=== PATIENT | male | born 1955 | race American Indian/Alaskan Native ===

== ENCOUNTER 2017-08-11 11:59 | Inpatient (IN) | payer MEDICAID ==
--- NOTE | 2017-08-11 13:41 | Emergency Department Report ---
ED General Adult HPI - General Chief complaint: Pain General Stated complaint: MISSED DIALYSIS TREATMENT Time Seen by Provider: 08/11/17 13:22 Source: patient, EMS Mode of arrival: Stretcher Limitations: No Limitations - History of Present Illness Initial comments: 61-year-old male history of diabetes and hypertension has been on hemodialysis for 8 years moved to [place] month ago seen Dr. Syed for kidney disease in the hospital here his last dialysis was a week ago he says the transport forgot to picked him up on his 2 days this week he is here for evaluation of not feeling well after he missed dialysis twice this week, no cp, no other complaints. Did have a recent knee procedure on the left distally the foot has chronic neuropathy with foot drop but is normal in appearance of ischemia or compartment syndrome or appreciated -: Gradual Radiation: non-radiation Consistency: intermittent Improves with: none Worsens with: none Associated Symptoms: denies other symptoms, malaise, shortness of breath. denies: confusion, chest pain, cough, diaphoresis, fever/chills, headaches, loss of appetite, rash, seizure, syncope, weakness - Related Data Home Medications Medication Instructions Recorded Confirmed Last Taken Calcium Acetate [Phoslo] 1,334 mg PO TID 08/02/17 08/02/17 Unknown Clopidogrel [Plavix] 75 mg PO DAILY 08/02/17 08/02/17 Unknown Pregabalin [Lyrica] 50 mg PO DAILY 08/02/17 08/02/17 Unknown Sertraline [Zoloft] 100 mg PO QDAY 08/02/17 08/02/17 Unknown Vitamin D2 50,000 units PO 1XW 08/02/17 08/02/17 Unknown Zolpidem [Ambien] 10 mg PO QHS 08/02/17 08/02/17 2 Days Ago ~07/31/17 oxyCODONE /ACETAMINOPHEN [Percocet 1 tab PO Q4-6H PRN 08/02/17 08/02/17 Unknown 5/325 mg] Previous Rx's Medication Instructions Recorded Last Taken Type amLODIPine [Norvasc] 10 mg PO QDAY #30 tablet 08/06/17 Unknown Rx Allergies Allergy/AdvReac Type Severity Reaction Status Date / Time contrast dye AdvReac Severe Rash Uncoded 08/01/17 20:48 ED Review of Systems ROS: Stated complaint: MISSED DIALYSIS TREATMENT Other details as noted in HPI Comment: All other systems reviewed and negative Constitutional: denies: diaphoresis, fever, malaise ENT: denies: dental pain, hearing loss, epistaxis Respiratory: shortness of breath. denies: cough, SOB with exertion, SOB at rest , stridor, wheezing Cardiovascular: denies: chest pain, palpitations, dyspnea on exertion, orthopnea , edema, syncope, paroxysmal nocturnal dyspnea Gastrointestinal: denies: abdominal pain, vomiting, diarrhea, constipation, hematemesis, melena, hematochezia Musculoskeletal: denies: back pain, joint swelling, arthralgia, myalgia Neurological: weakness. denies: headache, confusion, abnormal gait, vertigo Psychiatric: anxiety. denies: auditory hallucinations, visual hallucinations, homicidal thoughts ED Past Medical Hx - Past Medical History Hx Hypertension: Yes Hx Diabetes: Yes Hx Renal Disease: Yes Hx Arthritis: Yes Additional medical history: HEP B, RECTAL TEAR, NEUROPATHY, RBKA, LT TIBIA FX, ESRD - Surgical History Additional Surgical History: right BKA - Social History Smoking Status: Never Smoker Substance Use Type: None - Medications Home Medications: Home Medications Medication Instructions Recorded Confirmed Last Taken Type Calcium Acetate [Phoslo] 1,334 mg PO TID 08/02/17 08/02/17 Unknown History Clopidogrel [Plavix] 75 mg PO DAILY 08/02/17 08/02/17 Unknown History Pregabalin [Lyrica] 50 mg PO DAILY 08/02/17 08/02/17 Unknown History Sertraline [Zoloft] 100 mg PO QDAY 08/02/17 08/02/17 Unknown History Vitamin D2 50,000 units PO 1XW 08/02/17 08/02/17 Unknown History Zolpidem [Ambien] 10 mg PO QHS 08/02/17 08/02/17 2 Days Ago History ~07/31/17 oxyCODONE /ACETAMINOPHEN [Percocet 1 tab PO Q4-6H PRN 08/02/17 08/02/17 Unknown History 5/325 mg] amLODIPine [Norvasc] 10 mg PO QDAY #30 tablet 08/06/17 Unknown Rx ED Physical Exam - General Limitations: No Limitations General appearance: alert, anxious - Head Head exam: Present: atraumatic, normocephalic - Eye Eye exam: Present: PERRL, EOMI - ENT ENT exam: Present: normal exam, normal orophraynx - Neck Neck exam: Present: normal inspection. Absent: tenderness, meningismus - Respiratory Respiratory exam: Present: respiratory distress, rhonchi. Absent: stridor, accessory muscle use - Cardiovascular Cardiovascular Exam: Present: regular rate, normal rhythm - GI/Abdominal GI/Abdominal exam: Present: soft. Absent: tenderness, guarding, rebound, rigid , mass, pulsatile mass - Extremities Exam Extremities exam: Present: pedal edema, other (BKA on the right left knee immobilizer on the left side or recent traumatic injury to the knee compartments are soft chronic peripheral neuropathy with foot drop). Absent: calf tenderness - Back Exam Back exam: Present: normal inspection. Absent: CVA tenderness (L), muscle spasm , paraspinal tenderness, vertebral tenderness - Neurological Exam Neurological exam: Present: alert, oriented X3, CN II-XII intact. Absent: motor sensory deficit - Psychiatric Psychiatric exam: Present: anxious - Skin Skin exam: Present: normal color. Absent: cyanosis, diaphoretic, erythema, urticaria, vesicles, petechiae ED Course Vital Signs 08/11/17 12:06 Temperature 98.5 F Pulse Rate 75 Respiratory 16 Rate Blood Pressure 129/83 O2 Sat by Pulse 96 Oximetry ED Medical Decision Making - Lab Data Result diagrams: 08/11/17 14:25 08/11/17 14:25 - EKG Data -: EKG Interpreted by Me - EKG Data 08/11/17 15:08 Junctional rhythm rate F F 08/11/17 15:09 ischemic change. peaked T waves - Radiology Data Radiology results: report reviewed - Medical Decision Making Dr. Syed was notified and he will order dialysis orders case was discussed Dr. Shell hospitalist service for admit end-stage renal disease who has missed dialysis all week he does K of 8.3 EKG does have a junctional rhythm he was given calcium bicarbonate insulin and glucose and albuterol and will need emergent dialysis discussed Dr. Syed will write dialysis orders patient for admit pressure was stable Critical care attestation.: If time is entered above; I have spent that time in minutes in the direct care of this critically ill patient, excluding procedure time. ED Disposition Clinical Impression: ESRD on hemodialysis, Hyperkalemia, Dyspnea Disposition: OP ADMIT IP TO THIS HOSP Is pt being admited?: Yes Condition: Stable Referrals: PRIMARY CARE, [Primary Care Provider] - 3-5 Days Time of Disposition: 15:12
--- NOTE | 2017-08-11 14:25 | XRay Report ---
FINAL REPORT EXAM: XR CHEST 1V AP HISTORY: esrd TECHNIQUE: Frontal chest x-ray. PRIORS: Chest x-ray August 01, 2017. FINDINGS: [id number] cardiomegaly is stable. Aortic calcifications. Prominent central pulmonary markings. No pneumothorax. No left effusion. Ill-defined opacity in the lateral left midlung. Ill-defined opacity in the right lower lobe may represent small to moderate right pleural effusion with adjacent area of focal subsegmental atelectasis or infiltrate. There are no suspicious osseous lesions. IMPRESSION: Stable cardiomegaly. Pulmonary vascular congestion with mild pulmonary edema. Findings could be related to renal disease or heart failure. Please correlate clinically. Focal infiltrate or subsegmental atelectasis in the lateral left midlung. Not evident on prior. Small to moderate right pleural effusion with adjacent focal area of subsegmental atelectasis or infiltrate. Similar to prior.
[2017-08-11 14:44] LABS: Basophils # (Auto) 0.1 K/mm3 (0.0-0.1); Basophils % (Auto) 1.4 % (0.0-1.8); Eosinophils # (Auto) 0.2 K/mm3 (0.0-0.4); Eosinophils % (Auto) 3.3 % (0.0-4.3); Hematocrit 31.3 % (35.5-45.6); Hemoglobin 9.7 gm/dl (11.8-15.2); Lymphocytes # (Auto) 0.8 K/mm3 (1.2-5.4); Lymphocytes % (Auto) 11.6 % (13.4-35.0); Mean Corpuscular HGB Conc 31 % (32-34); Mean Corpuscular Hemoglobin 30 pg (28-32); Mean Corpuscular Volume 97 fl (84-94); Monocytes # (Auto) 0.4 K/mm3 (0.0-0.8); Monocytes % (Auto) 5.9 % (0.0-7.3); Platelet Count 159 K/mm3 (140-440); Red Blood Count 3.23 M/mm3 (3.65-5.03)
[2017-08-11] MEDS ORDERED: MORPHINE IV ONE (14:51)
[2017-08-11] MEDS ORDERED: ZOFRAN IV ONE (14:51)
[2017-08-11 14:58] LABS: Albumin 3.1 g/dL (3.9-5); Calcium 8.2 mg/dL (8.4-10.2)
[2017-08-11] MEDS ORDERED: D50W (25GM) Vial IV ONE (15:02)
[2017-08-11] MEDS ORDERED: CALCIUM GLUCONATE 1,000 MG in NACL 0.9% 100 ML IV ONE (15:02)
[2017-08-11] MEDS ORDERED: PROVENTIL IH ONE ×2 (15:03→15:13)
[2017-08-11] MEDS ORDERED: HumuLIN R IV ONE (15:03)
[2017-08-11] MEDS ORDERED: PROVENTIL IH PRN (15:09)
[2017-08-11] MEDS ORDERED: ZOFRAN IV PRN (15:09)
[2017-08-11] MEDS ORDERED: TYLENOL PO PRN (15:09)
[2017-08-11] MEDS ORDERED: SODIUM CHLORIDE FLUSH SYRINGE 10 ML IV PRN (15:09)
[2017-08-11] MEDS ORDERED: PERCOCET 5/325 PO PRN (15:11)
[2017-08-11] MEDS ORDERED: D50W (25GM) Syringe IV ONE (15:12)
[2017-08-11] MEDS ORDERED: HumuLIN R ONE (15:14)
--- NOTE | 2017-08-11 15:14 | History and Physical Report ---
History of Present Illness Chief complaint: I feel sick History of present illness: 61 YO Male with HTN, DM, OA, HBV, ESRD on HD(T,R,Sa ) presents to ED for evaluation. Pt states that he has experienced shortness of breath, weakness over the past week, with worsening symptoms over the past 2 days. Pt states that he was last dialyzed on Sunday, and has missed 2 dialysis sessions. Pt seen and evaluated in ED and found to have fluid overload. Pt denies fever, chills, CP, Palpitations, NVD, Syncope, Trauma, BRBPR, Unintentional weight loss , night sweats. Nephrology consulted in ED. Pt admitted to medical floor. Past History Past Medical History: arthritis, diabetes, ESRD, hepatitis, hypertension Past Surgical History: Other (Right BKA) Social history: single. denies: smoking, alcohol abuse, prescription drug abuse Family history: diabetes, hypertension Medications and Allergies Allergies Allergy/AdvReac Type Severity Reaction Status Date / Time contrast dye AdvReac Severe Rash Uncoded 08/01/17 20:48 Home Medications Medication Instructions Recorded Confirmed Last Taken Type Calcium Acetate [Phoslo] 1,334 mg PO TID 08/02/17 08/02/17 Unknown History Clopidogrel [Plavix] 75 mg PO DAILY 08/02/17 08/02/17 Unknown History Pregabalin [Lyrica] 50 mg PO DAILY 08/02/17 08/02/17 Unknown History Sertraline [Zoloft] 100 mg PO QDAY 08/02/17 08/02/17 Unknown History Vitamin D2 50,000 units PO 1XW 08/02/17 08/02/17 Unknown History Zolpidem [Ambien] 10 mg PO QHS 08/02/17 08/02/17 2 Days Ago History ~07/31/17 oxyCODONE /ACETAMINOPHEN [Percocet 1 tab PO Q4-6H PRN 08/02/17 08/02/17 Unknown History 5/325 mg] amLODIPine [Norvasc] 10 mg PO QDAY #30 tablet 08/06/17 Unknown Rx Active Meds: Active Medications Acetaminophen (Tylenol) 650 mg PO Q4H PRN PRN Reason: Pain MILD(1-3)/Fever >100.5/MAE Albuterol (Proventil) 2.5 mg IH Q4HRT PRN PRN Reason: Shortness Of Breath Amlodipine Besylate (Norvasc) 10 mg PO QDAY REPLACED BY [facility] Calcium Acetate (Phoslo) 1,334 mg PO TID REPLACED BY [facility] Clopidogrel Bisulfate (Plavix) 75 mg PO DAILY REPLACED BY [facility] Miscellaneous Medication (Pregabalin [Lyrica]) 50 mg PO DAILY REPLACED BY [facility] Miscellaneous Medication (Vitamin D2) 50,000 units PO 1XW REPLACED BY [facility] Ondansetron HCl (Zofran) 4 mg IV Q8H PRN PRN Reason: Nausea And Vomiting Oxycodone/Acetaminophen (Percocet 5/325) 1 tab PO Q4-6H PRN PRN Reason: Pain Sertraline HCl (Zoloft) 100 mg PO QDAY REPLACED BY [facility] Sodium Chloride (Sodium Chloride Flush Syringe 10 Ml) 10 ml IV BID REPLACED BY [facility] Sodium Chloride (Sodium Chloride Flush Syringe 10 Ml) 10 ml IV PRN PRN PRN Reason: LINE FLUSH Zolpidem Tartrate (Ambien) 10 mg PO QHS REPLACED BY [facility] Review of Systems Constitutional: weakness, no weight loss, no weight gain, no fever, no chills Ears, nose, mouth and throat: no ear pain, no ear discharge, no tinnitis, no decreased hearing, no nose pain, no nasal congestion, no nasal discharge Cardiovascular: shortness of breath, no chest pain, no orthopnea, no palpitations, no rapid/irregular heart beat, no edema Respiratory: shortness of breath, no cough, no cough with sputum, no excessive sputum Gastrointestinal: no abdominal pain, no nausea, no vomiting, no diarrhea, no constipation, no change in bowel habits Rectal: no pain, no incontinence, no bleeding Musculoskeletal: no neck stiffness, no neck pain, no shooting arm pain, no arm numbness/tingling, no low back pain, no shooting leg pain Integumentary: no rash, no pruritis, no redness, no sores, no wounds, no jaundice, no boils Neurological: no transient paralysis, no paralysis, no parathesias, no numbness , no tingling, no seizures, no syncope, no tremors Psychiatric: no anxiety, no memory loss, no change in sleep habits, no sleep disturbances, no insomnia, no hypersomnia, no change in appetite, no change in libido Endocrine: no cold intolerance, no heat intolerance, no polyphagia, no excessive thirst, no polydipsia, no polyuria Hematologic/Lymphatic: no easy bruising, no easy bleeding, no lymphadenopathy, no lymphedema Allergic/Immunologic: no urticaria, no allergic rhinitis, no wheezing, no persistent infections, no anaphylaxis Exam - Constitutional Vitals: Temp Pulse Resp BP Pulse Ox 98.5 F 75 16 129/83 96 08/11/17 12:06 08/11/17 12:06 08/11/17 12:06 08/11/17 12:06 08/11/17 12:06 General appearance: Present: mild distress - EENT Eyes: Present: PERRL ENT: hearing intact, clear oral mucosa - Neck Neck: Present: supple, normal ROM - Respiratory Respiratory effort: normal Respiratory: bilateral: diminished, rhonchi - Cardiovascular Heart Sounds: Present: S1 & S2. Absent: rub, click - Extremities Extremities: pulses symmetrical, No edema Extremity abnormal: edema Peripheral Pulses: within normal limits - Abdominal General gastrointestinal: Present: soft, non-tender, non-distended, normal bowel sounds Male genitourinary: Present: normal - Integumentary Integumentary: Present: clear, warm, dry - Musculoskeletal Musculoskeletal: gait normal, strength equal bilaterally - Psychiatric Psychiatric: appropriate mood/affect, intact judgment & insight - Neurologic Neurologic: CNII-XII intact, moves all extremities Results - Labs CBC & Chem 7: 08/11/17 14:25 08/11/17 14:25 Labs: Abnormal lab results 08/11/17 08/11/17 Range/Units 14:25 14:25 RBC 3.23 L (3.65-5.03) M/mm3 Hgb 9.7 L (11.8-15.2) gm/dl Hct 31.3 L (35.5-45.6) % MCV 97 H (84-94) fl MCHC 31 L (32-34) % RDW 17.0 H (13.2-15.2) % Lymph % (Auto) 11.6 L (13.4-35.0) % Lymph # 0.8 L (1.2-5.4) K/mm3 Seg Neutrophils % 77.8 H (40.0-70.0) % Potassium 8.3 H* (3.6-5.0) mmol/L BUN 65 H (9-20) mg/dL Creatinine 7.6 H (0.8-1.5) mg/dL Calcium 8.2 L (8.4-10.2) mg/dL AST 41 H (5-40) units/L Alkaline Phosphatase 184 H (35-129) units/L Albumin 3.1 L (3.9-5) g/dL Assessment and Plan - Patient Problems (1) ESRD on hemodialysis Current Visit: Yes Status: Acute Plan to address problem: Nephrology consulted in ED, dialysis as per renal team, strict I/O, monitor uop q shift, monitor fluid balance. (2) HTN (hypertension) Current Visit: Yes Status: Acute Qualifiers: Hypertension type: essential hypertension Qualified Code(s): I10 - Essential (primary) hypertension Plan to address problem: monitor bp q shift, resume prehospital antihypertensive therapy, dialysis (3) Hepatitis B Current Visit: Yes Status: Acute Qualifiers: Viral hepatitis chronicity: chronic Plan to address problem: Outpatient GI f/u (4) Fluid overload Current Visit: Yes Status: Acute Qualifiers: Hypervolemia type: other Qualified Code(s): E87.79 - Other fluid overload Plan to address problem: Strict I/O, monitor uop q shift, supportive care, dialysis as per renal team. (5) Noncompliance Current Visit: Yes Status: Acute Plan to address problem: Patient counseled regarding dialysis noncompliance, (6) Diabetes Current Visit: No Status: Acute Plan to address problem: consistent carbohydrate diet, insulin, accu check (7) Hyperkalemia Current Visit: Yes Status: Acute Plan to address problem: Calcium Acetate, bicarbonate, urgent dialysis, (8) DVT prophylaxis Current Visit: Yes Status: Acute Plan to address problem: SCD to BLE while in bed
[2017-08-11] MEDS ORDERED: VITAMIN D2 50000 UNIT PO SCH (15:15)
[2017-08-11] MEDS ORDERED: MORPHINE ONE (15:17)
[2017-08-11] MEDS ORDERED: ZOFRAN ONE (15:18)
[2017-08-11] MEDS ORDERED: SODIUM BICARBONATE IV ONE ×6 (15:18→16:00)
[2017-08-11] MEDS ORDERED: NACL 0.9% 100 ML IV PRN (16:10)
--- NOTE | 2017-08-11 16:10 | Event Note ---
Case was discussed with emergency room physician at length, patient has been seen in the past with our group, chart was reviewed labs are reviewed old records were also reviewed Patient has not been dialyzed properly and hence we will place dialysis orders
--- NOTE | 2017-08-11 16:15 | Consultation ---
History of Present Illness - History of Present Illness assessment and plan End-stage renal disease: Noncompliant patient Hyperkalemia: Medically treated need start dialysis Hypertension volume: To monitor and follow Stat dialysis needed today Past History Past Medical History: arthritis, diabetes, ESRD, hepatitis, hypertension Past Surgical History: Other (Right BKA) Social history: single. denies: smoking, alcohol abuse, prescription drug abuse Family history: diabetes, hypertension Medications and Allergies Allergies Allergy/AdvReac Type Severity Reaction Status Date / Time contrast dye AdvReac Severe Rash Uncoded 08/01/17 20:48 Home Medications Medication Instructions Recorded Confirmed Last Taken Type Calcium Acetate [Phoslo] 1,334 mg PO TID 08/02/17 08/02/17 Unknown History Clopidogrel [Plavix] 75 mg PO DAILY 08/02/17 08/02/17 Unknown History Pregabalin [Lyrica] 50 mg PO DAILY 08/02/17 08/02/17 Unknown History Sertraline [Zoloft] 100 mg PO QDAY 08/02/17 08/02/17 Unknown History Vitamin D2 50,000 units PO 1XW 08/02/17 08/02/17 Unknown History Zolpidem [Ambien] 10 mg PO QHS 08/02/17 08/02/17 2 Days Ago History ~07/31/17 oxyCODONE /ACETAMINOPHEN [Percocet 1 tab PO Q4-6H PRN 08/02/17 08/02/17 Unknown History 5/325 mg] amLODIPine [Norvasc] 10 mg PO QDAY #30 tablet 08/06/17 Unknown Rx Active Meds: Active Medications Acetaminophen (Tylenol) 650 mg PO Q4H PRN PRN Reason: Pain MILD(1-3)/Fever >100.5/MAE Albuterol (Proventil) 2.5 mg IH Q4HRT PRN PRN Reason: Shortness Of Breath Amlodipine Besylate (Norvasc) 10 mg PO QDAY [facility] Calcium Acetate (Phoslo) 1,334 mg PO TID [facility] Clopidogrel Bisulfate (Plavix) 75 mg PO DAILY [facility] Ergocalciferol (Vitamin D2) 50,000 unit PO QWEEK [facility] Sodium Chloride (Nacl 0.9%) 100 mls @ 999 mls/hr IV ANMOL PRN PRN Reason: Hypotension Ondansetron HCl (Zofran) 4 mg IV Q8H PRN PRN Reason: Nausea And Vomiting Oxycodone/Acetaminophen (Percocet 5/325) 1 tab PO Q4H PRN PRN Reason: Pain Pregabalin (Lyrica) 50 mg PO DAILY [facility] Sertraline HCl (Zoloft) 100 mg PO QDAY [facility] Sodium Chloride (Sodium Chloride Flush Syringe 10 Ml) 10 ml IV BID [facility] Sodium Chloride (Sodium Chloride Flush Syringe 10 Ml) 10 ml IV PRN PRN PRN Reason: LINE FLUSH Zolpidem Tartrate (Ambien) 10 mg PO QHS [facility] Exam - Vital Signs Vital signs: Vital Signs Temp Pulse Resp BP Pulse Ox 98.5 F 75 16 129/83 96 08/11/17 12:06 08/11/17 12:06 08/11/17 12:06 08/11/17 12:06 08/11/17 12:06 Results - Lab Results 08/11/17 14:25 08/11/17 14:25 Most recent lab results Calcium 8.2 mg/dL (8.4-10.2) L 08/11/17 14:25
[2017-08-12] MEDS: PHOSLO PO SCH ×4 (00:21→21:19)
[2017-08-12] MEDS: AMBIEN PO SCH ×2 (00:21→21:19)
[2017-08-12] MEDS: MORPHINE IV PRN ×5 (00:43→22:39)
[2017-08-12] MEDS: SODIUM CHLORIDE FLUSH SYRINGE 10 ML IV SCH ×3 (00:44→22:40)
[2017-08-12] MEDS ORDERED: NON-FORMULARY (Pregabalin [Lyrica] 50 MG) PO SCH (10:00)
[2017-08-12] MEDS: NORVASC PO SCH (11:27)
[2017-08-12] MEDS: LYRICA PO SCH (11:27)
[2017-08-12] MEDS: ZOLOFT PO SCH (11:28)
[2017-08-12] MEDS: PLAVIX PO SCH (11:28)
[2017-08-12] MEDS: COREG PO SCH ×2 (11:28→21:19)
[2017-08-12 12:33] LABS: Calcium 8.8 mg/dL (8.4-10.2)
--- NOTE | 2017-08-12 13:27 | Consultation ---
History of Present Illness - History of Present Illness Thank you for the consultation patient was evaluated today, around 9:45 in the morning Source of information; patient himself as well as old charts were also reviewed History of presenting illness; patient is a 62-year-old -[place] male who has been admitted here, after missing 2 dialysis treatment. Patient's last dialysis treatment was on Sunday and after that he rated on his right but was not able to go to dialysis unit. He also had fact called his dialysis facility on Sunday, but was unable to arrange for transportation, patient came to the ER with elevated potassium significantly elevated BUN/creatinine, is currently being followed by Dr. Noguera at [facility]. Ever since missing a dialysis patient has not been feeling well. Patient has been admitted here in the past as well Past medical history significant for: End-stage renal disease Anemia and end-stage renal disease Secondary hyperparathyroidism Depression Neuropathy Chronic pain Diabetes mellitus type 2 Osteoarthritis Hepatitis B Current allergies: Contrast Home medication present medication: Reviewed Social history denies any history of alcohol drug tobacco abuse Family history: Noncontributory for infertility disorder positive for diabetes and hypertension Review of system: Patient not feeling well and in fact was having some nausea after he started noticing his treatment some leg cramps All other review of systems negative Labs and x-rays: Were reviewed from the current chart Physical examination General: No acute distress HEENT: Oral mucosa moist no pharyngeal erythema no pallor or icterus no uremic order Neck: Supple no evidence of any thyromegaly trachea midline no JVD Chest: Clear to auscultation no crackles are also wheezes anteriorly Heart: Regular rate and rhythm S1-S2 heard no S3-S4 Abdomen: Soft nontender no renal bruit no CVA tenderness no suprapubic fullness no organomegaly Extremity: Minimal edema dry skin no peripheral cyanosis pulses palpable Neurological: Alert awake follows command grossly nonfocal examination Back: Nontender thoracolumbar spine Musculoskeletal: No joint effusion noted Skin: No petechial rash/noted Assessment and plan end-stage renal disease: Patient missed dialysis treatment advised him not to do so in future and in fact if his missing dialysis treatment he should come to the ER for dialysis and inform his ad terminal makeup operator is very poorly compliant and is not involved in his care Severe hyperkalemia and this could have been life-threatening and he could have potentially from this I made him aware about the degree of severity of hyperkalemia educated him about that at length, patient may require another dialysis treatment tomorrow if his potassium is elevated Patient will need a follow-up basic metabolic profile along with a CBC today If his labs are stable and is feeling well he can be considered for discharge to follow up with his dialysis clinic I have also educated him that if in future if he has such a situation he should immediately call his ad terminal makeup operator other than waiting and possibly could get more sick and from missing treatment having severe electrolyte or modalities Nature and severity of renal-related issues were discussed with patient, all questions were answered and simple Tamazight we'll follow-up on the labs, I have educated him to the best of my knowledge and believe I also advised him to make an appointment with his treating ad terminal makeup operator upon discharge His overall prognosis is going to be very poor to guarded with missing dialysis treatment in terms of mortality and morbidity as well as risk of hospitalization and sudden We'll continue to follow and make recommendations from renal standpoint. If you have any questions please feel free to contact me at [phone] Thank you for the consultation. Past History Past Medical History: arthritis, diabetes, ESRD, hepatitis, hypertension Past Surgical History: Other (Right BKA) Social history: single. denies: smoking, alcohol abuse, prescription drug abuse Family history: diabetes, hypertension Medications and Allergies Allergies Allergy/AdvReac Type Severity Reaction Status Date / Time contrast dye AdvReac Severe Rash Uncoded 08/01/17 20:48 Home Medications Medication Instructions Recorded Confirmed Last Taken Type Calcium Acetate [Phoslo] 1,334 mg PO TID 08/02/17 08/02/17 Unknown History Clopidogrel [Plavix] 75 mg PO DAILY 08/02/17 08/02/17 Unknown History Pregabalin [Lyrica] 50 mg PO DAILY 08/02/17 08/02/17 Unknown History Sertraline [Zoloft] 100 mg PO QDAY 08/02/17 08/02/17 Unknown History Vitamin D2 50,000 units PO 1XW 08/02/17 08/02/17 Unknown History Zolpidem [Ambien] 10 mg PO QHS 08/02/17 08/02/17 2 Days Ago History ~07/31/17 oxyCODONE /ACETAMINOPHEN [Percocet 1 tab PO Q4-6H PRN 08/02/17 08/02/17 Unknown History 5/325 mg] amLODIPine [Norvasc] 10 mg PO QDAY #30 tablet 08/06/17 Unknown Rx Active Meds: Active Medications Acetaminophen (Tylenol) 650 mg PO Q4H PRN PRN Reason: Pain MILD(1-3)/Fever >100.5/MAE Albuterol (Proventil) 2.5 mg IH Q4HRT PRN PRN Reason: Shortness Of Breath Amlodipine Besylate (Norvasc) 10 mg PO QDAY [facility] Last Admin: 08/12/17 11:27 Dose: 10 mg Calcium Acetate (Phoslo) 1,334 mg PO TID [facility] Last Admin: 08/12/17 09:03 Dose: 1,334 mg Carvedilol (Coreg) 6.25 mg PO BID [facility] Last Admin: 08/12/17 11:28 Dose: 6.25 mg Clopidogrel Bisulfate (Plavix) 75 mg PO DAILY [facility] Last Admin: 08/12/17 11:28 Dose: 75 mg Ergocalciferol (Vitamin D2) 50,000 unit PO QWEEK [facility] Sodium Chloride (Nacl 0.9%) 100 mls @ 999 mls/hr IV ANMOL PRN PRN Reason: Hypotension Morphine Sulfate (Morphine) 2 mg IV Q4H PRN PRN Reason: Pain, Moderate (4-6) Last Admin: 08/12/17 11:38 Dose: 2 mg Ondansetron HCl (Zofran) 4 mg IV Q8H PRN PRN Reason: Nausea And Vomiting Oxycodone/Acetaminophen (Percocet 5/325) 1 tab PO Q4H PRN PRN Reason: Pain Pregabalin (Lyrica) 50 mg PO DAILY [facility] Last Admin: 08/12/17 11:27 Dose: 50 mg Sertraline HCl (Zoloft) 100 mg PO QDAY [facility] Last Admin: 08/12/17 11:28 Dose: 100 mg Sodium Chloride (Sodium Chloride Flush Syringe 10 Ml) 10 ml IV BID [facility] Last Admin: 08/12/17 11:28 Dose: 10 ml Sodium Chloride (Sodium Chloride Flush Syringe 10 Ml) 10 ml IV PRN PRN PRN Reason: LINE FLUSH Zolpidem Tartrate (Ambien) 10 mg PO QHS [facility] Last Admin: 08/12/17 00:21 Dose: 10 mg Exam - Vital Signs Vital signs: Vital Signs Temp Pulse Resp BP Pulse Ox 98.5 F 75 16 129/83 96 08/11/17 12:06 08/11/17 12:06 08/11/17 12:06 08/11/17 12:06 08/11/17 12:06 Results - Lab Results 08/11/17 14:25 08/12/17 09:22 Most recent lab results Calcium 8.8 mg/dL (8.4-10.2) 08/12/17 09:22 Phosphorus 4.10 mg/dL (2.5-4.5) 08/12/17 09:22
[2017-08-12] MEDS ORDERED: KIONEX PO ONE ×2 (14:00→17:00)
--- NOTE | 2017-08-12 14:26 | Progress Note ---
Assessment and Plan Assessment and plan: 61 year old male with past medical history significant for ESRD on hemodialysis , hypertension presented to the emergency department after he missed 2 sessions of dialysis because of transportation issue. Patient was hyperkalemic at presentation and it was 8.3, was decreased to his hyperkalemia cocktail dialysis was done. Potassium currently is 5.6. Nephrology is following. Blood pressure medications restarted. Patient is stable now. Patient noncompliant with treatment and counselled. Disposition - Possible discharge tomorrow. History Interval history: Patient was seen and evaluated this morning, patient didn't have any complaints. Hospitalist Physical - Physical exam Narrative exam: Not in cardiopulmonary distress. The patient appeared well nourished and normally developed. Vital signs as documented. Head exam is unremarkable. No scleral icterus . Neck is without jugular venous distension, thyromegaly, or carotid bruits. Lungs are clear to auscultation. Cardiac exam reveals regular rate and Rhythm. First and second heart sounds normal. No murmurs, rubs or gallops. Abdominal exam reveals normal bowel sounds, no masses, no organomegaly and no aortic enlargement. Extremities are nonedematous and both femoral and pedal pulses are normal. PROFESSOR OF MUSIC: Alert and oriented 3. No focal weakness. - Constitutional Vitals: Temp Pulse Resp BP Pulse Ox 97.9 F 98 H 22 164/94 98 08/12/17 11:13 08/12/17 11:28 08/12/17 11:13 08/12/17 11:28 08/12/17 13:05 General appearance: Present: mild distress Results - Labs CBC & Chem 7: 08/11/17 14:25 08/12/17 09:22 Labs: Laboratory Last Values WBC 6.6 K/mm3 (4.5-11.0) 08/11/17 14:25 RBC 3.23 M/mm3 (3.65-5.03) L 08/11/17 14:25 Hgb 9.7 gm/dl (11.8-15.2) L 08/11/17 14:25 Hct 31.3 % (35.5-45.6) L 08/11/17 14:25 MCV 97 fl (84-94) H 08/11/17 14:25 MCH 30 pg (28-32) 08/11/17 14:25 MCHC 31 % (32-34) L 08/11/17 14:25 RDW 17.0 % (13.2-15.2) H 08/11/17 14:25 Plt Count 159 K/mm3 (140-440) 08/11/17 14:25 Lymph % (Auto) 11.6 % (13.4-35.0) L 08/11/17 14:25 [place] % (Auto) 5.9 % (0.0-7.3) 08/11/17 14:25 Eos % (Auto) 3.3 % (0.0-4.3) 08/11/17 14:25 Baso % (Auto) 1.4 % (0.0-1.8) 08/11/17 14:25 Lymph # 0.8 K/mm3 (1.2-5.4) L 08/11/17 14:25 [place] # 0.4 K/mm3 (0.0-0.8) 08/11/17 14:25 Eos # 0.2 K/mm3 (0.0-0.4) 08/11/17 14:25 Baso # 0.1 K/mm3 (0.0-0.1) 08/11/17 14:25 Seg Neutrophils % 77.8 % (40.0-70.0) H 08/11/17 14:25 Seg Neutrophils # 5.1 K/mm3 (1.8-7.7) 08/11/17 14:25 Sodium 139 mmol/L (137-145) 08/12/17 09:22 Potassium 5.6 mmol/L (3.6-5.0) H D 08/12/17 09:22 Chloride 100.0 mmol/L (98-107) 08/12/17 09:22 Carbon Dioxide 28 mmol/L (22-30) 08/12/17 09:22 Anion Gap 17 mmol/L 08/12/17 09:22 BUN 33 mg/dL (9-20) H 08/12/17 09:22 Creatinine 4.8 mg/dL (0.8-1.5) H 08/12/17 09:22 Estimated GFR 15 ml/min 08/12/17 09:22 BUN/Creatinine Ratio 7 % 08/12/17 09:22 Glucose 96 mg/dL (75-100) 08/12/17 09:22 Calcium 8.8 mg/dL (8.4-10.2) 08/12/17 09:22 Phosphorus 4.10 mg/dL (2.5-4.5) 08/12/17 09:22 Total Bilirubin 0.50 mg/dL (0.1-1.2) 08/11/17 14:25 AST 41 units/L (5-40) H 08/11/17 14:25 ALT 26 units/L (7-56) 08/11/17 14:25 Alkaline Phosphatase 184 units/L (35-129) H 08/11/17 14:25 Total Protein 7.4 g/dL (6.3-8.2) 08/11/17 14:25 Albumin 3.1 g/dL (3.9-5) L 08/11/17 14:25 Albumin/Globulin Ratio 0.7 % 08/11/17 14:25
[2017-08-13] MEDS: MORPHINE IV PRN ×5 (05:16→22:53)
[2017-08-13 06:44] LABS: Basophils # (Auto) 0.1 K/mm3 (0.0-0.1); Basophils % (Auto) 1.1 % (0.0-1.8); Eosinophils # (Auto) 0.2 K/mm3 (0.0-0.4); Eosinophils % (Auto) 4.3 % (0.0-4.3); Hemoglobin 9.5 gm/dl (11.8-15.2); Lymphocytes # (Auto) 0.7 K/mm3 (1.2-5.4); Lymphocytes % (Auto) 12.6 % (13.4-35.0); Mean Corpuscular HGB Conc 33 % (32-34); Mean Corpuscular Hemoglobin 31 pg (28-32); Mean Corpuscular Volume 94 fl (84-94); Monocytes # (Auto) 0.4 K/mm3 (0.0-0.8); Monocytes % (Auto) 6.8 % (0.0-7.3); Platelet Count 135 K/mm3 (140-440); Red Blood Count 3.09 M/mm3 (3.65-5.03); Red Cell Distribution Width 17.6 % (13.2-15.2)
[2017-08-13 06:45] LABS: Calcium 8.5 mg/dL (8.4-10.2)
[2017-08-13] MEDS: PHOSLO PO SCH ×3 (09:14→18:28)
[2017-08-13] MEDS: PLAVIX PO SCH (09:14)
[2017-08-13] MEDS: COREG PO SCH ×2 (09:14→22:21)
[2017-08-13] MEDS: NORVASC PO SCH (09:14)
[2017-08-13] MEDS: ZOLOFT PO SCH (09:15)
[2017-08-13] MEDS ORDERED: MORPHINE ONE ×3 (09:49→17:53)
[2017-08-13] MEDS ORDERED: KIONEX PO ONE (10:00)
--- NOTE | 2017-08-13 11:01 | Progress Note ---
Assessment and Plan Impression: * ESRD * Hyperkalemia * HTN * Anemia in esrd * Noncompliance Plan: * HD q MWF * daily lytes * strict i/os * uf as tolerated with hd * renal diet * stress compliance with medical therapy * ok to dc after hd today Subjective Date of service: 08/13/17 Principal diagnosis: esrd Interval history: resting in bed today Objective - Exam Narrative Exam: General appearance: Present: no acute distress, well-nourished - EENT Eyes: Present: PERRL ENT: hearing intact, clear oral mucosa - Neck Neck: Present: supple, normal ROM - Respiratory Respiratory effort: normal Respiratory: bilateral: CTA - Cardiovascular Heart rate: 80 Rhythm: regular Heart Sounds: Present: S1 & S2. Absent: rub, click - Extremities Extremities: pulses symmetrical, No edema Peripheral Pulses: within normal limits - Abdominal General gastrointestinal: Present: soft, non-tender, non-distended, normal bowel sounds Female genitourinary: Present: normal - Rectal Rectal Exam: deferred - Integumentary Integumentary: Present: clear, warm, dry - Musculoskeletal Musculoskeletal: strength equal bilaterally, generalized weakness - Psychiatric Psychiatric: appropriate mood/affect, intact judgment & insight - Vital Signs Vital signs: Vital Signs - 12hr 08/13/17 08/13/17 08/13/17 00:33 05:08 08:12 Temperature 97.9 F 98.2 F 97.8 F Pulse Rate 71 98 H 72 Respiratory 20 20 20 Rate Blood Pressure 143/74 157/88 145/68 O2 Sat by Pulse 91 93 93 Oximetry 08/13/17 09:14 Temperature Pulse Rate 83 Respiratory Rate Blood Pressure 150/75 O2 Sat by Pulse Oximetry - Lab 08/13/17 05:40 08/13/17 05:40 Most recent lab results Calcium 8.5 mg/dL (8.4-10.2) 08/13/17 05:40 Phosphorus 4.10 mg/dL (2.5-4.5) 08/12/17 09:22
--- NOTE | 2017-08-13 14:01 | Discharge Summary ---
Providers - Providers Date of Admission: 08/11/17 18:12 Attending physician: ZULMA REY MD 08/11/17 13:54 Consult to Physician [CONS] Stat Comment: DR SERRANO AWARE [id number] Consulting Provider: GUALBERTO SERRANO Physician Instructions: Reason For Exam: esrd Primary care physician: BUTTON SEWER HAND Hospitalization Reason for admission: Missed dialysis, Htperkalemia Condition: Stable Disposition: DC-01 TO HOME OR SELFCARE Time spent for discharge: 31 minutes - Discharge Diagnoses (1) Ascites Status: Acute (2) ESRD on hemodialysis Status: Acute (3) Fluid overload Status: Acute Qualifiers: Hypervolemia type: other Qualified Code(s): E87.79 - Other fluid overload (4) HTN (hypertension) Status: Acute Qualifiers: Hypertension type: essential hypertension Qualified Code(s): I10 - Essential (primary) hypertension (5) Hepatitis B Status: Acute Qualifiers: Viral hepatitis chronicity: chronic (6) Hyperkalemia Status: Acute Core Measure Documentation - Palliative Care Palliative Care/ Comfort Measures: Not Applicable - Core Measures Any of the following diagnoses?: none Exam - Physical Exam Narrative exam: Not in cardiopulmonary distress. The patient appeared well nourished and normally developed. Vital signs as documented. Head exam is unremarkable. No scleral icterus . Neck is without jugular venous distension, thyromegaly, or carotid bruits. Lungs are clear to auscultation. Cardiac exam reveals regular rate and Rhythm. First and second heart sounds normal. No murmurs, rubs or gallops. Abdominal exam reveals normal bowel sounds, no masses, no organomegaly and no aortic enlargement. Extremities are nonedematous and both femoral and pedal pulses are normal. SCIENCE INTERPRETER: Alert and oriented 3. No focal weakness. - Constitutional Vitals: Temp Pulse Resp BP Pulse Ox 97.8 F 79 18 120/64 93 08/13/17 13:23 08/13/17 13:30 08/13/17 13:23 08/13/17 13:30 08/13/17 08:12 Plan Activity: no restrictions Weight Bearing Status: Full Weight Bearing Diet: low salt, renal Additional Instructions: Follow up at [facility] in 1-2 weeks Follow up with: PRIMARY CAREMD [Primary Care Provider] - 3-5 Days
[2017-08-13] MEDS: LYRICA PO SCH (14:09)
[2017-08-13 20:19] VITALS: BP 156/82
[2017-08-13] MEDS: AMBIEN PO SCH (22:22)
[2017-08-15] MEDS ORDERED: VITAMIN D2 PO SCH (10:00)
== END 2017-08-13 23:55 | disposition home or self-care (01) | DRG 640 ==
LOC: ED 11:59 → 3A 18:12
PROVIDERS: ADMIT Internal Medicine; ATTEND Internal Medicine
PROC: 5A1D70Z Performance of Urinary Filtration, Intermittent, Less than 6 Hours Per Day (ICD-10-PCS; principal; 2017-08-11)
PROC: 5A1D70Z Performance of Urinary Filtration, Intermittent, Less than 6 Hours Per Day (ICD-10-PCS; 2017-08-13)
DX: E87.5 Hyperkalemia (principal); N18.6 End stage renal disease; E87.70 Fluid overload, unspecified; E11.22 Type 2 diabetes mellitus with diabetic chronic kidney disease; Z91.15 Patient's noncompliance with renal dialysis; D63.1 Anemia in chronic kidney disease; Z91.041 Radiographic dye allergy status; I12.0 Hypertensive chronic kidney disease with stage 5 chronic kidney disease or end stage renal disease; Z99.2 Dependence on renal dialysis; E11.40 Type 2 diabetes mellitus with diabetic neuropathy, unspecified; Z89.511 Acquired absence of right leg below knee; Z83.3 Family history of diabetes mellitus; Z82.49 Family history of ischemic heart disease and other diseases of the circulatory system; N25.81 Secondary hyperparathyroidism of renal origin; F32.9 Major depressive disorder, single episode, unspecified; R18.8 Other ascites; B19.10 Unspecified viral hepatitis B without hepatic coma
CPT/HCPCS: 36415; 71045; 80048; 80053; 82962; 84100; 85025; 93005; 93010; J0610; J1815; J2270; J2405

== ENCOUNTER 2017-08-22 16:13 | Inpatient (IN) | payer MEDICAID ==
[2017-08-22] MEDS ORDERED: PERCOCET 5/325 PO ONE (16:53)
--- NOTE | 2017-08-22 16:53 | Emergency Department Report ---
HPI - General Chief Complaint: Dyspnea/Respdistress Time Seen by Provider: 08/22/17 16:40 - HPI HPI: 61-year-old [place] male presents to the emergency department by EMS with report of some shortness of breath, fluid retention in the legs and abdomen and some pain in the hands and left knee. The patient has missed his last 3 dialysis sessions because of transportation issues. He normally is Sunday/ /Sunday and last had dialysis done last Sunday, 8 days ago. He has a dialysis fistula to the left upper extremity. The patient is also dealing with left knee and leg pain after he broke his tibia a few weeks ago. He has a right below-knee amputation secondary to some vascular issues. He also has a history of arthritis, diabetes, hypertension and hepatitis B. No recent travel or sick contacts at home. He denies any fever, chest pain, nausea, vomiting or diaphoresis. He is unsure the name of his quitline counselor but says he goes to a [facility] in [facility]. ED Past Medical Hx - Past Medical History Previous Medical History?: Yes Hx Hypertension: Yes Hx Diabetes: Yes Hx Renal Disease: Yes Hx Arthritis: Yes Additional medical history: HEP B, RECTAL TEAR, NEUROPATHY, RBKA, LT TIBIA FX, ESRD - Surgical History Past Surgical History?: Yes Additional Surgical History: right BKA - Social History Smoking Status: Never Smoker Substance Use Type: None - Medications Home Medications: Home Medications Medication Instructions Recorded Confirmed Last Taken Type Calcium Acetate [Phoslo] 1,334 mg PO TID 08/02/17 08/02/17 Unknown History Clopidogrel [Plavix] 75 mg PO DAILY 08/02/17 08/02/17 Unknown History Pregabalin [Lyrica] 50 mg PO DAILY 08/02/17 08/02/17 Unknown History Sertraline [Zoloft] 100 mg PO QDAY 08/02/17 08/02/17 Unknown History Vitamin D2 50,000 units PO 1XW 08/02/17 08/02/17 Unknown History Zolpidem [Ambien] 10 mg PO QHS 08/02/17 08/02/17 2 Days Ago History ~07/31/17 oxyCODONE /ACETAMINOPHEN [Percocet 1 tab PO Q4-6H PRN 08/02/17 08/02/17 Unknown History 5/325 mg] amLODIPine [Norvasc] 10 mg PO QDAY #30 tablet 08/06/17 Unknown Rx ED Review of Systems ROS: Stated complaint: JEISON Other details as noted in HPI Comment: All other systems reviewed and negative Constitutional: denies: chills, fever Eyes: denies: eye pain, eye discharge, vision change ENT: denies: ear pain, throat pain Respiratory: shortness of breath. denies: cough Cardiovascular: edema. denies: chest pain, palpitations Gastrointestinal: denies: abdominal pain, nausea, diarrhea Musculoskeletal: arthralgia. denies: back pain Skin: denies: rash, lesions Neurological: denies: headache, weakness, paresthesias Physical Exam - Physical Exam Vital Signs: Vital Signs 08/22/17 16:33 Temperature 97.6 F Pulse Rate 74 Respiratory 22 Rate Blood Pressure 164/77 O2 Sat by Pulse 95 Oximetry Physical Exam: GENERAL: The patient is well-developed well-nourished. HENT: Normocephalic. Atraumatic. Patient has moist mucous membranes. EYES: Extraocular motions are intact. Pupils equal reactive to light bilaterally. NECK: Supple. Trachea is midline. CHEST/LUNGS: Clear to auscultation. There is no respiratory distress noted. HEART/CARDIOVASCULAR: Regular. There is no tachycardia. There is no murmur. ABDOMEN: Abdomen is soft, nontender. Patient has normal bowel sounds. Positive fluid wave. There is some mild to moderate abdominal distention most likely secondary to ascites. SKIN: There is some mild left lower extremity edema seen. Skin is warm and dry. NEURO: The patient is awake, alert, and oriented. The patient is cooperative. The patient has no focal neurologic deficits. The patient has normal speech. MUSCULOSKELETAL: There is some tenderness palpation to the left proximal lower leg/tibia with patient has a known fracture. There is no evidence of acute injury. There is a patent left upper extremity dialysis fistula. ED Course Vital Signs 08/22/17 16:33 Temperature 97.6 F Pulse Rate 74 Respiratory 22 Rate Blood Pressure 164/77 O2 Sat by Pulse 95 Oximetry - Consultations Consultation #1: I spoke with the quitline counselor, Dr. Syed, who will see the patient has a consult and I believe may arrange for the patient to get dialysis this evening. 08/22/17 18:41 ED Medical Decision Making - Lab Data Result diagrams: 08/22/17 16:49 08/22/17 16:49 - Radiology Data Radiology results: image reviewed interpreted by me: Chest x-ray shows some cardiomegaly and some pulmonary vascular congestion. There is some right-sided basilar pleural effusion. - Medical Decision Making Patient has missed the last 3 dialysis sessions. He does appear to have some volume overload but does not appear in any respiratory distress. However he has a potassium of 7.4. He was given the hyperkalemia cocktail. Nephrology was contacted and will see the patient for possible dialysis this evening. Patient was accepted for admission by the hospitalist Dr. Shell. - Differential Diagnosis hyperkalemia, CHF, pneumonia Critical Care Time: No Critical care attestation.: If time is entered above; I have spent that time in minutes in the direct care of this critically ill patient, excluding procedure time. ED Disposition Clinical Impression: End-stage renal disease needing dialysis, Hyperkalemia, Pleural effusion, right Hypervolemia Qualifiers: Hypervolemia type: other Qualified Code(s): E87.79 - Other fluid overload HTN (hypertension) Qualifiers: Hypertension type: essential hypertension Qualified Code(s): I10 - Essential ( primary) hypertension Disposition: OP ADMIT IP TO THIS HOSP Is pt being admited?: Yes Condition: Fair Instructions: Hypertension (ED) Time of Disposition: 20:01
[2017-08-22 17:16] LABS: Basophils # (Auto) 0.1 K/mm3 (0.0-0.1); Basophils % (Auto) 1.1 % (0.0-1.8); Eosinophils # (Auto) 0.1 K/mm3 (0.0-0.4); Eosinophils % (Auto) 2.1 % (0.0-4.3); Lymphocytes # (Auto) 0.8 K/mm3 (1.2-5.4); Lymphocytes % (Auto) 11.1 % (13.4-35.0); Mean Corpuscular HGB Conc 31 % (32-34); Mean Corpuscular Hemoglobin 30 pg (28-32); Mean Corpuscular Volume 96 fl (84-94); Monocytes # (Auto) 0.4 K/mm3 (0.0-0.8); Red Blood Count 3.32 M/mm3 (3.65-5.03); Red Cell Distribution Width 18.9 % (13.2-15.2)
[2017-08-22 17:33] LABS: Alanine Aminotransferase 28 units/L (7-56); Albumin 2.9 g/dL (3.9-5); BUN/Creatinine Ratio 10; Blood Urea Nitrogen 74 mg/dL (9-20); Calcium 7.8 mg/dL (8.4-10.2); Hemolysis Index 7
[2017-08-22] MEDS ORDERED: CALCIUM CHLORIDE 1,000 MG in NACL 0.9% 100 ML IV ONE (17:42)
[2017-08-22] MEDS ORDERED: PROVENTIL IH ONE (17:44)
[2017-08-22] MEDS ORDERED: KIONEX PO ONE (17:45)
[2017-08-22] MEDS ORDERED: HumuLIN R IV ONE (17:45)
[2017-08-22] MEDS ORDERED: D50W (25GM) Syringe IV ONE (17:45)
[2017-08-22 17:51] LABS: Platelet Count 111 K/mm3 (140-440)
--- NOTE | 2017-08-22 18:47 | History and Physical Report ---
History of Present Illness Chief complaint: its hard to breathe History of present illness: 61 YO Male with HTN, DM, OA, HBV, ESRD on HD(T,R,Sa ) presents to ED for evaluation. Pt states that he has experienced shortness of breath, weakness over the past week, with worsening symptoms over the past 3 days. Pt states that he has missed 3 dialysis sessions due to lack of transportation. Pt seen and evaluated in ED and found to have fluid overload secondary to ESRD and missed dialysis, as well as Acute respiratory failure. Pt denies fever, chills, CP, Palpitations, NVD, Syncope, Trauma, BRBPR, Unintentional weight loss, night sweats. Nephrology consulted in ED. Pt admitted to medical floor pending dialysis. Past History Past Medical History: arthritis, diabetes, ESRD, hypertension Past Surgical History: Other (Right BKA) Social history: single. denies: smoking, alcohol abuse, prescription drug abuse Family history: diabetes, hypertension Medications and Allergies Allergies Allergy/AdvReac Type Severity Reaction Status Date / Time contrast dye AdvReac Severe Rash Uncoded 08/01/17 20:48 Home Medications Medication Instructions Recorded Confirmed Last Taken Type Calcium Acetate [Phoslo] 1,334 mg PO TID 08/02/17 08/22/17 Unknown History Clopidogrel [Plavix] 75 mg PO DAILY 08/02/17 08/22/17 Unknown History Pregabalin [Lyrica] 50 mg PO DAILY 08/02/17 08/22/17 Unknown History Sertraline [Zoloft] 100 mg PO DAILY 08/02/17 08/22/17 Unknown History Vitamin D2 50,000 units PO 1XW 08/02/17 08/22/17 Unknown History Zolpidem [Ambien] 10 mg PO QHS 08/02/17 08/22/17 2 Days Ago History ~07/31/17 oxyCODONE /ACETAMINOPHEN [Percocet 1 tab PO Q4-6H PRN 08/02/17 08/22/17 Unknown History 5/325 mg] amLODIPine [Norvasc] 10 mg PO QDAY #30 tablet 08/06/17 08/22/17 Unknown Rx Ascorbic Acid [Vitamin C] 500 mg PO DAILY 08/22/17 08/22/17 Unknown History Levothyroxine [Synthroid] 50 mcg PO DAILY 08/22/17 08/22/17 Unknown History Loperamide [Imodium] 2 mg PO PRN 08/22/17 08/22/17 Unknown History Multivit-Min/Iron Fum/Folic AC 1 each PO DAILY 08/22/17 08/22/17 Unknown History [Lpphy-Gtokedg-Juxvlmat Tablet] Pantoprazole [Protonix] 40 mg PO DAILY 08/22/17 08/22/17 Unknown History hydrALAZINE [Apresoline] 25 mg PO DAILY 08/22/17 08/22/17 Unknown History Review of Systems Constitutional: weight gain, no weight loss, no fever, no chills Ears, nose, mouth and throat: no ear pain, no ear discharge, no tinnitis, no nose pain, no nasal congestion, no nasal discharge Cardiovascular: shortness of breath, no chest pain, no palpitations, no syncope Respiratory: no cough, no cough with sputum, no excessive sputum, no hemoptysis Gastrointestinal: no abdominal pain, no nausea, no vomiting Genitourinary Male: no hematuria, no flank pain, no discharge, no urinary frequency, no urinary hesitancy Rectal: no pain, no incontinence, no bleeding Musculoskeletal: no neck stiffness, no neck pain, no shooting arm pain, no arm numbness/tingling, no low back pain, no shooting leg pain Integumentary: no rash, no pruritis, no redness, no sores, no wounds, no jaundice Neurological: no transient paralysis, no paralysis, no weakness, no parathesias , no numbness, no tingling, no seizures Psychiatric: no anxiety, no memory loss, no change in sleep habits, no sleep disturbances, no insomnia, no hypersomnia Endocrine: no cold intolerance, no heat intolerance, no polyphagia, no excessive thirst, no polydipsia, no polyuria, no nocturia Hematologic/Lymphatic: no easy bruising, no easy bleeding, no lymphadenopathy, no lymphedema Allergic/Immunologic: no urticaria, no allergic rhinitis, no wheezing, no persistent infections, no anaphylaxis, no angioedema Exam - Constitutional Vitals: Temp Pulse Resp BP Pulse Ox 97.6 F 74 22 164/86 95 08/22/17 16:33 08/22/17 16:33 08/22/17 16:33 08/22/17 18:31 08/22/17 18:31 General appearance: Present: mild distress - EENT Eyes: Present: PERRL ENT: hearing intact, clear oral mucosa - Neck Neck: Present: supple, normal ROM - Respiratory Respiratory effort: labored Respiratory: bilateral: diminished - Cardiovascular Heart Sounds: Present: S1 & S2. Absent: rub, click - Extremities Extremities: pulses symmetrical, No edema Extremity abnormal: edema Peripheral Pulses: within normal limits - Abdominal General gastrointestinal: Present: soft, non-tender, non-distended, normal bowel sounds Male genitourinary: Present: normal - Integumentary Integumentary: Present: clear, warm, dry - Musculoskeletal Musculoskeletal: gait normal, strength equal bilaterally - Psychiatric Psychiatric: appropriate mood/affect, intact judgment & insight - Neurologic Neurologic: CNII-XII intact, moves all extremities Results - Labs CBC & Chem 7: 08/22/17 16:49 08/23/17 01:16 Labs: Abnormal lab results 08/22/17 08/22/17 Range/Units 16:49 16:49 RBC 3.32 L (3.65-5.03) M/mm3 Hgb 10.0 L (11.8-15.2) gm/dl Hct 32.0 L (35.5-45.6) % MCV 96 H (84-94) fl MCHC 31 L (32-34) % RDW 18.9 H (13.2-15.2) % Plt Count 111 L (140-440) K/mm3 Lymph % (Auto) 11.1 L (13.4-35.0) % Lymph # 0.8 L (1.2-5.4) K/mm3 Seg Neutrophils % 79.7 H (40.0-70.0) % Potassium 7.4 H* (3.6-5.0) mmol/L BUN 74 H (9-20) mg/dL Creatinine 7.6 H (0.8-1.5) mg/dL Calcium 7.8 L (8.4-10.2) mg/dL Alkaline Phosphatase 191 H (35-129) units/L NT-Pro-B Natriuret Pep > 89827 H (0-900) pg/mL Albumin 2.9 L (3.9-5) g/dL Assessment and Plan - Patient Problems (1) Acute respiratory failure Current Visit: Yes Status: Acute Qualifiers: Respiratory failure complication: hypoxia Qualified Code(s): J96.01 - Acute respiratory failure with hypoxia Plan to address problem: Supplemental oxygen, nebulizer therapy, NIPPV as clinically indicated, urgent dialysis, Chest x ray (2) End-stage renal disease needing dialysis Current Visit: Yes Status: Acute Plan to address problem: Nephrology consulted in ED, strict I/O, diuresis, (3) Fluid overload Current Visit: Yes Status: Acute Qualifiers: Hypervolemia type: other Qualified Code(s): E87.79 - Other fluid overload Plan to address problem: strict I/o, diuresis, urgent dialysis (4) HTN (hypertension) Current Visit: Yes Status: Acute Qualifiers: Hypertension type: essential hypertension Qualified Code(s): I10 - Essential (primary) hypertension Plan to address problem: Monitor bp q shift, resume prehospital antihypertensive therapy (5) DVT prophylaxis Current Visit: No Status: Acute Plan to address problem: SCD to ble while in bed
[2017-08-22] MEDS ORDERED: SODIUM CHLORIDE FLUSH SYRINGE 10 ML IV PRN (18:48)
[2017-08-22] MEDS ORDERED: ZOFRAN IV PRN (18:48)
[2017-08-22] MEDS ORDERED: TYLENOL PO PRN (18:48)
[2017-08-22] MEDS ORDERED: PROVENTIL IH PRN (18:48)
[2017-08-22] MEDS ORDERED: PERCOCET 5/325 PO PRN ×3 (18:49→19:00)
[2017-08-22] MEDS ORDERED: NACL 0.9% 100 ML IV PRN (18:53)
--- NOTE | 2017-08-22 18:53 | Event Note ---
d/w CHARMAINE pettit chart reviewed stat HD ordered , d/w jone to inform HD nurse rani
[2017-08-22] MEDS ORDERED: VITAMIN D2 50000 UNIT PO SCH (19:00)
[2017-08-22] MEDS ORDERED: VITAMIN D2 PO SCH (19:06)
[2017-08-22] MEDS ORDERED: MORPHINE IV ONE (19:16)
[2017-08-22] MEDS ORDERED: PHOSLO PO SCH (20:00)
[2017-08-22] MEDS ORDERED: AMBIEN ONE (22:15)
[2017-08-22] MEDS: AMBIEN PO SCH (22:20)
[2017-08-22] MEDS: SODIUM CHLORIDE FLUSH SYRINGE 10 ML IV SCH (23:33)
[2017-08-23] MEDS: AMBIEN PO SCH ×2 (00:18→23:04)
[2017-08-23 01:43] LABS: Calcium 8.3 mg/dL (8.4-10.2)
[2017-08-23] MEDS ORDERED: KIONEX PO ONE (03:00)
[2017-08-23] MEDS ORDERED: APRESOLINE IV PRN (07:54)
[2017-08-23] MEDS: SODIUM CHLORIDE FLUSH SYRINGE 10 ML IV SCH ×2 (09:40→23:46)
[2017-08-23] MEDS ORDERED: NACL 0.9% 100 ML IV PRN (09:45)
--- NOTE | 2017-08-23 09:49 | Consultation ---
History of Present Illness - Reason for Consult Consult date: 08/23/17 - History of Present Illness pt was seen and examined. Consult dictated Past History Past Medical History: arthritis, diabetes, ESRD, hypertension Past Surgical History: Other (Right BKA) Social history: single. denies: smoking, alcohol abuse, prescription drug abuse Family history: diabetes, hypertension Medications and Allergies Allergies Allergy/AdvReac Type Severity Reaction Status Date / Time contrast dye AdvReac Severe Rash Uncoded 08/01/17 20:48 Home Medications Medication Instructions Recorded Confirmed Last Taken Type Calcium Acetate [Phoslo] 1,334 mg PO TID 08/02/17 08/22/17 Unknown History Clopidogrel [Plavix] 75 mg PO DAILY 08/02/17 08/22/17 Unknown History Pregabalin [Lyrica] 50 mg PO DAILY 08/02/17 08/22/17 Unknown History Sertraline [Zoloft] 100 mg PO DAILY 08/02/17 08/22/17 Unknown History Vitamin D2 50,000 units PO 1XW 08/02/17 08/22/17 Unknown History Zolpidem [Ambien] 10 mg PO QHS 08/02/17 08/22/17 2 Days Ago History ~07/31/17 oxyCODONE /ACETAMINOPHEN [Percocet 1 tab PO Q4-6H PRN 08/02/17 08/22/17 Unknown History 5/325 mg] amLODIPine [Norvasc] 10 mg PO QDAY #30 tablet 08/06/17 08/22/17 Unknown Rx Ascorbic Acid [Vitamin C] 500 mg PO DAILY 08/22/17 08/22/17 Unknown History Levothyroxine [Synthroid] 50 mcg PO DAILY 08/22/17 08/22/17 Unknown History Loperamide [Imodium] 2 mg PO PRN 08/22/17 08/22/17 Unknown History Multivit-Min/Iron Fum/Folic AC 1 each PO DAILY 08/22/17 08/22/17 Unknown History [Jndbj-Rrskjer-Ohrmbagq Tablet] Pantoprazole [Protonix] 40 mg PO DAILY 08/22/17 08/22/17 Unknown History hydrALAZINE [Apresoline] 25 mg PO DAILY 08/22/17 08/22/17 Unknown History Active Meds: Active Medications Acetaminophen (Tylenol) 650 mg PO Q4H PRN PRN Reason: Pain MILD(1-3)/Fever >100.5/MAE Albuterol (Proventil) 2.5 mg IH Q4HRT PRN PRN Reason: Shortness Of Breath Amlodipine Besylate (Norvasc) 10 mg PO QDAY [facility] Calcium Acetate (Phoslo) 1,334 mg PO TID [facility] Last Admin: 08/22/17 22:20 Dose: 1,334 mg Clopidogrel Bisulfate (Plavix) 75 mg PO DAILY [facility] Ergocalciferol (Vitamin D2) 50,000 unit PO We [facility] Last Admin: 08/22/17 21:19 Dose: 50,000 unit Hydralazine HCl (Apresoline) 10 mg IV Q4HR PRN PRN Reason: Hypertension Sodium Chloride (Nacl 0.9%) 100 mls @ 999 mls/hr IV ANMOL PRN PRN Reason: Hypotension Sodium Chloride (Nacl 0.9%) 100 mls @ 999 mls/hr IV ANMOL PRN PRN Reason: Hypotension Ondansetron HCl (Zofran) 4 mg IV Q8H PRN PRN Reason: Nausea And Vomiting Oxycodone/Acetaminophen (Percocet 5/325) 1 tab PO Q4H PRN PRN Reason: Pain, Moderate (4-6) Oxycodone/Acetaminophen (Percocet 5/325) 1 tab PO Q6H PRN PRN Reason: Pain, Moderate (4-6) Pregabalin (Lyrica) 50 mg PO QDAY [facility] Sertraline HCl (Zoloft) 100 mg PO QDAY [facility] Sodium Chloride (Sodium Chloride Flush Syringe 10 Ml) 10 ml IV BID [facility] Last Admin: 08/22/17 23:33 Dose: 10 ml Sodium Chloride (Sodium Chloride Flush Syringe 10 Ml) 10 ml IV PRN PRN PRN Reason: LINE FLUSH Zolpidem Tartrate (Ambien) 10 mg PO QHS [facility] Last Admin: 08/23/17 00:18 Dose: 10 mg Exam - Constitutional Vitals: Temp Pulse Resp BP Pulse Ox 98.0 F 80 18 185/89 97 08/22/17 23:00 08/23/17 06:31 08/23/17 06:31 08/23/17 06:31 08/23/17 06:31 Results - Labs CBC & Chem 7: 08/22/17 16:49 08/23/17 01:16 Labs: Abnormal lab results 08/22/17 08/22/17 08/22/17 Range/Units 16:49 16:49 23:53 RBC 3.32 L (3.65-5.03) M/mm3 Hgb 10.0 L (11.8-15.2) gm/dl Hct 32.0 L (35.5-45.6) % MCV 96 H (84-94) fl MCHC 31 L (32-34) % RDW 18.9 H (13.2-15.2) % Plt Count 111 L (140-440) K/mm3 Lymph % (Auto) 11.1 L (13.4-35.0) % Lymph # 0.8 L (1.2-5.4) K/mm3 Seg Neutrophils % 79.7 H (40.0-70.0) % Potassium 7.4 H* (3.6-5.0) mmol/L BUN 74 H (9-20) mg/dL Creatinine 7.6 H (0.8-1.5) mg/dL POC Glucose 48 L (70-105) Calcium 7.8 L (8.4-10.2) mg/dL Alkaline Phosphatase 191 H (35-129) units/L NT-Pro-B Natriuret Pep > 99589 H (0-900) pg/mL Albumin 2.9 L (3.9-5) g/dL 08/23/17 08/23/17 Range/Units 00:15 01:16 RBC (3.65-5.03) M/mm3 Hgb (11.8-15.2) gm/dl Hct (35.5-45.6) % MCV (84-94) fl MCHC (32-34) % RDW (13.2-15.2) % Plt Count (140-440) K/mm3 Lymph % (Auto) (13.4-35.0) % Lymph # (1.2-5.4) K/mm3 Seg Neutrophils % (40.0-70.0) % Potassium 5.8 H D (3.6-5.0) mmol/L BUN 50 H (9-20) mg/dL Creatinine 5.8 H (0.8-1.5) mg/dL POC Glucose 57 L (70-105) Calcium 8.3 L (8.4-10.2) mg/dL Alkaline Phosphatase (35-129) units/L NT-Pro-B Natriuret Pep (0-900) pg/mL Albumin (3.9-5) g/dL
[2017-08-23] MEDS ORDERED: NON-FORMULARY (Pregabalin [Lyrica] 50 MG) PO SCH (10:00)
[2017-08-23] MEDS ORDERED: PERCOCET 5/325 PO PRN (11:43)
--- NOTE | 2017-08-23 15:16 | Progress Note ---
Assessment and Plan / Acute respiratory failure Due to volume overload from ESRD Supplemental oxygen, nebulizer therapy, NIPPV as clinically indicated, urgent dialysis, Chest x ray / End-stage renal disease needing dialysis Nephrology consulted in ED, strict I/O, diuresis, / Fluid overload strict I/o, diuresis, urgent dialysis /HTN (hypertension) Monitor bp q shift, resume prehospital antihypertensive therapy / DVT prophylaxis SCD to ble while in bed Physical exam: General appearance: Present: mild distress - EENT Eyes: Present: PERRL ENT: hearing intact, clear oral mucosa - Neck Neck: Present: supple, normal ROM - Respiratory Respiratory effort: not labored Respiratory: bilateral: diminished - Cardiovascular Heart Sounds: Present: S1 & S2. Absent: rub, click - Extremities Extremities: pulses symmetrical, No edema Extremity abnormal: edema Peripheral Pulses: within normal limits - Abdominal General gastrointestinal: Present: soft, non-tender, non-distended, normal bowel sounds Male genitourinary: Present: normal - Integumentary Integumentary: Present: clear, warm, dry - Musculoskeletal Musculoskeletal: right BKA, left leg with cast - Psychiatric Psychiatric: appropriate mood/affect, intact judgment & insight - Neurologic Neurologic: CNII-XII intact, moves all extremities Subjective Date of service: 08/23/17 Interval history: Pt seen and examined getting Hd at bedside States could not get HD outpt due to transportation issue Objective - Constitutional Vitals: Vital Signs - 12hr 08/23/17 08/23/17 08/23/17 04:15 04:31 05:00 Temperature Pulse Rate 82 83 81 Respiratory Rate Blood Pressure 182/84 180/89 178/90 O2 Sat by Pulse 97 97 97 Oximetry 08/23/17 08/23/17 08/23/17 05:45 06:00 06:15 Temperature Pulse Rate 83 80 79 Respiratory 27 H Rate Blood Pressure 182/94 183/91 183/91 O2 Sat by Pulse 96 99 99 Oximetry 08/23/17 08/23/17 08/23/17 06:31 06:40 06:51 Temperature Pulse Rate 80 79 79 Respiratory 18 34 H 33 H Rate Blood Pressure 185/89 185/93 185/93 O2 Sat by Pulse 97 97 98 Oximetry 08/23/17 08/23/17 08/23/17 07:00 07:11 07:20 Temperature Pulse Rate 79 79 80 Respiratory 33 H 27 H 26 H Rate Blood Pressure 183/86 185/89 179/85 O2 Sat by Pulse 98 100 99 Oximetry 08/23/17 08/23/17 08/23/17 07:31 07:40 07:51 Temperature Pulse Rate 80 80 81 Respiratory 35 H 10 L 13 Rate Blood Pressure 179/85 181/92 181/92 O2 Sat by Pulse 98 100 97 Oximetry 08/23/17 08/23/17 08/23/17 10:35 11:15 11:30 Temperature 97.8 F Pulse Rate 79 77 80 Respiratory 16 Rate Blood Pressure 163/94 197/95 O2 Sat by Pulse 100 Oximetry 08/23/17 08/23/17 08/23/17 11:45 12:00 12:15 Temperature Pulse Rate 80 80 116 H Respiratory Rate Blood Pressure 185/95 197/95 179/112 O2 Sat by Pulse Oximetry 08/23/17 08/23/17 08/23/17 12:30 12:45 13:00 Temperature Pulse Rate 115 H 116 H 100 H Respiratory Rate Blood Pressure 191/104 179/100 187/107 O2 Sat by Pulse Oximetry 08/23/17 08/23/17 08/23/17 13:15 13:30 13:45 Temperature Pulse Rate 101 H 87 100 H Respiratory Rate Blood Pressure 191/104 189/97 192/105 O2 Sat by Pulse Oximetry 08/23/17 08/23/17 08/23/17 14:00 14:15 14:30 Temperature Pulse Rate 98 H 88 100 H Respiratory Rate Blood Pressure 187/98 176/100 196/104 O2 Sat by Pulse Oximetry - Labs CBC & Chem 7: 08/24/17 06:32 08/24/17 06:32 Labs: Abnormal lab results 08/22/17 08/22/17 08/22/17 Range/Units 16:49 16:49 23:53 RBC 3.32 L (3.65-5.03) M/mm3 Hgb 10.0 L (11.8-15.2) gm/dl Hct 32.0 L (35.5-45.6) % MCV 96 H (84-94) fl MCHC 31 L (32-34) % RDW 18.9 H (13.2-15.2) % Plt Count 111 L (140-440) K/mm3 Lymph % (Auto) 11.1 L (13.4-35.0) % Lymph # 0.8 L (1.2-5.4) K/mm3 Seg Neutrophils % 79.7 H (40.0-70.0) % Potassium 7.4 H* (3.6-5.0) mmol/L BUN 74 H (9-20) mg/dL Creatinine 7.6 H (0.8-1.5) mg/dL POC Glucose 48 L (70-105) Calcium 7.8 L (8.4-10.2) mg/dL Alkaline Phosphatase 191 H (35-129) units/L NT-Pro-B Natriuret Pep > 63301 H (0-900) pg/mL Albumin 2.9 L (3.9-5) g/dL 08/23/17 08/23/17 Range/Units 00:15 01:16 RBC (3.65-5.03) M/mm3 Hgb (11.8-15.2) gm/dl Hct (35.5-45.6) % MCV (84-94) fl MCHC (32-34) % RDW (13.2-15.2) % Plt Count (140-440) K/mm3 Lymph % (Auto) (13.4-35.0) % Lymph # (1.2-5.4) K/mm3 Seg Neutrophils % (40.0-70.0) % Potassium 5.8 H D (3.6-5.0) mmol/L BUN 50 H (9-20) mg/dL Creatinine 5.8 H (0.8-1.5) mg/dL POC Glucose 57 L (70-105) Calcium 8.3 L (8.4-10.2) mg/dL Alkaline Phosphatase (35-129) units/L NT-Pro-B Natriuret Pep (0-900) pg/mL Albumin (3.9-5) g/dL
[2017-08-23] MEDS: ZOLOFT PO SCH (15:38)
[2017-08-23] MEDS: PLAVIX PO SCH (15:38)
[2017-08-23] MEDS: NORVASC PO SCH (15:39)
[2017-08-23] MEDS: PHOSLO PO SCH ×2 (15:40→17:26)
[2017-08-23] MEDS ORDERED: NACL 0.9 (PRIMING MACHINE ONLY DIALYSIS) MC ONE (16:03)
[2017-08-23] MEDS: LYRICA PO SCH (17:26)
[2017-08-23] MEDS: MORPHINE IV PRN (23:05)
[2017-08-24] MEDS ORDERED: LOPRESSOR PO ONE (00:24)
--- NOTE | 2017-08-24 02:06 | Consultation ---
RENAL CONSULTATION REASON FOR CONSULTATION: Renal failure and hyperkalemia. HISTORY OF PRESENT ILLNESS: This 61-year-old male with a history of type 2 diabetes, hypertension, peripheral vascular disease was brought to the Emergency Room after missing 3 dialysis sessions due to transportation issues. The patient was reported to be fluid overload and hyperkalemic with a potassium level of 7.4. BNP of greater than 70,000. Urgent dialysis was ordered. The patient underwent hemodialysis following admission. Repeat potassium today again shows 5.8. Hemodialysis was ordered again for today. PAST MEDICAL HISTORY: Diabetes, hypertension, end-stage renal disease, hepatitis B, peripheral vascular disease, status post right below knee amputation. PERSONAL HISTORY: Denies smoking, alcohol, or drug abuse. FAMILY HISTORY: No family history of kidney failure. ALLERGIES: CONTRAST DYE. CURRENT MEDICATIONS: Amlodipine 10 mg once a day, PhosLo 2 with each meal, Plavix 75 mg a day, ergocalciferol 50,000 units once a week, Lyrica 50 mg once a day, sertraline 100 mg once a day, Ambien 10 mg at bedtime p.r.n. REVIEW OF SYSTEMS: The patient complains of headache, complains of having loose bowel movements since taking the Kayexalate. Denies fever or chills. Complains of sore on his left heel. Denies fever or chills. Denies difficulty swallowing. Denies dysuria or hematuria. Other review of systems reviewed and negative. Denies chest pain or shortness of breath at present time. Other review of systems reviewed and negative. PHYSICAL EXAMINATION: GENERAL: Chronically ill-looking male. VITAL SIGNS: Blood pressure 189/98, pulse 78, afebrile. HEENT: Head normocephalic. Conjunctivae pale. Lips noncyanotic. NECK: No JVD, no thyroid enlargement. LUNGS: Diminished breath sounds in bases. HEART: S1, S2 regular. A 2/6 systolic murmur along the left sternal border. ABDOMEN: Soft, bowel sounds present, nontender. No masses palpable. EXTREMITIES: Dressing over the left lower extremity. The patient has a right below knee amputation. Left upper arm AV access has bruit and thrill. LABORATORY DATA: On admission, sodium 138, potassium 7.4, chloride 98, CO2 24, BUN 74, creatinine 7.6, calcium 7.8, albumin 2.9. WBC 7.0, hemoglobin 10.0, hematocrit 32.0, platelets 111. ASSESSMENT AND PLAN: 1. Hyperkalemia. 2. Fluid overload. 3. End stage renal disease. 4. Hypertension. 5. Peripheral vascular disease. 6. Left foot infection with a heel ulcer. 7. Anemia on chronic kidney disease. 8. Type 2 diabetes. Hemodialysis as scheduled. The patient has been missing dialysis treatments due to transportation issues, checked with the case planner regarding the transportation arrangements. Counseling done on the patient's nonadherence to missing hemodialysis treatments. JOB# [id number] JESUS/TAMY
[2017-08-24] MEDS: MORPHINE IV PRN ×5 (03:15→22:26)
[2017-08-24 07:25] LABS: Hematocrit 28.4 % (35.5-45.6); Hemoglobin 9.1 gm/dl (11.8-15.2); Mean Corpuscular HGB Conc 32 % (32-34); Mean Corpuscular Hemoglobin 30 pg (28-32); Mean Corpuscular Volume 95 fl (84-94); Platelet Count 110 K/mm3 (140-440); Red Blood Count 3.01 M/mm3 (3.65-5.03); Red Cell Distribution Width 18.8 % (13.2-15.2)
[2017-08-24 07:36] LABS: Calcium 8.4 mg/dL (8.4-10.2)
[2017-08-24] MEDS: PHOSLO PO SCH ×3 (08:49→17:42)
--- NOTE | 2017-08-24 10:34 | Progress Note ---
Subjective Interval history: Patient was seen today for follow-up, on many renal related issues having issues with transportation Patient currently denies having any symptoms of chest pain pressure shortness of breath Better aware about renal related issues Interdisciplinary notes were reviewed Vitals labs intake and output medications were reviewed from today Allergies: Reviewed Social history: Reviewed Family history: Reviewed Physical examination HEENT: Oral mucosa moist no pharyngeal erythema Neck: Supple no JVD Chest: Clear to auscultation no crackles rales or wheezes Heart: Regular rate and rhythm S1-S2 heard no S3-S4 Abdomen: Soft nontender no renal bruit no CVA tenderness no suprapubic fullness Extremity:12 plus edema dry skin no peripheral cyanosis pulses palpable Neurological: Alert awake Musculoskeletal: No joint effusion noted Assessment and plan End-stage renal disease:: Patient will need to dialyze in the morning currently he is on Sunday schedule unable to dialyze tomorrow at the facility Having issues with transportation: Discussed with nurse to look into transportation issues patient has been primarily missing dialysis because of that Volume overload still continues to have approximately 1-2+ edema will ultrafiltrate with hemodialysis Anemia and end-stage renal disease: To monitor and follow Secondary hyperparathyroidism check phosphorus and PTH level periodically Hyperkalemia: Life-threatening currently improved better will hemodialyze him tomorrow morning Labs were discussed with patient explained and simple [place] does have good understanding off renal related issues, Will continue to follow and make recommendation from renal standpoint Objective - Vital Signs Vital signs: Vital Signs - 12hr 08/24/17 08/24/17 08/24/17 00:11 00:33 00:37 Temperature 97.7 F Pulse Rate 145 H 85 145 H Respiratory 18 12 Rate Blood Pressure 122/79 133/73 O2 Sat by Pulse 97 98 Oximetry 08/24/17 08/24/17 04:09 09:15 Temperature 98.1 F 97.7 F Pulse Rate 75 81 Respiratory 12 20 Rate Blood Pressure 126/60 151/75 O2 Sat by Pulse 92 99 Oximetry - Lab 08/24/17 06:32 08/24/17 06:32 Most recent lab results Calcium 8.4 mg/dL (8.4-10.2) 08/24/17 06:32
[2017-08-24] MEDS: PLAVIX PO SCH (12:00)
[2017-08-24] MEDS: LYRICA PO SCH (12:00)
[2017-08-24] MEDS: ZOLOFT PO SCH (12:00)
[2017-08-24] MEDS: NORVASC PO SCH (12:01)
[2017-08-24] MEDS: SODIUM CHLORIDE FLUSH SYRINGE 10 ML IV SCH ×2 (12:01→22:30)
--- NOTE | 2017-08-24 18:39 | Progress Note ---
Assessment and Plan / Acute respiratory failure Due to volume overload from ESRD Supplemental oxygen, nebulizer therapy, NIPPV as clinically indicated, s/p urgent dialysis / End-stage renal disease needing dialysis Nephrology consulted in ED, strict I/O, / Fluid overload strict I/o, improved with urgent dialysis /hyperkalemia, resolved with HD /HTN (hypertension) Monitor bp q shift, resumed prehospital antihypertensive therapy /Recent h/o left knee trauma and s/p right bka - supportive care, wheelchair bound / DVT prophylaxis SCD to ble while in bed Disposition: tomorrow after HD Physical exam: General appearance: Present: mild distress - EENT Eyes: Present: PERRL ENT: hearing intact, clear oral mucosa - Neck Neck: Present: supple, normal ROM - Respiratory Respiratory effort: not labored Respiratory: bilateral: diminished - Cardiovascular Heart Sounds: Present: S1 & S2. Absent: rub, click - Extremities Extremities: pulses symmetrical, No edema Extremity abnormal: edema Peripheral Pulses: within normal limits - Abdominal General gastrointestinal: Present: soft, non-tender, non-distended, normal bowel sounds Male genitourinary: Present: normal - Integumentary Integumentary: Present: clear, warm, dry - Musculoskeletal Musculoskeletal: right BKA, left leg with cast - Psychiatric Psychiatric: appropriate mood/affect, intact judgment & insight - Neurologic Neurologic: CNII-XII intact, moves all extremities Subjective Date of service: 08/24/17 Interval history: Pt seen and examined no acute issue States could not get HD outpt due to transportation issue Objective - Constitutional Vitals: Vital Signs - 12hr 08/24/17 08/24/17 08/24/17 09:15 11:46 17:13 Temperature 97.7 F 97.4 F L 97.8 F Pulse Rate 81 75 76 Respiratory 20 20 18 Rate Blood Pressure 151/75 161/86 139/72 O2 Sat by Pulse 99 100 92 Oximetry - Labs CBC & Chem 7: 08/24/17 06:32 08/24/17 06:32 Labs: Abnormal lab results 08/24/17 08/24/17 Range/Units 06:32 06:32 RBC 3.01 L (3.65-5.03) M/mm3 Hgb 9.1 L (11.8-15.2) gm/dl Hct 28.4 L (35.5-45.6) % MCV 95 H (84-94) fl RDW 18.8 H (13.2-15.2) % Plt Count 110 L (140-440) K/mm3 BUN 32 H (9-20) mg/dL Creatinine 4.7 H (0.8-1.5) mg/dL
[2017-08-24] MEDS: AMBIEN PO SCH (22:29)
[2017-08-25] MEDS: MORPHINE IV PRN ×3 (03:35→15:26)
[2017-08-25] MEDS ORDERED: NACL 0.9% 100 ML IV PRN (06:15)
--- NOTE | 2017-08-25 07:25 | Progress Note ---
Subjective Interval history: Patient was seen today for follow-up, on many renal related issues Patient is due for dialysis today Interdisciplinary notes were reviewed Vitals labs intake and output medications were reviewed from today Allergies: Reviewed Social history: Reviewed Family history: Reviewed Physical examination HEENT: Oral mucosa moist no pharyngeal erythema Neck: Supple no JVD Chest: Clear to auscultation no crackles rales or wheezes Heart: Regular rate and rhythm S1-S2 heard no S3-S4 Abdomen: Soft nontender no renal bruit no CVA tenderness no suprapubic fullness Extremity:12 plus edema dry skin no peripheral cyanosis pulses palpable Neurological: Alert awake Musculoskeletal: No joint effusion noted Assessment and plan End-stage renal disease:: Will keep him on hemodialysis Sunday, hemodialysis has been ordered for today Ultrafiltration as tolerated today during dialysis Transportation needs to be arranged, director social corporate planner to follow If dialysis is uneventful patient is stable for discharge to follow-up with the dialysis clinic as long as transportation issue has been resolved Compliance: Patient educated to limit fluid intake to 32 ounces per day and follow dialysis diet Will continue to follow and make recommendation from renal standpoint Objective - Vital Signs Vital signs: Vital Signs - 12hr 08/24/17 08/24/17 08/25/17 20:43 23:36 03:37 Temperature 98.5 F 98.3 F Pulse Rate 76 101 H Respiratory 12 12 Rate Blood Pressure 143/76 165/91 O2 Sat by Pulse 100 100 99 Oximetry 08/25/17 07:04 Temperature 97.5 F L Pulse Rate 80 Respiratory 20 Rate Blood Pressure 161/85 O2 Sat by Pulse 96 Oximetry - Lab 08/24/17 06:32 08/24/17 06:32 Most recent lab results Calcium 8.4 mg/dL (8.4-10.2) 08/24/17 06:32
[2017-08-25] MEDS: PHOSLO PO SCH ×3 (08:00→12:00)
[2017-08-25] MEDS: PLAVIX PO SCH (09:37)
[2017-08-25] MEDS: ZOLOFT PO SCH (09:38)
[2017-08-25] MEDS: LYRICA PO SCH (09:38)
[2017-08-25] MEDS: SODIUM CHLORIDE FLUSH SYRINGE 10 ML IV SCH (09:39)
--- NOTE | 2017-08-25 14:29 | Discharge Summary ---
Providers - Providers Date of Admission: 08/22/17 18:48 Date of discharge: 08/25/17 Attending physician: ANIYAH INIGUEZ 08/22/17 18:40 Consult to Physician [CONS] Routine Comment: DR SERRANO NOTIFIED 1830 Consulting Provider: GUALBERTO SERRANO Physician Instructions: Reason For Exam: dialysis, hyperkalemia 08/24/17 08:35 Consult to Wound/ET Nurse [CONS] Routine Reason For Exam: wound eval Primary care physician: EMAIL OPERATIONS MANAGER Hospitalization Condition: Fair Disposition: DC-01 TO HOME OR SELFCARE Time spent for discharge: 32 min Core Measure Documentation - Palliative Care Palliative Care/ Comfort Measures: Not Applicable - Core Measures Any of the following diagnoses?: none Exam - Constitutional Vitals: Temp Pulse Resp BP Pulse Ox 98.3 F 82 20 145/80 100 08/25/17 12:24 08/25/17 13:45 08/25/17 12:24 08/25/17 13:45 08/25/17 10:00 General appearance: Present: no acute distress, well-nourished - EENT Eyes: Present: PERRL, EOM intact - Neck Neck: Present: supple, normal ROM - Respiratory Respiratory effort: normal Respiratory: bilateral: diminished, negative: rales, rhonchi, wheezing - Cardiovascular Rhythm: regular Heart Sounds: Present: S1 & S2 - Extremities Extremities: no ischemia, No edema, abnormal (right BKA) - Abdominal General gastrointestinal: Present: soft, non-tender - Integumentary Integumentary: Present: clear, warm - Musculoskeletal Musculoskeletal: strength equal bilaterally - Psychiatric Psychiatric: appropriate mood/affect, cooperative - Neurologic Neurologic: CNII-XII intact, moves all extremities Plan Activity: advance as tolerated, fall precautions Diet: renal, other (cardiac) Additional Instructions: f/u Renal/HD per schedule [TTS]. Advised compliance with medications, diet and hemodialysis Follow up with: HENRY MITTAL MD [Primary Care Provider] - 3-5 Days GUALBERTO SERRANO MD [Staff Physician] - 7 Days
[2017-08-25] MEDS: NORVASC PO SCH (15:27)
[2017-08-25 16:21] VITALS: BP 158/79
[2017-08-25] MEDS ORDERED: NACL 0.9 (PRIMING MACHINE ONLY DIALYSIS) MC ONE (17:32)
--- NOTE | 2017-08-27 14:13 | XRay Report ---
FINAL REPORT EXAM: XR CHEST 1V AP HISTORY: SOB TECHNIQUE: Chest single AP PRIORS: Comparison is August 11, 2017 FINDINGS: Again identified is right pleural effusion with focal atelectasis and/or infiltrate in the right lower lobe which appears unchanged from prior study. There is some patchy mild opacity in the left midlung also unchanged. Cardiac and mediastinal contours do not appear changed cardiac silhouette is partially obscured. Pulmonary vasculature is within normal limits IMPRESSION: Right pleural effusion with adjacent atelectasis/infiltrate unchanged Mild atelectasis or infiltrate in the left midlung
== END 2017-08-25 17:15 | disposition home or self-care (01) | DRG 189 ==
LOC: ED 16:13 → 3A 18:48
PROVIDERS: ADMIT Internal Medicine; ATTEND Internal Medicine
PROC: 5A1D70Z Performance of Urinary Filtration, Intermittent, Less than 6 Hours Per Day (ICD-10-PCS; principal; 2017-08-22)
PROC: 5A1D70Z Performance of Urinary Filtration, Intermittent, Less than 6 Hours Per Day (ICD-10-PCS; 2017-08-23)
PROC: 5A1D70Z Performance of Urinary Filtration, Intermittent, Less than 6 Hours Per Day (ICD-10-PCS; 2017-08-25)
DX: J96.01 Acute respiratory failure with hypoxia (principal); N18.6 End stage renal disease; E87.79 Other fluid overload; M19.90 Unspecified osteoarthritis, unspecified site; E11.22 Type 2 diabetes mellitus with diabetic chronic kidney disease; I12.0 Hypertensive chronic kidney disease with stage 5 chronic kidney disease or end stage renal disease; B19.10 Unspecified viral hepatitis B without hepatic coma; E87.5 Hyperkalemia; J90 Pleural effusion, not elsewhere classified; E87.70 Fluid overload, unspecified; E11.51 Type 2 diabetes mellitus with diabetic peripheral angiopathy without gangrene; D63.1 Anemia in chronic kidney disease; E11.621 Type 2 diabetes mellitus with foot ulcer; L97.429 Non-pressure chronic ulcer of left heel and midfoot with unspecified severity; N25.81 Secondary hyperparathyroidism of renal origin; Z82.49 Family history of ischemic heart disease and other diseases of the circulatory system; Z89.511 Acquired absence of right leg below knee; Z79.899 Other long term (current) drug therapy; Z83.3 Family history of diabetes mellitus; Z91.041 Radiographic dye allergy status
CPT/HCPCS: 36415; 71045; 80048; 80053; 82962; 83880; 85025; 85027; 93005; 93010; 94760; 96365; 96375; J0360; J1815; J2270; J7030

== ENCOUNTER 2017-08-29 09:13 | Outpatient (CLI) | payer MEDICAID ==
[2017-08-29] MEDS ORDERED: XYLOCAINE TOPICAL 4% TP ONE ×2 (09:37→10:02)
== END 2017-08-29 09:14 | disposition home or self-care (01) ==
LOC: WOUND 09:13
PROVIDERS: ATTEND Surgery
DX: E11.621 Type 2 diabetes mellitus with foot ulcer (principal); L97.422 Non-pressure chronic ulcer of left heel and midfoot with fat layer exposed; L89.621 Pressure ulcer of left heel, stage 1; M19.90 Unspecified osteoarthritis, unspecified site; E11.22 Type 2 diabetes mellitus with diabetic chronic kidney disease; I12.0 Hypertensive chronic kidney disease with stage 5 chronic kidney disease or end stage renal disease; N18.6 End stage renal disease; B19.10 Unspecified viral hepatitis B without hepatic coma; I10 Essential (primary) hypertension; Z89.511 Acquired absence of right leg below knee; Z87.891 Personal history of nicotine dependence
CPT/HCPCS: 11042; G0463

== ENCOUNTER 2017-09-05 10:11 | Outpatient (CLI) | payer MEDICAID ==
[2017-09-05] MEDS ORDERED: XYLOCAINE TOPICAL 2% 5ML ONE (10:53)
[2017-09-05] MEDS ORDERED: XYLOCAINE TOPICAL 2% 5ML TP ONE (11:01)
== END 2017-09-05 10:12 | disposition home or self-care (01) ==
LOC: WOUND 10:11
PROVIDERS: ATTEND Surgery
DX: E11.621 Type 2 diabetes mellitus with foot ulcer (principal); L97.422 Non-pressure chronic ulcer of left heel and midfoot with fat layer exposed; L89.621 Pressure ulcer of left heel, stage 1; E11.22 Type 2 diabetes mellitus with diabetic chronic kidney disease; I12.0 Hypertensive chronic kidney disease with stage 5 chronic kidney disease or end stage renal disease; N18.6 End stage renal disease; M19.90 Unspecified osteoarthritis, unspecified site; B19.10 Unspecified viral hepatitis B without hepatic coma; Z89.511 Acquired absence of right leg below knee; Z87.891 Personal history of nicotine dependence

== ENCOUNTER 2017-09-07 09:34 | Outpatient (CLI) | payer MEDICAID ==
--- NOTE | 2017-09-11 12:32 | Vascular Lab Report ---
LOWER EXTREMITY ARTERIAL DUPLEX: REASON FOR EXAM: Left heel ulcer. COMMENTS ON THE RIGHT: Patient has a right below knee amputation. The data was obtained. COMMENTS ON THE LEFT: Biphasic waveforms are seen proximally. Biphasic waveforms are seen distally. Evidence of tibial or occlusive disease is identified. Scattered plaque is seen throughout. Findings are consistent with mildly abnormal perfusion. Findings are not completely consistent with the ability to heal distal wounds. IMPRESSION: RIGHT: Not examined. LEFT:Tibial artery occlusive disease. Consider further evaluation.
== END 2017-09-07 09:35 | disposition home or self-care (01) ==
LOC: VAS 09:34
PROVIDERS: ATTEND Surgery
DX: I12.0 Hypertensive chronic kidney disease with stage 5 chronic kidney disease or end stage renal disease (principal); E11.22 Type 2 diabetes mellitus with diabetic chronic kidney disease; N18.6 End stage renal disease; L97.422 Non-pressure chronic ulcer of left heel and midfoot with fat layer exposed; E07.9 Disorder of thyroid, unspecified; I77.89 Other specified disorders of arteries and arterioles; Z89.511 Acquired absence of right leg below knee
CPT/HCPCS: 36415; 83036

== ENCOUNTER 2017-10-24 10:06 | Outpatient (CLI) | payer MEDICAID ==
[2017-10-24] MEDS ORDERED: AD OINTMENT TP ONE (10:22)
[2017-10-25] MEDS ORDERED: AD OINTMENT TP SCH (10:00)
== END 2017-10-24 10:07 | disposition home or self-care (01) ==
LOC: WOUND 10:06
PROVIDERS: ATTEND Surgery
DX: E11.621 Type 2 diabetes mellitus with foot ulcer (principal); L97.422 Non-pressure chronic ulcer of left heel and midfoot with fat layer exposed; E11.22 Type 2 diabetes mellitus with diabetic chronic kidney disease; I12.0 Hypertensive chronic kidney disease with stage 5 chronic kidney disease or end stage renal disease; N18.6 End stage renal disease; M19.90 Unspecified osteoarthritis, unspecified site; B19.10 Unspecified viral hepatitis B without hepatic coma; Z89.511 Acquired absence of right leg below knee; Z87.891 Personal history of nicotine dependence
CPT/HCPCS: 99214; A6250; G0463

== ENCOUNTER 2018-06-12 19:30 | Inpatient (IN) | payer MEDICAID ==
[2018-06-12 20:10] LABS: Basophils # (Auto) 0.1 K/mm3 (0.0-0.1); Basophils % (Auto) 1.2 % (0.0-1.8); Eosinophils # (Auto) 0.3 K/mm3 (0.0-0.4); Eosinophils % (Auto) 5.3 % (0.0-4.3); Hematocrit 38.6 % (35.5-45.6); Hemoglobin 12.5 gm/dl (11.8-15.2); Lymphocytes # (Auto) 0.6 K/mm3 (1.2-5.4); Mean Corpuscular HGB Conc 33 % (32-34); Mean Corpuscular Volume 103 fl (84-94); Monocytes # (Auto) 0.4 K/mm3 (0.0-0.8); Monocytes % (Auto) 6.9 % (0.0-7.3); Red Blood Count 3.74 M/mm3 (3.65-5.03); Red Cell Distribution Width 19.4 % (13.2-15.2)
[2018-06-12 20:13] LABS: Platelet Count 79 K/mm3 (140-440)
[2018-06-12 20:32] LABS: Albumin 3.9 g/dL (3.9-5); Calcium 7.8 mg/dL (8.4-10.2)
--- NOTE | 2018-06-12 20:40 | Emergency Department Report ---
HPI - General Chief Complaint: Recheck/Abnormal Lab/Rx Time Seen by Provider: 06/12/18 20:16 - HPI HPI: Room 25 The patient is a 62-year-old male presented with a chief complaint of hyperkalemia. The patient states he received a telephone call from his hearing aid assistant told him to come to the emergency department because blood drawn yesterday revealed he had a potassium of 7.4. The patient states his blood was drawn yesterday prior to receiving hemodialysis. The patient states he was on hemodialysis for approximate 45 minutes to an hour short of than he normally is secondary to transportation issues. Patient states she feels fatigued but otherwise feels alright. Location: [See above] Duration: [See above] Quality: [See above] Severity: [See above] Modifying factors: [see above] Context: [see above] Mode of transportation: [not driving] ED Past Medical Hx - Past Medical History Hx Hypertension: Yes Hx Diabetes: Yes Hx Renal Disease: Yes Hx Arthritis: Yes Additional medical history: HEP B, RECTAL TEAR, NEUROPATHY, RBKA, LT TIBIA FX, ESRD - Surgical History Additional Surgical History: right BKA - Family History Family history: no significant - Social History Smoking Status: Never Smoker Substance Use Type: None (denies illicit drug use) - Medications Home Medications: Home Medications Medication Instructions Recorded Confirmed Last Taken Type Calcium Acetate [Phoslo] 1,334 mg PO TID 08/02/17 08/22/17 Unknown History Clopidogrel [Plavix] 75 mg PO DAILY 08/02/17 08/22/17 Unknown History Pregabalin [Lyrica] 50 mg PO DAILY 08/02/17 08/22/17 Unknown History Sertraline [Zoloft] 100 mg PO DAILY 08/02/17 08/22/17 Unknown History Vitamin D2 50,000 units PO 1XW 08/02/17 08/22/17 Unknown History Zolpidem [Ambien] 10 mg PO QHS 08/02/17 08/22/17 2 Days Ago History ~07/31/17 amLODIPine [Norvasc] 10 mg PO QDAY #30 tablet 08/06/17 08/22/17 Unknown Rx Ascorbic Acid [Vitamin C] 500 mg PO DAILY 08/22/17 08/22/17 Unknown History Levothyroxine [Synthroid] 50 mcg PO DAILY 08/22/17 08/22/17 Unknown History Loperamide [Imodium] 2 mg PO PRN 08/22/17 08/22/17 Unknown History Multivit-Min/Iron Fum/Folic AC 1 each PO DAILY 08/22/17 08/22/17 Unknown History [Qjpxa-Pxmsprf-Rogsrhqn Tablet] Pantoprazole [Protonix TAB] 40 mg PO DAILY 08/22/17 08/22/17 Unknown History hydrALAZINE [Apresoline TAB] 25 mg PO DAILY 08/22/17 08/22/17 Unknown History ED Review of Systems ROS: Stated complaint: WEAKNESS/CHEST PAIN Other details as noted in HPI Constitutional: malaise Eyes: denies: eye pain ENT: denies: throat pain Respiratory: no symptoms reported Cardiovascular: denies: chest pain Endocrine: no symptoms reported Gastrointestinal: denies: abdominal pain Genitourinary: denies: testicular pain Musculoskeletal: denies: back pain Neurological: denies: headache Physical Exam - Physical Exam Vital Signs: Vital Signs 06/12/18 20:11 Temperature 97.7 F Pulse Rate 73 Respiratory 18 Rate Blood Pressure 156/74 [Right] O2 Sat by Pulse 97 Oximetry Physical Exam: GENERAL: The patient is well-developed well-nourished male lying on stretcher not appear to be in acute distress. [] HEENT: Normocephalic. Atraumatic. Extraocular motions are intact. Patient has moist mucous membranes. NECK: Supple. Trachea midline CHEST/LUNGS: Clear to auscultation. There is no respiratory distress noted. HEART/CARDIOVASCULAR: Regular. There is no tachycardia. There is no gallop rub or murmur. ABDOMEN: Abdomen is soft, nontender. Patient has normal bowel sounds. There is no abdominal distention. SKIN: There is no rash. There is no edema. There is no diaphoresis. NEURO: The patient is awake, alert, and oriented. The patient is cooperative. The patient has normal speech MUSCULOSKELETAL: There is no evidence of acute injury. ED Course Vital Signs 06/12/18 20:11 Temperature 97.7 F Pulse Rate 73 Respiratory 18 Rate Blood Pressure 156/74 [Right] O2 Sat by Pulse 97 Oximetry - Consultations Consultation #1: 06/12/18 20:55 Nephrology paged 06/12/18 21:[address] Baugh- recommends Kayexalate 45 g. Will Arrange for hemodialysis in the morning ED Medical Decision Making - Lab Data Result diagrams: 06/12/18 19:56 06/12/18 19:56 Laboratory Tests 06/12/18 03 19:56 19:56 WBC 6.0 RBC 3.74 Hgb 12.5 Hct 38.6 MCV 103 H MCH 34 H MCHC 33 RDW 19.4 H Plt Count 79 L Lymph % (Auto) 10.0 L [place] % (Auto) 6.9 Eos % (Auto) 5.3 H Baso % (Auto) 1.2 Lymph # 0.6 L [place] # 0.4 Eos # 0.3 Baso # 0.1 Seg Neutrophils % 76.6 H Seg Neutrophils # 4.6 Sodium 142 Potassium 6.5 H* Chloride 100.7 Carbon Dioxide 24 Anion Gap 24 BUN 78 H Creatinine 9.6 H Estimated GFR 7 BUN/Creatinine Ratio 8 Glucose 178 H Calcium 7.8 L Total Bilirubin 0.50 AST 21 ALT 21 Alkaline Phosphatase 163 H Total Protein 8.3 H Albumin 3.9 Albumin/Globulin Ratio 0.9 - EKG Data -: EKG Interpreted by Me EKG shows normal: sinus rhythm Rate: normal - EKG Data When compared to previous EKG there are: previous EKG unavailable Interpretation: other (no ischemic changes seen) - Differential Diagnosis hyperkalemia Critical care attestation.: If time is entered above; I have spent that time in minutes in the direct care of this critically ill patient, excluding procedure time. ED Disposition Clinical Impression: End-stage renal disease needing dialysis, Hyperkalemia Disposition: OP ADMIT IP TO THIS HOSP Is pt being admited?: Yes Does the pt Need Aspirin: No Condition: Fair Referrals: PRIMARY CARE, [Primary Care Provider] - 3-5 Days Time of Disposition: 21:23 (hospitalist paged (Dr. Astrid Sloan))
[2018-06-12] MEDS ORDERED: D50W (25GM) Syringe IV ONE (20:49)
[2018-06-12] MEDS ORDERED: HumuLIN R IV ONE (20:49)
[2018-06-12] MEDS ORDERED: CALCIUM GLUCONATE 1,000 MG in NACL 0.9% 100 ML IV ONE (20:49)
[2018-06-12] MEDS ORDERED: PROVENTIL IH ONE (20:53)
[2018-06-12] MEDS ORDERED: KIONEX PO ONE (21:02)
[2018-06-12] MEDS ORDERED: TYLENOL PO PRN ×2 (21:39→21:44)
[2018-06-12] MEDS ORDERED: SODIUM CHLORIDE FLUSH SYRINGE 10 ML IV PRN ×2 (21:39→21:44)
[2018-06-12] MEDS ORDERED: ZOFRAN IV PRN ×2 (21:39→21:44)
--- NOTE | 2018-06-12 21:55 | History and Physical Report ---
<HOSSEIN MARINA - Last Filed: 06/13/18 01:26> History of Present Illness Date of examination: 06/12/18 Date of admission: 06/12/2018 Chief complaint: Hyperkalemia History of present illness: Pt is a 62 year old male with PMHx ESRD on HD, HEP B, DM type II, peripheral neuropathy, right leg BKA who presents to the ER today stating that his neprology asked him to come to the ER because of potassium level is elevated at 7.4. Patient states that he went to dialysis yesterday he only had 1 hour of treatment because he was late to get to the Center. Patient reports some fatigue but denies any SOB, denies chest pain, denies cough, denies lower extremity swelling, denied any acute illness. Patient presents with no acute distress, a repeat laboratory values and the ER showed K level to be 6.5, EKG showed no acute changes, he was admitted, for possible HD treatment today. Past History Past Medical History: diabetes, ESRD, hypertension, hyperlipidemia Past Surgical History: Other (BKA) Social history: other (Lives with robles) Family history: no significant family history Medications and Allergies Allergies Allergy/AdvReac Type Severity Reaction Status Date / Time contrast dye AdvReac Severe Rash Uncoded 06/12/18 19:48 Home Medications Medication Instructions Recorded Confirmed Last Taken Type Zolpidem [Ambien] 10 mg PO QHS 08/02/17 08/22/17 2 Days Ago History ~07/31/17 Loperamide [Imodium] 2 mg PO PRN 08/22/17 08/22/17 Unknown History Ascorbic Acid [Vitamin C] 500 mg PO DAILY #30 tablet 06/14/18 Unknown Rx Calcium Acetate [Phoslo] 1,334 mg PO TID #90 capsule 06/14/18 Unknown Rx Clopidogrel [Plavix] 75 mg PO DAILY #30 tablet 06/14/18 Unknown Rx Levothyroxine [Synthroid] 50 mcg PO DAILY #30 tablet 06/14/18 Unknown Rx Multivit-Min/Iron Fum/Folic AC 1 each PO DAILY #30 tablet 06/14/18 Unknown Rx [Qjyqs-Fmstqar-Zwulnexq Tablet] Pantoprazole [Protonix TAB] 40 mg PO DAILY #30 tablet 06/14/18 Unknown Rx Pregabalin [Lyrica] 50 mg PO DAILY #30 capsule 06/14/18 Unknown Rx Sertraline [Zoloft] 100 mg PO DAILY #30 tablet 06/14/18 Unknown Rx Vitamin D2 50,000 units PO 1XW #4 06/14/18 Unknown Rx amLODIPine [Norvasc] 10 mg PO QDAY #30 tablet 06/14/18 Unknown Rx hydrALAZINE [Apresoline TAB] 25 mg PO TID #90 tablet 06/14/18 Unknown Rx Active Meds: Active Medications Acetaminophen (Tylenol) 650 mg PO Q4H PRN PRN Reason: Pain MILD(1-3)/Fever >100.5/MAE Acetaminophen (Tylenol) 650 mg PO Q4H PRN PRN Reason: Pain MILD(1-3)/Fever >100.5/MAE Heparin Sodium (Porcine) (Heparin) 5,000 unit SUB-Q Q12HR SILVER Ondansetron HCl (Zofran) 4 mg IV Q8H PRN PRN Reason: Nausea And Vomiting Ondansetron HCl (Zofran) 4 mg IV Q8H PRN PRN Reason: Nausea And Vomiting Sodium Chloride (Sodium Chloride Flush Syringe 10 Ml) 10 ml IV BID SILVER Sodium Chloride (Sodium Chloride Flush Syringe 10 Ml) 10 ml IV PRN PRN PRN Reason: LINE FLUSH Sodium Chloride (Sodium Chloride Flush Syringe 10 Ml) 10 ml IV PRN PRN PRN Reason: LINE FLUSH Review of Systems Constitutional: fatigue Exam - Constitutional Vitals: Temp Pulse Resp BP Pulse Ox 97.7 F 76 15 156/74 97 06/12/18 20:11 06/12/18 21:04 06/12/18 21:04 06/12/18 20:11 06/12/18 20:11 General appearance: Present: no acute distress - EENT Eyes: Present: PERRL ENT: hearing intact - Neck Neck: Present: supple - Respiratory Respiratory effort: normal Respiratory: bilateral: CTA - Cardiovascular Rhythm: regular - Extremities Extremity abnormal: other (RT BKA) Peripheral Pulses: within normal limits - Abdominal Male genitourinary: Present: deferred - Rectal Rectal Exam: deferred - Integumentary Integumentary: Present: warm - Musculoskeletal Musculoskeletal: strength equal bilaterally - Psychiatric Psychiatric: appropriate mood/affect - Neurologic Neurologic: moves all extremities Results - Labs CBC & Chem 7: 06/12/18 19:56 06/12/18 19:56 Labs: Laboratory Last Values WBC 6.0 K/mm3 (4.5-11.0) 06/12/18 19:56 RBC 3.74 M/mm3 (3.65-5.03) 06/12/18 19:56 Hgb 12.5 gm/dl (11.8-15.2) 06/12/18 19:56 Hct 38.6 % (35.5-45.6) 06/12/18 19:56 MCV 103 fl (84-94) H 06/12/18 19:56 MCH 34 pg (28-32) H 06/12/18 19:56 MCHC 33 % (32-34) 06/12/18 19:56 RDW 19.4 % (13.2-15.2) H 06/12/18 19:56 Plt Count 79 K/mm3 (140-440) L 06/12/18 19:56 Lymph % (Auto) 10.0 % (13.4-35.0) L 06/12/18 19:56 [place] % (Auto) 6.9 % (0.0-7.3) 06/12/18 19:56 Eos % (Auto) 5.3 % (0.0-4.3) H 06/12/18 19:56 Baso % (Auto) 1.2 % (0.0-1.8) 06/12/18 19:56 Lymph # 0.6 K/mm3 (1.2-5.4) L 06/12/18 19:56 [place] # 0.4 K/mm3 (0.0-0.8) 06/12/18 19:56 Eos # 0.3 K/mm3 (0.0-0.4) 06/12/18 19:56 Baso # 0.1 K/mm3 (0.0-0.1) 06/12/18 19:56 Seg Neutrophils % 76.6 % (40.0-70.0) H 06/12/18 19:56 Seg Neutrophils # 4.6 K/mm3 (1.8-7.7) 06/12/18 19:56 Sodium 142 mmol/L (137-145) 06/12/18 19:56 Potassium 6.5 mmol/L (3.6-5.0) H* 06/12/18 19:56 Chloride 100.7 mmol/L (98-107) 06/12/18 19:56 Carbon Dioxide 24 mmol/L (22-30) 06/12/18 19:56 Anion Gap 24 mmol/L 06/12/18 19:56 BUN 78 mg/dL (9-20) H 06/12/18 19:56 Creatinine 9.6 mg/dL (0.8-1.5) H 06/12/18 19:56 Estimated GFR 7 ml/min 06/12/18 19:56 BUN/Creatinine Ratio 8 % 06/12/18 19:56 Glucose 178 mg/dL (75-100) H 06/12/18 19:56 Calcium 7.8 mg/dL (8.4-10.2) L 06/12/18 19:56 Total Bilirubin 0.50 mg/dL (0.1-1.2) 06/12/18 19:56 AST 21 units/L (5-40) 06/12/18 19:56 ALT 21 units/L (7-56) 06/12/18 19:56 Alkaline Phosphatase 163 units/L (35-129) H 06/12/18 19:56 Total Protein 8.3 g/dL (6.3-8.2) H 06/12/18 19:56 Albumin 3.9 g/dL (3.9-5) 06/12/18 19:56 Albumin/Globulin Ratio 0.9 % 06/12/18 19:56 Assessment and Plan Assessment and plan: 1. Hyperkalemia 2. ESRD on HD 3. DM type II 4. Hypocalcemia 5. Thrombocytopenia 6. Hypertension 7. Right BKA Plan: Patient is admitted for hemodialysis treatment Kayexalate hyperkalemia now Consult nephrology for HD my management Hemodialysis likely in the a.m. Accu-Chek ACHS with insulin sliding scale Resume home meds DVT prophylaxis with heparin Plan of care discussed with patient voiced understanding Patient's condition and plan of care discussed with Dr. Sloan Advance Directives: Yes VTE prophylaxis?: Chemical Plan of care discussed with patient/family: Yes <ZEB SLOAN - Last Filed: 06/15/18 21:32> History of Present Illness Date of admission: 06/12/18 21:45 Medications and Allergies Active Meds: Active Medications Acetaminophen (Tylenol) 650 mg PO Q4H PRN PRN Reason: Pain MILD(1-3)/Fever >100.5/MAE Heparin Sodium (Porcine) (Heparin) 5,000 unit SUB-Q Q12HR [facility] Last Admin: 06/12/18 22:50 Dose: 5,000 unit Documented by: Morphine Sulfate (Morphine) 2 mg IV Q4H PRN PRN Reason: Pain, Moderate (4-6) Last Admin: 06/12/18 23:17 Dose: 2 mg Documented by: Ondansetron HCl (Zofran) 4 mg IV Q8H PRN PRN Reason: Nausea And Vomiting Sodium Chloride (Sodium Chloride Flush Syringe 10 Ml) 10 ml IV BID [facility] Last Admin: 06/12/18 22:00 Dose: 10 ml Documented by: Sodium Chloride (Sodium Chloride Flush Syringe 10 Ml) 10 ml IV PRN PRN PRN Reason: LINE FLUSH Sodium Chloride (Sodium Chloride Flush Syringe 10 Ml) 10 ml IV PRN PRN PRN Reason: LINE FLUSH Exam - Constitutional Vitals: Temp Pulse Resp BP Pulse Ox 97.7 F 85 13 173/70 87 06/12/18 20:11 06/13/18 00:13 06/12/18 23:41 06/12/18 23:41 06/12/18 23:41 Results - Labs CBC & Chem 7: 06/12/18 19:56 06/14/18 07:38 Labs: Laboratory Last Values WBC 6.0 K/mm3 (4.5-11.0) 06/12/18 19:56 RBC 3.74 M/mm3 (3.65-5.03) 06/12/18 19:56 Hgb 12.5 gm/dl (11.8-15.2) 06/12/18 19:56 Hct 38.6 % (35.5-45.6) 06/12/18 19:56 MCV 103 fl (84-94) H 06/12/18 19:56 MCH 34 pg (28-32) H 06/12/18 19:56 MCHC 33 % (32-34) 06/12/18 19:56 RDW 19.4 % (13.2-15.2) H 06/12/18 19:56 Plt Count 79 K/mm3 (140-440) L 06/12/18 19:56 Lymph % (Auto) 10.0 % (13.4-35.0) L 06/12/18 19:56 [place] % (Auto) 6.9 % (0.0-7.3) 06/12/18 19:56 Eos % (Auto) 5.3 % (0.0-4.3) H 06/12/18 19:56 Baso % (Auto) 1.2 % (0.0-1.8) 06/12/18 19:56 Lymph # 0.6 K/mm3 (1.2-5.4) L 06/12/18 19:56 [place] # 0.4 K/mm3 (0.0-0.8) 06/12/18 19:56 Eos # 0.3 K/mm3 (0.0-0.4) 06/12/18 19:56 Baso # 0.1 K/mm3 (0.0-0.1) 06/12/18 19:56 Seg Neutrophils % 76.6 % (40.0-70.0) H 06/12/18 19:56 Seg Neutrophils # 4.6 K/mm3 (1.8-7.7) 06/12/18 19:56 Sodium 142 mmol/L (137-145) 06/12/18 19:56 Potassium 6.5 mmol/L (3.6-5.0) H* 06/12/18 19:56 Chloride 100.7 mmol/L (98-107) 06/12/18 19:56 Carbon Dioxide 24 mmol/L (22-30) 06/12/18 19:56 Anion Gap 24 mmol/L 06/12/18 19:56 BUN 78 mg/dL (9-20) H 06/12/18 19:56 Creatinine 9.6 mg/dL (0.8-1.5) H 06/12/18 19:56 Estimated GFR 7 ml/min 06/12/18 19:56 BUN/Creatinine Ratio 8 % 06/12/18 19:56 Glucose 91 mg/dL (75-100) 06/13/18 01:04 Calcium 7.8 mg/dL (8.4-10.2) L 06/12/18 19:56 Total Bilirubin 0.50 mg/dL (0.1-1.2) 06/12/18 19:56 AST 21 units/L (5-40) 06/12/18 19:56 ALT 21 units/L (7-56) 06/12/18 19:56 Alkaline Phosphatase 163 units/L (35-129) H 06/12/18 19:56 Total Protein 8.3 g/dL (6.3-8.2) H 06/12/18 19:56 Albumin 3.9 g/dL (3.9-5) 06/12/18 19:56 Albumin/Globulin Ratio 0.9 % 06/12/18 19:56 Assessment and Plan Assessment and plan: Patient seen and examined with nurse practitioner. This is 62-year-old man with a history of hypertension, diabetes, end-stage renal disease on dialysis, hepatitis B was sent to the emergency room for abnormal labs, his potassium was 7.4, I'll arrange the emergency room he was noted to be 6.5. He status post hyperkalemia cocktail, hemodialysis in morning, physical exam benign
[2018-06-12] MEDS: SODIUM CHLORIDE FLUSH SYRINGE 10 ML IV SCH (22:00)
[2018-06-12] MEDS ORDERED: HEPARIN ONE (22:47)
[2018-06-12] MEDS: HEPARIN SUB-Q SCH (22:50)
[2018-06-12] MEDS ORDERED: MORPHINE ONE (23:15)
[2018-06-12] MEDS: MORPHINE IV PRN (23:17)
[2018-06-13] MEDS: MORPHINE IV PRN ×4 (04:24→22:49)
[2018-06-13] MEDS ORDERED: NACL 0.9% 100 ML IV PRN (05:50)
[2018-06-13] MEDS ORDERED: VITAMIN D2 50000 UNIT PO SCH (06:45)
[2018-06-13] MEDS ORDERED: IMODIUM PO PRN (07:00)
[2018-06-13] MEDS: PHOSLO PO SCH ×3 (08:49→17:10)
[2018-06-13] MEDS ORDERED: NON-FORMULARY (Multivit-Min/Iron Fum/Folic Ac [Multi-Vitamin-Minerals Tablet] 1 EACH) PO SCH (10:00)
[2018-06-13] MEDS ORDERED: APRESOLINE PO SCH (10:00)
[2018-06-13] MEDS ORDERED: NON-FORMULARY (Pregabalin [Lyrica] 50 MG) PO SCH (10:00)
--- NOTE | 2018-06-13 10:22 | Consultation ---
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 He had an incomplete dialysis session on Sunday because he arrived late in the dialysis center he was called to the hospital due to high potassium levels. He received medical management with insulin dextrose sodium bicarbonate overnight. He denies any orthopnea PND he denies any lower extremity swelling. He reports some episode of diarrhea Past History Past Medical History: diabetes, ESRD, hypertension, hyperlipidemia Past Surgical History: Other (BKA) Social history: other (Lives with fianc) Family history: no significant family history Medications and Allergies Allergies Allergy/AdvReac Type Severity Reaction Status Date / Time contrast dye AdvReac Severe Rash Uncoded 06/12/18 19:48 Home Medications Medication Instructions Recorded Confirmed Last Taken Type Calcium Acetate [Phoslo] 1,334 mg PO TID 08/02/17 08/22/17 Unknown History Clopidogrel [Plavix] 75 mg PO DAILY 08/02/17 08/22/17 Unknown History Pregabalin [Lyrica] 50 mg PO DAILY 08/02/17 08/22/17 Unknown History Sertraline [Zoloft] 100 mg PO DAILY 08/02/17 08/22/17 Unknown History Vitamin D2 50,000 units PO 1XW 08/02/17 08/22/17 Unknown History Zolpidem [Ambien] 10 mg PO QHS 08/02/17 08/22/17 2 Days Ago History ~07/31/17 amLODIPine [Norvasc] 10 mg PO QDAY #30 tablet 08/06/17 08/22/17 Unknown Rx Ascorbic Acid [Vitamin C] 500 mg PO DAILY 08/22/17 08/22/17 Unknown History Levothyroxine [Synthroid] 50 mcg PO DAILY 08/22/17 08/22/17 Unknown History Loperamide [Imodium] 2 mg PO PRN 08/22/17 08/22/17 Unknown History Multivit-Min/Iron Fum/Folic AC 1 each PO DAILY 08/22/17 08/22/17 Unknown History [Lsart-Fjufaat-Ykjqhtab Tablet] Pantoprazole [Protonix TAB] 40 mg PO DAILY 08/22/17 08/22/17 Unknown History hydrALAZINE [Apresoline TAB] 25 mg PO DAILY 08/22/17 08/22/17 Unknown History Active Meds: Active Medications Acetaminophen (Tylenol) 650 mg PO Q4H PRN PRN Reason: Pain MILD(1-3)/Fever >100.5/MAE Amlodipine Besylate (Norvasc) 10 mg PO QDAY [facility] Ascorbic Acid (Vitamin C) 500 mg PO DAILY [facility] Calcium Acetate (Phoslo) 1,334 mg PO TIDWM [facility] Last Admin: 06/13/18 08:49 Dose: 1,334 mg Documented by: Clopidogrel Bisulfate (Plavix) 75 mg PO DAILY [facility] Ergocalciferol (Vitamin D2) 50,000 unit PO We [facility] Heparin Sodium (Porcine) (Heparin) 5,000 unit SUB-Q Q12HR [facility] Last Admin: 06/12/18 22:50 Dose: 5,000 unit Documented by: Hydralazine HCl (Apresoline) 25 mg PO DAILY [facility] Sodium Chloride (Nacl 0.9%) 100 mls @ 999 mls/hr IV ANMOL PRN PRN Reason: Hypotension Levothyroxine Sodium (Synthroid) 50 mcg PO DAILY@0600 [facility] Loperamide HCl (Imodium) 2 mg PO PRN PRN PRN Reason: Diarrhea Morphine Sulfate (Morphine) 2 mg IV Q4H PRN PRN Reason: Pain, Moderate (4-6) Last Admin: 06/13/18 08:45 Dose: 2 mg Documented by: Multivitamins/Minerals (Theragran-M Tab) 1 each PO QDAY [facility] Ondansetron HCl (Zofran) 4 mg IV Q8H PRN PRN Reason: Nausea And Vomiting Pantoprazole Sodium (Protonix) 40 mg PO DAILY [facility] Pregabalin (Lyrica) 50 mg PO DAILY [facility] Sertraline HCl (Zoloft) 100 mg PO DAILY [facility] Sodium Chloride (Sodium Chloride Flush Syringe 10 Ml) 10 ml IV BID [facility] Last Admin: 06/12/18 22:00 Dose: 10 ml Documented by: Sodium Chloride (Sodium Chloride Flush Syringe 10 Ml) 10 ml IV PRN PRN PRN Reason: LINE FLUSH Last Admin: 06/13/18 04:23 Dose: 10 ml Documented by: Zolpidem Tartrate (Ambien) 10 mg PO QHS [facility] Review of Systems Constitutional: no weight loss Ears, nose, mouth and throat: no deferred, no ear pain Cardiovascular: no chest pain, no orthopnea Respiratory: no cough, no hemoptysis Gastrointestinal: diarrhea, no abdominal pain, no nausea, no vomiting Genitourinary Male: no dysuria, no hematuria, no flank pain Musculoskeletal: prior amputations Integumentary: no rash Neurological: loss of vision, hearing difficulties Psychiatric: no anxiety, no memory loss Endocrine: no cold intolerance, no heat intolerance Hematologic/Lymphatic: no easy bruising Allergic/Immunologic: no urticaria Exam - Vital Signs Vital signs: Vital Signs Temp Pulse Resp BP Pulse Ox 97.7 F 73 18 156/74 97 06/12/18 20:11 06/12/18 20:11 06/12/18 20:11 06/12/18 20:11 06/12/18 20:11 - General Appearance General appearance: well-developed, well-nourished EENT: ATNC, mucous membranes moist, other (legally blind) Neck: Present: neck supple, trachea midline Respiratory: Decreased Breath Sounds, Normal Exam Heart: regular, S1S2 Gastrointestinal: Present: normal, normoactive bowel sounds Integumentary: no rash Neurologic: alert and oriented x3, CN 3-12 intact Musculoskeletal: Present: other (right BKA ) Psychiatric: mood/affect appropriate Results - Lab Results 06/12/18 19:56 06/13/18 01:04 Most recent lab results Calcium 7.8 mg/dL (8.4-10.2) L 06/12/18 19:56 - Image Kidney/bladder ultrasound: report reviewed Assessment and Plan - Patient Problems (1) End-stage renal disease needing dialysis Current Visit: Yes Status: Acute Plan to address problem: End-stage renal disease Access: Left arm AV graft We'll initiate dialysis 4 hours 2K/2.5 calcium/35 bicarbonate bath Ultrafiltration 2-3L (2) Hyperkalemia Current Visit: Yes Status: Acute Plan to address problem: Hyperkalemia had incomplete dialysis session few days ago We'll initiate dialysis with 4 hours (3) Diabetes Current Visit: No Status: Acute Qualifiers: Diabetes mellitus type: type 2 Plan to address problem: Diabetes mellitus type 2: With complications of retinopathy and neuropathy and nephropathy Ensure medications Monitor fingersticks (4) HTN (hypertension) Current Visit: No Status: Acute Qualifiers: Hypertension type: essential hypertension Qualified Code(s): I10 - Essential (primary) hypertension Plan to address problem: HTN: uncontrolled optimize volume status with dialysis Ensure home medications
[2018-06-13] MEDS: PROTONIX PO SCH (11:35)
[2018-06-13] MEDS: VITAMIN C PO SCH (11:35)
[2018-06-13] MEDS: SYNTHROID PO SCH (11:35)
[2018-06-13] MEDS: PLAVIX PO SCH (11:35)
[2018-06-13] MEDS: THERAGRAN-M Tab PO SCH (11:36)
[2018-06-13] MEDS: ZOLOFT PO SCH (11:36)
[2018-06-13] MEDS: LYRICA PO SCH (11:36)
[2018-06-13] MEDS: NORVASC PO SCH (11:36)
[2018-06-13] MEDS: SODIUM CHLORIDE FLUSH SYRINGE 10 ML IV SCH ×2 (11:37→22:50)
[2018-06-13] MEDS: HEPARIN SUB-Q SCH ×2 (11:40→22:50)
--- NOTE | 2018-06-13 14:10 | Progress Note ---
Assessment and Plan Assessment and plan: ESRD. Patient has been noncompliant with hemodialysis. Hemodialysis continue per nephrology. Hyperkalemia. Hemodialysis. Follow BMP. Diabetes mellitus type 2. Continue Accu-Cheks and sliding scale. Thrombocytopenia. Follow-up CBC. Hypertension. Continue antihypertensive medications. Right BKA. History Interval history: No new issues overnight Hospitalist Physical - Constitutional Vitals: Temp Pulse Resp BP Pulse Ox 97.5 F L 85 18 194/81 93 06/13/18 08:15 06/13/18 08:15 06/13/18 08:15 06/13/18 08:15 06/13/18 08:15 General appearance: Present: no acute distress - EENT Eyes: Present: PERRL, EOM intact ENT: hearing intact, clear oral mucosa, dentition normal - Neck Neck: Present: supple, normal ROM - Respiratory Respiratory effort: normal Respiratory: bilateral: CTA - Cardiovascular Rhythm: regular Heart Sounds: Present: S1 & S2. Absent: gallop, rub - Extremities Extremities: no ischemia, No edema, Full ROM - Abdominal General gastrointestinal: soft, non-tender, non-distended, normal bowel sounds - Integumentary Integumentary: Present: clear, warm, dry - Neurologic Neurologic: CNII-XII intact, moves all extremities Results - Labs CBC & Chem 7: 06/12/18 19:56 06/13/18 01:04 Labs: Laboratory Last Values WBC 6.0 K/mm3 (4.5-11.0) 06/12/18 19:56 RBC 3.74 M/mm3 (3.65-5.03) 06/12/18 19:56 Hgb 12.5 gm/dl (11.8-15.2) 06/12/18 19:56 Hct 38.6 % (35.5-45.6) 06/12/18 19:56 MCV 103 fl (84-94) H 06/12/18 19:56 MCH 34 pg (28-32) H 06/12/18 19:56 MCHC 33 % (32-34) 06/12/18 19:56 RDW 19.4 % (13.2-15.2) H 06/12/18 19:56 Plt Count 79 K/mm3 (140-440) L 06/12/18 19:56 Lymph % (Auto) 10.0 % (13.4-35.0) L 06/12/18 19:56 [place] % (Auto) 6.9 % (0.0-7.3) 06/12/18 19:56 Eos % (Auto) 5.3 % (0.0-4.3) H 06/12/18 19:56 Baso % (Auto) 1.2 % (0.0-1.8) 06/12/18 19:56 Lymph # 0.6 K/mm3 (1.2-5.4) L 06/12/18 19:56 [place] # 0.4 K/mm3 (0.0-0.8) 06/12/18 19:56 Eos # 0.3 K/mm3 (0.0-0.4) 06/12/18 19:56 Baso # 0.1 K/mm3 (0.0-0.1) 06/12/18 19:56 Seg Neutrophils % 76.6 % (40.0-70.0) H 06/12/18 19:56 Seg Neutrophils # 4.6 K/mm3 (1.8-7.7) 06/12/18 19:56 Sodium 142 mmol/L (137-145) 06/12/18 19:56 Potassium 6.5 mmol/L (3.6-5.0) H* 06/12/18 19:56 Chloride 100.7 mmol/L (98-107) 06/12/18 19:56 Carbon Dioxide 24 mmol/L (22-30) 06/12/18 19:56 Anion Gap 24 mmol/L 06/12/18 19:56 BUN 78 mg/dL (9-20) H 06/12/18 19:56 Creatinine 9.6 mg/dL (0.8-1.5) H 06/12/18 19:56 Estimated GFR 7 ml/min 06/12/18 19:56 BUN/Creatinine Ratio 8 % 06/12/18 19:56 Glucose 91 mg/dL (75-100) 06/13/18 01:04 POC Glucose 66 (70-105) L 06/13/18 00:56 Calcium 7.8 mg/dL (8.4-10.2) L 06/12/18 19:56 Total Bilirubin 0.50 mg/dL (0.1-1.2) 06/12/18 19:56 AST 21 units/L (5-40) 06/12/18 19:56 ALT 21 units/L (7-56) 06/12/18 19:56 Alkaline Phosphatase 163 units/L (35-129) H 06/12/18 19:56 Total Protein 8.3 g/dL (6.3-8.2) H 06/12/18 19:56 Albumin 3.9 g/dL (3.9-5) 06/12/18 19:56 Albumin/Globulin Ratio 0.9 % 06/12/18 19:56 Active Medications - Current Medications Current Medications: Generic Name Dose Route Start Last Admin Trade Name Freq PRN Reason Stop Dose Admin Acetaminophen 650 mg 06/12/18 21:39 Tylenol PO Q4H PRN Pain MILD(1-3)/Fever >100.5/MAE Amlodipine Besylate 10 mg 06/13/18 10:00 06/13/18 11:36 Norvasc PO Not Given QDAY [facility] Ascorbic Acid 500 mg 06/13/18 10:00 06/13/18 11:35 Vitamin C PO 500 mg DAILY [facility] Administration Calcium Acetate 1,334 mg 06/13/18 08:00 06/13/18 13:53 Phoslo PO Not Given TIDWM [facility] Clopidogrel Bisulfate 75 mg 06/13/18 10:00 06/13/18 11:35 Plavix PO 75 mg DAILY [facility] Administration Ergocalciferol 50,000 unit 06/19/18 10:[address] [facility] Heparin Sodium (Porcine) 5,000 unit 06/12/18 22:00 06/13/18 11:40 Heparin SUB-Q Not Given Q12HR [facility] Hydralazine HCl 25 mg 06/13/18 10:00 06/13/18 11:37 Apresoline PO Not Given DAILY [facility] Sodium Chloride 100 mls @ 999 mls/hr 06/13/18 05:50 Nacl 0.9% IV ANMOL PRN Hypotension Levothyroxine Sodium 50 mcg 06/13/18 07:00 06/13/18 11:35 Synthroid PO 50 mcg DAILY@0600 [facility] Administration Loperamide HCl 2 mg 06/13/18 07:00 Imodium PO PRN PRN Diarrhea Morphine Sulfate 2 mg 06/12/18 23:12 06/13/18 08:45 Morphine IV 2 mg Q4H PRN Administration Pain, Moderate (4-6) Multivitamins/Minerals 1 each 06/13/18 10:00 06/13/18 11:36 Theragran-M Tab PO 1 each QDAY [facility] Administration Ondansetron HCl 4 mg 06/12/18 21:39 Zofran IV Q8H PRN Nausea And Vomiting Pantoprazole Sodium 40 mg 06/13/18 10:00 06/13/18 11:35 Protonix PO 40 mg DAILY [facility] Administration Pregabalin 50 mg 06/13/18 10:00 06/13/18 11:36 Lyrica PO 50 mg DAILY [facility] Administration Sertraline HCl 100 mg 06/13/18 10:00 06/13/18 11:36 Zoloft PO 100 mg DAILY [facility] Administration Sodium Chloride 10 ml 06/12/18 22:00 06/13/18 11:37 Sodium Chloride Flush Syringe 10 Ml IV 10 ml BID [facility] Administration Sodium Chloride 10 ml 06/12/18 21:39 06/13/18 04:23 Sodium Chloride Flush Syringe 10 Ml IV 10 ml PRN PRN Administration LINE FLUSH Zolpidem Tartrate 10 mg 06/13/18 22:00 Ambien PO QHS [facility]
[2018-06-13] MEDS: APRESOLINE PO SCH (18:48)
[2018-06-13] MEDS ORDERED: APRESOLINE IV PRN (22:00)
[2018-06-13] MEDS ORDERED: AMBIEN PO SCH (22:00)
[2018-06-14] MEDS: MORPHINE IV PRN ×2 (03:39→09:40)
[2018-06-14] MEDS: SYNTHROID PO SCH (05:40)
[2018-06-14 08:13] LABS: Calcium 7.9 mg/dL (8.4-10.2)
--- NOTE | 2018-06-14 09:26 | Discharge Summary ---
Providers - Providers Date of Admission: 06/12/18 21:45 Date of discharge: 06/14/18 Attending physician: LUIS MIGUEL COOPER 06/12/18 22:44 Consult to Physician [CONS] Urgent Comment: Dr. Clark spoke with Dr. 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 The patient was called to the hospital due to high potassium levels. He received medical management with insulin dextrose sodium bicarbonate after admission. He denieD any orthopnea PND he denies any lower extremity swelling. The patient was seen by nephrology in consultation and underwent hemodialysis. Laboratory stabilized including his potassium and patient was without any respiratory issues/volume overload. Patient is felt to have received maximal hospital benefit and thus will be discharged home. Dedicated discharge time 32 minutes. Disposition: - TO HOME OR SELFCARE Time spent for discharge: 32 - Discharge Diagnoses (1) End-stage renal disease needing dialysis Status: Acute (2) Hyperkalemia Status: Acute (3) Diabetes Status: Acute Qualifiers: Diabetes mellitus type: type 2 (4) Fluid overload Status: Acute Qualifiers: Hypervolemia type: other Qualified Code(s): E87.79 - Other fluid overload (5) HTN (hypertension) Status: Acute Qualifiers: Hypertension type: essential hypertension Qualified Code(s): I10 - Essential (primary) hypertension (6) Hx of right BKA Status: Acute Core Measure Documentation - Palliative Care Palliative Care/ Comfort Measures: Not Applicable - Core Measures Any of the following diagnoses?: none Exam - Constitutional Vitals: Temp Pulse Resp BP Pulse Ox 98.1 F 88 18 170/85 99 06/14/18 00:10 06/14/18 08:15 06/14/18 00:10 06/14/18 08:15 06/14/18 08:15 General appearance: Present: no acute distress, well-nourished - EENT Eyes: Present: PERRL ENT: hearing intact, clear oral mucosa - Neck Neck: Present: supple, normal ROM - Respiratory Respiratory effort: normal Respiratory: bilateral: CTA - Cardiovascular Heart Sounds: Present: S1 & S2. Absent: rub, click - Extremities Extremities: pulses symmetrical, No edema Peripheral Pulses: within normal limits - Abdominal General gastrointestinal: Present: soft, non-tender, non-distended, normal bowel sounds Male genitourinary: Present: normal - Integumentary Integumentary: Present: clear, warm, dry - Musculoskeletal Musculoskeletal: gait normal, strength equal bilaterally - Psychiatric Psychiatric: appropriate mood/affect, intact judgment & insight - Neurologic Neurologic: CNII-XII intact, moves all extremities Plan Activity: no restrictions Weight Bearing Status: Full Weight Bearing Diet: renal Follow up with: PRIMARY CARE, [Primary Care Provider] - 3-5 Days Prescriptions: hydrALAZINE [Apresoline TAB] 25 mg PO TID #90 tablet Pregabalin [Lyrica] 50 mg PO DAILY #30 capsule Multivit-Min/Iron Fum/Folic AC [Femzc-Pndzrko-Umcecvud Tablet] 1 each PO DAILY #30 tablet amLODIPine [Norvasc] 10 mg PO QDAY #30 tablet Calcium Acetate [Phoslo] 1,334 mg PO TID #90 capsule Clopidogrel [Plavix] 75 mg PO DAILY #30 tablet Pantoprazole [Protonix TAB] 40 mg PO DAILY #30 tablet Levothyroxine [Synthroid] 50 mcg PO DAILY #30 tablet Ascorbic Acid [Vitamin C] 500 mg PO DAILY #30 tablet Vitamin D2 50,000 units PO 1XW #4 Sertraline [Zoloft] 100 mg PO DAILY #30 tablet
[2018-06-14] MEDS: PHOSLO PO SCH (09:38)
[2018-06-14] MEDS: LYRICA PO SCH (09:39)
[2018-06-14] MEDS: PLAVIX PO SCH (09:39)
[2018-06-14] MEDS: PROTONIX PO SCH (09:39)
[2018-06-14] MEDS: NORVASC PO SCH (09:39)
[2018-06-14] MEDS: VITAMIN C PO SCH (09:39)
[2018-06-14] MEDS: THERAGRAN-M Tab PO SCH (09:39)
[2018-06-14] MEDS: ZOLOFT PO SCH (09:39)
[2018-06-14] MEDS: APRESOLINE PO SCH (09:40)
[2018-06-14] MEDS: HEPARIN SUB-Q SCH (09:40)
[2018-06-14] MEDS: SODIUM CHLORIDE FLUSH SYRINGE 10 ML IV SCH (09:40)
[2018-06-14 11:14] VITALS: BP 155/76
[2018-06-19] MEDS ORDERED: VITAMIN D2 PO SCH (10:00)
== END 2018-06-14 13:00 | disposition home or self-care (01) | DRG 640 ==
LOC: ED 19:30 → 4A 21:45
PROVIDERS: ADMIT Internal Medicine; ATTEND Hospitalist
PROC: 5A1D70Z Performance of Urinary Filtration, Intermittent, Less than 6 Hours Per Day (ICD-10-PCS; principal; 2018-06-13)
DX: E87.5 Hyperkalemia (principal); N18.6 End stage renal disease; I12.0 Hypertensive chronic kidney disease with stage 5 chronic kidney disease or end stage renal disease; E11.21 Type 2 diabetes mellitus with diabetic nephropathy; E11.22 Type 2 diabetes mellitus with diabetic chronic kidney disease; E11.40 Type 2 diabetes mellitus with diabetic neuropathy, unspecified; H54.8 Legal blindness, as defined in USA; E87.79 Other fluid overload; D69.6 Thrombocytopenia, unspecified; E11.319 Type 2 diabetes mellitus with unspecified diabetic retinopathy without macular edema; B19.10 Unspecified viral hepatitis B without hepatic coma; M19.90 Unspecified osteoarthritis, unspecified site; E83.51 Hypocalcemia; Z89.511 Acquired absence of right leg below knee; Z99.2 Dependence on renal dialysis; Z91.15 Patient's noncompliance with renal dialysis; Z91.041 Radiographic dye allergy status; Z79.899 Other long term (current) drug therapy
CPT/HCPCS: 36415; 80048; 80053; 82947; 82962; 85025; 87116; 93005; 93010; 96365; 96372; 96375; G0378; J0360; J0610; J1644; J1815; J2270

== ENCOUNTER 2018-08-14 10:07 | Inpatient (IN) | payer MEDICAID ==
--- NOTE | 2018-08-14 11:24 | Emergency Department Report ---
ED General Adult HPI - General Chief complaint: Medical Clearance Stated complaint: DIALYSIS Time Seen by Provider: 08/14/18 10:36 Source: patient, EMS Mode of arrival: Stretcher Limitations: No Limitations - History of Present Illness Initial comments: The patient presents to the ED for dialysis. Patient states his last dialysis was 6 days ago. patient denies CP,SOB, or abdominal pain -: Gradual Severity scale (0 -10): 0 Improves with: none Worsens with: none Associated Symptoms: denies other symptoms Treatments Prior to Arrival: none - Related Data Home Medications Medication Instructions Recorded Confirmed Last Taken Zolpidem [Ambien] 10 mg PO QHS 08/02/17 08/22/17 2 Days Ago ~07/31/17 Loperamide [Imodium] 2 mg PO PRN 08/22/17 08/22/17 Unknown Previous Rx's Medication Instructions Recorded Last Taken Type Ascorbic Acid [Vitamin C] 500 mg PO DAILY #30 tablet 06/14/18 Unknown Rx Calcium Acetate [Phoslo] 1,334 mg PO TID #90 capsule 06/14/18 Unknown Rx Clopidogrel [Plavix] 75 mg PO DAILY #30 tablet 06/14/18 Unknown Rx Levothyroxine [Synthroid] 50 mcg PO DAILY #30 tablet 06/14/18 Unknown Rx Multivit-Min/Iron Fum/Folic AC 1 each PO DAILY #30 tablet 06/14/18 Unknown Rx [Etgfg-Znquddp-Lcmwmhey Tablet] Pantoprazole [Protonix TAB] 40 mg PO DAILY #30 tablet 06/14/18 Unknown Rx Pregabalin [Lyrica] 50 mg PO DAILY #30 capsule 06/14/18 Unknown Rx Sertraline [Zoloft] 100 mg PO DAILY #30 tablet 06/14/18 Unknown Rx Vitamin D2 50,000 units PO 1XW #4 06/14/18 Unknown Rx amLODIPine [Norvasc] 10 mg PO QDAY #30 tablet 06/14/18 Unknown Rx hydrALAZINE [Apresoline TAB] 25 mg PO TID #90 tablet 06/14/18 Unknown Rx Allergies Allergy/AdvReac Type Severity Reaction Status Date / Time contrast dye AdvReac Severe Rash Uncoded 06/12/18 19:48 ED Review of Systems ROS: Stated complaint: DIALYSIS Other details as noted in HPI Constitutional: denies: chills, fever Eyes: denies: eye pain, eye discharge, vision change ENT: denies: ear pain, throat pain Respiratory: denies: cough, shortness of breath, wheezing Cardiovascular: denies: chest pain, palpitations Endocrine: no symptoms reported Gastrointestinal: denies: abdominal pain, nausea, diarrhea Genitourinary: denies: urgency, dysuria Musculoskeletal: denies: back pain, joint swelling, arthralgia Skin: denies: rash, lesions Neurological: denies: headache, weakness, paresthesias Psychiatric: denies: anxiety, depression Hematological/Lymphatic: denies: easy bleeding, easy bruising ED Past Medical Hx - Past Medical History Previous Medical History?: Yes Hx Hypertension: Yes Hx Diabetes: Yes Hx Renal Disease: Yes Hx Arthritis: Yes Additional medical history: HEP B, RECTAL TEAR, NEUROPATHY, RBKA, LT TIBIA FX, ESRD - Surgical History Past Surgical History?: Yes Additional Surgical History: right BKA - Social History Smoking Status: Never Smoker Substance Use Type: None - Medications Home Medications: Home Medications Medication Instructions Recorded Confirmed Last Taken Type Zolpidem [Ambien] 10 mg PO QHS 08/02/17 08/22/17 2 Days Ago History ~07/31/17 Loperamide [Imodium] 2 mg PO PRN 08/22/17 08/22/17 Unknown History Ascorbic Acid [Vitamin C] 500 mg PO DAILY #30 tablet 06/14/18 Unknown Rx Calcium Acetate [Phoslo] 1,334 mg PO TID #90 capsule 06/14/18 Unknown Rx Clopidogrel [Plavix] 75 mg PO DAILY #30 tablet 06/14/18 Unknown Rx Levothyroxine [Synthroid] 50 mcg PO DAILY #30 tablet 06/14/18 Unknown Rx Multivit-Min/Iron Fum/Folic AC 1 each PO DAILY #30 tablet 06/14/18 Unknown Rx [Xwxbn-Cvwtpxd-Usjfwqil Tablet] Pantoprazole [Protonix TAB] 40 mg PO DAILY #30 tablet 06/14/18 Unknown Rx Pregabalin [Lyrica] 50 mg PO DAILY #30 capsule 06/14/18 Unknown Rx Sertraline [Zoloft] 100 mg PO DAILY #30 tablet 06/14/18 Unknown Rx Vitamin D2 50,000 units PO 1XW #4 06/14/18 Unknown Rx amLODIPine [Norvasc] 10 mg PO QDAY #30 tablet 06/14/18 Unknown Rx hydrALAZINE [Apresoline TAB] 25 mg PO TID #90 tablet 06/14/18 Unknown Rx ED Physical Exam - General Limitations: No Limitations General appearance: alert, in no apparent distress - Head Head exam: Present: atraumatic, normocephalic - Eye Eye exam: Present: normal appearance, PERRL, EOMI - ENT ENT exam: Present: mucous membranes moist - Neck Neck exam: Present: normal inspection - Respiratory Respiratory exam: Present: normal lung sounds bilaterally. Absent: respiratory distress, wheezes, rales - Cardiovascular Cardiovascular Exam: Present: regular rate, normal rhythm. Absent: systolic murmur, diastolic murmur, rubs, gallop - GI/Abdominal GI/Abdominal exam: Present: soft, normal bowel sounds. Absent: distended, tenderness - Rectal Rectal exam: Present: deferred - Extremities Exam Extremities exam: Present: other (right BKA) - Back Exam Back exam: Present: normal inspection - Neurological Exam Neurological exam: Present: alert, oriented X3, CN II-XII intact. Absent: motor sensory deficit - Psychiatric Psychiatric exam: Present: normal affect, normal mood - Skin Skin exam: Present: warm, dry, intact, normal color. Absent: rash ED Course Vital Signs 08/14/18 08/14/18 08/14/18 10:13 10:15 10:19 Temperature 98.4 F Pulse Rate 70 70 70 Respiratory 10 L 9 L 16 Rate Blood Pressure 119/43 Blood Pressure 119/43 [Right] O2 Sat by Pulse 85 95 Oximetry 08/14/18 08/14/18 08/14/18 10:30 10:45 11:00 Temperature Pulse Rate 66 63 62 Respiratory 7 L 8 L 12 Rate Blood Pressure 115/49 117/46 113/48 Blood Pressure [Right] O2 Sat by Pulse 86 87 98 Oximetry 08/14/18 08/14/18 08/14/18 11:16 11:30 11:45 Temperature Pulse Rate 62 59 L 60 Respiratory 11 L 8 L 8 L Rate Blood Pressure 113/48 120/56 124/57 Blood Pressure [Right] O2 Sat by Pulse 95 96 97 Oximetry 08/14/18 08/14/18 08/14/18 12:00 12:16 12:30 Temperature Pulse Rate 61 66 62 Respiratory 10 L 14 12 Rate Blood Pressure 110/47 99/51 112/50 Blood Pressure [Right] O2 Sat by Pulse 96 94 96 Oximetry ED Medical Decision Making - Lab Data Result diagrams: 08/14/18 11:14 08/14/18 11:14 Lab Results 08/14/18 08/14/18 08/14/18 Range/Units 11:14 11:14 11:14 WBC 5.6 (4.5-11.0) K/mm3 RBC 2.99 L (3.65-5.03) M/mm3 Hgb 10.1 L (11.8-15.2) gm/dl Hct 31.0 L (35.5-45.6) % MCV 104 H (84-94) fl MCH 34 H (28-32) pg MCHC 33 (32-34) % RDW 18.3 H (13.2-15.2) % Plt Count 90 L (140-440) K/mm3 Lymph % (Auto) 15.7 (13.4-35.0) % [place] % (Auto) 9.5 H (0.0-7.3) % Eos % (Auto) 4.6 H (0.0-4.3) % Baso % (Auto) 1.1 (0.0-1.8) % Lymph # 0.9 L (1.2-5.4) K/mm3 [place] # 0.5 (0.0-0.8) K/mm3 Eos # 0.3 (0.0-0.4) K/mm3 Baso # 0.1 (0.0-0.1) K/mm3 Seg Neutrophils % 69.1 (40.0-70.0) % Seg Neutrophils # 3.9 (1.8-7.7) K/mm3 Sodium 141 (137-145) mmol/L Potassium 7.0 H* (3.6-5.0) mmol/L Chloride 100.7 (98-107) mmol/L Carbon Dioxide 18 L (22-30) mmol/L Anion Gap 29 mmol/L BUN 101 H (9-20) mg/dL Creatinine 13.1 H (0.8-1.5) mg/dL Estimated GFR 5 ml/min BUN/Creatinine Ratio 8 % Glucose 79 (75-100) mg/dL Calcium 6.8 L (8.4-10.2) mg/dL Magnesium 2.40 H (1.7-2.3) mg/dL Total Bilirubin 0.40 (0.1-1.2) mg/dL Direct Bilirubin < 0.2 (0-0.2) mg/dL Indirect Bilirubin 0.2 mg/dL AST 15 (5-40) units/L ALT 12 (7-56) units/L Alkaline Phosphatase 119 (35-129) units/L Total Protein 7.4 (6.3-8.2) g/dL Albumin 3.4 L (3.9-5) g/dL Albumin/Globulin Ratio 0.9 % - EKG Data -: EKG Interpreted by Me EKG shows normal: sinus rhythm Rate: normal - Radiology Data Radiology results: report reviewed - Medical Decision Making Patient given IV Insulin,NaHCO3,D50, and oral kayexalate Nephro contacted and pt will receive emergent dialysis Critical Care Time: Yes Critical care time in (mins) excluding proc time.: 35 Critical care attestation.: If time is entered above; I have spent that time in minutes in the direct care of this critically ill patient, excluding procedure time. ED Disposition Clinical Impression: Hyperkalemia, ESRD (end stage renal disease) on dialysis Disposition: OP ADMIT IP TO THIS HOSP Is pt being admited?: Yes Does the pt Need Aspirin: No Condition: Fair Referrals: BRETT HANSEN MD [Primary Care Provider] - 3-5 Days
[2018-08-14 11:40] LABS: Basophils # (Auto) 0.1 K/mm3 (0.0-0.1); Basophils % (Auto) 1.1 % (0.0-1.8); Eosinophils # (Auto) 0.3 K/mm3 (0.0-0.4); Eosinophils % (Auto) 4.6 % (0.0-4.3); Hemoglobin 10.1 gm/dl (11.8-15.2); Lymphocytes # (Auto) 0.9 K/mm3 (1.2-5.4); Lymphocytes % (Auto) 15.7 % (13.4-35.0); Mean Corpuscular HGB Conc 33 % (32-34); Mean Corpuscular Volume 104 fl (84-94); Monocytes # (Auto) 0.5 K/mm3 (0.0-0.8); Monocytes % (Auto) 9.5 % (0.0-7.3); Red Blood Count 2.99 M/mm3 (3.65-5.03); Red Cell Distribution Width 18.3 % (13.2-15.2)
[2018-08-14 11:48] LABS: Platelet Count 90 K/mm3 (140-440)
[2018-08-14 11:52] LABS: Alanine Aminotransferase 12 units/L (7-56); Albumin 3.4 g/dL (3.9-5)
[2018-08-14 12:00] LABS: Bilirubin,Direct < 0.2 mg/dL (0-0.2)
[2018-08-14 12:03] LABS: Calcium 6.8 mg/dL (8.4-10.2)
[2018-08-14] MEDS ORDERED: HumuLIN R IV ONE (12:35)
[2018-08-14] MEDS ORDERED: KIONEX PO ONE (12:35)
[2018-08-14] MEDS ORDERED: D50W (25GM) Syringe IV ONE (12:36)
[2018-08-14] MEDS ORDERED: MORPHINE ONE (13:09)
[2018-08-14] MEDS ORDERED: MORPHINE IV ONE (13:13)
[2018-08-14] MEDS ORDERED: CALCIUM GLUCONATE 1,000 MG in NACL 0.9% 100 ML IV ONE (13:35)
[2018-08-14] MEDS ORDERED: SODIUM BICARBONATE 50 MEQ in NACL 0.9% 1000 ML 1,000 ML IV ONE (13:36)
--- NOTE | 2018-08-14 14:19 | XRay Report ---
PROCEDURE: XR CHEST 1V AP TECHNIQUE: Chest radiograph, AP view. HISTORY: cough COMPARISONS: Chest x-ray August 22, 2017. FINDINGS: Stable cardiomegaly. Aortic calcifications. Blunted right costophrenic angle with ill-defined opacity at the right lung base. No pneumothorax. Mi ld right lateral pleural thickening. Left lung is clear. There are no suspicious osseous lesions. IMPRESSION: * Focal infiltrate or subsegmental atelectasis at the right lung base. Infiltrate suspected. * Small to moderate right pleural effusion which may be partially loculated. * Stable cardiomegaly. This document is electronically signed by Pool Redding MD., Aug 14 2018 02:17:23 PM ET
--- NOTE | 2018-08-14 16:41 | Consultation ---
History of Present Illness - History of Present Illness 62-year-old gentleman with medical history significant for hypertension uncon trolled, diabetes mellitus type 2 with complications, legally blind, end-stage renal disease on hemodialysis presenting with complaints of missed dialysis because last dialysis was last . He reports he has been restricting fluid intake labs in the emergency room significant for elevated potassium 7 he has had some orthopnea PND he received insulin and dextrose, calcium gluconate prior to dialysis Medications and Allergies Allergies Allergy/AdvReac Type Severity Reaction Status Date / Time contrast dye AdvReac Severe Rash Uncoded 06/12/18 19:48 Home Medications Medication Instructions Recorded Confirmed Last Taken Type Zolpidem [Ambien] 10 mg PO QHS 08/02/17 08/22/17 2 Days Ago History ~07/31/17 Loperamide [Imodium] 2 mg PO PRN 08/22/17 08/22/17 Unknown History Ascorbic Acid [Vitamin C] 500 mg PO DAILY #30 tablet 06/14/18 Unknown Rx Calcium Acetate [Phoslo] 1,334 mg PO TID #90 capsule 06/14/18 Unknown Rx Clopidogrel [Plavix] 75 mg PO DAILY #30 tablet 06/14/18 Unknown Rx Levothyroxine [Synthroid] 50 mcg PO DAILY #30 tablet 06/14/18 Unknown Rx Multivit-Min/Iron Fum/Folic AC 1 each PO DAILY #30 tablet 06/14/18 Unknown Rx [Kruue-Xlloyia-Yixwzarq Tablet] Pantoprazole [Protonix TAB] 40 mg PO DAILY #30 tablet 06/14/18 Unknown Rx Pregabalin [Lyrica] 50 mg PO DAILY #30 capsule 06/14/18 Unknown Rx Sertraline [Zoloft] 100 mg PO DAILY #30 tablet 06/14/18 Unknown Rx Vitamin D2 50,000 units PO 1XW #4 06/14/18 Unknown Rx amLODIPine [Norvasc] 10 mg PO QDAY #30 tablet 06/14/18 Unknown Rx hydrALAZINE [Apresoline TAB] 25 mg PO TID #90 tablet 06/14/18 Unknown Rx Review of Systems Constitutional: weight gain, fatigue, no anorexia Ears, nose, mouth and throat: no deferred, no ear pain Cardiovascular: orthopnea, edema, shortness of breath, no chest pain Respiratory: no cough, no cough with sputum Gastrointestinal: no abdominal pain, no nausea, no vomiting Genitourinary Male: no dysuria, no hematuria Musculoskeletal: no neck stiffness, no neck pain Integumentary: no deferred, no rash Neurological: no head injury, no transient paralysis Psychiatric: no anxiety, no memory loss Endocrine: no cold intolerance, no heat intolerance Allergic/Immunologic: no urticaria, no allergic rhinitis Exam - Vital Signs Vital signs: Vital Signs Pulse Resp 70 10 L 08/14/18 10:13 08/14/18 10:13 - General Appearance General appearance: well-developed, well-nourished EENT: ATNC, PERRL, mucous membranes moist Neck: Present: neck supple Respiratory: Clear to Ascultation Heart: regular, S1S2 Gastrointestinal: Present: normal, normoactive bowel sounds Integumentary: no rash Neurologic: no focal deficit, CN 3-12 intact Musculoskeletal: Present: deferred Psychiatric: mood/affect appropriate Results - Lab Results 08/14/18 11:14 08/14/18 11:14 Most recent lab results Calcium 6.8 mg/dL (8.4-10.2) L 08/14/18 11:14 Magnesium 2.40 mg/dL (1.7-2.3) H 08/14/18 11:14 - Image Kidney/bladder ultrasound: other (I reviewed chest x-ray with interstitial edema) Assessment and Plan - Patient Problems (1) ESRD (end stage renal disease) on dialysis Current Visit: Yes Status: Acute Plan to address problem: End-stage renal disease on dialysis Dialysis access left arm AV graft We'll initiate dialysis for hyperkalemia and volume overload (2) Hyperkalemia Current Visit: Yes Status: Acute Plan to address problem: Severe hyperkalemia Reviewed EKG with peaked T waves Received calcium gluconate Insulin and dextrose also initiated urgent hemodialysis (3) Diabetes Current Visit: No Status: Acute Qualifiers: Diabetes mellitus type: type 2 Plan to address problem: Diabetes mellitus type 2 with complications Resume medications Monitor fingersticks (4) Fluid overload Current Visit: No Status: Acute Qualifiers: Hypervolemia type: other Qualified Code(s): E87.79 - Other fluid overload Plan to address problem: Volume overload Chest x-ray with edema We'll initiate dialysis with ultrafiltration (5) HTN (hypertension) Current Visit: No Status: Acute Qualifiers: Hypertension type: essential hypertension Qualified Code(s): I10 - Essential (primary) hypertension Plan to address problem: Hypertension uncontrolled resume oral medications
[2018-08-14] MEDS: MORPHINE IV PRN (20:48)
--- NOTE | 2018-08-14 21:07 | History and Physical Report ---
History of Present Illness Date of examination: 08/14/18 Date of admission: 08/14/18 13:19 History of present illness: The patient presents to the ED for dialysis. Patient states his last dialysis was 6 days ago. patient denies CP,SOB, or abdominal pain -: Gradual Severity scale (0 -10): 0 Improves with: none Worsens with: none Associated Symptoms: denies other symptoms Treatments Prior to Arrival: none - Related Data Home Medications Medication Instructions Recorded Confirmed Last Taken Zolpidem [Ambien] 10 mg PO QHS 08/02/17 08/22/17 2 Days Ago ~07/31/17 Loperamide [Imodium] 2 mg PO PRN 08/22/17 08/22/17 Unknown Previous Rx's Medication Instructions Recorded Last Taken Type Ascorbic Acid [Vitamin C] 500 mg PO DAILY #30 tablet 06/14/18 Unknown Rx Calcium Acetate [Phoslo] 1,334 mg PO TID #90 capsule 06/14/18 Unknown Rx Clopidogrel [Plavix] 75 mg PO DAILY #30 tablet 06/14/18 Unknown Rx Levothyroxine [Synthroid] 50 mcg PO DAILY #30 tablet 06/14/18 Unknown Rx Multivit-Min/Iron Fum/Folic AC 1 each PO DAILY #30 tablet 06/14/18 Unknown Rx [Gjgtf-Fbvhbdw-Abqzezhk Tablet] Pantoprazole [Protonix TAB] 40 mg PO DAILY #30 tablet 06/14/18 Unknown Rx Pregabalin [Lyrica] 50 mg PO DAILY #30 capsule 06/14/18 Unknown Rx Sertraline [Zoloft] 100 mg PO DAILY #30 tablet 06/14/18 Unknown Rx Vitamin D2 50,000 units PO 1XW #4 06/14/18 Unknown Rx amLODIPine [Norvasc] 10 mg PO QDAY #30 tablet 06/14/18 Unknown Rx hydrALAZINE [Apresoline TAB] 25 mg PO TID #90 tablet 06/14/18 Unknown Rx Allergies Allergy/AdvReac Type Severity Reaction Status Date / Time contrast dye AdvReac Severe Rash Uncoded 06/12/18 19:48 ED Review of Systems ROS: Stated complaint: DIALYSIS Other details as noted in HPI Constitutional: denies: chills, fever Eyes: denies: eye pain, eye discharge, vision change ENT: denies: ear pain, throat pain Respiratory: denies: cough, shortness of breath, wheezing Cardiovascular: denies: chest pain, palpitations Endocrine: no symptoms reported Gastrointestinal: denies: abdominal pain, nausea, diarrhea Genitourinary: denies: urgency, dysuria Musculoskeletal: denies: back pain, joint swelling, arthralgia Skin: denies: rash, lesions Neurological: denies: headache, weakness, paresthesias Psychiatric: denies: anxiety, depression Hematological/Lymphatic: denies: easy bleeding, easy bruising ED Past Medical Hx - Past Medical History Previous Medical History?: Yes Hx Hypertension: Yes Hx Diabetes: Yes Hx Renal Disease: Yes Hx Arthritis: Yes Additional medical history: HEP B, RECTAL TEAR, NEUROPATHY, RBKA, LT TIBIA FX, ESRD - Surgical History Past Surgical History?: Yes Additional Surgical History: right BKA - Social History Smoking Status: Never Smoker Substance Use Type: None - Medications Home Medications: Home Medications Medication Instructions Recorded Confirmed Last Taken Type Zolpidem [Ambien] 10 mg PO QHS 08/02/17 08/22/17 2 Days Ago History ~07/31/17 Loperamide [Imodium] 2 mg PO PRN 08/22/17 08/22/17 Unknown History Ascorbic Acid [Vitamin C] 500 mg PO DAILY #30 tablet 06/14/18 Unknown Rx Calcium Acetate [Phoslo] 1,334 mg PO TID #90 capsule 06/14/18 Unknown Rx Clopidogrel [Plavix] 75 mg PO DAILY #30 tablet 06/14/18 Unknown Rx Levothyroxine [Synthroid] 50 mcg PO DAILY #30 tablet 06/14/18 Unknown Rx Multivit-Min/Iron Fum/Folic AC 1 each PO DAILY #30 tablet 06/14/18 Unknown Rx [Couze-Rlhcjlj-Cjaefdvh Tablet] Pantoprazole [Protonix TAB] 40 mg PO DAILY #30 tablet 06/14/18 Unknown Rx Pregabalin [Lyrica] 50 mg PO DAILY #30 capsule 06/14/18 Unknown Rx Sertraline [Zoloft] 100 mg PO DAILY #30 tablet 06/14/18 Unknown Rx Vitamin D2 50,000 units PO 1XW #4 06/14/18 Unknown Rx amLODIPine [Norvasc] 10 mg PO QDAY #30 tablet 06/14/18 Unknown Rx hydrALAZINE [Apresoline TAB] 25 mg PO TID #90 tablet 06/14/18 Unknown Rx Medications and Allergies Allergies Allergy/AdvReac Type Severity Reaction Status Date / Time contrast dye AdvReac Severe Rash Uncoded 06/12/18 19:48 Home Medications Medication Instructions Recorded Confirmed Last Taken Type Zolpidem [Ambien] 10 mg PO QHS 08/02/17 08/22/17 2 Days Ago History ~07/31/17 Loperamide [Imodium] 2 mg PO PRN 08/22/17 08/22/17 Unknown History Ascorbic Acid [Vitamin C] 500 mg PO DAILY #30 tablet 06/14/18 Unknown Rx Calcium Acetate [Phoslo] 1,334 mg PO TID #90 capsule 06/14/18 Unknown Rx Clopidogrel [Plavix] 75 mg PO DAILY #30 tablet 06/14/18 Unknown Rx Levothyroxine [Synthroid] 50 mcg PO DAILY #30 tablet 06/14/18 Unknown Rx Multivit-Min/Iron Fum/Folic AC 1 each PO DAILY #30 tablet 06/14/18 Unknown Rx [Dlwkb-Qinuvhb-Klhjkcuz Tablet] Pantoprazole [Protonix TAB] 40 mg PO DAILY #30 tablet 06/14/18 Unknown Rx Pregabalin [Lyrica] 50 mg PO DAILY #30 capsule 06/14/18 Unknown Rx Sertraline [Zoloft] 100 mg PO DAILY #30 tablet 06/14/18 Unknown Rx Vitamin D2 50,000 units PO 1XW #4 06/14/18 Unknown Rx amLODIPine [Norvasc] 10 mg PO QDAY #30 tablet 06/14/18 Unknown Rx hydrALAZINE [Apresoline TAB] 25 mg PO TID #90 tablet 06/14/18 Unknown Rx Active Meds: Active Medications Morphine Sulfate (Morphine) 2 mg IV Q6H PRN PRN Reason: Pain , Severe (7-10) Last Admin: 08/14/18 20:48 Dose: 2 mg Documented by: Exam - Constitutional Vitals: Temp Pulse Resp BP Pulse Ox 98.4 F 72 10 L 164/66 97 08/14/18 17:35 08/14/18 17:35 08/14/18 17:35 08/14/18 17:35 08/14/18 13:30 Results - Labs CBC & Chem 7: 08/14/18 11:14 08/14/18 11:14 Labs: Laboratory Last Values WBC 5.6 K/mm3 (4.5-11.0) 08/14/18 11:14 RBC 2.99 M/mm3 (3.65-5.03) L 08/14/18 11:14 Hgb 10.1 gm/dl (11.8-15.2) L 08/14/18 11:14 Hct 31.0 % (35.5-45.6) L 08/14/18 11:14 MCV 104 fl (84-94) H 08/14/18 11:14 MCH 34 pg (28-32) H 08/14/18 11:14 MCHC 33 % (32-34) 08/14/18 11:14 RDW 18.3 % (13.2-15.2) H 08/14/18 11:14 Plt Count 90 K/mm3 (140-440) L 08/14/18 11:14 Lymph % (Auto) 15.7 % (13.4-35.0) 08/14/18 11:14 [place] % (Auto) 9.5 % (0.0-7.3) H 08/14/18 11:14 Eos % (Auto) 4.6 % (0.0-4.3) H 08/14/18 11:14 Baso % (Auto) 1.1 % (0.0-1.8) 08/14/18 11:14 Lymph # 0.9 K/mm3 (1.2-5.4) L 08/14/18 11:14 [place] # 0.5 K/mm3 (0.0-0.8) 08/14/18 11:14 Eos # 0.3 K/mm3 (0.0-0.4) 08/14/18 11:14 Baso # 0.1 K/mm3 (0.0-0.1) 08/14/18 11:14 Seg Neutrophils % 69.1 % (40.0-70.0) 08/14/18 11:14 Seg Neutrophils # 3.9 K/mm3 (1.8-7.7) 08/14/18 11:14 Sodium 141 mmol/L (137-145) 08/14/18 11:14 Potassium 7.0 mmol/L (3.6-5.0) H* 08/14/18 11:14 Chloride 100.7 mmol/L (98-107) 08/14/18 11:14 Carbon Dioxide 18 mmol/L (22-30) L 08/14/18 11:14 29 mmol/L 08/14/18 11:14 BUN 101 mg/dL (9-20) H 08/14/18 11:14 13.1 mg/dL (0.8-1.5) H 08/14/18 11:14 Estimated GFR 5 ml/min 08/14/18 11:14 8 % 08/14/18 11:14 Glucose 79 mg/dL (75-100) 08/14/18 11:14 Calcium 6.8 mg/dL (8.4-10.2) L 08/14/18 11:14 Magnesium 2.40 mg/dL (1.7-2.3) H 08/14/18 11:14 0.40 mg/dL (0.1-1.2) 08/14/18 11:14 < 0.2 mg/dL (0-0.2) 08/14/18 11:14 0.2 mg/dL 08/14/18 11:14 AST 15 units/L (5-40) 08/14/18 11:14 ALT 12 units/L (7-56) 08/14/18 11:14 119 units/L (35-129) 08/14/18 11:14 7.4 g/dL (6.3-8.2) 08/14/18 11:14 3.4 g/dL (3.9-5) L 08/14/18 11:14 0.9 % 08/14/18 11:14
[2018-08-14] MEDS ORDERED: LYRICA PO SCH (21:15)
[2018-08-14] MEDS ORDERED: PLAVIX PO SCH (22:00)
[2018-08-14] MEDS ORDERED: IMODIUM PO PRN (22:00)
[2018-08-14] MEDS ORDERED: AMBIEN PO SCH (22:00)
[2018-08-14] MEDS ORDERED: PROTONIX PO SCH (22:00)
[2018-08-14] MEDS ORDERED: NORVASC PO SCH (22:00)
[2018-08-14] MEDS ORDERED: VITAMIN C PO SCH (22:00)
[2018-08-14] MEDS ORDERED: ZOLOFT PO SCH (22:00)
[2018-08-15] MEDS ORDERED: SYNTHROID PO SCH (06:00)
[2018-08-15] MEDS: MORPHINE IV PRN ×2 (06:45→15:19)
--- NOTE | 2018-08-15 07:06 | Event Note ---
Date: 08/14/18 See reports in H/p HYperkalemia ESRD needig Emergent HD HTN uncontrolled PN
--- NOTE | 2018-08-15 07:21 | History and Physical Report ---
CHIEF COMPLAINT: Missed dialysis for 6 days secondary to transportation issues. Also, shortness of breath for a couple of days. HISTORY OF PRESENT ILLNESS: A 62-year-old male with a history of end-stage renal disease, hypothyroidism, peripheral neuropathy and hypertension, comes in for missed dialysis for 2 sessions secondary to transportation issues. His transport did not come to pick him up. The patient is slightly orthopneic and shortness of breath on minimal exertion. Also, the patient worried about his potassium levels, hence came to the Emergency Room for checkup. No abdominal pain. Increasing lethargy. No recent travel. PAST MEDICAL HISTORY: Significant for end-stage renal disease, on hemodialysis. Hypothyroidism, coronary artery disease, gastroesophageal reflux disease, depression, hypertension. CURRENT MEDICATIONS: Plavix 75 mg once a day, amlodipine 10 mg once a day, hydralazine 25 mg 3 times a day, Lyrica 50 mg once a day, Zoloft 100 mg once a day, Synthroid 50 mcg once a day. PAST SURGICAL HISTORY: Has a right BKA. SOCIAL HISTORY: Does not smoke. No recreational drugs. FAMILY HISTORY: Significant for hypertension. REVIEW OF SYSTEMS: Significant for shortness of breath and slight orthopnea present and generalized weakness present. PHYSICAL EXAMINATION: GENERAL: A young elderly male, cooperative during examination. VITAL SIGNS: Blood pressure 159/70, temperature 97.2, pulse 72, respirations 16. HEENT: Unremarkable. Pupils equal and reactive. NECK: Supple, no lymphadenopathy, no thyromegaly. LUNGS: Clear to auscultation and percussion. Good air entry. CARDIOVASCULAR SYSTEM: S1, S2 heard. No gallop, no murmur, no rub. Apical impulse in left fifth intercostal space in midclavicular line. ABDOMEN: Soft and benign. No hepatosplenomegaly. No guarding, no rigidity. Hernial orifices are normal. EXTREMITIES: Good pedal pulses. No pedal edema. CENTRAL NERVOUS SYSTEM: Alert and oriented x 4, nonfocal exam. SKIN: Normal. LABORATORY DATA: Significant for white count of 5600, hemoglobin of 10.1, hematocrit of 31.0, platelet count of 90. BUN and creatinine of 101 and 13.1, potassium is 7.0. Sodium is 141. Bicarbonate is 18. Calcium is 6.8. Magnesium is 2.4. Albumin is 3.4. DIAGNOSTIC DATA: Chest x-ray shows no acute findings. Focal infiltrate, subsegmental atelectasis in the right lung base. A small to moderate right pleural effusion, which may be partially loculated. Stable cardiomegaly. ASSESSMENT AND PLAN: 1. Hyperkalemia. The patient is given Kayexalate and calcium gluconate and bicarbonate in the Emergency Room. The patient is being taken for emergent hemodialysis. Nephrology consult requested. 2. End-stage renal disease, needing hemodialysis. The patient is being taken for emergent hemodialysis. The patient has to resolve his transportation issues. 3. Hypertension. Continue antihypertensives. 4. Insulin-dependent diabetes. Continue insulin. 5. Hypothyroidism. Continue Synthroid. 6. Gastroesophageal reflux disease. Continue Protonix. 7. Peripheral neuropathy. Continue Lyrica. 8. Deep venous thrombosis prophylaxis, heparin 5000 q. 12. JOB# [id number] LINH/TAMY
[2018-08-15] MEDS: APRESOLINE PO SCH ×2 (08:25→15:26)
[2018-08-15] MEDS: PHOSLO PO SCH ×2 (09:26→12:26)
[2018-08-15] MEDS ORDERED: HEPARIN SUB-Q SCH (10:00)
[2018-08-15] MEDS ORDERED: THERAGRAN-M Tab PO SCH (10:00)
[2018-08-15 10:48] LABS: Calcium 6.9 mg/dL (8.4-10.2)
[2018-08-15] MEDS ORDERED: NACL 0.9 (PRIMING MACHINE ONLY DIALYSIS) MC ONE (14:56)
--- NOTE | 2018-08-15 14:57 | Progress Note ---
Hospitalist Physical - Constitutional Vitals: Temp Pulse Resp BP Pulse Ox 98.7 F 66 18 128/80 91 08/15/18 12:40 08/15/18 12:45 08/15/18 12:40 08/15/18 12:45 08/15/18 04:25 Results - Labs CBC & Chem 7: 08/14/18 11:14 08/15/18 09:45 Labs: Laboratory Last Values WBC 5.6 K/mm3 (4.5-11.0) 08/14/18 11:14 RBC 2.99 M/mm3 (3.65-5.03) L 08/14/18 11:14 Hgb 10.1 gm/dl (11.8-15.2) L 08/14/18 11:14 Hct 31.0 % (35.5-45.6) L 08/14/18 11:14 MCV 104 fl (84-94) H 08/14/18 11:14 MCH 34 pg (28-32) H 08/14/18 11:14 MCHC 33 % (32-34) 08/14/18 11:14 RDW 18.3 % (13.2-15.2) H 08/14/18 11:14 Plt Count 90 K/mm3 (140-440) L 08/14/18 11:14 Lymph % (Auto) 15.7 % (13.4-35.0) 08/14/18 11:14 [place] % (Auto) 9.5 % (0.0-7.3) H 08/14/18 11:14 Eos % (Auto) 4.6 % (0.0-4.3) H 08/14/18 11:14 Baso % (Auto) 1.1 % (0.0-1.8) 08/14/18 11:14 Lymph # 0.9 K/mm3 (1.2-5.4) L 08/14/18 11:14 [place] # 0.5 K/mm3 (0.0-0.8) 08/14/18 11:14 Eos # 0.3 K/mm3 (0.0-0.4) 08/14/18 11:14 Baso # 0.1 K/mm3 (0.0-0.1) 08/14/18 11:14 Seg Neutrophils % 69.1 % (40.0-70.0) 08/14/18 11:14 Seg Neutrophils # 3.9 K/mm3 (1.8-7.7) 08/14/18 11:14 Sodium 134 mmol/L (137-145) L 08/15/18 09:45 Potassium 5.6 mmol/L (3.6-5.0) H D 08/15/18 09:45 Chloride 93.7 mmol/L (98-107) L 08/15/18 09:45 Carbon Dioxide 24 mmol/L (22-30) 08/15/18 09:45 22 mmol/L 08/15/18 09:45 BUN 52 mg/dL (9-20) H 08/15/18 09:45 8.3 mg/dL (0.8-1.5) H 08/15/18 09:45 Estimated GFR 8 ml/min 08/15/18 09:45 6 % 08/15/18 09:45 Glucose 66 mg/dL (75-100) L 08/15/18 09:45 POC Glucose 78 (70-105) 08/15/18 11:49 Calcium 6.9 mg/dL (8.4-10.2) L 08/15/18 09:45 Magnesium 2.40 mg/dL (1.7-2.3) H 08/14/18 11:14 0.40 mg/dL (0.1-1.2) 08/14/18 11:14 < 0.2 mg/dL (0-0.2) 08/14/18 11:14 0.2 mg/dL 08/14/18 11:14 AST 15 units/L (5-40) 08/14/18 11:14 ALT 12 units/L (7-56) 08/14/18 11:14 119 units/L (35-129) 08/14/18 11:14 7.4 g/dL (6.3-8.2) 08/14/18 11:14 3.4 g/dL (3.9-5) L 08/14/18 11:14 0.9 % 08/14/18 11:14 Active Medications - Current Medications Current Medications: Generic Name Dose Route Start Last Admin Trade Name Freq PRN Reason Stop Dose Admin Amlodipine Besylate 10 mg 08/14/18 22:00 08/14/18 23:51 Norvasc PO 10 mg QDAY [facility] Administration Ascorbic Acid 500 mg 08/14/18 22:00 Vitamin C PO DAILY [facility] Calcium Acetate 1,334 mg 08/15/18 08:00 Phoslo PO TIDWM [facility] Clopidogrel Bisulfate 75 mg 08/14/18 22:00 Plavix PO DAILY [facility] Heparin Sodium (Porcine) 5,000 unit 08/15/18 10:00 Heparin SUB-Q Q12HR [facility] Hydralazine HCl 25 mg 08/15/18 08:00 Apresoline PO TID [facility] Levothyroxine Sodium 50 mcg 08/15/18 06:00 08/15/18 05:11 Synthroid PO 50 mcg DAILY@0600 [facility] Administration Loperamide HCl 2 mg 08/14/18 22:00 Imodium PO Q3H PRN Diarrhea Morphine Sulfate 2 mg 08/14/18 19:53 08/15/18 06:45 Morphine IV 2 mg Q6H PRN Administration Pain , Severe (7-10) Multivitamins/Minerals 1 each 08/15/18 10:00 Theragran-M Tab PO QDAY [facility] Pantoprazole Sodium 40 mg 08/14/18 22:00 08/14/18 23:51 Protonix PO 40 mg DAILY [facility] Administration Pregabalin 50 mg 08/14/18 21:15 08/14/18 23:51 Lyrica PO 50 mg DAILY [facility] Administration Sertraline HCl 100 mg 08/14/18 22:00 08/14/18 23:50 Zoloft PO 100 mg DAILY [facility] Administration Zolpidem Tartrate 10 mg 08/14/18 22:00 08/14/18 23:51 Ambien PO 10 mg QHS [facility] Administration
[2018-08-15 15:01] LABS: Hepatitis C Virus Antibody Non-Reactive (NonReactive)
--- NOTE | 2018-08-15 15:27 | Discharge Summary ---
Providers - Providers Date of Admission: 08/14/18 13:19 Attending physician: ZULMA REY MD 08/14/18 13:11 Consult to Physician [CONS] Stat Comment: Consulting Provider: CHRIS BOWMAN Physician Instructions: Reason For Exam: esrd with hyperkalemia/ dialysis 08/15/18 04:23 Consult to Wound/ET Nurse [CONS] Urgent Reason For Exam: wound eval [facility] Reason for admission: ESRD on Hd, dialysis non complaint Condition: Stable Hospital course: 62-year-old gentleman with medical history significant for hypertension uncontrolled, diabetes mellitus type 2 with complications, legally blind, end- stage renal disease on hemodialysis presenting with complaints of missed dialysis because he missed his dialysis. Patient is hyperkalemic in the emergency department and treated with hyperkalemia coctail and nephrology was consulted and did dialyis. BP meds were resumed and controlled. Patient was discharged home in a stable conditio. patient was hemodynamically stable at the time of DC. Disposition: DC-01 TO HOME OR SELFCARE Time spent for discharge: 32 minutes - Discharge Diagnoses (1) ESRD (end stage renal disease) on dialysis Status: Acute (2) Hyperkalemia Status: Acute (3) Noncompliance Status: Acute Core Measure Documentation - Palliative Care Palliative Care/ Comfort Measures: Not Applicable - Core Measures Any of the following diagnoses?: none Exam - Physical Exam Narrative exam: legally blind. Not in cardiopulmonary distress. The patient appeared well nourished and normally developed. Vital signs as documented. Head exam is unremarkable. No scleral icterus . Neck is without jugular venous distension, thyromegaly, or carotid bruits. Lungs are clear to auscultation. Cardiac exam reveals regular rate and Rhythm. Abdominal exam reveals normal bowel sounds. Extremities are nonedematous and both femoral and pedal pulses are normal. SHEET FOLDER: Alert and oriented 3. No focal weakness. - Constitutional Vitals: Temp Pulse Resp BP Pulse Ox 98.7 F 66 18 128/80 91 08/15/18 12:40 08/15/18 12:45 08/15/18 12:40 08/15/18 12:45 08/15/18 04:25 Plan Activity: no restrictions Weight Bearing Status: Full Weight Bearing Diet: low salt, diabetic, renal Follow up with: BRETT HANSEN MD [Primary Care Provider] - 3-5 Days
[2018-08-15 15:29] LABS: Hepatitis B Surface Antigen Reactive (Negative)
[2018-08-15] MEDS ORDERED: PERCOCET 5/325 PO PRN (15:30)
--- NOTE | 2018-08-15 17:34 | Progress Note ---
Assessment and Plan - Patient Problems (1) ESRD (end stage renal disease) on dialysis Current Visit: Yes Status: Acute Plan to address problem: End-stage renal disease on dialysis Dialysis access left arm AV graft Received dialysis for hyperkalemia and volume overload Repeat hemodialysis today I attest that I saw the patient on hemodialysis at 2:30 PM (2) Hyperkalemia Current Visit: Yes Status: Acute Plan to address problem: Severe hyperkalemia resolved Reviewed EKG with peaked T waves Received calcium gluconate Insulin and dextrose also initiated urgent hemodialysis (3) Diabetes Current Visit: No Status: Acute Qualifiers: Diabetes mellitus type: type 2 Plan to address problem: Diabetes mellitus type 2 with complications Resume medications Monitor fingersticks (4) Fluid overload Current Visit: No Status: Acute Qualifiers: Hypervolemia type: other Qualified Code(s): E87.79 - Other fluid overload Plan to address problem: Volume overload Chest x-ray with edema Received dialysis with ultrafiltration (5) HTN (hypertension) Current Visit: No Status: Acute Qualifiers: Hypertension type: essential hypertension Qualified Code(s): I10 - Ess ential (primary) hypertension Plan to address problem: Hypertension uncontrolled resume oral medications Subjective Interval history: 62-year-old gentleman with medical history significant for hypertension uncontrolled, diabetes mellitus type 2 with complications, legally blind, end- stage renal disease on hemodialysis presenting with complaints of missed dialysis because last dialysis was last Patient seen repeat hemodialysis today I attest I saw the patient on hemodialysis Denies any chest pain denies any orthopnea PND Objective - Vital Signs Vital signs: Vital Signs - 12hr 08/15/18 08/15/18 12:40 12:45 Temperature 98.7 F Pulse Rate 64 66 Respiratory 18 Rate Blood Pressure 115/64 128/80 - General Appearance General appearance: well-developed, well-nourished EENT: ATNC, PERRL, mucous membranes dry Neck: no JVD Respiratory: Present: Clear to Ascultation Cardiology: regular, S1S2 Gastrointestinal: normal, normoactive bowel sounds Integumentary: no rash Neurologic: no focal deficit, no asterixis, CN 3-12 intact Psychiatric: mood/affect appropriate - Lab 08/14/18 11:14 08/15/18 09:45 Most recent lab results Calcium 6.9 mg/dL (8.4-10.2) L 08/15/18 09:45 Magnesium 2.40 mg/dL (1.7-2.3) H 08/14/18 11:14 Medications & Allergies - Medications Allergies/Adverse Reactions: Allergies contrast dye Adverse Reaction (Severe, Uncoded 06/12/18 19:48) Rash Home Medications: Home Medications Medication Instructions Recorded Confirmed Last Taken Type Zolpidem [Ambien] 10 mg PO QHS 08/02/17 08/22/17 2 Days Ago History ~07/31/17 Loperamide [Imodium] 2 mg PO PRN 08/22/17 08/22/17 Unknown History Ascorbic Acid [Vitamin C] 500 mg PO DAILY #30 tablet 06/14/18 Unknown Rx Calcium Acetate [Phoslo] 1,334 mg PO TID #90 capsule 06/14/18 Unknown Rx Clopidogrel [Plavix] 75 mg PO DAILY #30 tablet 06/14/18 Unknown Rx Levothyroxine [Synthroid] 50 mcg PO DAILY #30 tablet 06/14/18 Unknown Rx Multivit-Min/Iron Fum/Folic AC 1 each PO DAILY #30 tablet 06/14/18 Unknown Rx [Ybzra-Mjprkjz-Xihjucnq Tablet] Pantoprazole [Protonix TAB] 40 mg PO DAILY #30 tablet 06/14/18 Unknown Rx Pregabalin [Lyrica] 50 mg PO DAILY #30 capsule 06/14/18 Unknown Rx Sertraline [Zoloft] 100 mg PO DAILY #30 tablet 06/14/18 Unknown Rx Vitamin D2 50,000 units PO 1XW #4 06/14/18 Unknown Rx amLODIPine [Norvasc] 10 mg PO QDAY #30 tablet 06/14/18 Unknown Rx hydrALAZINE [Apresoline TAB] 25 mg PO TID #90 tablet 06/14/18 Unknown Rx Active Medications: Generic Name Dose Route Start Last Admin Trade Name Freq PRN Reason Stop Dose Admin Amlodipine Besylate 10 mg 08/14/18 22:00 08/14/18 23:51 Norvasc PO 10 mg QDAY [facility] Administration Ascorbic Acid 500 mg 08/14/18 22:00 Vitamin C PO DAILY [facility] Calcium Acetate 1,334 mg 08/15/18 08:00 08/15/18 12:26 Phoslo PO Not Given TIDWM [facility] Clopidogrel Bisulfate 75 mg 08/14/18 22:00 Plavix PO DAILY [facility] Heparin Sodium (Porcine) 5,000 unit 08/15/18 10:00 08/15/18 10:25 Heparin SUB-Q Not Given Q12HR [facility] Hydralazine HCl 25 mg 08/15/18 08:00 08/15/18 15:26 Apresoline PO Not Given TID [facility] Levothyroxine Sodium 50 mcg 08/15/18 06:00 08/15/18 05:11 Synthroid PO 50 mcg DAILY@0600 [facility] Administration Loperamide HCl 2 mg 08/14/18 22:00 Imodium PO Q3H PRN Diarrhea Morphine Sulfate 2 mg 08/14/18 19:53 08/15/18 15:19 Morphine IV 2 mg Q6H PRN Administration Pain , Severe (7-10) Multivitamins/Minerals 1 each 08/15/18 10:00 Theragran-M Tab PO QDAY [facility] Oxycodone/Acetaminophen 1 tab 08/15/18 15:30 Percocet 5/325 PO Q6H PRN Pain, Moderate (4-6) Pantoprazole Sodium 40 mg 08/14/18 22:00 08/14/18 23:51 Protonix PO 40 mg DAILY [facility] Administration Pregabalin 50 mg 08/14/18 21:15 08/14/18 23:51 Lyrica PO 50 mg DAILY [facility] Administration Sertraline HCl 100 mg 08/14/18 22:00 08/14/18 23:50 Zoloft PO 100 mg DAILY [facility] Administration Zolpidem Tartrate 10 mg 08/14/18 22:00 08/14/18 23:51 Ambien PO 10 mg QHS [facility] Administration
[2018-08-15 20:16] VITALS: BP 142/71
== END 2018-08-15 19:50 | disposition home or self-care (01) | DRG 640 ==
LOC: ED 10:07 → 3A 13:19
PROVIDERS: ADMIT Internal Medicine; ATTEND Internal Medicine
PROC: 5A1D70Z Performance of Urinary Filtration, Intermittent, Less than 6 Hours Per Day (ICD-10-PCS; principal; 2018-08-14)
PROC: 5A1D70Z Performance of Urinary Filtration, Intermittent, Less than 6 Hours Per Day (ICD-10-PCS; 2018-08-15)
DX: E87.5 Hyperkalemia (principal); N18.6 End stage renal disease; I12.0 Hypertensive chronic kidney disease with stage 5 chronic kidney disease or end stage renal disease; E11.22 Type 2 diabetes mellitus with diabetic chronic kidney disease; E03.9 Hypothyroidism, unspecified; E11.42 Type 2 diabetes mellitus with diabetic polyneuropathy; I25.10 Atherosclerotic heart disease of native coronary artery without angina pectoris; K21.9 Gastro-esophageal reflux disease without esophagitis; F32.9 Major depressive disorder, single episode, unspecified; E87.79 Other fluid overload; H54.8 Legal blindness, as defined in USA; Z89.511 Acquired absence of right leg below knee; Z99.2 Dependence on renal dialysis; Z79.899 Other long term (current) drug therapy; Z95.828 Presence of other vascular implants and grafts; Z91.15 Patient's noncompliance with renal dialysis; Z82.49 Family history of ischemic heart disease and other diseases of the circulatory system; Z79.84 Long term (current) use of oral hypoglycemic drugs
CPT/HCPCS: 36415; 71045; 80048; 80074; 80076; 82962; 83735; 84132; 85025; 93005; 93010; 96365; 96375; G0378; J0610; J1815; J2270; J7030

== ENCOUNTER 2018-09-08 10:53 | Emergency (ER) | payer MEDICAID ==
--- NOTE | 2018-09-08 11:30 | Event Note ---
ED Screening Note Date of service: 09/08/18 Time: 11:23 ED Screening Note: 62 y/o male on dialysis comes in per his kidney doctor to have repeat labs as his potassium is elevated. Last labs was done on before dialysis. This initial assessment/diagnostic orders/clinical plan/treatment(s) is/are subject to change based on patients health status, clinical progression and re- assessment by fellow clinical providers in the ED. Further treatment and workup at subsequent clinical providers discretion. Patient/guardian urged not to elope from the ED as their condition may be serious if not clinically assessed and managed. Initial orders include:
--- NOTE | 2018-09-08 12:24 | Emergency Department Report ---
HPI - General Chief Complaint: Recheck/Abnormal Lab/Rx Time Seen by Provider: 09/08/18 12:13 - HPI HPI: Room 3 The patient is a 62-year-old male presenting with a chief complaint of hyperkalemia. The patient states he believes he has blood drawn hemodialysis 2 days ago. The patient states he was on his way to hemodialysis this morning when he received a call from analysis telling him he needs to go to the emergency department to recheck his potassium. The patient was told his potassium was 7.1. Patient denies complaints and states "I'm feeling good." Location: [See above] Duration: [See above] Quality: [See above] Severity: [See above] Modifying factors: [see above] Context: [see above] Mode of transportation: [not driving] ED Past Medical Hx - Past Medical History Hx Hypertension: Yes Hx Diabetes: Yes Hx Renal Disease: Yes Hx Arthritis: Yes Additional medical history: HEP B, RECTAL TEAR, NEUROPATHY, RBKA, LT TIBIA FX, ESRD - Surgical History Additional Surgical History: right BKA - Family History Family history: no significant - Social History Smoking Status: Never Smoker Substance Use Type: Alcohol (occasional) - Medications Home Medications: Home Medications Medication Instructions Recorded Confirmed Last Taken Type Zolpidem [Ambien] 10 mg PO QHS 08/02/17 08/22/17 2 Days Ago History ~07/31/17 Loperamide [Imodium] 2 mg PO PRN 08/22/17 08/22/17 Unknown History Ascorbic Acid [Vitamin C] 500 mg PO DAILY #30 tablet 06/14/18 Unknown Rx Calcium Acetate [Phoslo] 1,334 mg PO TID #90 capsule 06/14/18 Unknown Rx Clopidogrel [Plavix] 75 mg PO DAILY #30 tablet 06/14/18 Unknown Rx Levothyroxine [Synthroid] 50 mcg PO DAILY #30 tablet 06/14/18 Unknown Rx Multivit-Min/Iron Fum/Folic AC 1 each PO DAILY #30 tablet 06/14/18 Unknown Rx [Jotcy-Vrjwyst-Dlnfcdcx Tablet] Pantoprazole [Protonix TAB] 40 mg PO DAILY #30 tablet 06/14/18 Unknown Rx Pregabalin [Lyrica] 50 mg PO DAILY #30 capsule 06/14/18 Unknown Rx Sertraline [Zoloft] 100 mg PO DAILY #30 tablet 06/14/18 Unknown Rx Vitamin D2 50,000 units PO 1XW #4 06/14/18 Unknown Rx amLODIPine [Norvasc] 10 mg PO QDAY #30 tablet 06/14/18 Unknown Rx hydrALAZINE [Apresoline TAB] 25 mg PO TID #90 tablet 06/14/18 Unknown Rx ED Review of Systems ROS: Stated complaint: CHECK BLOOD Other details as noted in HPI Constitutional: no symptoms reported Eyes: denies: eye pain ENT: denies: throat pain Respiratory: no symptoms reported Cardiovascular: denies: chest pain Endocrine: no symptoms reported Gastrointestinal: denies: abdominal pain Genitourinary: denies: dysuria Musculoskeletal: denies: back pain Neurological: denies: headache Physical Exam - Physical Exam Vital Signs: Vital Signs 09/08/18 11:03 Temperature 98 F Pulse Rate 101 H Respiratory 18 Rate Blood Pressure 110/62 O2 Sat by Pulse 96 Oximetry Physical Exam: GENERAL: The patient is well-developed well-nourished male lying on stretcher not appearing to be in acute distress. [] HEENT: Normocephalic. Atraumatic. Extraocular motions are intact. Patient has moist mucous membranes. NECK: Supple. Trachea midline CHEST/LUNGS: Clear to auscultation. There is no respiratory distress noted. HEART/CARDIOVASCULAR: Regular. There is no tachycardia. There is no gallop rub or murmur. ABDOMEN: Abdomen is soft, nontender. Patient has normal bowel sounds. There is no abdominal distention. SKIN: There is no rash. There is no edema. There is no diaphoresis. NEURO: The patient is awake, alert, and oriented. The patient is cooperative. The patient has normal speech MUSCULOSKELETAL: There is no evidence of acute injury. ED Course Vital Signs 09/08/18 11:03 Temperature 98 F Pulse Rate 101 H Respiratory 18 Rate Blood Pressure 110/62 O2 Sat by Pulse 96 Oximetry - Consultations Consultation #1: 09/08/18 13:07 Nephrology paged 09/08/18 13:[address] Baugh- states to give patient a copy of his labs and have him contact the dialysis center tomorrow to obtain dialysis ED Medical Decision Making - Lab Data Result diagrams: 09/08/18 11:55 09/08/18 11:55 Laboratory Tests 09/08/18 09/08/18 11:55 11:55 WBC 4.9 RBC 3.29 L Hgb 11.2 L Hct 34.7 L MCV 106 H MCH 34 H MCHC 32 RDW 18.6 H Plt Count 80 L Lymph % (Auto) 11.8 L Canadian % (Auto) 9.5 H Eos % (Auto) 4.4 H Baso % (Auto) 0.8 Lymph # 0.6 L Canadian # 0.5 Eos # 0.2 Baso # 0.0 Seg Neutrophils % 73.5 H Seg Neutrophils # 3.6 Sodium 138 Potassium 4.7 Chloride 95.4 L Carbon Dioxide 22 Anion Gap 25 BUN 86 H Creatinine 12.2 H Estimated GFR 5 BUN/Creatinine Ratio 7 Glucose 114 H Calcium 7.1 L - Differential Diagnosis hyperkalemia, end-stage renal disease Critical care attestation.: If time is entered above; I have spent that time in minutes in the direct care of this critically ill patient, excluding procedure time. ED Disposition Clinical Impression: ESRD on hemodialysis Disposition: TO HOME OR SELFCARE Is pt being admited?: No Does the pt Need Aspirin: No Condition: Stable Additional Instructions: Contact your dialysis Center in the morning to arrange for hemodialysis. Return to the emergency department immediately should you develop worsening symptoms, fever, inability to tolerate food or liquid or any other concerns. Referrals: MAT FRANKS MD [Primary Care Provider] - 3-5 Days Time of Disposition: 13:19
[2018-09-08 12:28] LABS: Basophils % (Auto) 0.8 % (0.0-1.8); Eosinophils # (Auto) 0.2 K/mm3 (0.0-0.4); Eosinophils % (Auto) 4.4 % (0.0-4.3); Hematocrit 34.7 % (35.5-45.6); Hemoglobin 11.2 gm/dl (11.8-15.2); Lymphocytes # (Auto) 0.6 K/mm3 (1.2-5.4); Lymphocytes % (Auto) 11.8 % (13.4-35.0); Mean Corpuscular HGB Conc 32 % (32-34); Mean Corpuscular Volume 106 fl (84-94); Monocytes # (Auto) 0.5 K/mm3 (0.0-0.8); Monocytes % (Auto) 9.5 % (0.0-7.3); Red Blood Count 3.29 M/mm3 (3.65-5.03); Red Cell Distribution Width 18.6 % (13.2-15.2)
[2018-09-08 12:39] LABS: Platelet Count 80 K/mm3 (140-440)
[2018-09-08 12:41] LABS: Calcium 7.1 mg/dL (8.4-10.2)
[2018-09-08 13:54] VITALS: BP 134/72
== END 2018-09-08 13:53 | disposition home or self-care (01) ==
LOC: ED 10:53
DX: I12.0 Hypertensive chronic kidney disease with stage 5 chronic kidney disease or end stage renal disease (principal); E87.5 Hyperkalemia; N18.6 End stage renal disease; E11.40 Type 2 diabetes mellitus with diabetic neuropathy, unspecified; Z99.2 Dependence on renal dialysis; M19.90 Unspecified osteoarthritis, unspecified site; Z89.511 Acquired absence of right leg below knee; Z98.890 Other specified postprocedural states; Z79.02 Long term (current) use of antithrombotics/antiplatelets
CPT/HCPCS: 36415; 80048; 85025; 93005; 93010; 99283

== ENCOUNTER 2018-10-04 08:23 | Emergency (ER) | payer MEDICAID ==
[2018-10-04 10:40] LABS: Basophils # (Auto) 0.1 K/mm3 (0.0-0.1); Basophils % (Auto) 0.8 % (0.0-1.8); Eosinophils # (Auto) 0.1 K/mm3 (0.0-0.4); Eosinophils % (Auto) 1.9 % (0.0-4.3); Hematocrit 38.8 % (35.5-45.6); Hemoglobin 12.7 gm/dl (11.8-15.2); Lymphocytes # (Auto) 0.6 K/mm3 (1.2-5.4); Lymphocytes % (Auto) 7.9 % (13.4-35.0); Mean Corpuscular HGB Conc 33 % (32-34); Mean Corpuscular Hemoglobin 35 pg (28-32); Mean Corpuscular Volume 107 fl (84-94); Monocytes # (Auto) 0.7 K/mm3 (0.0-0.8); Monocytes % (Auto) 9.6 % (0.0-7.3); Red Blood Count 3.64 M/mm3 (3.65-5.03); Red Cell Distribution Width 17.4 % (13.2-15.2)
[2018-10-04] MEDS ORDERED: ZOFRAN IV ONE (10:49)
[2018-10-04] MEDS ORDERED: DILAUDID IV ONE ×3 (10:49→14:04)
--- NOTE | 2018-10-04 10:52 | Emergency Department Report ---
ED Extremity Problem HPI - General Chief complaint: Extremity Injury, Lower Stated complaint: R LEG PAIN Time Seen by Provider: 10/04/18 10:16 Source: patient, EMS Mode of arrival: Wheelchair Limitations: Physical Limitation - History of Present Illness Initial comments: 63-year-old male with a past medical history of diabetes, arthritis, hypertension, right BKA and chronic pain secondary to neuropathy presents to the hospital complains of worsening right leg pain since yesterday. Patient has chronic spasms and "lightning shooting pain" to his leg secondary to neuropathy. Pain is severe in intensity, constant but fluctuates in intensity. No agg ravating or alleviating factors reported. Since yesterday pain has not been managed with his Lyrica and Percocet 5 mg. Patient has been compliant with his dialysis Sunday, , and Sunday. Reports that spasms got worse after dialysis yesterday. No complaints of fever or focal weakness. PMD: Dr. Olvin Gentile. [employer] Setter: Dr. Syed Severity scale (0 -10): 0 - Related Data Home Medications Medication Instructions Recorded Confirmed Last Taken RX: Zolpidem [Ambien] 10 mg PO QHS 08/02/17 08/22/17 2 Days Ago ~07/31/17 RX: Loperamide [Imodium] 2 mg PO PRN 08/22/17 08/22/17 Unknown Previous Rx's Medication Instructions Recorded Last Taken Type RX: Ascorbic Acid [Vitamin C] 500 mg PO DAILY #30 tablet 06/14/18 Unknown Rx RX: Calcium Acetate [Phoslo] 1,334 mg PO TID #90 capsule 06/14/18 Unknown Rx RX: Clopidogrel [Plavix] 75 mg PO DAILY #30 tablet 06/14/18 Unknown Rx RX: Levothyroxine [Synthroid] 50 mcg PO DAILY #30 tablet 06/14/18 Unknown Rx RX: Multivit-Min/Iron Fum/Folic AC 1 each PO DAILY #30 tablet 06/14/18 Unknown Rx [Xgizy-Dfsomox-Dfmxrdlr Tablet] RX: Pantoprazole [Protonix TAB] 40 mg PO DAILY #30 tablet 06/14/18 Unknown Rx RX: Pregabalin [Lyrica] 50 mg PO DAILY #30 capsule 06/14/18 Unknown Rx RX: Sertraline [Zoloft] 100 mg PO DAILY #30 tablet 06/14/18 Unknown Rx RX: amLODIPine [Norvasc] 10 mg PO QDAY #30 tablet 06/14/18 Unknown Rx RX: hydrALAZINE [Apresoline TAB] 25 mg PO TID #90 tablet 06/14/18 Unknown Rx Vitamin D2 50,000 units PO 1XW #4 06/14/18 Unknown Rx Oxycodone HCl/Acetaminophen 1 each PO Q6HR PRN #14 tablet 10/04/18 Unknown Rx [Percocet 7.5/325 mg] Allergies Allergy/AdvReac Type Severity Reaction Status Date / Time contrast dye AdvReac Severe Rash Uncoded 10/04/18 08:32 ED Review of Systems ROS: Stated complaint: R LEG PAIN Other details as noted in HPI Comment: All other systems reviewed and negative ED Past Medical Hx - Past Medical History Hx Hypertension: Yes Hx Congestive Heart Failure: No Hx Diabetes: Yes Hx Renal Disease: Yes Hx Arthritis: Yes Hx Asthma: No Hx COPD: No Additional medical history: HEP B, RECTAL TEAR, NEUROPATHY, RBKA, LT TIBIA FX, ESRD - Surgical History Additional Surgical History: right BKA - Social History Smoking Status: Never Smoker Substance Use Type: Alcohol (occasional) - Medications Home Medications: Home Medications Medication Instructions Recorded Confirmed Last Taken Type RX: Zolpidem [Ambien] 10 mg PO QHS 08/02/17 08/22/17 2 Days Ago History ~07/31/17 RX: Loperamide [Imodium] 2 mg PO PRN 08/22/17 08/22/17 Unknown History RX: Ascorbic Acid [Vitamin C] 500 mg PO DAILY #30 tablet 06/14/18 Unknown Rx RX: Calcium Acetate [Phoslo] 1,334 mg PO TID #90 capsule 06/14/18 Unknown Rx RX: Clopidogrel [Plavix] 75 mg PO DAILY #30 tablet 06/14/18 Unknown Rx RX: Levothyroxine [Synthroid] 50 mcg PO DAILY #30 tablet 06/14/18 Unknown Rx RX: Multivit-Min/Iron Fum/Folic AC 1 each PO DAILY #30 tablet 06/14/18 Unknown Rx [Mysyb-Torzwdk-Abvmkhps Tablet] RX: Pantoprazole [Protonix TAB] 40 mg PO DAILY #30 tablet 06/14/18 Unknown Rx RX: Pregabalin [Lyrica] 50 mg PO DAILY #30 capsule 06/14/18 Unknown Rx RX: Sertraline [Zoloft] 100 mg PO DAILY #30 tablet 06/14/18 Unknown Rx RX: amLODIPine [Norvasc] 10 mg PO QDAY #30 tablet 06/14/18 Unknown Rx RX: hydrALAZINE [Apresoline TAB] 25 mg PO TID #90 tablet 06/14/18 Unknown Rx Vitamin D2 50,000 units PO 1XW #4 06/14/18 Unknown Rx Oxycodone HCl/Acetaminophen 1 each PO Q6HR PRN #14 tablet 10/04/18 Unknown Rx [Percocet 7.5/325 mg] ED Physical Exam - General Limitations: Physical Limitation - Other Other exam information: General: No limitations, patient is alert in no acute distress Head exam: Atraumatic, normocephalic Eyes exam: Normal appearance ENT: Moist mucous membrane Neck exam: Normal inspection, full range of motion, no meningismus nontender Respiratory exam: Clear to auscultation bilateral, no wheezes, rales, crackles Cardiovascular: Normal rate and rhythm Abdomen: Soft, nondistended, and nontender, with normal bowel sounds, no rebound, or guarding Extremity: Right BKA. No swelling, warmth, erythema, or tenderness on exam. Back: Normal Inspection, full range of motion, no tenderness Neurologic: Alert, oriented x3, cranial nerves intact, no motor or sensory deficit Psychiatric: normal affect, normal mood Skin: Warm, dry, intact ED Course Vital Signs 10/04/18 10/04/18 08:32 10:54 Temperature 98.5 F Pulse Rate 73 78 Respiratory 18 18 Rate Blood Pressure 95/53 135/72 [Right] O2 Sat by Pulse 95 100 Oximetry ED Medical Decision Making - Lab Data Result diagrams: 10/04/18 10:28 10/04/18 10:28 Lab Results 10/04/18 10/04/18 Range/Units 10:28 10:28 WBC 7.7 (4.5-11.0) K/mm3 RBC 3.64 L (3.65-5.03) M/mm3 Hgb 12.7 (11.8-15.2) gm/dl Hct 38.8 (35.5-45.6) % MCV 107 H (84-94) fl MCH 35 H (28-32) pg MCHC 33 (32-34) % RDW 17.4 H (13.2-15.2) % Plt Count 77 L (140-440) K/mm3 Lymph % (Auto) 7.9 L (13.4-35.0) % Bell % (Auto) 9.6 H (0.0-7.3) % Eos % (Auto) 1.9 (0.0-4.3) % Baso % (Auto) 0.8 (0.0-1.8) % Lymph # 0.6 L (1.2-5.4) K/mm3 Bell # 0.7 (0.0-0.8) K/mm3 Eos # 0.1 (0.0-0.4) K/mm3 Baso # 0.1 (0.0-0.1) K/mm3 Seg Neutrophils % 79.8 H (40.0-70.0) % Seg Neutrophils # 6.2 (1.8-7.7) K/mm3 Sodium 141 (137-145) mmol/L Potassium 4.3 (3.6-5.0) mmol/L Chloride 96.8 L (98-107) mmol/L Carbon Dioxide 26 (22-30) mmol/L Anion Gap 23 mmol/L BUN 42 H (9-20) mg/dL Creatinine 7.0 H (0.8-1.5) mg/dL Estimated GFR 10 ml/min BUN/Creatinine Ratio 6 % Glucose 79 (75-100) mg/dL Calcium 8.3 L (8.4-10.2) mg/dL Magnesium 2.20 (1.7-2.3) mg/dL Total Creatine Kinase 193 H (55-170) units/L - Medical Decision Making chronic thombocytopenia noted Pt takes Percocet 5 at home will incr to percet 7.5mg pain improved with diaudid 1 mg x 2 pain is chronic f/u advised - Differential Diagnosis neuropathy, electrolyte abnormalities, chronic pain Critical Care Time: No Critical care attestation.: If time is entered above; I have spent that time in minutes in the direct care of this critically ill patient, excluding procedure time. ED Disposition Clinical Impression: Chronic pain, Neuropathy, Hx of right BKA, ESRD on hemodialysis Disposition: TO HOME OR SELFCARE Is pt being admited?: No Does the pt Need Aspirin: No Condition: Stable Instructions: Chronic Kidney Disease (ED), Peripheral Neuropathy (ED), Chronic Pain (ED) Additional Instructions: Take the medication as prescribed. Follow up with your doctor or the clinic/doctor provided. Return if symptoms worsen as indicated by your discharge instructions Prescriptions: Oxycodone HCl/Acetaminophen [Percocet 7.5/325 mg] 1 each PO Q6HR PRN #14 tablet PRN Reason: Pain Referrals: OLVIN GENTILE MD [Primary Care Provider] - 3-5 Days Time of Disposition: 13:09
[2018-10-04 10:53] LABS: Platelet Count 77 K/mm3 (140-440)
[2018-10-04 11:00] LABS: Calcium 8.3 mg/dL (8.4-10.2)
[2018-10-04 14:13] VITALS: BP 111/56
== END 2018-10-04 14:08 | disposition home or self-care (01) ==
LOC: ED 08:23
DX: G89.29 Other chronic pain (principal); G62.9 Polyneuropathy, unspecified; E11.22 Type 2 diabetes mellitus with diabetic chronic kidney disease; I12.0 Hypertensive chronic kidney disease with stage 5 chronic kidney disease or end stage renal disease; N18.6 End stage renal disease; M19.90 Unspecified osteoarthritis, unspecified site; Z99.2 Dependence on renal dialysis; Z89.511 Acquired absence of right leg below knee; Z86.19 Personal history of other infectious and parasitic diseases; Z98.890 Other specified postprocedural states; Z79.899 Other long term (current) drug therapy; Z91.041 Radiographic dye allergy status
CPT/HCPCS: 36415; 80048; 82550; 83735; 85025; 96374; 96375; 96376; 99284; J1170; J2405

== ENCOUNTER 2018-11-09 03:59 | Inpatient (IN) | payer MEDICAID ==
[2018-11-09] MEDS ORDERED: SUBLIMAZE IV ONE (04:32)
--- NOTE | 2018-11-09 04:34 | Event Note ---
Date: 11/09/18 Medical screening note Primary care Dr.: Dr. Olvin Gentile Nephrology: Dr. Syed 63-year-old gentleman, blind, end-stage renal disease, on dialysis, Sunday, , Sunday, left upper extremity fistula, right lower extremity below- knee amputation, legally blind, presenting with nontraumatic right lower quadrant pain. Patient is tender in the right lower quadrant. Screening laboratory studies ordered, pain medicine ordered, CT scan abdomen and pelvis ordered.
[2018-11-09 05:16] LABS: Hematocrit 35.9 % (35.5-45.6); Hemoglobin 11.5 gm/dl (11.8-15.2); Mean Corpuscular HGB Conc 32 % (32-34); Mean Corpuscular Volume 107 fl (84-94); Red Blood Count 3.36 M/mm3 (3.65-5.03); Red Cell Distribution Width 17.9 % (13.2-15.2)
[2018-11-09 05:17] LABS: Albumin 3.7 g/dL (3.9-5); Calcium 7.8 mg/dL (8.4-10.2)
[2018-11-09 05:30] LABS: Platelet Count 56 K/mm3 (140-440)
[2018-11-09] MEDS ORDERED: D50W (25GM) Syringe IV ONE ×2 (05:30→09:09)
[2018-11-09] MEDS ORDERED: HumuLIN R IV ONE (05:30)
[2018-11-09] MEDS ORDERED: PROVENTIL IH ONE (05:30)
[2018-11-09] MEDS ORDERED: CALCIUM GLUCONATE 1,000 MG in NACL 0.9% 100 ML IV ONE (06:00)
[2018-11-09] MEDS ORDERED: MORPHINE ONE (06:47)
[2018-11-09 06:57] LABS: Basophils % (Manual) 0 % (0.0-1.8); Eosinophils % (Manual) 0 % (0.0-4.3); Total Cells Counted 100
[2018-11-09 06:58] LABS: Anisocytosis Few
--- NOTE | 2018-11-09 06:58 | Emergency Department Report ---
ED Abdominal Pain HPI - General Chief Complaint: Abdominal Pain Stated Complaint: ABD PAIN/DIABETIC COMPLICATIONS Time Seen by Provider: 11/09/18 06:12 Source: patient, EMS Mode of arrival: Stretcher Limitations: Physical Limitation - History of Present Illness Initial Comments: Mr. Luna is a 63 yo male with hx of HTN, DM, blindness, ESRD (T/R/Sa), who presents with severe RLQ pain and diarrhea. Pain began 2 days ago. Sharp, persistent in spite Fentanyl. +nausea. +sweats. Missed dialysis on . Last HD session on Sunday. Junior Mechanical Engineer is Dr. Benitez. Previous hx of paracentesis MD Complaint: abdominal pain -: Gradual, days(s) (2) Location: RLQ Radiation: none Severity: severe Severity scale (0 -10): 10 Quality: sharp Consistency: constant Improves With: nothing Worsens With: other (palpation) Associated Symptoms: nausea, diarrhea - Related Data Home Medications Medication Instructions Recorded Confirmed Last Taken Zolpidem [Ambien] 10 mg PO QHS 08/02/17 08/22/17 2 Days Ago ~07/31/17 Loperamide [Imodium] 2 mg PO PRN 08/22/17 08/22/17 Unknown Previous Rx's Medication Instructions Recorded Last Taken Type Ascorbic Acid [Vitamin C] 500 mg PO DAILY #30 tablet 06/14/18 Unknown Rx Calcium Acetate [Phoslo] 1,334 mg PO TID #90 capsule 06/14/18 Unknown Rx Clopidogrel [Plavix] 75 mg PO DAILY #30 tablet 06/14/18 Unknown Rx Levothyroxine [Synthroid] 50 mcg PO DAILY #30 tablet 06/14/18 Unknown Rx Multivit-Min/Iron Fum/Folic AC 1 each PO DAILY #30 tablet 06/14/18 Unknown Rx [Kldpt-Mkxfann-Xokndhkf Tablet] Pantoprazole [Protonix TAB] 40 mg PO DAILY #30 tablet 06/14/18 Unknown Rx Pregabalin [Lyrica] 50 mg PO DAILY #30 capsule 06/14/18 Unknown Rx Sertraline [Zoloft] 100 mg PO DAILY #30 tablet 06/14/18 Unknown Rx Vitamin D2 50,000 units PO 1XW #4 06/14/18 Unknown Rx amLODIPine [Norvasc] 10 mg PO QDAY #30 tablet 06/14/18 Unknown Rx hydrALAZINE [Apresoline TAB] 25 mg PO TID #90 tablet 06/14/18 Unknown Rx Oxycodone HCl/Acetaminophen 1 each PO Q6HR PRN #14 tablet 10/04/18 Unknown Rx [Percocet 7.5/325 mg] Allergies Allergy/AdvReac Type Severity Reaction Status Date / Time contrast dye AdvReac Severe Rash Uncoded 10/04/18 08:32 ED Review of Systems ROS: Stated complaint: ABD PAIN/DIABETIC COMPLICATIONS Other details as noted in HPI Comment: All other systems reviewed and negative Constitutional: malaise. denies: fever Gastrointestinal: abdominal pain, nausea, diarrhea ED Past Medical Hx - Past Medical History Previous Medical History?: Yes Hx Hypertension: Yes Hx Congestive Heart Failure: No Hx Diabetes: Yes Hx Renal Disease: Yes (Dialysis T (L) arm) Hx Arthritis: Yes Hx Asthma: No Hx COPD: No Additional medical history: HEP B, RECTAL TEAR, NEUROPATHY, RBKA, LT TIBIA FX, ESRD - Surgical History Past Surgical History?: Yes Additional Surgical History: right BKA - Social History Smoking Status: Unknown if ever smoked Substance Use Type: None - Medications Home Medications: Home Medications Medication Instructions Recorded Confirmed Last Taken Type Zolpidem [Ambien] 10 mg PO QHS 08/02/17 08/22/17 2 Days Ago History ~07/31/17 Loperamide [Imodium] 2 mg PO PRN 08/22/17 08/22/17 Unknown History Ascorbic Acid [Vitamin C] 500 mg PO DAILY #30 tablet 06/14/18 Unknown Rx Calcium Acetate [Phoslo] 1,334 mg PO TID #90 capsule 06/14/18 Unknown Rx Clopidogrel [Plavix] 75 mg PO DAILY #30 tablet 06/14/18 Unknown Rx Levothyroxine [Synthroid] 50 mcg PO DAILY #30 tablet 06/14/18 Unknown Rx Multivit-Min/Iron Fum/Folic AC 1 each PO DAILY #30 tablet 06/14/18 Unknown Rx [Ljnvx-Koteklb-Msodgpcx Tablet] Pantoprazole [Protonix TAB] 40 mg PO DAILY #30 tablet 06/14/18 Unknown Rx Pregabalin [Lyrica] 50 mg PO DAILY #30 capsule 06/14/18 Unknown Rx Sertraline [Zoloft] 100 mg PO DAILY #30 tablet 06/14/18 Unknown Rx Vitamin D2 50,000 units PO 1XW #4 06/14/18 Unknown Rx amLODIPine [Norvasc] 10 mg PO QDAY #30 tablet 06/14/18 Unknown Rx hydrALAZINE [Apresoline TAB] 25 mg PO TID #90 tablet 06/14/18 Unknown Rx Oxycodone HCl/Acetaminophen 1 each PO Q6HR PRN #14 tablet 10/04/18 Unknown Rx [Percocet 7.5/325 mg] ED Physical Exam - General Limitations: Physical Limitation General appearance: alert, in no apparent distress - Head Head exam: Present: atraumatic, normocephalic - Eye Eye exam: Absent: scleral icterus - ENT ENT exam: Present: mucous membranes moist - Neck Neck exam: Present: normal inspection, full ROM - Respiratory Respiratory exam: Present: normal lung sounds bilaterally. Absent: respiratory distress, wheezes, rales, rhonchi - Cardiovascular Cardiovascular Exam: Present: regular rate, normal rhythm, normal heart sounds. Absent: rubs, gallop - GI/Abdominal GI/Abdominal exam: Present: soft, tenderness (RLQ tenderness), guarding, normal bowel sounds. Absent: distended, rebound - Extremities Exam Extremities exam: Present: other (r bka) - Neurological Exam Neurological exam: Present: alert, oriented X3 - Psychiatric Psychiatric exam: Present: normal affect, normal mood - Skin Skin exam: Present: warm, dry, intact, normal color. Absent: rash ED Course Vital Signs 11/09/18 11/09/18 11/09/18 04:36 05:00 05:30 Temperature 98 F Pulse Rate 88 87 87 Pulse Rate [ Throughout] Respiratory 15 14 16 Rate Respiratory Rate [ Throughout] Blood Pressure 143/67 143/64 Blood Pressure 143/64 [Left] O2 Sat by Pulse 94 95 97 Oximetry 11/09/18 11/09/18 11/09/18 06:00 06:30 06:38 Temperature Pulse Rate 91 H 92 H Pulse Rate [ 85 Throughout] Respiratory 17 12 Rate Respiratory 18 Rate [ Throughout] Blood Pressure 132/53 132/53 Blood Pressure [Left] O2 Sat by Pulse 96 98 Oximetry ED Medical Decision Making - Lab Data Result diagrams: 11/09/18 04:30 11/09/18 04:30 - Radiology Data Radiology results: report reviewed - Medical Decision Making Mr. Luna has evidence of acute appendicitis with possible rupture vs abscess. General surgeon Dr. Schulz consulted. Zosyn administered in ED. Junior Mechanical Engineer Dr. QUINN A/P: inflammatory process with phlegmon and developing absess Critical Care Time: Yes Critical care time in (mins) excluding proc time.: 40 Critical care attestation.: If time is entered above; I have spent that time in minutes in the direct care of this critically ill patient, excluding procedure time. 40 minutes of critical care time excluding procedures were used in the care of the patient. I have consulted shake cutter, general surgeon and hospitalist. With hyperkalemia, concerned for impending arrhythmia. Concern for sepsis. ED Disposition Clinical Impression: Acute appendicitis, Appendicitis with abscess, End-stage renal disease needing dialysis, Hyperkalemia Disposition: DC-[id number] OP ADMIT IP TO THIS HOSP Is pt being admited?: Yes Does the pt Need Aspirin: No Condition: Stable
[2018-11-09 06:59] LABS: Ovalocytes Rare; Platelet Estimate Consistent w Auto
--- NOTE | 2018-11-09 08:09 | Cat Scan Report ---
CT abdomen pelvis wo con INDICATION / CLINICAL INFORMATION: Right lower quadrant abd pain started 2 days ago. TECHNIQUE: All CT scans at this location are performed using CT dose reduction for ALARA by means of automated e xposure control. COMPARISON: None available. FINDINGS: ABDOMEN: There is a 3.2 cm cystic lesion in the spleen with minimal rim calcification. There are smal l bilateral renal cyst cyst. There are a couple of nonobstructive left renal calculi. The liver, gallbladder, bile ducts pancreas, and adrenal glands are unremarkable. I see no evidence of bowel obstruction or free air. PELVIS: There is an inflammatory process in the right lower quadrant. The inflammation is centered ne ar the base of the cecum in the expected location of the appendix. There is extensive inflammation in the fat and there is a small curvilinear fluid collection anterolaterally. No extraluminal gas is se en. There is diffuse thickening of the wall the urinary bladder, likely related to hypertrophy. There are severe atherosclerotic calcifications involving the abdominal aorta and its branches. No acute osseo us abnormality is seen. IMPRESSION: Nonspecific inflammatory process in the right lower quadrant is likely related to appendi citis. Right-sided colonic diverticulitis or perforated colonic neoplasm could also have this appeara nce but are less likely. There is prominent associated inflammatory change with phlegmon and possible developing abscess present. Signer Name: Domingo Llanos MD Signed: 11/09/2018 8:05 AM Workstation Name: [id number]
[2018-11-09] MEDS ORDERED: ZOSYN/NS 4.5GM/100ML 4.5 GM/100 ML VIAL IV ONE (09:10)
[2018-11-09] MEDS ORDERED: MORPHINE IV ONE ×2 (09:10→22:26)
[2018-11-09] MEDS ORDERED: NACL 0.9% 100 ML IV PRN (09:26)
--- NOTE | 2018-11-09 13:47 | History and Physical Report ---
History of Present Illness Date of examination: 11/09/18 Date of admission: 11/09/18 09:29 Chief complaint: Abdominal pains History of present illness: Patient is a 63 yo man with a history of Blindness, ESRD on HD TTS, left upper extremity fistula, PAD s/p right BKA, hypothyroidism, hypertension, Hepatitis B, peripheral neuropathy, depression and chronic pain syndrom who present to [facility] ED with severe sharp constant nonradiating right lower quadrant abdominal pains x 2 days, without aggravating or relieving factors associated with nonbloody diarrhea and nausea but no vomiting. He denies fevers, chills, chest pains, sob or trauma. The CT abd/pelvis reveals ruptured appendix per General Surgeon. PMH: as hpi,dyslipidemia, left tibial fracture PSH: Right BKA, left AV fistula, liver bx SH: no tobacco dependency, no alcohol or drug abuse FH: hypertension, DM ROS: Constitutional: denies: fever ENT: denies: throat or neck pain Respiratory: denies: cough, shortness of breath Cardiovascular: denies: chest pain Endocrine: denies unexplained weight loss or gain Gastrointestinal: + abdominal pain, +nausea Genitourinary: denies: dysuria Rectal: denies no incontinence, no bleeding, no itching, no discharge Musculoskeletal: denies swelling, myaglia, muscle weakness Skin: denies: rash Neurological: denies: headache Hematological/Lymphatic: denies: easy bleeding or easy bruising Allergic/Immunologic: no urticaria, no allergic rhinitis, no anaphylaxis Psych: denies sadness or hopelessness, SI/HI Medications and Allergies Allergies Allergy/AdvReac Type Severity Reaction Status Date / Time contrast dye AdvReac Severe Rash Uncoded 10/04/18 08:32 Home Medications Medication Instructions Recorded Confirmed Last Taken Type Zolpidem [Ambien] 10 mg PO QHS 08/02/17 11/09/18 2 Days Ago History ~07/31/17 Loperamide [Imodium] 2 mg PO PRN 08/22/17 11/09/18 Unknown History Ascorbic Acid [Vitamin C] 500 mg PO DAILY #30 tablet 06/14/18 11/09/18 Unknown Rx Calcium Acetate [Phoslo] 1,334 mg PO TID #90 capsule 06/14/18 11/09/18 Unknown Rx Clopidogrel [Plavix] 75 mg PO DAILY #30 tablet 06/14/18 11/09/18 Unknown Rx Levothyroxine [Synthroid] 50 mcg PO DAILY #30 tablet 06/14/18 11/09/18 Unknown Rx Multivit-Min/Iron Fum/Folic AC 1 each PO DAILY #30 tablet 06/14/18 11/09/18 Unknown Rx [Mqrjc-Tgrpvae-Vwiuanrs Tablet] Pantoprazole [Protonix TAB] 40 mg PO DAILY #30 tablet 06/14/18 11/09/18 Unknown Rx Pregabalin [Lyrica] 50 mg PO DAILY #30 capsule 06/14/18 11/09/18 Unknown Rx Sertraline [Zoloft] 100 mg PO DAILY #30 tablet 06/14/18 11/09/18 Unknown Rx Vitamin D2 50,000 units PO 1XW #4 06/14/18 11/09/18 Unknown Rx amLODIPine [Norvasc] 10 mg PO QDAY #30 tablet 06/14/18 11/09/18 Unknown Rx hydrALAZINE [Apresoline TAB] 25 mg PO TID #90 tablet 06/14/18 11/09/18 Unknown Rx Oxycodone HCl/Acetaminophen 1 each PO Q6HR PRN #14 tablet 10/04/18 11/09/18 Unkn own Rx [Percocet 7.5/325 mg] Active Meds: Active Medications Sodium Chloride (Nacl 0.9%) 100 mls @ 999 mls/hr IV ANMOL PRN PRN Reason: Hypotension Piperacillin Sod/Tazobactam Sod (Zosyn/Ns 2.25 Gm/50ml) 2.25 gm in 50 mls @ 100 mls/hr IV Q12HR SILVER; Protocol Exam - Physical Exam Narrative exam: Gen: thin frail, chronic disable appearing, NAD, Awake, Alert, Orientated HEENT: NCAT, EOMI, PERRL, OP Clear Neck: supple, no adenopathy, no thyromegaly, no JVD CVS/Heart: RRR, normal S1S2, pulses present bilaterally Chest/Lungs: diminished bs bilaterally, Symmetrical chest expansion, good air e ntry bilaterally GI/Abdomen: soft, right sided tenderness, good bowel sounds, +guarding, rebound /Bladder: no suprapubic tenderness, no CVA or paraspinal tenderness Extermity/Skin: no c/c/e, no new rash MSK: right BKA Neuro: CN 2-12 grossly intact except hearing and vision, no new focal deficits Psych: calm - Constitutional Vitals: Temp Pulse Resp BP Pulse Ox 98.8 F 89 16 101/60 96 11/09/18 11:22 11/09/18 13:30 11/09/18 11:22 11/09/18 13:30 11/09/18 11:22 Results - Labs CBC & Chem 7: 11/09/18 04:30 11/09/18 10:00 Labs: Abnormal lab results 11/09/18 11/09/18 11/09/18 Range/Units 04:30 04:30 04:30 WBC 11.1 H (4.5-11.0) K/mm3 RBC 3.36 L (3.65-5.03) M/mm3 Hgb 11.5 L (11.8-15.2) gm/dl MCV 107 H (84-94) fl MCH 34 H (28-32) pg RDW 17.9 H (13.2-15.2) % Plt Count 56 L (140-440) K/mm3 Seg Neuts % (Manual) 92.0 H (40.0-70.0) % Lymphocytes % (Manual) 7.0 L (13.4-35.0) % Seg Neutrophils # Man 10.2 H (1.8-7.7) K/mm3 Lymphocytes # (Manual) 0.8 L (1.2-5.4) K/mm3 Sodium 136 L (137-145) mmol/L Potassium 7.4 H* (3.6-5.0) mmol/L Chloride 92.4 L (98-107) mmol/L BUN 95 H (9-20) mg/dL Creatinine 11.9 H (0.8-1.5) mg/dL POC Glucose (70-105) Calcium 7.8 L (8.4-10.2) mg/dL Alkaline Phosphatase 134 H (35-129) units/L Total Creatine Kinase 1125 H (55-170) units/L Total Protein 8.7 H (6.3-8.2) g/dL Albumin 3.7 L (3.9-5) g/dL 11/09/18 11/09/18 11/09/18 Range/Units 08:56 10:00 11:58 WBC (4.5-11.0) K/mm3 RBC (3.65-5.03) M/mm3 Hgb (11.8-15.2) gm/dl MCV (84-94) fl MCH (28-32) pg RDW (13.2-15.2) % Plt Count (140-440) K/mm3 Seg Neuts % (Manual) (40.0-70.0) % Lymphocytes % (Manual) (13.4-35.0) % Seg Neutrophils # Man (1.8-7.7) K/mm3 Lymphocytes # (Manual) (1.2-5.4) K/mm3 Sodium (137-145) mmol/L Potassium 6.0 H (3.6-5.0) mmol/L Chloride (98-107) mmol/L BUN (9-20) mg/dL Creatinine (0.8-1.5) mg/dL POC Glucose 65 L 111 H (70-105) Calcium (8.4-10.2) mg/dL Alkaline Phosphatase (35-129) units/L Total Creatine Kinase (55-170) units/L Total Protein (6.3-8.2) g/dL Albumin (3.9-5) g/dL Assessment and Plan Patient is a 63 yo man with a history of Blindness, ESRD on HD TTS, left upper extremity fistula, PAD s/p right BKA, hypothyroidism, hypertension, Hepatitis B, peripheral neuropathy, depression and chronic pain syndrom who present to [facility] ED with severe sharp constant non-radiating right lower quadrant abdominal pains x 2 days, without aggravating or relieving factors associated with nonbloody diarrhea and nausea but no vomiting. He denies fevers, chills, chest pains, sob or trauma. The CT abd/pelvis reveals ruptured appendix per General Surgeon. * CT abd/pelvis without contrast IMPRESSION: Nonspecific inflammatory process in the right lower quadrant is likely related to appendicitis. Right-sided colonic diverticulitis or perforated colonic neoplasm could also have this appearance but are less likely. There is prominent associated inflammatory change with phlegmon and possible developing abscess present. -Addendicitis with rupture and peritonitis: Gen Surgeon consult, input noted, w ill treat with IV ABX, NPO except for meds, no surgery unless patient start to show signs of sepsis. -ESRD: HD TTS, Nephrology following -Severe Hyperkalemia: urgent Hemodialysis, monitor bmp levels closely -Metabolic acidosis: HD and monitor closely -Diarrhea: monitor for c.diffe -Nausea: treat with IV zoFran -Rhabdomyolysis: treat with IVFs, monitor CPK levels closely -Thrombocytopenia, chronically low but not this low: consult Heme/Onc -PAD s/p right BKA: hold Plavix for possible IR drainage -Hx Hypertension: low salt diet, antihypertensives -Hx Congestive Heart Failure, diastolic chronic and stable: continue to monitor, i/o, daily weight -Hx Diabetes Mellitus type 2: ssi, ada diet -Hx Hypothyroidism: treat with levothyroxine -Hx Arthritis: tylenol full code Disposition: continue inpatient care, management of appendicitis with rupture, treat rhabdo CCT 36 minutes
--- NOTE | 2018-11-09 13:54 | Consultation ---
History of Present Illness - Reason for Consult Consult date: 11/09/18 end stage renal disease, hyperkalemia Medications and Allergies Allergies Allergy/AdvReac Type Severity Reaction Status Date / Time contrast dye AdvReac Severe Rash Uncoded 10/04/18 08:32 Home Medications Medication Instructions Recorded Confirmed Last Taken Type Zolpidem [Ambien] 10 mg PO QHS 08/02/17 11/09/18 2 Days Ago History ~07/31/17 Loperamide [Imodium] 2 mg PO PRN 08/22/17 11/09/18 Unknown History Ascorbic Acid [Vitamin C] 500 mg PO DAILY #30 tablet 06/14/18 11/09/18 Unknown Rx Calcium Acetate [Phoslo] 1,334 mg PO TID #90 capsule 06/14/18 11/09/18 Unknown Rx Clopidogrel [Plavix] 75 mg PO DAILY #30 tablet 06/14/18 11/09/18 Unknown Rx Levothyroxine [Synthroid] 50 mcg PO DAILY #30 tablet 06/14/18 11/09/18 Unknown Rx Multivit-Min/Iron Fum/Folic AC 1 each PO DAILY #30 tablet 06/14/18 11/09/18 Unknown Rx [Jdefl-Ssfezyo-Nawisehs Tablet] Pantoprazole [Protonix TAB] 40 mg PO DAILY #30 tablet 06/14/18 11/09/18 Unknown Rx Pregabalin [Lyrica] 50 mg PO DAILY #30 capsule 06/14/18 11/09/18 Unknown Rx Sertraline [Zoloft] 100 mg PO DAILY #30 tablet 06/14/18 11/09/18 Unknown Rx Vitamin D2 50,000 units PO 1XW #4 06/14/18 11/09/18 Unknown Rx amLODIPine [Norvasc] 10 mg PO QDAY #30 tablet 06/14/18 11/09/18 Unknown Rx hydrALAZINE [Apresoline TAB] 25 mg PO TID #90 tablet 06/14/18 11/09/18 Unknown Rx Oxycodone HCl/Acetaminophen 1 each PO Q6HR PRN #14 tablet 10/04/18 11/09/18 Unknown Rx [Percocet 7.5/325 mg] Active Meds: Active Medications Sodium Chloride (Nacl 0.9%) 100 mls @ 999 mls/hr IV ANMOL PRN PRN Reason: Hypotension Piperacillin Sod/Tazobactam Sod (Zosyn/Ns 2.25 Gm/50ml) 2.25 gm in 50 mls @ 100 mls/hr IV Q12HR SILVER; Protocol Exam - Vital Signs Vital signs: Vital Signs Temp Pulse Resp BP Pulse Ox 98 F 88 15 143/64 94 11/09/18 04:36 11/09/18 04:36 11/09/18 04:36 11/09/18 04:36 11/09/18 04:36 Results - Lab Results 11/09/18 04:30 11/09/18 10:00 Most recent lab results Calcium 7.8 mg/dL (8.4-10.2) L 11/09/18 04:30 Magnesium 2.30 mg/dL (1.7-2.3) 11/09/18 04:30
[2018-11-09] MEDS ORDERED: NON-FORMULARY (Oxycodone Hcl/Acetaminophen [Percocet 7.5/325 Mg] 1 EACH) PO PRN (14:01)
[2018-11-09] MEDS ORDERED: TYLENOL PO PRN (14:06)
[2018-11-09] MEDS ORDERED: ZOFRAN IV PRN (14:06)
--- NOTE | 2018-11-09 14:10 | Consultation ---
History of Present Illness Consult date: 11/09/18 Reason for consult: abdominal pain Chief complaint: abdominal pain - History of present illness History of present illness: 63 yo M with hx of ESRD on HD, legally blind, Chet KAY presents to hospital with c/ o sharp RLQ abdominal pain x 2 days which gradually became worse. Nonradiating. Pain medication administered in hospital has helped with the pain. He has never had pain like this before. NO f/c. + n/v but now resolved. Upon presentation to hospital his potassium was 7. Past History Past Medical History: ESRD, PVD Past Surgical History: Other (paracentesis, R BKA, LUE dialysis access) Social history: no significant social history Family history: no significant family history Medications and Allergies Allergies Allergy/AdvReac Type Severity Reaction Status Date / Time contrast dye AdvReac Severe Rash Uncoded 10/04/18 08:32 Home Medications Medication Instructions Recorded Confirmed Last Taken Type Zolpidem [Ambien] 10 mg PO QHS 08/02/17 11/09/18 2 Days Ago History ~07/31/17 Loperamide [Imodium] 2 mg PO PRN 08/22/17 11/09/18 Unknown History Ascorbic Acid [Vitamin C] 500 mg PO DAILY #30 tablet 06/14/18 11/09/18 Unknown Rx Calcium Acetate [Phoslo] 1,334 mg PO TID #90 capsule 06/14/18 11/09/18 Unknown Rx Clopidogrel [Plavix] 75 mg PO DAILY #30 tablet 06/14/18 11/09/18 Unknown Rx Levothyroxine [Synthroid] 50 mcg PO DAILY #30 tablet 06/14/18 11/09/18 Unknown Rx Multivit-Min/Iron Fum/Folic AC 1 each PO DAILY #30 tablet 06/14/18 11/09/18 Unknown Rx [Gkrfg-Wodztth-Qdshsuyv Tablet] Pantoprazole [Protonix TAB] 40 mg PO DAILY #30 tablet 06/14/18 11/09/18 Unknown Rx Pregabalin [Lyrica] 50 mg PO DAILY #30 capsule 06/14/18 11/09/18 Unknown Rx Sertraline [Zoloft] 100 mg PO DAILY #30 tablet 06/14/18 11/09/18 Unknown Rx Vitamin D2 50,000 units PO 1XW #4 06/14/18 11/09/18 Unknown Rx amLODIPine [Norvasc] 10 mg PO QDAY #30 tablet 06/14/18 11/09/18 Unknown Rx hydrALAZINE [Apresoline TAB] 25 mg PO TID #90 tablet 06/14/18 11/09/18 Unknown Rx Oxycodone HCl/Acetaminophen 1 each PO Q6HR PRN #14 tablet 10/04/18 11/09/18 Unknown Rx [Percocet 7.5/325 mg] Active Meds: Active Medications Sodium Chloride (Nacl 0.9%) 100 mls @ 999 mls/hr IV ANMOL PRN PRN Reason: Hypotension Piperacillin Sod/Tazobactam Sod (Zosyn/Ns 2.25 Gm/50ml) 2.25 gm in 50 mls @ 100 mls/hr IV Q12HR SILVER; Protocol Review of Systems ROS unobtainable: due to mental status (limited ROS performed and negative except for that listed in HPI) Exam Vital Signs Temp Pulse Resp BP Pulse Ox 98 F 88 15 143/64 94 11/09/18 04:36 11/09/18 04:36 11/09/18 04:36 11/09/18 04:36 11/09/18 04:36 Narrative exam: Gen: Awake and alert. Falls asleep during interview. Confused at times and needs to be redirected ENT: no scleral icterus or conjunctival pallor Cv; s1, S2+ resp: even and unlabored Abd: soft, ND, + RLQ TTP. +voluntary guarding. No rebound or rigidity. Ext: R BKA. No c/c/e Results - Labs 11/09/18 04:30 11/09/18 10:00 Abnormal lab results 11/09/18 11/09/18 11/09/18 Range/Units 04:30 04:30 04:30 WBC 11.1 H (4.5-11.0) K/mm3 RBC 3.36 L (3.65-5.03) M/mm3 Hgb 11.5 L (11.8-15.2) gm/dl MCV 107 H (84-94) fl MCH 34 H (28-32) pg RDW 17.9 H (13.2-15.2) % Plt Count 56 L (140-440) K/mm3 Seg Neuts % (Manual) 92.0 H (40.0-70.0) % Lymphocytes % (Manual) 7.0 L (13.4-35.0) % Seg Neutrophils # Man 10.2 H (1.8-7.7) K/mm3 Lymphocytes # (Manual) 0.8 L (1.2-5.4) K/mm3 Sodium 136 L (137-145) mmol/L Potassium 7.4 H* (3.6-5.0) mmol/L Chloride 92.4 L (98-107) mmol/L BUN 95 H (9-20) mg/dL Creatinine 11.9 H (0.8-1.5) mg/dL POC Glucose (70-105) Calcium 7.8 L (8.4-10.2) mg/dL Alkaline Phosphatase 134 H (35-129) units/L Total Creatine Kinase 1125 H (55-170) units/L Total Protein 8.7 H (6.3-8.2) g/dL Albumin 3.7 L (3.9-5) g/dL 11/09/18 11/09/18 11/09/18 Range/Units 08:56 10:00 11:58 WBC (4.5-11.0) K/mm3 RBC (3.65-5.03) M/mm3 Hgb (11.8-15.2) gm/dl MCV (84-94) fl MCH (28-32) pg RDW (13.2-15.2) % Plt Count (140-440) K/mm3 Seg Neuts % (Manual) (40.0-70.0) % Lymphocytes % (Manual) (13.4-35.0) % Seg Neutrophils # Man (1.8-7.7) K/mm3 Lymphocytes # (Manual) (1.2-5.4) K/mm3 Sodium (137-145) mmol/L Potassium 6.0 H (3.6-5.0) mmol/L Chloride (98-107) mmol/L BUN (9-20) mg/dL Creatinine (0.8-1.5) mg/dL POC Glucose 65 L 111 H (70-105) Calcium (8.4-10.2) mg/dL Alkaline Phosphatase (35-129) units/L Total Creatine Kinase (55-170) units/L Total Protein (6.3-8.2) g/dL Albumin (3.9-5) g/dL Diabetes panel 11/09/18 11/09/18 Range/Units 04:30 10:00 Sodium 136 L (137-145) mmol/L Potassium 7.4 H* 6.0 H (3.6-5.0) mmol/L Chloride 92.4 L (98-107) mmol/L Carbon Dioxide 22 (22-30) mmol/L BUN 95 H (9-20) mg/dL Creatinine 11.9 H (0.8-1.5) mg/dL Glucose 96 (75-100) mg/dL Calcium 7.8 L (8.4-10.2) mg/dL AST 37 (5-40) units/L ALT 42 (7-56) units/L Alkaline Phosphatase 134 H (35-129) units/L Total Protein 8.7 H (6.3-8.2) g/dL Albumin 3.7 L (3.9-5) g/dL Calcium panel 11/09/18 Range/Units 04:30 Calcium 7.8 L (8.4-10.2) mg/dL Albumin 3.7 L (3.9-5) g/dL Pituitary panel 11/09/18 11/09/18 Range/Units 04:30 10:00 Sodium 136 L (137-145) mmol/L Potassium 7.4 H* 6.0 H (3.6-5.0) mmol/L Chloride 92.4 L (98-107) mmol/L Carbon Dioxide 22 (22-30) mmol/L BUN 95 H (9-20) mg/dL Creatinine 11.9 H (0.8-1.5) mg/dL Glucose 96 (75-100) mg/dL Calcium 7.8 L (8.4-10.2) mg/dL Adrenal panel 11/09/18 11/09/18 Range/Units 04:30 10:00 Sodium 136 L (137-145) mmol/L Potassium 7.4 H* 6.0 H (3.6-5.0) mmol/L Chloride 92.4 L (98-107) mmol/L Carbon Dioxide 22 (22-30) mmol/L BUN 95 H (9-20) mg/dL Creatinine 11.9 H (0.8-1.5) mg/dL Glucose 96 (75-100) mg/dL Calcium 7.8 L (8.4-10.2) mg/dL Total Bilirubin 0.70 (0.1-1.2) mg/dL AST 37 (5-40) units/L ALT 42 (7-56) units/L Alkaline Phosphatase 134 H (35-129) units/L Total Protein 8.7 H (6.3-8.2) g/dL Albumin 3.7 L (3.9-5) g/dL - Imaging CT scan - abdomen: report reviewed, image reviewed CT scan - pelvis: report reviewed, image reviewed Assessment and Plan 63 yo M with 1. acute perforated appendicitis 2. ESRD on HD 3. hyperkalemia Plan: 1. NPO except meds 2. IVF 3. IV abx 4. prn pain and nausea control 5. repeat CT scan A/P with oral contrast on 11/11 to follow up and determine if there is a drainable collection. 6. Patient currently afebrile, hemodynamically stable. Recommend nonsurgical management at this time 7. Hold plavix 8. HD per nephro 9. repeat labs in am I spent 45 minutes discussing the plan with the patient. He does not seem to ful ly understand the plan and needs to be redirected many times. I explained that because he has a perforated appendix, it will be difficult to operate on the area and these situations are treated with antibiotics, pain medication, and drainage if an abscess forms. I also offered him the option of a second opinion. I asked to speak with his who is his primary senior firmware engineer to better explain the plan. I called her two times and both times went to voicemail. Message was left. Dialysis nurse in room for entire discussion. Will try again tomorrow. D/W Dr. Cade.
[2018-11-09] MEDS ORDERED: D50W (25GM) Syringe IV PRN (14:11)
[2018-11-09] MEDS ORDERED: PERCOCET 5/325 PO PRN (14:25)
[2018-11-09] MEDS ORDERED: ROXICODONE PO PRN (14:26)
[2018-11-09] MEDS ORDERED: D5/0.45NS 1,000 ML IV SCH (15:00)
[2018-11-09] MEDS ORDERED: IMODIUM PO SCH (15:00)
[2018-11-09] MEDS ORDERED: NACL 0.9% 1000 ML 1,000 ML IV SCH (15:00)
[2018-11-09] MEDS: HumaLOG SUB-Q SCH ×3 (16:45→23:14)
--- NOTE | 2018-11-09 19:54 | Event Note ---
Date: 11/09/18 Received a message from [employer] to call patient's , Jesenia Luna at [phone]. Called the number back and went to voice mail. Left message and will try to call again tomorrow.
[2018-11-09] MEDS ORDERED: ZOSYN/NS 2.25 GM/50ML 2.25 GM/50 ML BAG IV SCH (22:00)
[2018-11-09] MEDS: PHOSLO PO SCH (22:03)
[2018-11-09] MEDS: APRESOLINE PO SCH (22:14)
[2018-11-09] MEDS: AMBIEN PO SCH (22:38)
[2018-11-10] MEDS: SYNTHROID PO SCH ×2 (05:06→11:04)
[2018-11-10] MEDS: HumaLOG SUB-Q SCH ×3 (05:27→17:40)
[2018-11-10 07:45] LABS: Hematocrit 35.8 % (35.5-45.6); Hemoglobin 11.9 gm/dl (11.8-15.2); Mean Corpuscular HGB Conc 33 % (32-34); Mean Corpuscular Volume 105 fl (84-94); Red Blood Count 3.42 M/mm3 (3.65-5.03); Red Cell Distribution Width 18.1 % (13.2-15.2)
[2018-11-10 07:49] LABS: Platelet Count 64 K/mm3 (140-440)
[2018-11-10 08:10] LABS: Calcium 8.6 mg/dL (8.4-10.2)
[2018-11-10] MEDS ORDERED: NON-FORMULARY (Pregabalin [Lyrica] 50 MG) PO SCH (10:00)
[2018-11-10] MEDS ORDERED: PLAVIX PO SCH (10:00)
[2018-11-10] MEDS ORDERED: NON-FORMULARY (Multivit-Min/Iron Fum/Folic Ac [Multi-Vitamin-Minerals Tablet] 1 EACH) PO SCH (10:00)
--- NOTE | 2018-11-10 10:42 | Progress Note ---
Assessment and Plan 63 yo M with 1. acute perforated appendicitis 2. ESRD on HD 3. hyperkalemia Plan: Pt febrile overnight, likely RLQ phlegmon forming into abscess. Abdominal exam is improved. WBC trended down. 1. NPO except meds 2. gentle IVF 3. IV abx 4. prn pain and nausea control 5. repeat CT scan A/P with oral and IV contrast on 11/11 to follow up and determine if there is a drainable collection. If there is a collection, recommend consult to interventional radiology 6. Hold plavix 7. HD per nephro. Discussed IV contrast for CT with Dr. Benitez and patient may receive it for CT. 8. repeat labs in am Explained plan to patient who seems to have a better understanding today. I called his but number went straight to . Patient states his will be back in hospital later. I left my cell phone number with refinery operator crude unit and in structed patient's RN to call me when his is back. D/W Dr. Cade. Subjective Date of service: 11/10/18 Narrative: Pt seen and examined. States he feels a little better today and pain is less. No n/v. +fever overnight. He feels hungry. Objective Vital Signs - 12hr 11/09/18 11/10/18 11/10/18 23:51 03:39 05:05 Temperature 99.5 F 102.2 F H 100.1 F H Pulse Rate 133 H 134 H Respiratory 18 20 Rate Blood Pressure 105/51 113/60 O2 Sat by Pulse 92 91 Oximetry 11/10/18 07:11 Temperature 97.4 F L Pulse Rate 133 H Respiratory 18 Rate Blood Pressure 97/60 O2 Sat by Pulse 94 Oximetry - General physical appearance Narrative Exam: Gen: AAOx3. NAD CV: s1, S2+ resp: even and unlabored Abd: soft, ND, + RLQ TTP. No r/r/g Ext: no c/c/e. R BKA - Labs 11/10/18 07:20 11/10/18 07:20 Diabetes panel 11/10/18 Range/Units 07:20 Sodium 137 (137-145) mmol/L Potassium 5.6 H (3.6-5.0) mmol/L Chloride 93.6 L (98-107) mmol/L Carbon Dioxide 26 (22-30) mmol/L BUN 36 H (9-20) mg/dL Creatinine 6.8 H (0.8-1.5) mg/dL Glucose 116 H (75-100) mg/dL Calcium 8.6 (8.4-10.2) mg/dL Thyroid panel 11/10/18 Range/Units 07:20 TSH 0.622 (0.270-4.200) mlU/mL Calcium panel 11/10/18 Range/Units 07:20 Calcium 8.6 (8.4-10.2) mg/dL Pituitary panel 11/10/18 11/10/18 Range/Units 07:20 07:20 Sodium 137 (137-145) mmol/L Potassium 5.6 H (3.6-5.0) mmol/L Chloride 93.6 L (98-107) mmol/L Carbon Dioxide 26 (22-30) mmol/L BUN 36 H (9-20) mg/dL Creatinine 6.8 H (0.8-1.5) mg/dL Glucose 116 H (75-100) mg/dL Calcium 8.6 (8.4-10.2) mg/dL TSH 0.622 (0.270-4.200) mlU/mL Adrenal panel 11/10/18 Range/Units 07:20 Sodium 137 (137-145) mmol/L Potassium 5.6 H (3.6-5.0) mmol/L Chloride 93.6 L (98-107) mmol/L Carbon Dioxide 26 (22-30) mmol/L BUN 36 H (9-20) mg/dL Creatinine 6.8 H (0.8-1.5) mg/dL Glucose 116 H (75-100) mg/dL Calcium 8.6 (8.4-10.2) mg/dL
[2018-11-10] MEDS: APRESOLINE PO SCH ×4 (10:49→22:12)
[2018-11-10] MEDS: NORVASC PO SCH (10:50)
[2018-11-10] MEDS: LYRICA PO SCH (11:01)
[2018-11-10] MEDS: PHOSLO PO SCH ×3 (11:01→22:10)
[2018-11-10] MEDS: VITAMIN C PO SCH (11:02)
[2018-11-10] MEDS: ZOLOFT PO SCH (11:02)
[2018-11-10] MEDS: Renal Caps PO SCH (11:04)
[2018-11-10] MEDS: PROTONIX PO SCH (11:04)
--- NOTE | 2018-11-10 13:20 | Progress Note ---
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 UF as tolerated * Resume TTS schedule thereafter * Note hypoglycemia yesterday. Will d/c D5NS 75ml/hour and start D10 40ml/hour to minimize fluid * Abx per primary team * Epogen TIW prn * Dose medications for renal function * Diet per surgery. Renal diet once advanced Subjective Date of service: 11/10/18 Objective - Vital Signs Vital signs: Vital Signs - 12hr 11/10/18 11/10/18 11/10/18 03:39 05:05 07:11 Temperature 102.2 F H 100.1 F H 97.4 F L Pulse Rate 134 H 133 H Respiratory 20 18 Rate Blood Pressure 113/60 97/60 O2 Sat by Pulse 91 94 Oximetry 11/10/18 10:00 Temperature Pulse Rate 123 H Respiratory Rate Blood Pressure O2 Sat by Pulse Oximetry - Lab 11/10/18 07:20 11/10/18 07:20 Most recent lab results Calcium 8.6 mg/dL (8.4-10.2) 11/10/18 07:20 Magnesium 2.30 mg/dL (1.7-2.3) 11/09/18 04:30 Medications & Allergies - Medications Allergies/Adverse Reactions: Allergies contrast dye Adverse Reaction (Severe, Uncoded 10/04/18 08:32) Rash Home Medications: Home Medications Medication Instructions Recorded Confirmed Last Taken Type Zolpidem [Ambien] 10 mg PO QHS 08/02/17 11/09/18 2 Days Ago History ~07/31/17 Loperamide [Imodium] 2 mg PO PRN 08/22/17 11/09/18 Unknown History Ascorbic Acid [Vitamin C] 500 mg PO DAILY #30 tablet 06/14/18 11/09/18 Unknown Rx Calcium Acetate [Phoslo] 1,334 mg PO TID #90 capsule 06/14/18 11/09/18 Unknown Rx Clopidogrel [Plavix] 75 mg PO DAILY #30 tablet 06/14/18 11/09/18 Unknown Rx Levothyroxine [Synthroid] 50 mcg PO DAILY #30 tablet 06/14/18 11/09/18 Unknown Rx Multivit-Min/Iron Fum/Folic AC 1 each PO DAILY #30 tablet 06/14/18 11/09/18 Unknown Rx [Orrdu-Ueauuag-Ghgupnso Tablet] Pantoprazole [Protonix TAB] 40 mg PO DAILY #30 tablet 06/14/18 11/09/18 Unknown Rx Pregabalin [Lyrica] 50 mg PO DAILY #30 capsule 06/14/18 11/09/18 Unknown Rx Sertraline [Zoloft] 100 mg PO DAILY #30 tablet 06/14/18 11/09/18 Unknown Rx Vitamin D2 50,000 units PO 1XW #4 06/14/18 11/09/18 Unknown Rx amLODIPine [Norvasc] 10 mg PO QDAY #30 tablet 06/14/18 11/09/18 Unknown Rx hydrALAZINE [Apresoline TAB] 25 mg PO TID #90 tablet 06/14/18 11/09/18 Unknown Rx Oxycodone HCl/Acetaminophen 1 each PO Q6HR PRN #14 tablet 10/04/18 11/09/18 U nknown Rx [Percocet 7.5/325 mg] Active Medications: Generic Name Dose Route Start Last Admin Trade Name Freq PRN Reason Stop Dose Admin Acetaminophen 650 mg 11/09/18 14:06 11/10/18 03:53 Tylenol PO 650 mg Q6H PRN Administration Non Cardiac Pain or Temp>100.5 Amlodipine Besylate 10 mg 11/10/18 10:00 11/10/18 10:50 Norvasc PO Not Given QDAY SILVER Ascorbic Acid 500 mg 11/10/18 10:00 11/10/18 11:02 Vitamin C PO 500 mg DAILY SILVER Administration Calcium Acetate 1,334 mg 11/09/18 20:00 11/10/18 11:01 Phoslo PO 1,334 mg TID SILVER Administration Dextrose 50 ml 11/09/18 14:11 D50w (25gm) Syringe IV PRN PRN Hypoglycemia Ergocalciferol 50,000 unit 11/11/18 09:00 Vitamin D2 PO Mo SILVER Hydralazine HCl 25 mg 11/09/18 20:00 11/10/18 10:49 Apresoline PO Not Given TID SILVER Sodium Chloride 100 mls @ 999 mls/hr 11/09/18 09:26 Nacl 0.9% IV ANMOL PRN Hypotension Dextrose/Sodium Chloride 1,000 mls @ 75 mls/hr 11/09/18 15:00 11/09/18 22:09 D5/0.45ns IV 75 mls/hr DIRECT SILVER Administration Piperacillin Sod/Tazobactam Sod 2.25 gm in 50 mls @ 100 mls/hr 11/10/18 14:00 Zosyn/Ns 2.25 Gm/50ml IV Q8HR [facility] Protocol Insulin Human Lispro 0 unit 11/09/18 15:00 11/10/18 13:09 Humalog SUB-Q Not Given Q6HR [facility] Protocol Levothyroxine Sodium 50 mcg 11/10/18 06:00 11/10/18 11:04 Synthroid PO 50 mcg QAM SILVER Administration Loperamide HCl 2 mg 11/09/18 15:00 Imodium PO PRN SILVER Morphine Sulfate 2 mg 11/10/18 12:16 Morphine IV Q4H PRN Pain , Severe (7-10) Multivit/Ca Carb/B Cmplx/FA/Prenat 1 cap 11/10/18 10:00 11/10/18 11:04 Renal Caps PO 1 cap QDAY SILVER Administration Ondansetron HCl 4 mg 11/09/18 14:06 Zofran IV Q4H PRN Nausea And Vomiting Oxycodone HCl 2.5 mg 11/09/18 14:26 Roxicodone PO Q6H PRN Pain, Moderate (4-6) Oxycodone/Acetaminophen 1 tab 11/09/18 14:25 11/09/18 16:43 Percocet 5/325 PO 1 tab Q6H PRN Administration Pain, Moderate (4-6) Pantoprazole Sodium 40 mg 11/10/18 10:00 11/10/18 11:04 Protonix PO 40 mg DAILY SILVER Administration Pregabalin 50 mg 11/10/18 10:00 11/10/18 11:01 Lyrica PO 50 mg DAILY SILVER Administration Sertraline HCl 100 mg 11/10/18 10:00 11/10/18 11:02 Zoloft PO 100 mg DAILY SILVER Administration Zolpidem Tartrate 10 mg 11/09/18 22:00 11/09/18 22:38 Ambien PO 10 mg QHS SILVER Administration
[2018-11-10] MEDS ORDERED: BENADRYL IV PRN (14:22)
--- NOTE | 2018-11-10 14:28 | Progress Note ---
Assessment and Plan Assessment and plan: Patient is a 63 yo man with a history of Blindness, ESRD on HD TTS, left upper extremity fistula, PAD s/p right BKA, hypothyroidism, hypertension, Hepatitis B, peripheral neuropathy, depression and chronic pain syndrom who present to [facility] ED with severe sharp constant non-radiating right lower quadrant abdominal pains x 2 days, without aggravating or relieving factors associated with nonbloody diarrhea and nausea but no vomiting. He denies fevers, chills, chest pains, sob or trauma. The CT abd/pelvis reveals ruptured appendix per General Surgeon. * CT abd/pelvis without contrast IMPRESSION: Nonspecific inflammatory process in the right lower quadrant is likely related to appendicitis. Right-sided colonic diverticulitis or perforated colonic neoplasm could also have this appearance but are less likely. There is prominent associated inflammatory change with phlegmon and possible developing abscess present. -Addendicitis with rupture and peritonitis: Gen Surgeon consult, input noted, will treat with IV ABX, pain is better, so diet started per , no surgery unles s patient start to show signs of sepsis. -ESRD: HD TTS, Nephrology following -Severe Hyperkalemia: urgent Hemodialysis, monitor bmp levels closely -Metabolic acidosis: HD and monitor closely -Diarrhea: monitor for c.diffe -Nausea: treat with IV zoFran -Rhabdomyolysis improving: treat with IVFs, monitor CPK levels closely -Thrombocytopenia, chronically low but not this low: consulted Heme/Onc -PAD s/p right BKA: hold Plavix for possible IR drainage -Hx Hypertension: low salt diet, antihypertensives -Hx Congestive Heart Failure, diastolic chronic and stable: continue to monitor, i/o, daily weight -Hx Diabetes Mellitus type 2: ssi, ada diet -Hx Hypothyroidism: treat with levothyroxine -Hx Arthritis: tylenol full code Disposition: continue inpatient care, management of appendicitis with rupture, treat rhabdo febrile overnight but WBC normal now. CT abd/pelvis with contrast ordered. Contrast dye listed as allergies, more history garnered by Mr. Luna regarding the allergy. He has itching especially on his back but no swelling or anaphylaxis reaction. Will pre-mediacated with iv steroids and give iv benadryl prn. CCT 31 minutes History Interval history: Patient was seen and examined. Follow-up on current diagnosis perforated appendix. No overnight events reported to me. Patient denies any chest pain, shortness breath, nausea/vomiting or severe headaches. Imaging, nursing note, chart, labs and old chart reviewed. Discussed with patient and "sister friend Ellie" at bedside (hippa cleared garnered) Hospitalist Physical - Physical exam Narrative exam: Gen: thin frail, chronic disable appearing, NAD, Awake, Alert, Orientated HEENT: NCAT, EOMI, PERRL, OP Clear Neck: supple, no adenopathy, no thyromegaly, no JVD CVS/Heart: RRR, normal S1S2, pulses present bilaterally Chest/Lungs: diminished bs bilaterally, Symmetrical chest expansion, good air entry bilaterally GI/Abdomen: soft, right sided tenderness, good bowel sounds, +guarding, rebound /Bladder: no suprapubic tenderness, no CVA or paraspinal tenderness Extermity/Skin: no c/c/e, no new rash MSK: right BKA Neuro: CN 2-12 grossly intact except hearing and vision, no new focal deficits Psych: calm - Constitutional Vitals: Temp Pulse Resp BP Pulse Ox 97.4 F L 123 H 18 97/60 94 11/10/18 07:11 11/10/18 10:00 11/10/18 07:11 11/10/18 07:11 11/10/18 07:11 Results - Labs CBC & Chem 7: 11/10/18 07:20 11/10/18 07:20 Labs: Laboratory Last Values WBC 9.7 K/mm3 (4.5-11.0) 11/10/18 07:20 RBC 3.42 M/mm3 (3.65-5.03) L 11/10/18 07:20 Hgb 11.9 gm/dl (11.8-15.2) 11/10/18 07:20 Hct 35.8 % (35.5-45.6) 11/10/18 07:20 MCV 105 fl (84-94) H 11/10/18 07:20 MCH 35 pg (28-32) H 11/10/18 07:20 MCHC 33 % (32-34) 11/10/18 07:20 RDW 18.1 % (13.2-15.2) H 11/10/18 07:20 Plt Count 64 K/mm3 (140-440) L 11/10/18 07:20 Add Manual Diff Complete 11/09/18 04:30 Total Counted 100 11/09/18 04:30 Seg Neutrophils % Ticket Manager 11/09/18 04:30 Seg Neuts % (Manual) 92.0 % (40.0-70.0) H 11/09/18 04:30 0 % 11/09/18 04:30 7.0 % (13.4-35.0) L 11/09/18 04:30 Reactive Lymphs % (Man) 0 % 11/09/18 04:30 1.0 % (0.0-7.3) 11/09/18 04:30 0 % (0.0-4.3) 11/09/18 04:30 0 % (0.0-1.8) 11/09/18 04:30 0 % 11/09/18 04:30 0 % 11/09/18 04:30 0 % 11/09/18 04:30 0 % 11/09/18 04:30 Nucleated RBC % Not Reportable 11/09/18 04:30 Seg Neutrophils # Man 10.2 K/mm3 (1.8-7.7) H 11/09/18 04:30 Band Neutrophils # 0.0 K/mm3 11/09/18 04:30 0.8 K/mm3 (1.2-5.4) L 11/09/18 04:30 Abs React Lymphs (Man) 0.0 K/mm3 11/09/18 04:30 0.1 K/mm3 (0.0-0.8) 11/09/18 04:30 0.0 K/mm3 (0.0-0.4) 11/09/18 04:30 0.0 K/mm3 (0.0-0.1) 11/09/18 04:30 0.0 K/mm3 11/09/18 04:30 0.0 K/mm3 11/09/18 04:30 0.0 K/mm3 11/09/18 04:30 Blast Cells # 0.0 K/mm3 11/09/18 04:30 WBC Morphology Not Reportable 11/09/18 04:30 Hypersegmented Neuts Not Reportable 11/09/18 04:30 Hyposegmented Neuts Not Reportable 11/09/18 04:30 Hypogranular Neuts Not Reportable 11/09/18 04:30 Not Reportable 11/09/18 04:30 Not Reportable 11/09/18 04:30 Not Reportable 11/09/18 04:30 Not Reportable 11/09/18 04:30 Not Reportable 11/09/18 04:30 Not Reportable 11/09/18 04:30 Consistent w auto 11/09/18 04:30 Not Reportable 11/09/18 04:30 Plt Clumps, EDTA Not Reportable 11/09/18 04:30 Not Reportable 11/09/18 04:30 Not Reportable 11/09/18 04:30 Not Reportable 11/09/18 04:30 Plt Morphology Comment Not Reportable 11/09/18 04:30 RBC Morphology Not Reportable 11/09/18 04:30 Dimorphic RBCs Not Reportable 11/09/18 04:30 Not Reportable 11/09/18 04:30 Not Reportable 11/09/18 04:30 Not Reportable 11/09/18 04:30 Few 11/09/18 04:30 Not Reportable 11/09/18 04:30 Not Reportable 11/09/18 04:30 Not Reportable 11/09/18 04:30 Not Reportable 11/09/18 04:30 Not Reportable 11/09/18 04:30 Not Reportable 11/09/18 04:30 Not Reportable 11/09/18 04:30 Rare 11/09/18 04:30 Not Reportable 11/09/18 04:30 Not Reportable 11/09/18 04:30 Not Reportable 11/09/18 04:30 Not Reportable 11/09/18 04:30 Not Reportable 11/09/18 04:30 Not Reportable 11/09/18 04:30 Not Reportable 11/09/18 04:30 Acanthocytes (Spur) Not Reportable 11/09/18 04:30 Rouleaux Not Reportable 11/09/18 04:30 Not Reportable 11/09/18 04:30 Not Reportable 11/09/18 04:30 Not Reportable 11/09/18 04:30 Not Reportable 11/09/18 04:30 Hem Pathologist Commnt No 11/09/18 04:30 Sodium 137 mmol/L (137-145) 11/10/18 07:20 Potassium 5.6 mmol/L (3.6-5.0) H 11/10/18 07:20 Chloride 93.6 mmol/L (98-107) L 11/10/18 07:20 Carbon Dioxide 26 mmol/L (22-30) 11/10/18 07:20 23 mmol/L 11/10/18 07:20 BUN 36 mg/dL (9-20) H 11/10/18 07:20 6.8 mg/dL (0.8-1.5) H 11/10/18 07:20 Estimated GFR 10 ml/min 11/10/18 07:20 5 % 11/10/18 07:20 Glucose 116 mg/dL (75-100) H 11/10/18 07:20 POC Glucose 146 (70-105) H 11/10/18 12:45 Calcium 8.6 mg/dL (8.4-10.2) 11/10/18 07:20 Magnesium 2.30 mg/dL (1.7-2.3) 11/09/18 04:30 0.70 mg/dL (0.1-1.2) 11/09/18 04:30 AST 37 units/L (5-40) 11/09/18 04:30 ALT 42 units/L (7-56) 11/09/18 04:30 134 units/L (35-129) H 11/09/18 04:30 668 units/L (55-170) H 11/10/18 07:20 8.7 g/dL (6.3-8.2) H 11/09/18 04:30 3.7 g/dL (3.9-5) L 11/09/18 04:30 0.7 % 11/09/18 04:30 TSH 0.622 mlU/mL (0.270-4.200) 11/10/18 07:20 Active Medications - Current Medications Current Medications: Generic Name Dose Route Start Last Admin Trade Name Freq PRN Reason Stop Dose Admin Acetaminophen 650 mg 11/09/18 14:06 11/10/18 03:53 Tylenol PO 650 mg Q6H PRN Administration Non Cardiac Pain or Temp>100.5 Amlodipine Besylate 10 mg 11/10/18 10:00 11/10/18 10:50 Norvasc PO Not Given QDAY SILVER Ascorbic Acid 500 mg 11/10/18 10:00 11/10/18 11:02 Vitamin C PO 500 mg DAILY SILVER Administration Calcium Acetate 1,334 mg 11/09/18 20:00 11/10/18 11:01 Phoslo PO 1,334 mg TID SILVER Administration Dextrose 50 ml 11/09/18 14:11 D50w (25gm) Syringe IV PRN PRN Hypoglycemia Diphenhydramine HCl 25 mg 11/10/18 14:22 Benadryl IV Q6H PRN Itching Ergocalciferol 50,000 unit 11/11/18 09:00 Vitamin D2 PO Mo SILVER Hydralazine HCl 25 mg 11/09/18 20:00 11/10/18 10:49 Apresoline PO Not Given TID SILVER Sodium Chloride 100 mls @ 999 mls/hr 11/09/18 09:26 Nacl 0.9% IV ANMOL PRN Hypotension Dextrose/Sodium Chloride 1,000 mls @ 75 mls/hr 11/09/18 15:00 11/09/18 22:09 D5/0.45ns IV 75 mls/hr DIRECT SILVER Administration Piperacillin Sod/Tazobactam Sod 2.25 gm in 50 mls @ 100 mls/hr 11/10/18 14:00 Zosyn/Ns 2.25 Gm/50ml IV Q8HR [facility] Protocol Insulin Human Lispro 0 unit 11/09/18 15:00 11/10/18 13:09 Humalog SUB-Q Not Given Q6HR [facility] Protocol Levothyroxine Sodium 50 mcg 11/10/18 06:00 11/10/18 11:04 Synthroid PO 50 mcg QAM SILVER Administration Loperamide HCl 2 mg 11/09/18 15:00 Imodium PO PRN SILVER Methylprednisolone Sodium Succinate 80 mg 11/11/18 07:00 Solu-Medrol IV 11/11/18 07:01 ONCE ONE Morphine Sulfate 2 mg 11/10/18 12:16 Morphine IV Q4H PRN Pain , Severe (7-10) Multivit/Ca Carb/B Cmplx/FA/Prenat 1 cap 11/10/18 10:00 11/10/18 11:04 Renal Caps PO 1 cap QDAY SILVER Administration Ondansetron HCl 4 mg 11/09/18 14:06 Zofran IV Q4H PRN Nausea And Vomiting Oxycodone HCl 2.5 mg 11/09/18 14:26 Roxicodone PO Q6H PRN Pain, Moderate (4-6) Oxycodone/Acetaminophen 1 tab 11/09/18 14:25 11/09/18 16:43 Percocet 5/325 PO 1 tab Q6H PRN Administration Pain, Moderate (4-6) Pantoprazole Sodium 40 mg 11/10/18 10:00 11/10/18 11:04 Protonix PO 40 mg DAILY SILVER Administration Pregabalin 50 mg 11/10/18 10:00 11/10/18 11:01 Lyrica PO 50 mg DAILY SILVER Administration Sertraline HCl 100 mg 11/10/18 10:00 11/10/18 11:02 Zoloft PO 100 mg DAILY SILVER Administration Zolpidem Tartrate 10 mg 11/09/18 22:00 11/09/18 22:38 Ambien PO 10 mg QHS SILVER Administration
[2018-11-10] MEDS ORDERED: NACL 0.9% 100 ML IV PRN ×2 (14:30→14:32)
[2018-11-10] MEDS ORDERED: D10W 1,000 ML IV SCH (15:00)
[2018-11-10] MEDS: ZOSYN/NS 2.25 GM/50ML 2.25 GM/50 ML BAG IV SCH ×2 (15:04→22:08)
[2018-11-10] MEDS: MORPHINE IV PRN (17:07)
--- NOTE | 2018-11-10 17:15 | Event Note ---
Date: 11/10/18 [id number]
[2018-11-10] MEDS: AMBIEN PO SCH (22:10)
[2018-11-11] MEDS: ZOSYN/NS 2.25 GM/50ML 2.25 GM/50 ML BAG IV SCH ×3 (06:01→22:03)
[2018-11-11] MEDS: HumaLOG SUB-Q SCH ×3 (06:05→12:27)
[2018-11-11 06:19] LABS: Hematocrit 35.7 % (35.5-45.6); Hemoglobin 11.8 gm/dl (11.8-15.2); Mean Corpuscular HGB Conc 33 % (32-34); Mean Corpuscular Volume 104 fl (84-94); Platelet Count 65 K/mm3 (140-440); Red Blood Count 3.43 M/mm3 (3.65-5.03); Red Cell Distribution Width 17.8 % (13.2-15.2)
[2018-11-11 07:00] LABS: Calcium 8.6 mg/dL (8.4-10.2)
[2018-11-11] MEDS ORDERED: SOLU-Medrol IV ONE (07:00)
--- NOTE | 2018-11-11 07:47 | Hem/Onc Progress Note ---
Assessment and Plan 1. Thrombocytopenia. The patient's platelets in May was also 79, so he has had low platelets since then. Platelets were normal in 07/2017 at 159. 2. Appendicitis/abscess. 3. End-stage renal disease, on dialysis. 4. Blindness. 5. Hypothyroidism. 6. Hypertension. 7. Hepatitis B. 8. Hyperlipidemia. 9. Elevated CPK. In case of plan for surgery, platelet count more than 70 is adequate. Transfusion support as needed. The patient's bilirubin is not elevated. I will follow the patient during inpatient stay. We will do deficiency investigations. Medications/history of infection/consumption may have a role in the low platelet. 11/11- d/w dr aguirre - radiology and intervention if needed - Patient Problems (1) Thrombocytopenia Current Visit: Yes Status: Acute Subjective Date of service: 11/11/18 Principal diagnosis: low plt Interval history: abdo pain Objective - Exam Narrative Exam: Pain - abdo General appearance milddistress Performance status blind - dependent Eyes - no icterus ENT no thrush LNs cervical not palpable Neck - normal ROM Respiratory Normal Breath sounds - CTA CVS S1 S2 + Extremities normal temperature General GI tenderness + Rectal deferred male - deferred Skin warm Musculoskeletal - rt BKA Neurologically no focal deficit - Constitutional Vitals: Last Vital Signs Temp 99.2 F 11/11/18 03:08 Pulse 131 H 11/11/18 03:08 Resp 20 11/11/18 03:08 BP 108/55 11/11/18 03:08 Pulse Ox 93 11/11/18 03:08 - Labs Lab Results: Laboratory Results - last 24 hr 11/10/18 11/10/18 11/10/18 07:20 07:20 07:20 WBC 9.7 RBC 3.42 L Hgb 11.9 Hct 35.8 MCV 105 H MCH 35 H MCHC 33 RDW 18.1 H Plt Count 64 L Sodium 137 Potassium 5.6 H Chloride 93.6 L Carbon Dioxide 26 Anion Gap 23 BUN 36 H Creatinine 6.8 H Estimated GFR 10 BUN/Creatinine Ratio 5 Glucose 116 H POC Glucose Calcium 8.6 Iron TIBC Total Creatine Kinase 668 H Vitamin B12 Folate TSH 0.622 11/10/18 11/10/18 11/10/18 12:45 17:29 23:17 WBC RBC Hgb Hct MCV MCH MCHC RDW Plt Count Sodium Potassium Chloride Carbon Dioxide Anion Gap BUN Creatinine Estimated GFR BUN/Creatinine Ratio Glucose POC Glucose 146 H 143 H 117 H Calcium Iron TIBC Total Creatine Kinase Vitamin B12 Folate TSH 11/11/18 11/11/18 11/11/18 05:41 05:41 05:41 WBC 11.2 H RBC 3.43 L Hgb 11.8 Hct 35.7 MCV 104 H MCH 34 H MCHC 33 RDW 17.8 H Plt Count 65 L Sodium 141 Potassium 5.1 H Chloride 97.1 L Carbon Dioxide 23 Anion Gap 26 BUN 45 H Creatinine 8.5 H Estimated GFR 8 BUN/Creatinine Ratio 5 Glucose 91 POC Glucose Calcium 8.6 Iron 25 L TIBC 102 L Total Creatine Kinase 546 H Vitamin B12 744.7 Folate TSH 11/11/18 11/11/18 05:41 05:45 WBC RBC Hgb Hct MCV MCH MCHC RDW Plt Count Sodium Potassium Chloride Carbon Dioxide Anion Gap BUN Creatinine Estimated GFR BUN/Creatinine Ratio Glucose POC Glucose 88 Calcium Iron TIBC Total Creatine Kinase Vitamin B12 Folate 11.60 TSH Medications & Allergies - Medications Allergies/Adverse Reactions: Allergies contrast dye Adverse Reaction (Severe, Uncoded 10/04/18 08:32) Rash Home Medications: Home Medications Medication Instructions Recorded Confirmed Last Taken Type Zolpidem [Ambien] 10 mg PO QHS 08/02/17 11/09/18 2 Days Ago History ~07/31/17 Loperamide [Imodium] 2 mg PO PRN 08/22/17 11/09/18 Unknown History Ascorbic Acid [Vitamin C] 500 mg PO DAILY #30 tablet 06/14/18 11/09/18 Unknown Rx Calcium Acetate [Phoslo] 1,334 mg PO TID #90 capsule 06/14/18 11/09/18 Unknown Rx Clopidogrel [Plavix] 75 mg PO DAILY #30 tablet 06/14/18 11/09/18 Unknown Rx Levothyroxine [Synthroid] 50 mcg PO DAILY #30 tablet 06/14/18 11/09/18 Unknown Rx Multivit-Min/Iron Fum/Folic AC 1 each PO DAILY #30 tablet 06/14/18 11/09/18 Unknown Rx [Txkpf-Pvlgexq-Bbvilszx Tablet] Pantoprazole [Protonix TAB] 40 mg PO DAILY #30 tablet 06/14/18 11/09/18 Unknown Rx Pregabalin [Lyrica] 50 mg PO DAILY #30 capsule 06/14/18 11/09/18 Unknown Rx Sertraline [Zoloft] 100 mg PO DAILY #30 tablet 06/14/18 11/09/18 Unknown Rx Vitamin D2 50,000 units PO 1XW #4 06/14/18 11/09/18 Unknown Rx amLODIPine [Norvasc] 10 mg PO QDAY #30 tablet 06/14/18 11/09/18 Unknown Rx hydrALAZINE [Apresoline TAB] 25 mg PO TID #90 tablet 06/14/18 11/09/18 Unknown Rx Oxycodone HCl/Acetaminophen 1 each PO Q6HR PRN #14 tablet 10/04/18 11/09/18 Unknown Rx [Percocet 7.5/325 mg] Active Medications: Generic Name Dose Route Start Last Admin Trade Name Freq PRN Reason Stop Dose Admin Acetaminophen 650 mg 11/09/18 14:06 11/10/18 03:53 Tylenol PO 650 mg Q6H PRN Administration Non Cardiac Pain or Temp>100.5 Amlodipine Besylate 10 mg 11/10/18 10:00 11/10/18 10:50 Norvasc PO Not Given QDAY SILVER Ascorbic Acid 500 mg 11/10/18 10:00 11/10/18 11:02 Vitamin C PO 500 mg DAILY SILVER Administration Calcium Acetate 1,334 mg 11/09/18 20:00 11/10/18 22:10 Phoslo PO 1,334 mg TID SILVER Administration Dextrose 50 ml 11/09/18 14:11 D50w (25gm) Syringe IV PRN PRN Hypoglycemia Diphenhydramine HCl 25 mg 11/10/18 14:22 Benadryl IV Q6H PRN Itching Ergocalciferol 50,000 unit 11/11/18 09:00 Vitamin D2 PO Mo SILVER Hydralazine HCl 25 mg 11/09/18 20:00 11/10/18 22:12 Apresoline PO Not Given TID SILVER Sodium Chloride 100 mls @ 999 mls/hr 11/09/18 09:26 Nacl 0.9% IV ANMOL PRN Hypotension Piperacillin Sod/Tazobactam Sod 2.25 gm in 50 mls @ 100 mls/hr 11/10/18 14:00 11/11/18 06:01 Zosyn/Ns 2.25 Gm/50ml IV 100 mls/hr Q8HR ISL[facility] Administration Protocol Dextrose 1,000 mls @ 40 mls/hr 11/10/18 15:00 D10w IV DIRECT SILVER Sodium Chloride 100 mls @ 999 mls/hr 11/10/18 14:30 Nacl 0.9% IV ANMOL PRN Hypotension Sodium Chloride 100 mls @ 999 mls/hr 11/10/18 14:32 Nacl 0.9% IV ANMOL PRN Hypotension Insulin Human Lispro 0 unit 11/09/18 15:00 11/11/18 06:05 Humalog SUB-Q Not Given Q6HR [facility] Protocol Levothyroxine Sodium 50 mcg 11/10/18 06:00 11/10/18 11:04 Synthroid PO 50 mcg QAM SILVER Administration Loperamide HCl 2 mg 11/09/18 15:00 Imodium PO PRN SILVER Morphine Sulfate 2 mg 11/10/18 12:16 11/10/18 17:07 Morphine IV 2 mg Q4H PRN Administration Pain , Severe (7-10) Multivit/Ca Carb/B Cmplx/FA/Prenat 1 cap 11/10/18 10:00 11/10/18 11:04 Renal Caps PO 1 cap QDAY SILVER Administration Ondansetron HCl 4 mg 11/09/18 14:06 Zofran IV Q4H PRN Nausea And Vomiting Oxycodone HCl 2.5 mg 11/09/18 14:26 Roxicodone PO Q6H PRN Pain, Moderate (4-6) Oxycodone/Acetaminophen 1 tab 11/09/18 14:25 11/09/18 16:43 Percocet 5/325 PO 1 tab Q6H PRN Administration Pain, Moderate (4-6) Pantoprazole Sodium 40 mg 11/10/18 10:00 11/10/18 11:04 Protonix PO 40 mg DAILY SILVER Administration Pregabalin 50 mg 11/10/18 10:00 11/10/18 11:01 Lyrica PO 50 mg DAILY SILVER Administration Sertraline HCl 100 mg 11/10/18 10:00 11/10/18 11:02 Zoloft PO 100 mg DAILY SILVER Administration Zolpidem Tartrate 10 mg 11/09/18 22:00 11/10/18 22:10 Ambien PO 10 mg QHS SILVER Administration
[2018-11-11] MEDS: PHOSLO PO SCH ×3 (08:28→20:25)
[2018-11-11] MEDS: APRESOLINE PO SCH ×3 (08:28→22:04)
--- NOTE | 2018-11-11 08:31 | Consultation ---
REFERRED BY: Dr. Cade. REASON FOR CONSULTATION: Low platelets. HISTORY OF PRESENT ILLNESS: I saw the patient, a 63-year-old male with history of blindness, end-stage renal disease, on dialysis, TTS, left upper extremity fistula, peripheral artery disease, status post BKA, hypothyroidism, hypertension, hepatitis B, neuropathy, depression, came to the hospital because of abdominal pain for 2 days with nausea, diarrhea, but no vomiting, no fever or chills. CT abdomen shows a ruptured appendix. Surgical team has seen the patient. Platelets are low. I have been asked to evaluate the patient. At this time, no headache, no visual disturbances. No ear discharge, no chest pain, no palpitations, legally blind, abdominal pain present. History of nausea, diarrhea present. No seizure, syncope or loss of consciousness. PAST MEDICAL HISTORY: As above. Dyslipidemia, left tibial fracture. PAST SURGICAL HISTORY: Mention of right BKA, left AV fistula, liver biopsy. SOCIAL HISTORY: No history of tobacco or alcohol usage. FAMILY HISTORY: Hypertension. ALLERGIES: CONTRAST DYE. MEDICATIONS: Include amlodipine, calcium, vitamin D, morphine, levothyroxine, Zosyn. PHYSICAL EXAMINATION: VITAL SIGNS: Temperature 99, pulse 137, respirations 20, BP 86/51. Legally blind. HEENT: No pallor. NECK: No neck lymph nodes. HEART: S1, S2. LUNGS: Clear to auscultation. ABDOMEN: Soft. Tenderness present. EXTREMITIES: No calf tenderness. NEUROLOGIC: Alert, awake. LABORATORY DATA: White cell 9, hemoglobin 11, MCV 105, platelets 64. Potassium 5.6, creatinine 6.8, calcium 8.6. CK 668. RADIOLOGY: CT abdomen and pelvis shows a right lower quadrant inflammation related to appendicitis, right-sided colonic diverticulitis, perforated colonic neoplasm, possible abscess. ASSESSMENT: 1. Thrombocytopenia. The patient's platelets in May was also 79, so he has had low platelets since then. Platelets were normal in 07/2017 at 159. 2. Appendicitis/abscess. 3. End-stage renal disease, on dialysis. 4. Blindness. 5. Hypothyroidism. 6. Hypertension. 7. Hepatitis B. 8. Hyperlipidemia. 9. Elevated CPK. In case of plan for surgery, platelet count more than 70 is adequate. Transfusion support as needed. The patient's bilirubin is not elevated. I will follow the patient during inpatient stay. We will do deficiency investigations. Medications/history of infection/consumption may have a role in the low platelet. JOB# [id number] NM/NTS
[2018-11-11] MEDS ORDERED: VITAMIN D2 50000 UNIT PO SCH (09:00)
[2018-11-11] MEDS ORDERED: VITAMIN D2 PO SCH (09:00)
[2018-11-11] MEDS ORDERED: SOLU-Medrol IV NR (10:00)
[2018-11-11] MEDS: Renal Caps PO SCH (10:06)
[2018-11-11] MEDS: ZOLOFT PO SCH (10:06)
[2018-11-11] MEDS: SYNTHROID PO SCH (10:06)
[2018-11-11] MEDS: VITAMIN C PO SCH (10:06)
[2018-11-11] MEDS: PROTONIX PO SCH (10:06)
[2018-11-11] MEDS: LYRICA PO SCH (10:06)
[2018-11-11] MEDS: NORVASC PO SCH (10:06)
--- NOTE | 2018-11-11 11:07 | Progress Note ---
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 UF as tolerated, 2 hour session * Resume TTS schedule thereafter * continue D10 40ml/hour to minimize fluid for hypoglycemia, fluid losses * Abx per primary team * Epogen TIW prn * Dose medications for renal function * Diet per surgery. Renal diet once advanced Subjective Date of service: 11/11/18 Principal diagnosis: diarrhea, appendicitis Interval history: patient notes ongoing abdominal pain, diarrhea this morning. Tolerated last HD well on Sunday. Objective - Vital Signs Vital signs: Vital Signs - 12hr 11/10/18 11/11/18 11/11/18 23:11 03:08 07:36 Temperature 98.5 F 99.2 F 97.5 F L Pulse Rate 105 H 131 H Respiratory 18 20 18 Rate Blood Pressure 108/50 108/55 104/50 O2 Sat by Pulse 90 93 Oximetry 11/11/18 11/11/18 08:28 10:00 Temperature Pulse Rate 131 H 132 H Respiratory Rate Blood Pressure 104/50 O2 Sat by Pulse Oximetry - General Appearance General appearance: well-developed, moderate distress, anxious EENT: ATNC, mucous membranes dry Neck: no JVD Respiratory: Present: Clear to Ascultation Cardiology: regular, normal heart rate, S1S2, no murmurs Gastrointestinal: normoactive bowel sounds, tenderness, guarding Integumentary: no rash Neurologic: no focal deficit Psychiatric: mood/affect appropriate - Lab 11/11/18 05:41 11/11/18 05:41 Most recent lab results Calcium 8.6 mg/dL (8.4-10.2) 11/11/18 05:41 Magnesium 2.30 mg/dL (1.7-2.3) 11/09/18 04:30 Medications & Allergies - Medications Allergies/Adverse Reactions: Allergies contrast dye Adverse Reaction (Severe, Uncoded 10/04/18 08:32) Rash Home Medications: Home Medications Medication Instructions Recorded Confirmed Last Taken Type Zolpidem [Ambien] 10 mg PO QHS 08/02/17 11/09/18 2 Days Ago History ~07/31/17 Loperamide [Imodium] 2 mg PO PRN 08/22/17 11/09/18 Unknown History Ascorbic Acid [Vitamin C] 500 mg PO DAILY #30 tablet 06/14/18 11/09/18 Unknown Rx Calcium Acetate [Phoslo] 1,334 mg PO TID #90 capsule 06/14/18 11/09/18 Unknown Rx Clopidogrel [Plavix] 75 mg PO DAILY #30 tablet 06/14/18 11/09/18 Unknown Rx Levothyroxine [Synthroid] 50 mcg PO DAILY #30 tablet 06/14/18 11/09/18 Unknown Rx Multivit-Min/Iron Fum/Folic AC 1 each PO DAILY #30 tablet 06/14/18 11/09/18 Unknown Rx [Jhanl-Ulcicne-Rwvhdlhs Tablet] Pantoprazole [Protonix TAB] 40 mg PO DAILY #30 tablet 06/14/18 11/09/18 Unknown Rx Pregabalin [Lyrica] 50 mg PO DAILY #30 capsule 06/14/18 11/09/18 Unknown Rx Sertraline [Zoloft] 100 mg PO DAILY #30 tablet 06/14/18 11/09/18 Unknown Rx Vitamin D2 50,000 units PO 1XW #4 06/14/18 11/09/18 Unknown Rx amLODIPine [Norvasc] 10 mg PO QDAY #30 tablet 06/14/18 11/09/18 Unknown Rx hydrALAZINE [Apresoline TAB] 25 mg PO TID #90 tablet 06/14/18 11/09/18 Unknown Rx Oxycodone HCl/Acetaminophen 1 each PO Q6HR PRN #14 tablet 10/04/18 11/09/18 Unknown Rx [Percocet 7.5/325 mg] Active Medications: Generic Name Dose Route Start Last Admin Trade Name Freq PRN Reason Stop Dose Admin Acetaminophen 650 mg 11/09/18 14:06 11/10/18 03:53 Tylenol PO 650 mg Q6H PRN Administration Non Cardiac Pain or Temp>100.5 Amlodipine Besylate 10 mg 11/10/18 10:00 11/11/18 10:06 Norvasc PO Not Given QDAY [facility] Ascorbic Acid 500 mg 11/10/18 10:00 11/11/18 10:06 Vitamin C PO Not Given DAILY [facility] Calcium Acetate 1,334 mg 11/09/18 20:00 11/11/18 08:28 Phoslo PO Not Given TID [facility] Dextrose 50 ml 11/09/18 14:11 D50w (25gm) Syringe IV PRN PRN Hypoglycemia Diphenhydramine HCl 25 mg 11/10/18 14:22 Benadryl IV Q6H PRN Itching Ergocalciferol 50,000 unit 11/11/18 09:00 11/11/18 10:06 Vitamin D2 PO Not Given Mo [facility] Hydralazine HCl 25 mg 11/09/18 20:00 11/11/18 08:28 Apresoline PO Not Given TID [facility] Sodium Chloride 100 mls @ 999 mls/hr 11/09/18 09:26 Nacl 0.9% IV ANMOL PRN Hypotension Piperacillin Sod/Tazobactam Sod 2.25 gm in 50 mls @ 100 mls/hr 11/10/18 14:00 11/11/18 06:01 Zosyn/Ns 2.25 Gm/50ml IV 100 mls/hr Q8HR [facility] Administration Protocol Dextrose 1,000 mls @ 40 mls/hr 11/10/18 15:00 D10w IV DIRECT [facility] Sodium Chloride 100 mls @ 999 mls/hr 11/10/18 14:30 Nacl 0.9% IV ANMOL PRN Hypotension Sodium Chloride 100 mls @ 999 mls/hr 11/10/18 14:32 Nacl 0.9% IV ANMOL PRN Hypotension Insulin Human Lispro 0 unit 11/09/18 15:00 11/11/18 06:05 Humalog SUB-Q Not Given Q6HR [facility] Protocol Levothyroxine Sodium 50 mcg 11/10/18 06:00 11/11/18 10:06 Synthroid PO Not Given QAM [facility] Loperamide HCl 2 mg 11/09/18 15:00 Imodium PO PRN [facility] Morphine Sulfate 2 mg 11/10/18 12:16 11/10/18 17:07 Morphine IV 2 mg Q4H PRN Administration Pain , Severe (7-10) Multivit/Ca Carb/B Cmplx/FA/Prenat 1 cap 11/10/18 10:00 11/11/18 10:06 Renal Caps PO Not Given QDAY [facility] Ondansetron HCl 4 mg 11/09/18 14:06 Zofran IV Q4H PRN Nausea And Vomiting Oxycodone HCl 2.5 mg 11/09/18 14:26 Roxicodone PO Q6H PRN Pain, Moderate (4-6) Oxycodone/Acetaminophen 1 tab 11/09/18 14:25 11/09/18 16:43 Percocet 5/325 PO 1 tab Q6H PRN Administration Pain, Moderate (4-6) Pantoprazole Sodium 40 mg 11/10/18 10:00 11/11/18 10:06 Protonix PO Not Given DAILY [facility] Pregabalin 50 mg 11/10/18 10:00 11/11/18 10:06 Lyrica PO Not Given DAILY [facility] Sertraline HCl 100 mg 11/10/18 10:00 11/11/18 10:06 Zoloft PO Not Given DAILY [facility] Zolpidem Tartrate 10 mg 11/09/18 22:00 11/10/18 22:10 Ambien PO 10 mg QHS [facility] Administration
--- NOTE | 2018-11-11 11:40 | Progress Note ---
Assessment and Plan Assessment and plan: Patient is a 63 yo man with a history of Blindness, ESRD on HD TTS, left upper extremity fistula, PAD s/p right BKA, hypothyroidism, hypertension, Hepatitis B, peripheral neuropathy, depression and chronic pain syndrom who present to [facility] ED with severe sharp constant non-radiating right lower quadrant abdominal pains x 2 days, without aggravating or relieving factors associated with nonbloody diarrhea and nausea but no vomiting. He denies fevers, chills, chest pains, sob or trauma. The CT abd/pelvis reveals ruptured appendix per General Surgeon. * CT abd/pelvis without contrast IMPRESSION: Nonspecific inflammatory process in the right lower quadrant is likely related to appendicitis. Right-sided colonic diverticulitis or perforated colonic neoplasm could also have this appearance but are less likely. There is prominent associated inflammatory change with phlegmon and possible developing abscess present. -Addendicitis with rupture and peritonitis: Gen Surgeon consult, input noted, will treat with IV ABX, pain is better, so diet started per , no surgery unles s patient start to show signs of sepsis. -ESRD: HD TTS, Nephrology following -Severe Hyperkalemia: urgent Hemodialysis, monitor bmp levels closely -Metabolic acidosis: HD and monitor closely -Diarrhea: monitor for c.diffe -Nausea: treat with IV zoFran -Rhabdomyolysis improving: treat with IVFs, monitor CPK levels closely -Thrombocytopenia, chronically low but not this low: consulted Heme/Onc -PAD s/p right BKA: hold Plavix for possible IR drainage -Hx Hypertension: low salt diet, antihypertensives -Hx Congestive Heart Failure, diastolic chronic and stable: continue to monitor, i/o, daily weight -Hx Diabetes Mellitus type 2: ssi, ada diet -Hx Hypothyroidism: treat with levothyroxine -Hx Arthritis: tylenol full code Disposition: continue inpatient care, management of appendicitis with rupture, treat rhabdo, CT abd/pelvis then possible drainage. CT abd/pelvis with contrast ordered. Contrast dye listed as allergies, more history garnered by Laxmi Jeremy regarding the allergy. He has itching especially on his back but no swelling or anaphylaxis reaction. Will pre-mediacated with iv steroids and give iv benadryl prn. History Interval history: Patient was seen and examined. Follow-up on current diagnosis perforated ap pendix. No overnight events reported to me. Patient denies any chest pain, shortness breath, nausea/vomiting or severe headaches. Imaging, nursing note, chart, labs and old chart reviewed. Discussed with patient and at bedside. Hospitalist Physical - Physical exam Narrative exam: Gen: thin frail, chronic disable appearing, NAD, Awake, Alert, Orientated HEENT: NCAT, EOMI, PERRL, OP Clear Neck: supple, no adenopathy, no thyromegaly, no JVD CVS/Heart: RRR, normal S1S2, pulses present bilaterally Chest/Lungs: diminished bs bilaterally, Symmetrical chest expansion, good air entry bilaterally GI/Abdomen: soft, right sided tenderness, good bowel sounds, +guarding, rebound /Bladder: no suprapubic tenderness, no CVA or paraspinal tenderness Extermity/Skin: no c/c/e, no new rash MSK: right BKA Neuro: CN 2-12 grossly intact except hearing and vision, no new focal deficits Psych: calm - Constitutional Vitals: Temp Pulse Resp BP Pulse Ox 97.5 F L 132 H 18 104/50 93 11/11/18 07:36 11/11/18 10:00 11/11/18 07:36 11/11/18 08:28 11/11/18 03:08 Results - Labs CBC & Chem 7: 11/11/18 05:41 11/11/18 05:41 Labs: Laboratory Last Values WBC 11.2 K/mm3 (4.5-11.0) H 11/11/18 05:41 RBC 3.43 M/mm3 (3.65-5.03) L 11/11/18 05:41 Hgb 11.8 gm/dl (11.8-15.2) 11/11/18 05:41 Hct 35.7 % (35.5-45.6) 11/11/18 05:41 MCV 104 fl (84-94) H 11/11/18 05:41 MCH 34 pg (28-32) H 11/11/18 05:41 MCHC 33 % (32-34) 11/11/18 05:41 RDW 17.8 % (13.2-15.2) H 11/11/18 05:41 Plt Count 65 K/mm3 (140-440) L 11/11/18 05:41 Add Manual Diff Complete 11/09/18 04:30 Total Counted 100 11/09/18 04:30 Seg Neutrophils % [employer] 11/09/18 04:30 Seg Neuts % (Manual) 92.0 % (40.0-70.0) H 11/09/18 04:30 0 % 11/09/18 04:30 7.0 % (13.4-35.0) L 11/09/18 04:30 Reactive Lymphs % (Man) 0 % 11/09/18 04:30 1.0 % (0.0-7.3) 11/09/18 04:30 0 % (0.0-4.3) 11/09/18 04:30 0 % (0.0-1.8) 11/09/18 04:30 0 % 11/09/18 04:30 0 % 11/09/18 04:30 0 % 11/09/18 04:30 0 % 11/09/18 04:30 Nucleated RBC % Not Reportable 11/09/18 04:30 Seg Neutrophils # Man 10.2 K/mm3 (1.8-7.7) H 11/09/18 04:30 Band Neutrophils # 0.0 K/mm3 11/09/18 04:30 0.8 K/mm3 (1.2-5.4) L 11/09/18 04:30 Abs React Lymphs (Man) 0.0 K/mm3 11/09/18 04:30 0.1 K/mm3 (0.0-0.8) 11/09/18 04:30 0.0 K/mm3 (0.0-0.4) 11/09/18 04:30 0.0 K/mm3 (0.0-0.1) 11/09/18 04:30 0.0 K/mm3 11/09/18 04:30 0.0 K/mm3 11/09/18 04:30 0.0 K/mm3 11/09/18 04:30 Blast Cells # 0.0 K/mm3 11/09/18 04:30 WBC Morphology Not Reportable 11/09/18 04:30 Hypersegmented Neuts Not Reportable 11/09/18 04:30 Hyposegmented Neuts Not Reportable 11/09/18 04:30 Hypogranular Neuts Not Reportable 11/09/18 04:30 Not Reportable 11/09/18 04:30 Not Reportable 11/09/18 04:30 Not Reportable 11/09/18 04:30 Not Reportable 11/09/18 04:30 Not Reportable 11/09/18 04:30 Not Reportable 11/09/18 04:30 Consistent w auto 11/09/18 04:30 Not Reportable 11/09/18 04:30 Plt Clumps, EDTA Not Reportable 11/09/18 04:30 Not Reportable 11/09/18 04:30 Not Reportable 11/09/18 04:30 Not Reportable 11/09/18 04:30 Plt Morphology Comment Not Reportable 11/09/18 04:30 RBC Morphology Not Reportable 11/09/18 04:30 Dimorphic RBCs Not Reportable 11/09/18 04:30 Not Reportable 11/09/18 04:30 Not Reportable 11/09/18 04:30 Not Reportable 11/09/18 04:30 Few 11/09/18 04:30 Not Reportable 11/09/18 04:30 Not Reportable 11/09/18 04:30 Not Reportable 11/09/18 04:30 Not Reportable 11/09/18 04:30 Not Reportable 11/09/18 04:30 Not Reportable 11/09/18 04:30 Not Reportable 11/09/18 04:30 Rare 11/09/18 04:30 Not Reportable 11/09/18 04:30 Not Reportable 11/09/18 04:30 Not Reportable 11/09/18 04:30 Not Reportable 11/09/18 04:30 Not Reportable 11/09/18 04:30 Not Reportable 11/09/18 04:30 Not Reportable 11/09/18 04:30 Acanthocytes (Spur) Not Reportable 11/09/18 04:30 Rouleaux Not Reportable 11/09/18 04:30 Not Reportable 11/09/18 04:30 Not Reportable 11/09/18 04:30 Not Reportable 11/09/18 04:30 Not Reportable 11/09/18 04:30 Hem Pathologist Commnt No 11/09/18 04:30 Sodium 141 mmol/L (137-145) 11/11/18 05:41 Potassium 5.1 mmol/L (3.6-5.0) H 11/11/18 05:41 Chloride 97.1 mmol/L (98-107) L 11/11/18 05:41 Carbon Dioxide 23 mmol/L (22-30) 11/11/18 05:41 26 mmol/L 11/11/18 05:41 BUN 45 mg/dL (9-20) H 11/11/18 05:41 8.5 mg/dL (0.8-1.5) H 11/11/18 05:41 Estimated GFR 8 ml/min 11/11/18 05:41 5 % 11/11/18 05:41 Glucose 91 mg/dL (75-100) 11/11/18 05:41 POC Glucose 88 (70-105) 11/11/18 05:45 Calcium 8.6 mg/dL (8.4-10.2) 11/11/18 05:41 Magnesium 2.30 mg/dL (1.7-2.3) 11/09/18 04:30 Iron 25 ug/dL (49-181) L 11/11/18 05:41 TIBC 102 mcg/dL (250-450) L 11/11/18 05:41 2010.0 ng/mL (13.0-400.0) H 11/11/18 05:41 0.70 mg/dL (0.1-1.2) 11/09/18 04:30 AST 37 units/L (5-40) 11/09/18 04:30 ALT 42 units/L (7-56) 11/09/18 04:30 134 units/L (35-129) H 11/09/18 04:30 546 units/L (55-170) H 11/11/18 05:41 8.7 g/dL (6.3-8.2) H 11/09/18 04:30 3.7 g/dL (3.9-5) L 11/09/18 04:30 0.7 % 11/09/18 04:30 Vitamin B12 744.7 pg/mL (211-911) 11/11/18 05:41 11.60 ng/mL (7.3-26.0) 11/11/18 05:41 TSH 0.622 mlU/mL (0.270-4.200) 11/10/18 07:20 Active Medications - Current Medications Current Medications: Generic Name Dose Route Start Last Admin Trade Name Freq PRN Reason Stop Dose Admin Acetaminophen 650 mg 11/09/18 14:06 11/10/18 03:53 Tylenol PO 650 mg Q6H PRN Administration Non Cardiac Pain or Temp>100.5 Amlodipine Besylate 10 mg 11/10/18 10:00 11/11/18 10:06 Norvasc PO Not Given QDAY [facility] Ascorbic Acid 500 mg 11/10/18 10:00 11/11/18 10:06 Vitamin C PO Not Given DAILY [facility] Calcium Acetate 1,334 mg 11/09/18 20:00 11/11/18 08:28 Phoslo PO Not Given TID [facility] Dextrose 50 ml 11/09/18 14:11 D50w (25gm) Syringe IV PRN PRN Hypoglycemia Diphenhydramine HCl 25 mg 11/10/18 14:22 Benadryl IV Q6H PRN Itching Ergocalciferol 50,000 unit 11/11/18 09:00 11/11/18 10:06 Vitamin D2 PO Not Given Mo [facility] Hydralazine HCl 25 mg 11/09/18 20:00 11/11/18 08:28 Apresoline PO Not Given TID [facility] Sodium Chloride 100 mls @ 999 mls/hr 11/09/18 09:26 Nacl 0.9% IV ANMOL PRN Hypotension Piperacillin Sod/Tazobactam Sod 2.25 gm in 50 mls @ 100 mls/hr 11/10/18 14:00 11/11/18 06:01 Zosyn/Ns 2.25 Gm/50ml IV 100 mls/hr Q8HR [facility] Administration Protocol Dextrose 1,000 mls @ 40 mls/hr 11/10/18 15:00 D10w IV DIRECT [facility] Sodium Chloride 100 mls @ 999 mls/hr 11/10/18 14:30 Nacl 0.9% IV ANMOL PRN Hypotension Sodium Chloride 100 mls @ 999 mls/hr 11/10/18 14:32 Nacl 0.9% IV ANMOL PRN Hypotension Insulin Human Lispro 0 unit 11/09/18 15:00 11/11/18 06:05 Humalog SUB-Q Not Given Q6HR [facility] Protocol Levothyroxine Sodium 50 mcg 11/10/18 06:00 11/11/18 10:06 Synthroid PO Not Given QAM [facility] Loperamide HCl 2 mg 11/09/18 15:00 Imodium PO PRN [facility] Morphine Sulfate 2 mg 11/10/18 12:16 11/10/18 17:07 Morphine IV 2 mg Q4H PRN Administration Pain , Severe (7-10) Multivit/Ca Carb/B Cmplx/FA/Prenat 1 cap 11/10/18 10:00 11/11/18 10:06 Renal Caps PO Not Given QDAY [facility] Ondansetron HCl 4 mg 11/09/18 14:06 Zofran IV Q4H PRN Nausea And Vomiting Oxycodone HCl 2.5 mg 11/09/18 14:26 Roxicodone PO Q6H PRN Pain, Moderate (4-6) Oxycodone/Acetaminophen 1 tab 11/09/18 14:25 11/09/18 16:43 Percocet 5/325 PO 1 tab Q6H PRN Administration Pain, Moderate (4-6) Pantoprazole Sodium 40 mg 11/10/18 10:00 11/11/18 10:06 Protonix PO Not Given DAILY [facility] Pregabalin 50 mg 11/10/18 10:00 11/11/18 10:06 Lyrica PO Not Given DAILY [facility] Sertraline HCl 100 mg 11/10/18 10:00 11/11/18 10:06 Zoloft PO Not Given DAILY [facility] Zolpidem Tartrate 10 mg 11/09/18 22:00 11/10/18 22:10 Ambien PO 10 mg QHS [facility] Administration
--- NOTE | 2018-11-11 12:18 | Progress Note ---
Assessment and Plan 63 yo M with 1. acute perforated appendicitis 2. ESRD on HD 3. hyperkalemia Ct scan A/P 11/11/18 - abscesses right lower quadrant. Reviewed with Dr. Negron Plan: 1. NPO except meds, may have soft diet following IR procedure 2. gentle IVF 3. IV abx 4. prn pain and nausea control 5. consult to IR for drainage of intraabdominal abscess - d/w Dr. Rubio 6. Hold plavix 7. HD per nephro. 8. repeat labs in am Spoke with patient's Rosalind Luna and explained the plan. All questions answered. Subjective Date of service: 11/11/18 Narrative: Pt seen and examined. No acute complaints. Afebrile. No n/v. Abdominal pain is minimal Objective Vital Signs - 12hr 11/11/18 11/11/18 11/11/18 03:08 07:36 08:28 Temperature 99.2 F 97.5 F L Pulse Rate 131 H 131 H Pulse Rate [ Right Radial] Respiratory 20 18 Rate Blood Pressure 108/55 104/50 104/50 O2 Sat by Pulse 93 Oximetry 11/11/18 10:00 Temperature Pulse Rate 132 H Pulse Rate [ 132 H Right Radial] Respiratory Rate Blood Pressure O2 Sat by Pulse Oximetry - General physical appearance Narrative Exam: Gen: AAOx3. NAD CV: S1, S2+ resp: even and unlabored Abd: soft, ND, mild TTP in RLQ. no r/r/g Ext: no c/c/e - Labs 11/11/18 05:41 11/11/18 05:41 Diabetes panel 11/11/18 Range/Units 05:41 Sodium 141 (137-145) mmol/L Potassium 5.1 H (3.6-5.0) mmol/L Chloride 97.1 L (98-107) mmol/L Carbon Dioxide 23 (22-30) mmol/L BUN 45 H (9-20) mg/dL Creatinine 8.5 H (0.8-1.5) mg/dL Glucose 91 (75-100) mg/dL Calcium 8.6 (8.4-10.2) mg/dL Calcium panel 11/11/18 Range/Units 05:41 Calcium 8.6 (8.4-10.2) mg/dL Pituitary panel 11/11/18 Range/Units 05:41 Sodium 141 (137-145) mmol/L Potassium 5.1 H (3.6-5.0) mmol/L Chloride 97.1 L (98-107) mmol/L Carbon Dioxide 23 (22-30) mmol/L BUN 45 H (9-20) mg/dL Creatinine 8.5 H (0.8-1.5) mg/dL Glucose 91 (75-100) mg/dL Calcium 8.6 (8.4-10.2) mg/dL Adrenal panel 11/11/18 Range/Units 05:41 Sodium 141 (137-145) mmol/L Potassium 5.1 H (3.6-5.0) mmol/L Chloride 97.1 L (98-107) mmol/L Carbon Dioxide 23 (22-30) mmol/L BUN 45 H (9-20) mg/dL Creatinine 8.5 H (0.8-1.5) mg/dL Glucose 91 (75-100) mg/dL Calcium 8.6 (8.4-10.2) mg/dL
[2018-11-11] MEDS: MORPHINE IV PRN ×3 (12:34→22:08)
--- NOTE | 2018-11-11 13:14 | Cat Scan Report ---
CT ABDOMEN AND PELVIS WITH CONTRAST HISTORY: perforated appendicitis, eval for abscess COMPARISON: 11/09/2018 TECHNIQUE: Routine abdominal and pelvic CT exam performed CONTRAST: 100 mL Omnipaque 300. Oral contrast was also given. Formed consent was obtained prior to th e administration of the IV contrast.All CT scans at this location are performed using CT dose reducti on for ALARA by means of automated exposure control. FINDINGS: CT ABDOMEN: Lung Bases: Clear. Liver: No significant abnormality. Biliary: Normal gallbladder and bile ducts. Spleen: Several benign cysts with the largest in the upper medial spleen measuring 2.3 cm. The spleen is upper limits of normal in size. Pancreas: No significant abnormality. Mild pancreatic atrophy. Adrenals: No significant abnormality. Kidneys: Small with numerous small benign cysts. No hydronephrosis. Lymphatics: No lymphadenopathy. Vasculature: No significant abnormality. Bowel/Peritoneum: Inflammatory mass at the base of the cecum and a multiloculated abscess at the base of the cecum measuring 6.0 x 5.9 x 3.9 cm. An appendix is not identified. A more anterior separate a bscess containing a small amount of air measures 6.6 x 2.9 cm. It is contiguous to the peritoneum. Ad ditional more medial interloop abscesses measure 4.9 x 3.4 cm and 5.4 x 2.0 cm. These appear to commu nicate. The small bowel is normal except for mild ileus. No free air. No free fluid. CT PELVIC: : Moderate urinary bladder wall thickening unchanged since the last exam. Normal sigmoid colon and rectum. Osseous Structures: No significant abnormality. Additional Findings: None IMPRESSION: 1. Acute appendicitis with rupture and multiple abscesses of the right lower quadrant as described ab ove. 2. Bladder wall thickening is likely secondary to benign hypertrophy. Signer Name: Olvin Velez MD Signed: 11/11/2018 1:10 PM Workstation Name: [id number]
[2018-11-11] MEDS ORDERED: NACL 0.9% 500 ML 0 ML ONE (14:15)
[2018-11-11] MEDS ORDERED: XYLOCAINE 1%/ EPI 1:100,000 INFILTRATI ONE (14:33)
[2018-11-11] MEDS ORDERED: SUBLIMAZE IV ONE (15:00)
[2018-11-11] MEDS ORDERED: VERSED IV ONE (15:00)
--- NOTE | 2018-11-11 15:57 | Post Operative Note ---
Date of procedure: 11/11/18 Pre-op diagnosis: Multifocal abscess in the abdomen at 3 locations Post-op diagnosis: same Procedure: 1. CT guided 8 Fr drain placement in the right lower quadrant fluid collection in the abdomen - 55 mL purulent material removed 2. CT guided 8 Fr drain placement in the midline fluid collection in the abdomen - 35 mL purulent material removed Anesthesia: local (w/ conscious sedation) Surgeon: LUIS BARRETO Estimated blood loss: minimal Condition: stable Disposition: floor
[2018-11-11] MEDS: AMBIEN PO SCH (22:04)
[2018-11-12] MEDS: HumaLOG SUB-Q SCH ×4 (00:28→18:57)
[2018-11-12] MEDS: MORPHINE IV PRN ×4 (05:41→23:02)
[2018-11-12] MEDS: ZOSYN/NS 2.25 GM/50ML 2.25 GM/50 ML BAG IV SCH ×4 (05:42→22:31)
[2018-11-12 05:46] LABS: Hematocrit 37.1 % (35.5-45.6); Hemoglobin 11.8 gm/dl (11.8-15.2); Mean Corpuscular HGB Conc 32 % (32-34); Mean Corpuscular Volume 106 fl (84-94); Red Blood Count 3.49 M/mm3 (3.65-5.03); Red Cell Distribution Width 18.1 % (13.2-15.2)
[2018-11-12 05:48] LABS: Platelet Count 70 K/mm3 (140-440)
[2018-11-12 06:03] LABS: Calcium 8.8 mg/dL (8.4-10.2)
--- NOTE | 2018-11-12 07:48 | Hem/Onc Progress Note ---
Assessment and Plan 1. Thrombocytopenia. The patient's platelets in May was also 79, so he has had low platelets since then. Platelets were normal in 07/2017 at 159. 2. Appendicitis/abscess. 3. End-stage renal disease, on dialysis. 4. Blindness. 5. Hypothyroidism. 6. Hypertension. 7. Hepatitis B. 8. Hyperlipidemia. 9. Elevated CPK. In case of plan for surgery, platelet count more than 70 is adequate. Transfusion support as needed. The patient's bilirubin is not elevated. I will follow the patient during inpatient stay. We will do deficiency investigations. Medications/history of infection/consumption may have a role in the low platelet. 11/12 - s/p Ir procedure for abdomen - drain - Patient Problems (1) Thrombocytopenia Current Visit: Yes Status: Acute Subjective Date of service: 11/12/18 Principal diagnosis: low plt Interval history: s/p IR procedure - drain Objective - Exam Narrative Exam: Pain - abdo General appearance milddistress Performance status blind - dependent Eyes - no icterus ENT no thrush LNs cervical not palpable Neck - normal ROM Respiratory Normal Breath sounds - CTA CVS S1 S2 + Extremities normal temperature General GI - drain+ Rectal deferred male - deferred Skin warm Musculoskeletal - rt BKA Neurologically no focal deficit - Constitutional Vitals: Last Vital Signs Temp 97.8 F 11/12/18 03:24 Pulse 80 11/12/18 03:24 Resp 18 11/12/18 03:24 BP 141/71 11/12/18 03:24 Pulse Ox 95 11/12/18 03:24 - Labs Lab Results: Laboratory Results - last 24 hr 11/11/18 11/11/18 11/11/18 05:41 12:22 12:26 WBC RBC Hgb Hct MCV MCH MCHC RDW Plt Count Sodium Potassium Chloride Carbon Dioxide Anion Gap BUN Creatinine Estimated GFR BUN/Creatinine Ratio Glucose POC Glucose 207 H 185 H Calcium Ferritin 2010.0 H Total Creatine Kinase 11/11/18 11/12/18 11/12/18 23:33 05:24 05:24 WBC 13.7 H RBC 3.49 L Hgb 11.8 Hct 37.1 MCV 106 H MCH 34 H MCHC 32 RDW 18.1 H Plt Count 70 L Sodium 138 Potassium 6.1 H* Chloride 98.1 Carbon Dioxide 20 L Anion Gap 26 BUN 58 H Creatinine 10.1 H Estimated GFR 6 BUN/Creatinine Ratio 6 Glucose 215 H POC Glucose 344 H Calcium 8.8 Ferritin Total Creatine Kinase 263 H 11/12/18 05:36 WBC RBC Hgb Hct MCV MCH MCHC RDW Plt Count Sodium Potassium Chloride Carbon Dioxide Anion Gap BUN Creatinine Estimated GFR BUN/Creatinine Ratio Glucose POC Glucose 202 H Calcium Ferritin Total Creatine Kinase Medications & Allergies - Medications Allergies/Adverse Reactions: Allergies contrast dye Adverse Reaction (Severe, Uncoded 10/04/18 08:32) Rash Home Medications: Home Medications Medication Instructions Recorded Confirmed Last Taken Type Zolpidem [Ambien] 10 mg PO QHS 08/02/17 11/09/18 2 Days Ago History ~07/31/17 Loperamide [Imodium] 2 mg PO PRN 08/22/17 11/09/18 Unknown History Ascorbic Acid [Vitamin C] 500 mg PO DAILY #30 tablet 06/14/18 11/09/18 Unknown Rx Calcium Acetate [Phoslo] 1,334 mg PO TID #90 capsule 06/14/18 11/09/18 Unknown Rx Clopidogrel [Plavix] 75 mg PO DAILY #30 tablet 06/14/18 11/09/18 Unknown Rx Levothyroxine [Synthroid] 50 mcg PO DAILY #30 tablet 06/14/18 11/09/18 Unknown Rx Multivit-Min/Iron Fum/Folic AC 1 each PO DAILY #30 tablet 06/14/18 11/09/18 Unknown Rx [Vwxoh-Kpifjbd-Tigyjuqj Tablet] Pantoprazole [Protonix TAB] 40 mg PO DAILY #30 tablet 06/14/18 11/09/18 Unknown Rx Pregabalin [Lyrica] 50 mg PO DAILY #30 capsule 06/14/18 11/09/18 Unknown Rx Sertraline [Zoloft] 100 mg PO DAILY #30 tablet 06/14/18 11/09/18 Unknown Rx Vitamin D2 50,000 units PO 1XW #4 06/14/18 11/09/18 Unknown Rx amLODIPine [Norvasc] 10 mg PO QDAY #30 tablet 06/14/18 11/09/18 Unknown Rx hydrALAZINE [Apresoline TAB] 25 mg PO TID #90 tablet 06/14/18 11/09/18 Unknown Rx Oxycodone HCl/Acetaminophen 1 each PO Q6HR PRN #14 tablet 10/04/18 11/09/18 Unknown Rx [Percocet 7.5/325 mg] Active Medications: Generic Name Dose Route Start Last Admin Trade Name Freq PRN Reason Stop Dose Admin Acetaminophen 650 mg 11/09/18 14:06 11/10/18 03:53 Tylenol PO 650 mg Q6H PRN Administration Non Cardiac Pain or Temp>100.5 Amlodipine Besylate 10 mg 11/10/18 10:00 11/11/18 10:06 Norvasc PO Not Given QDAY [facility] Ascorbic Acid 500 mg 11/10/18 10:00 11/11/18 10:06 Vitamin C PO Not Given DAILY [facility] Calcium Acetate 1,334 mg 11/09/18 20:00 11/11/18 20:25 Phoslo PO 1,334 mg TID [facility] Administration Dextrose 50 ml 11/09/18 14:11 D50w (25gm) Syringe IV PRN PRN Hypoglycemia Diphenhydramine HCl 25 mg 11/10/18 14:22 Benadryl IV Q6H PRN Itching Ergocalciferol 50,000 unit 11/11/18 09:00 11/11/18 10:06 Vitamin D2 PO Not Given Mo [facility] Hydralazine HCl 25 mg 11/09/18 20:00 11/11/18 22:04 Apresoline PO 25 mg TID [facility] Administration Piperacillin Sod/Tazobactam Sod 2.25 gm in 50 mls @ 100 mls/hr 11/10/18 14:00 11/12/18 05:42 Zosyn/Ns 2.25 Gm/50ml IV 100 mls/hr Q8HR [facility] Administration Protocol Dextrose 1,000 mls @ 40 mls/hr 11/10/18 15:00 D10w IV DIRECT [facility] Sodium Chloride 100 mls @ 999 mls/hr 11/10/18 14:32 Nacl 0.9% IV ANMOL PRN Hypotension Insulin Human Lispro 0 unit 11/09/18 15:00 11/12/18 05:52 Humalog SUB-Q 2 unit Q6HR [facility] Administration Protocol Levothyroxine Sodium 50 mcg 11/10/18 06:00 11/11/18 10:06 Synthroid PO Not Given QAM [facility] Loperamide HCl 2 mg 11/09/18 15:00 Imodium PO PRN [facility] Morphine Sulfate 2 mg 11/10/18 12:16 11/12/18 05:41 Morphine IV 2 mg Q4H PRN Administration Pain , Severe (7-10) Multivit/Ca Carb/B Cmplx/FA/Prenat 1 cap 11/10/18 10:00 11/11/18 10:06 Renal Caps PO Not Given QDAY [facility] Ondansetron HCl 4 mg 11/09/18 14:06 Zofran IV Q4H PRN Nausea And Vomiting Oxycodone HCl 2.5 mg 11/09/18 14:26 Roxicodone PO Q6H PRN Pain, Moderate (4-6) Oxycodone/Acetaminophen 1 tab 11/09/18 14:25 11/09/18 16:43 Percocet 5/325 PO 1 tab Q6H PRN Administration Pain, Moderate (4-6) Pantoprazole Sodium 40 mg 11/10/18 10:00 11/11/18 10:06 Protonix PO Not Given DAILY [facility] Pregabalin 50 mg 11/10/18 10:00 11/11/18 10:06 Lyrica PO Not Given DAILY [facility] Sertraline HCl 100 mg 11/10/18 10:00 11/11/18 10:06 Zoloft PO Not Given DAILY [facility] Zolpidem Tartrate 10 mg 11/09/18 22:00 11/11/18 22:04 Ambien PO 10 mg QHS [facility] Administration
[2018-11-12] MEDS: APRESOLINE PO SCH ×4 (09:51→22:54)
[2018-11-12] MEDS: LYRICA PO SCH (10:07)
[2018-11-12] MEDS: Renal Caps PO SCH (10:08)
[2018-11-12] MEDS: PROTONIX PO SCH (10:08)
[2018-11-12] MEDS: SYNTHROID PO SCH (10:08)
[2018-11-12] MEDS: NORVASC PO SCH (10:08)
--- NOTE | 2018-11-12 10:14 | Progress Note ---
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 Renal diet once advanced Subjective Date of service: 11/12/18 Principal diagnosis: appendicitis Interval history: no acute concerns this morning. Had IR procedure for drainage of abscess. Doing well this morning, ready for dialysis Objective - Exam Narrative Exam: General appearance: well-developed, not anxious EENT: ATNC, mucous membranes dry Neck: no JVD Respiratory: clear to Auscultation Cardiology: regular, normal heart rate, S1S2, no murmurs Gastrointestinal: normoactive bowel sounds Integumentary: no rash Neurologic: no focal deficit Psychiatric: mood/affect appropriate - Vital Signs Vital signs: Vital Signs - 12hr 11/11/18 11/12/18 11/12/18 23:25 03:24 08:46 Temperature 98.0 F 97.8 F 97.9 F Pulse Rate 114 H 80 89 Respiratory 20 18 18 Rate Blood Pressure 141/79 141/71 125/66 O2 Sat by Pulse 95 95 94 Oximetry 11/12/18 11/12/18 11/12/18 09:32 09:51 10:08 Temperature Pulse Rate 90 75 Respiratory Rate Blood Pressure O2 Sat by Pulse 95 Oximetry - Lab 11/12/18 05:24 11/12/18 05:24 Most recent lab results Calcium 8.8 mg/dL (8.4-10.2) 11/12/18 05:24 Magnesium 2.30 mg/dL (1.7-2.3) 11/09/18 04:30 Medications & Allergies - Medications Allergies/Adverse Reactions: Allergies contrast dye Adverse Reaction (Severe, Uncoded 10/04/18 08:32) Rash Home Medications: Home Medications Medication Instructions Recorded Confirmed Last Taken Type Zolpidem [Ambien] 10 mg PO QHS 08/02/17 11/09/18 2 Days Ago History ~07/31/17 Loperamide [Imodium] 2 mg PO PRN 08/22/17 11/09/18 Unknown History Ascorbic Acid [Vitamin C] 500 mg PO DAILY #30 tablet 06/14/18 11/09/18 Unknown Rx Calcium Acetate [Phoslo] 1,334 mg PO TID #90 capsule 06/14/18 11/09/18 Unknown Rx Clopidogrel [Plavix] 75 mg PO DAILY #30 tablet 06/14/18 11/09/18 Unknown Rx Levothyroxine [Synthroid] 50 mcg PO DAILY #30 tablet 06/14/18 11/09/18 Unknown Rx Multivit-Min/Iron Fum/Folic AC 1 each PO DAILY #30 tablet 06/14/18 11/09/18 Unknown Rx [Pksxs-Irhonwd-Arogvjur Tablet] Pantoprazole [Protonix TAB] 40 mg PO DAILY #30 tablet 06/14/18 11/09/18 Unknown Rx Pregabalin [Lyrica] 50 mg PO DAILY #30 capsule 06/14/18 11/09/18 Unknown Rx Sertraline [Zoloft] 100 mg PO DAILY #30 tablet 06/14/18 11/09/18 Unknown Rx Vitamin D2 50,000 units PO 1XW #4 06/14/18 11/09/18 Unknown Rx amLODIPine [Norvasc] 10 mg PO QDAY #30 tablet 06/14/18 11/09/18 Unknown Rx hydrALAZINE [Apresoline TAB] 25 mg PO TID #90 tablet 06/14/18 11/09/18 Unknown Rx Oxycodone HCl/Acetaminophen 1 each PO Q6HR PRN #14 tablet 10/04/18 11/09/18 Unknown Rx [Percocet 7.5/325 mg] Active Medications: Generic Name Dose Route Start Last Admin Trade Name Freq PRN Reason Stop Dose Admin Acetaminophen 650 mg 11/09/18 14:06 11/10/18 03:53 Tylenol PO 650 mg Q6H PRN Administration Non Cardiac Pain or Temp>100.5 Amlodipine Besylate 10 mg 11/10/18 10:00 11/12/18 10:08 Norvasc PO Not Given QDAY [facility] Ascorbic Acid 500 mg 11/10/18 10:00 11/11/18 10:06 Vitamin C PO Not Given DAILY [facility] Calcium Acetate 1,334 mg 11/09/18 20:00 11/11/18 20:25 Phoslo PO 1,334 mg TID [facility] Administration Dextrose 50 ml 11/09/18 14:11 D50w (25gm) Syringe IV PRN PRN Hypoglycemia Diphenhydramine HCl 25 mg 11/10/18 14:22 Benadryl IV Q6H PRN Itching Ergocalciferol 50,000 unit 11/11/18 09:00 11/11/18 10:06 Vitamin D2 PO Not Given Mo [facility] Hydralazine HCl 25 mg 11/09/18 20:00 11/12/18 09:51 Apresoline PO Not Given TID [facility] Piperacillin Sod/Tazobactam Sod 2.25 gm in 50 mls @ 100 mls/hr 11/10/18 14:00 11/12/18 05:42 Zosyn/Ns 2.25 Gm/50ml IV 100 mls/hr Q8HR [facility] Administration Protocol Dextrose 1,000 mls @ 40 mls/hr 11/10/18 15:00 D10w IV DIRECT [facility] Sodium Chloride 100 mls @ 999 mls/hr 11/10/18 14:32 Nacl 0.9% IV ANMOL PRN Hypotension Insulin Human Lispro 0 unit 11/09/18 15:00 11/12/18 05:52 Humalog SUB-Q 2 unit Q6HR [facility] Administration Protocol Levothyroxine Sodium 50 mcg 11/10/18 06:00 11/12/18 10:08 Synthroid PO 50 mcg QAM [facility] Administration Loperamide HCl 2 mg 11/09/18 15:00 Imodium PO PRN [facility] Morphine Sulfate 2 mg 11/10/18 12:16 11/12/18 05:41 Morphine IV 2 mg Q4H PRN Administration Pain , Severe (7-10) Multivit/Ca Carb/B Cmplx/FA/Prenat 1 cap 11/10/18 10:00 11/12/18 10:08 Renal Caps PO 1 cap QDAY [facility] Administration Ondansetron HCl 4 mg 11/09/18 14:06 Zofran IV Q4H PRN Nausea And Vomiting Oxycodone HCl 2.5 mg 11/09/18 14:26 Roxicodone PO Q6H PRN Pain, Moderate (4-6) Oxycodone/Acetaminophen 1 tab 11/09/18 14:25 08/17/19 16:43 Percocet 5/325 PO 1 tab Q6H PRN Administration Pain, Moderate (4-6) Pantoprazole Sodium 40 mg 11/10/18 10:00 11/12/18 10:08 Protonix PO 40 mg DAILY [facility] Administration Pregabalin 50 mg 11/10/18 10:00 11/12/18 10:07 Lyrica PO 25 mg DAILY [facility] Administration Sertraline HCl 100 mg 11/10/18 10:00 11/11/18 10:06 Zoloft PO Not Given DAILY [facility] Zolpidem Tartrate 10 mg 11/09/18 22:00 11/11/18 22:04 Ambien PO 10 mg QHS [facility] Administration
[2018-11-12] MEDS: VITAMIN C PO SCH (10:15)
[2018-11-12] MEDS: ZOLOFT PO SCH (10:16)
[2018-11-12] MEDS: PHOSLO PO SCH ×3 (10:18→22:17)
--- NOTE | 2018-11-12 11:34 | Progress Note ---
Assessment and Plan 63 yo M with 1. acute perforated appendicitis with abscess s/p IR drain placement x2 (11/11/18) 2. ESRD on HD 3. hyperkalemia Ct scan A/P 11/11/18 - abscesses right lower quadrant. Reviewed with Dr. Negron Plan: 1. Renal diet 2. dc IVF 3. IV abx - upon discharge, may start augmentin x 14 days total of abx 4. prn pain and nausea control 5. IR drain management 6. restart plavix when ok with Dr. Ramirez 7. HD per nephro. 8. repeat labs in am Will likely clear for dc from surgery standpoint in the next 24 hours. D/W Dr. Berry. Thank you, please call with questions. Subjective Date of service: 11/12/18 Narrative: Pt seen and examined. No acute complaints. No n/v. Feels hungry. NO f/c Objective Vital Signs - 12hr 11/12/18 11/12/18 11/12/18 03:24 08:46 09:32 Temperature 97.8 F 97.9 F Pulse Rate 80 89 Respiratory 18 18 Rate Blood Pressure 141/71 125/66 O2 Sat by Pulse 95 94 95 Oximetry 11/12/18 11/12/18 09:51 10:08 Temperature Pulse Rate 90 75 Respiratory Rate Blood Pressure O2 Sat by Pulse Oximetry - General physical appearance Narrative Exam: Gen: AAOx3. NAD CV; s1, S2+ resp; even and unlabored Abd: soft, NT, ND. IR drain x 2 on right. Drain 1 is serous with scant output. Drain 2 purulent. Ext: no c/c/e - Labs 11/12/18 05:24 11/12/18 05:24 Diabetes panel 11/12/18 Range/Units 05:24 Sodium 138 (137-145) mmol/L Potassium 6.1 H* (3.6-5.0) mmol/L Chloride 98.1 (98-107) mmol/L Carbon Dioxide 20 L (22-30) mmol/L BUN 58 H (9-20) mg/dL Creatinine 10.1 H (0.8-1.5) mg/dL Glucose 215 H (75-100) mg/dL Calcium 8.8 (8.4-10.2) mg/dL Calcium panel 11/12/18 Range/Units 05:24 Calcium 8.8 (8.4-10.2) mg/dL Pituitary panel 11/12/18 Range/Units 05:24 Sodium 138 (137-145) mmol/L Potassium 6.1 H* (3.6-5.0) mmol/L Chloride 98.1 (98-107) mmol/L Carbon Dioxide 20 L (22-30) mmol/L BUN 58 H (9-20) mg/dL Creatinine 10.1 H (0.8-1.5) mg/dL Glucose 215 H (75-100) mg/dL Calcium 8.8 (8.4-10.2) mg/dL Adrenal panel 11/12/18 Range/Units 05:24 Sodium 138 (137-145) mmol/L Potassium 6.1 H* (3.6-5.0) mmol/L Chloride 98.1 (98-107) mmol/L Carbon Dioxide 20 L (22-30) mmol/L BUN 58 H (9-20) mg/dL Creatinine 10.1 H (0.8-1.5) mg/dL Glucose 215 H (75-100) mg/dL Calcium 8.8 (8.4-10.2) mg/dL
--- NOTE | 2018-11-12 14:35 | Progress Note ---
Assessment and Plan Assessment and plan: Patient is a 63 yo man with a history of Blindness, ESRD on HD TTS, left upper extremity fistula, PAD s/p right BKA, hypothyroidism, hypertension, Hepatitis B, peripheral neuropathy, depression and chronic pain syndrom who present to [facility] ED with severe sharp constant non-radiating right lower quadrant abdominal pains x 2 days, without aggravating or relieving factors associated with nonbloody diarrhea and nausea but no vomiting. He denies fevers, chills, chest pains, sob or trauma. The CT abd/pelvis reveals ruptured appendix per General Surgeon. * CT abd/pelvis without contrast IMPRESSION: Nonspecific inflammatory process in the right lower quadrant is likely related to appendicitis. Right-sided colonic diverticulitis or perforated colonic neoplasm could also have this appearance but are less likely. There is prominent associated inflammatory change with phlegmon and possible developing abscess present. -Addendicitis with rupture and peritonitis and multiple abscess: Gen Surgeon consult, input noted, will treat with IV ABX, pain is better, so diet started per GS, SIRS without Organ dysfunction NO SEPSIS The shunt underwent drainage by interventional radiology will be followed outpatient by surgery. -ESRD: HD TTS, Nephrology following -Severe Hyperkalemia: urgent Hemodialysis, monitor bmp levels closely -Metabolic acidosis: HD and monitor closely -Diarrhea: monitor for c.diffe -Nausea: treat with IV zoFran -Rhabdomyolysis improving: treat with IVFs, monitor CPK levels closely -Thrombocytopenia, chronically low but not this low: consulted Heme/Onc -PAD s/p right BKA: hold Plavix for possible IR drainage -Hx Hypertension: low salt diet, antihypertensives -Hx Congestive Heart Failure, diastolic chronic and stable: continue to monitor, i/o, daily weight -Hx Diabetes Mellitus type 2: ssi, ada diet -Hx Hypothyroidism: treat with levothyroxine -Hx Arthritis: tylenol full code Disposition: continue inpatient care, management of appendicitis with rupture, treat rhabdo, CT abd/pelvis with contrast ordered. Contrast dye listed as allergies, more history garnered by Luna regarding the allergy. He has itching especially on his back but no swelling or anaphylaxis reaction. was pre-mediacated with iv steroids and give iv benadryl prn. History Interval history: Patient was seen and examined. Follow-up on current diagnosis perforated appendix. No overnight events reported to me. Patient denies any chest pain, shortness breath, nausea/vomiting or severe headaches. Imaging, nursing note, chart, labs and old chart reviewed. Discussed with patient and surgeon. Patient currently undergoing dialysis Hospitalist Physical - Physical exam Narrative exam: Gen: thin frail, chronic disable appearing, NAD, Awake, Alert, Orientated HEENT: NCAT, EOMI, PERRL, OP Clear Neck: supple, no adenopathy, no thyromegaly, no JVD CVS/Heart: RRR, normal S1S2, pulses present bilaterally Chest/Lungs: diminished bs bilaterally, Symmetrical chest expansion, good air entry bilaterally GI/Abdomen: soft, right sided tenderness, good bowel sounds, +guarding, rebound /Bladder: no suprapubic tenderness, no CVA or paraspinal tenderness Extermity/Skin: no c/c/e, no new rash MSK: right BKA Neuro: CN 2-12 grossly intact except hearing and vision, no new focal deficits Psych: calm - Constitutional Vitals: Temp Pulse Resp BP Pulse Ox 98.1 F 85 16 99/52 95 11/12/18 10:15 11/12/18 14:31 11/12/18 10:15 11/12/18 14:31 11/12/18 10:00 Results - Labs CBC & Chem 7: 11/12/18 05:24 11/12/18 05:24 Labs: Laboratory Last Values WBC 13.7 K/mm3 (4.5-11.0) H 11/12/18 05:24 RBC 3.49 M/mm3 (3.65-5.03) L 11/12/18 05:24 Hgb 11.8 gm/dl (11.8-15.2) 11/12/18 05:24 Hct 37.1 % (35.5-45.6) 11/12/18 05:24 MCV 106 fl (84-94) H 11/12/18 05:24 MCH 34 pg (28-32) H 11/12/18 05:24 MCHC 32 % (32-34) 11/12/18 05:24 RDW 18.1 % (13.2-15.2) H 11/12/18 05:24 Plt Count 70 K/mm3 (140-440) L 11/12/18 05:24 Add Manual Diff Complete 11/09/18 04:30 Total Counted 100 11/09/18 04:30 Seg Neutrophils % Soloist Dancer 11/09/18 04:30 Seg Neuts % (Manual) 92.0 % (40.0-70.0) H 11/09/18 04:30 0 % 11/09/18 04:30 7.0 % (13.4-35.0) L 11/09/18 04:30 Reactive Lymphs % (Man) 0 % 11/09/18 04:30 1.0 % (0.0-7.3) 11/09/18 04:30 0 % (0.0-4.3) 11/09/18 04:30 0 % (0.0-1.8) 11/09/18 04:30 0 % 11/09/18 04:30 0 % 11/09/18 04:30 0 % 11/09/18 04:30 0 % 11/09/18 04:30 Nucleated RBC % Not Reportable 11/09/18 04:30 Seg Neutrophils # Man 10.2 K/mm3 (1.8-7.7) H 11/09/18 04:30 Band Neutrophils # 0.0 K/mm3 11/09/18 04:30 0.8 K/mm3 (1.2-5.4) L 11/09/18 04:30 Abs React Lymphs (Man) 0.0 K/mm3 11/09/18 04:30 0.1 K/mm3 (0.0-0.8) 11/09/18 04:30 0.0 K/mm3 (0.0-0.4) 11/09/18 04:30 0.0 K/mm3 (0.0-0.1) 11/09/18 04:30 0.0 K/mm3 11/09/18 04:30 0.0 K/mm3 11/09/18 04:30 0.0 K/mm3 11/09/18 04:30 Blast Cells # 0.0 K/mm3 11/09/18 04:30 WBC Morphology Not Reportable 11/09/18 04:30 Hypersegmented Neuts Not Reportable 11/09/18 04:30 Hyposegmented Neuts Not Reportable 11/09/18 04:30 Hypogranular Neuts Not Reportable 11/09/18 04:30 Not Reportable 11/09/18 04:30 Not Reportable 11/09/18 04:30 Not Reportable 11/09/18 04:30 Not Reportable 11/09/18 04:30 Not Reportable 11/09/18 04:30 Not Reportable 11/09/18 04:30 Consistent w auto 11/09/18 04:30 Not Reportable 11/09/18 04:30 Plt Clumps, EDTA Not Reportable 11/09/18 04:30 Not Reportable 11/09/18 04:30 Not Reportable 11/09/18 04:30 Not Reportable 11/09/18 04:30 Plt Morphology Comment Not Reportable 11/09/18 04:30 RBC Morphology Not Reportable 11/09/18 04:30 Dimorphic RBCs Not Reportable 11/09/18 04:30 Not Reportable 11/09/18 04:30 Not Reportable 11/09/18 04:30 Not Reportable 11/09/18 04:30 Few 11/09/18 04:30 Not Reportable 11/09/18 04:30 Not Reportable 11/09/18 04:30 Not Reportable 11/09/18 04:30 Not Reportable 11/09/18 04:30 Not Reportable 11/09/18 04:30 Not Reportable 11/09/18 04:30 Not Reportable 11/09/18 04:30 Rare 11/09/18 04:30 Not Reportable 11/09/18 04:30 Not Reportable 11/09/18 04:30 Not Reportable 11/09/18 04:30 Not Reportable 11/09/18 04:30 Not Reportable 11/09/18 04:30 Not Reportable 11/09/18 04:30 Not Reportable 11/09/18 04:30 Acanthocytes (Spur) Not Reportable 11/09/18 04:30 Rouleaux Not Reportable 11/09/18 04:30 Not Reportable 11/09/18 04:30 Not Reportable 11/09/18 04:30 Not Reportable 11/09/18 04:30 Not Reportable 11/09/18 04:30 Hem Pathologist Commnt No 11/09/18 04:30 Sodium 138 mmol/L (137-145) 11/12/18 05:24 Potassium 6.1 mmol/L (3.6-5.0) H* 11/12/18 05:24 Chloride 98.1 mmol/L (98-107) 11/12/18 05:24 Carbon Dioxide 20 mmol/L (22-30) L 11/12/18 05:24 26 mmol/L 11/12/18 05:24 BUN 58 mg/dL (9-20) H 11/12/18 05:24 10.1 mg/dL (0.8-1.5) H 11/12/18 05:24 Estimated GFR 6 ml/min 11/12/18 05:24 6 % 11/12/18 05:24 Glucose 215 mg/dL (75-100) H 11/12/18 05:24 POC Glucose 202 (70-105) H 11/12/18 05:36 Calcium 8.8 mg/dL (8.4-10.2) 11/12/18 05:24 Magnesium 2.30 mg/dL (1.7-2.3) 11/09/18 04:30 Iron 25 ug/dL (49-181) L 11/11/18 05:41 TIBC 102 mcg/dL (250-450) L 11/11/18 05:41 2010.0 ng/mL (13.0-400.0) H 11/11/18 05:41 0.70 mg/dL (0.1-1.2) 11/09/18 04:30 AST 37 units/L (5-40) 11/09/18 04:30 ALT 42 units/L (7-56) 11/09/18 04:30 134 units/L (35-129) H 11/09/18 04:30 263 units/L (55-170) H 11/12/18 05:24 8.7 g/dL (6.3-8.2) H 11/09/18 04:30 3.7 g/dL (3.9-5) L 11/09/18 04:30 0.7 % 11/09/18 04:30 Vitamin B12 744.7 pg/mL (211-911) 11/11/18 05:41 11.60 ng/mL (7.3-26.0) 11/11/18 05:41 TSH 0.622 mlU/mL (0.270-4.200) 11/10/18 07:20 Active Medications - Current Medications Current Medications: Generic Name Dose Route Start Last Admin Trade Name Freq PRN Reason Stop Dose Admin Acetaminophen 650 mg 11/09/18 14:06 11/10/18 03:53 Tylenol PO 650 mg Q6H PRN Administration Non Cardiac Pain or Temp>100.5 Amlodipine Besylate 10 mg 11/10/18 10:00 11/12/18 10:08 Norvasc PO Not Given QDAY [facility] Ascorbic Acid 500 mg 11/10/18 10:00 11/12/18 10:15 Vitamin C PO 500 mg DAILY [facility] Administration Calcium Acetate 1,334 mg 11/09/18 20:00 11/12/18 13:53 Phoslo PO Not Given TID [facility] Dextrose 50 ml 11/09/18 14:11 D50w (25gm) Syringe IV PRN PRN Hypoglycemia Diphenhydramine HCl 25 mg 11/10/18 14:22 Benadryl IV Q6H PRN Itching Ergocalciferol 50,000 unit 11/11/18 09:00 11/11/18 10:06 Vitamin D2 PO Not Given Mo [facility] Hydralazine HCl 25 mg 11/09/18 20:00 11/12/18 09:51 Apresoline PO Not Given TID [facility] Piperacillin Sod/Tazobactam Sod 2.25 gm in 50 mls @ 100 mls/hr 11/10/18 14:00 11/12/18 13:53 Zosyn/Ns 2.25 Gm/50ml IV Not Given Q8HR [facility] Protocol Dextrose 1,000 mls @ 40 mls/hr 11/10/18 15:00 D10w IV DIRECT [facility] Sodium Chloride 100 mls @ 999 mls/hr 11/10/18 14:32 Nacl 0.9% IV ANMOL PRN Hypotension Insulin Human Lispro 0 unit 11/09/18 15:00 11/12/18 13:52 Humalog SUB-Q Not Given Q6HR [facility] Protocol Levothyroxine Sodium 50 mcg 11/10/18 06:00 11/12/18 10:08 Synthroid PO 50 mcg QAM SIL[facility] Administration Loperamide HCl 2 mg 11/09/18 15:00 Imodium PO PRN [facility] Morphine Sulfate 2 mg 11/10/18 12:16 11/12/18 05:41 Morphine IV 2 mg Q4H PRN Administration Pain , Severe (7-10) Multivit/Ca Carb/B Cmplx/FA/Prenat 1 cap 11/10/18 10:00 11/12/18 10:08 Renal Caps PO 1 cap QDAY [facility] Administration Ondansetron HCl 4 mg 11/09/18 14:06 Zofran IV Q4H PRN Nausea And Vomiting Oxycodone HCl 2.5 mg 11/09/18 14:26 Roxicodone PO Q6H PRN Pain, Moderate (4-6) Oxycodone/Acetaminophen 1 tab 11/09/18 14:25 11/09/18 16:43 Percocet 5/325 PO 1 tab Q6H PRN Administration Pain, Moderate (4-6) Pantoprazole Sodium 40 mg 11/10/18 10:00 11/12/18 10:08 Protonix PO 40 mg DAILY [facility] Administration Pregabalin 50 mg 11/10/18 10:00 11/12/18 10:07 Lyrica PO 25 mg DAILY [facility] Administration Sertraline HCl 100 mg 11/10/18 10:00 11/12/18 10:16 Zoloft PO Not Given DAILY [facility] Zolpidem Tartrate 10 mg 11/09/18 22:00 11/11/18 22:04 Ambien PO 10 mg QHS [facility] Administration
[2018-11-12] MEDS: AMBIEN PO SCH (22:31)
[2018-11-13] MEDS: HumaLOG SUB-Q SCH ×4 (00:39→19:00)
[2018-11-13] MEDS: MORPHINE IV PRN ×4 (05:54→23:27)
[2018-11-13] MEDS: ZOSYN/NS 2.25 GM/50ML 2.25 GM/50 ML BAG IV SCH (05:56)
--- NOTE | 2018-11-13 08:00 | Hem/Onc Progress Note ---
Assessment and Plan 1. Thrombocytopenia. The patient's platelets in May was also 79, so he has had low platelets since then. Platelets were normal in 07/2017 at 159. 2. Appendicitis/abscess. 3. End-stage renal disease, on dialysis. 4. Blindness. 5. Hypothyroidism. 6. Hypertension. 7. Hepatitis B. 8. Hyperlipidemia. 9. Elevated CPK. In case of plan for surgery, platelet count more than 70 is adequate. Transfusion support as needed. The patient's bilirubin is not elevated. I will follow the patient during inpatient stay. We will do deficiency investigations. Medications/history of infection/consumption may have a role in the low platelet. 11/13 - abdomen - drain - Patient Problems (1) Thrombocytopenia Current Visit: Yes Status: Acute Subjective Date of service: 11/13/18 Principal diagnosis: low plt Interval history: has abdo drain Objective - Exam Narrative Exam: Pain - abdo General appearance milddistress Performance status blind - dependent Eyes - no icterus ENT no thrush LNs cervical not palpable Neck - normal ROM Respiratory Normal Breath sounds - CTA CVS S1 S2 + Extremities normal temperature General GI - drain+ Rectal deferred male - deferred Skin warm Musculoskeletal - rt BKA Neurologically no focal deficit - Constitutional Vitals: Last Vital Signs Temp 97.4 F L 11/13/18 03:28 Pulse 84 11/13/18 03:28 Resp 20 11/13/18 03:28 BP 140/70 11/13/18 03:28 Pulse Ox 96 11/13/18 03:28 - Labs Lab Results: Laboratory Results - last 24 hr 11/12/18 11/12/18 11/13/18 18:09 23:46 05:35 POC Glucose 191 H 120 H Total Creatine Kinase 151 11/13/18 05:41 POC Glucose 128 H Total Creatine Kinase Medications & Allergies - Medications Allergies/Adverse Reactions: Allergies contrast dye Adverse Reaction (Severe, Uncoded 10/04/18 08:32) Rash Home Medications: Home Medications Medication Instructions Recorded Confirmed Last Taken Type Zolpidem [Ambien] 10 mg PO QHS 08/02/17 11/09/18 2 Days Ago History ~07/31/17 Loperamide [Imodium] 2 mg PO PRN 08/22/17 11/09/18 Unknown History Ascorbic Acid [Vitamin C] 500 mg PO DAILY #30 tablet 06/14/18 11/09/18 Unknown Rx Calcium Acetate [Phoslo] 1,334 mg PO TID #90 capsule 06/14/18 11/09/18 Unknown Rx Clopidogrel [Plavix] 75 mg PO DAILY #30 tablet 06/14/18 11/09/18 Unknown Rx Levothyroxine [Synthroid] 50 mcg PO DAILY #30 tablet 06/14/18 11/09/18 Unknown Rx Multivit-Min/Iron Fum/Folic AC 1 each PO DAILY #30 tablet 06/14/18 11/09/18 Unknown Rx [Tiamw-Wosjyqd-Qnxcwkai Tablet] Pantoprazole [Protonix TAB] 40 mg PO DAILY #30 tablet 06/14/18 11/09/18 Unknown Rx Pregabalin [Lyrica] 50 mg PO DAILY #30 capsule 06/14/18 11/09/18 Unknown Rx Sertraline [Zoloft] 100 mg PO DAILY #30 tablet 06/14/18 11/09/18 Unknown Rx Vitamin D2 50,000 units PO 1XW #4 06/14/18 11/09/18 Unknown Rx amLODIPine [Norvasc] 10 mg PO QDAY #30 tablet 06/14/18 11/09/18 Unknown Rx hydrALAZINE [Apresoline TAB] 25 mg PO TID #90 tablet 06/14/18 11/09/18 Unknown Rx Oxycodone HCl/Acetaminophen 1 each PO Q6HR PRN #14 tablet 10/04/18 11/09/18 Unknown Rx [Percocet 7.5/325 mg] Active Medications: Generic Name Dose Route Start Last Admin Trade Name Freq PRN Reason Stop Dose Admin Acetaminophen 650 mg 11/09/18 14:06 11/10/18 03:53 Tylenol PO 650 mg Q6H PRN Administration Non Cardiac Pain or Temp>100.5 Amlodipine Besylate 10 mg 11/10/18 10:00 11/12/18 10:08 Norvasc PO Not Given QDAY SILVER Ascorbic Acid 500 mg 11/10/18 10:00 11/12/18 10:15 Vitamin C PO 500 mg DAILY SILVER Administration Calcium Acetate 1,334 mg 11/09/18 20:00 11/12/18 22:17 Phoslo PO Not Given TID SILVER Dextrose 50 ml 11/09/18 14:11 D50w (25gm) Syringe IV PRN PRN Hypoglycemia Diphenhydramine HCl 25 mg 11/10/18 14:22 Benadryl IV Q6H PRN Itching Ergocalciferol 50,000 unit 11/11/18 09:00 11/11/18 10:06 Vitamin D2 PO Not Given Mo SILVER Hydralazine HCl 25 mg 11/09/18 20:00 11/12/18 22:54 Apresoline PO Not Given TID SILVER Piperacillin Sod/Tazobactam Sod 2.25 gm in 50 mls @ 100 mls/hr 11/10/18 14:00 11/13/18 05:56 Zosyn/Ns 2.25 Gm/50ml IV 100 mls/hr Q8HR [facility] Administration Protocol Dextrose 1,000 mls @ 40 mls/hr 11/10/18 15:00 D10w IV DIRECT [facility] Sodium Chloride 100 mls @ 999 mls/hr 11/10/18 14:32 Nacl 0.9% IV ANMOL PRN Hypotension Insulin Human Lispro 0 unit 11/09/18 15:00 11/13/18 06:00 Humalog SUB-Q Not Given Q6HR [facility] Protocol Levothyroxine Sodium 50 mcg 11/10/18 06:00 11/12/18 10:08 Synthroid PO 50 mcg QAM [facility] Administration Loperamide HCl 2 mg 11/09/18 15:00 Imodium PO PRN SILVER Morphine Sulfate 2 mg 11/10/18 12:16 11/13/18 05:54 Morphine IV 2 mg Q4H PRN Administration Pain , Severe (7-10) Multivit/Ca Carb/B Cmplx/FA/Prenat 1 cap 11/10/18 10:00 11/12/18 10:08 Renal Caps PO 1 cap QDAY [facility] Administration Ondansetron HCl 4 mg 11/09/18 14:06 Zofran IV Q4H PRN Nausea And Vomiting Oxycodone HCl 2.5 mg 11/09/18 14:26 Roxicodone PO Q6H PRN Pain, Moderate (4-6) Oxycodone/Acetaminophen 1 tab 11/09/18 14:25 11/09/18 16:43 Percocet 5/325 PO 1 tab Q6H PRN Administration Pain, Moderate (4-6) Pantoprazole Sodium 40 mg 11/10/18 10:00 11/12/18 10:08 Protonix PO 40 mg DAILY [facility] Administration Pregabalin 50 mg 11/10/18 10:00 11/12/18 10:07 Lyrica PO 25 mg DAILY [facility] Administration Sertraline HCl 100 mg 11/10/18 10:00 11/12/18 10:16 Zoloft PO Not Given DAILY [facility] Zolpidem Tartrate 10 mg 11/09/18 22:00 11/12/18 22:31 Ambien PO 10 mg QHS [facility] Administration
[2018-11-13 08:27] LABS: Calcium 8.4 mg/dL (8.4-10.2)
--- NOTE | 2018-11-13 09:04 | Progress Note ---
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 Renal diet once advanced Please do not hesitate to call me on my cell ([phone]) with questions. Thank you for the consult Subjective Date of service: 11/13/18 Principal diagnosis: appendicitis Interval history: no acute concerns this morning. did have some issues with nursing overnight, but no medical concerns. Had HD yesterday and denies any issues with the treatment, and denies any dyspnea, chest pain, nausea, vomiting this morning Objective - Exam Narrative Exam: General appearance: well-developed, alert and oriented EENT: ATNC, mucous membranes moist Neck: no JVD Respiratory: clear to Auscultation Cardiology: regular, normal heart rate, S1S2, no murmurs Gastrointestinal: normoactive bowel sounds Integumentary: no rash Neurologic: no focal deficit Psychiatric: mood/affect appropriate - Vital Signs Vital signs: Vital Signs - 12hr 11/12/18 11/12/18 11/13/18 23:02 23:37 03:28 Temperature 98.4 F 97.4 F L Pulse Rate 81 84 Respiratory 18 20 20 Rate Blood Pressure 144/67 140/70 O2 Sat by Pulse 100 96 Oximetry - Lab 11/12/18 05:24 11/13/18 07:43 Most recent lab results Calcium 8.4 mg/dL (8.4-10.2) 11/13/18 07:43 Magnesium 2.30 mg/dL (1.7-2.3) 11/09/18 04:30 Medications & Allergies - Medications Allergies/Adverse Reactions: Allergies contrast dye Adverse Reaction (Severe, Uncoded 10/04/18 08:32) Rash Home Medications: Home Medications Medication Instructions Recorded Confirmed Last Taken Type Zolpidem [Ambien] 10 mg PO QHS 08/02/17 11/09/18 2 Days Ago History ~07/31/17 Loperamide [Imodium] 2 mg PO PRN 08/22/17 11/09/18 Unknown History Ascorbic Acid [Vitamin C] 500 mg PO DAILY #30 tablet 06/14/18 11/09/18 Unknown Rx Calcium Acetate [Phoslo] 1,334 mg PO TID #90 capsule 06/14/18 11/09/18 Unknown Rx Clopidogrel [Plavix] 75 mg PO DAILY #30 tablet 06/14/18 11/09/18 Unknown Rx Levothyroxine [Synthroid] 50 mcg PO DAILY #30 tablet 06/14/18 11/09/18 Unknown Rx Multivit-Min/Iron Fum/Folic AC 1 each PO DAILY #30 tablet 06/14/18 11/09/18 Unknown Rx [Aqncf-Wcbspuo-Hvmsupwn Tablet] Pantoprazole [Protonix TAB] 40 mg PO DAILY #30 tablet 06/14/18 11/09/18 Unknown Rx Pregabalin [Lyrica] 50 mg PO DAILY #30 capsule 06/14/18 11/09/18 Unknown Rx Sertraline [Zoloft] 100 mg PO DAILY #30 tablet 06/14/18 11/09/18 Unknown Rx Vitamin D2 50,000 units PO 1XW #4 06/14/18 11/09/18 Unknown Rx amLODIPine [Norvasc] 10 mg PO QDAY #30 tablet 06/14/18 11/09/18 Unknown Rx hydrALAZINE [Apresoline TAB] 25 mg PO TID #90 tablet 06/14/18 11/09/18 Unknown Rx Oxycodone HCl/Acetaminophen 1 each PO Q6HR PRN #14 tablet 10/04/18 11/09/18 Unknown Rx [Percocet 7.5/325 mg] Active Medications: Generic Name Dose Route Start Last Admin Trade Name Freq PRN Reason Stop Dose Admin Acetaminophen 650 mg 11/09/18 14:06 11/10/18 03:53 Tylenol PO 650 mg Q6H PRN Administration Non Cardiac Pain or Temp>100.5 Amlodipine Besylate 10 mg 11/10/18 10:00 11/12/18 10:08 Norvasc PO Not Given QDAY S[facility] Ascorbic Acid 500 mg 11/10/18 10:00 11/12/18 10:15 Vitamin C PO 500 mg DAILY SILVER Administration Calcium Acetate 1,334 mg 11/09/18 20:00 11/12/18 22:17 Phoslo PO Not Given TID SILVER Dextrose 50 ml 11/09/18 14:11 D50w (25gm) Syringe IV PRN PRN Hypoglycemia Diphenhydramine HCl 25 mg 11/10/18 14:22 Benadryl IV Q6H PRN Itching Ergocalciferol 50,000 unit 11/11/18 09:00 11/11/18 10:06 Vitamin D2 PO Not Given Mo SILVER Hydralazine HCl 25 mg 11/09/18 20:00 11/12/18 22:54 Apresoline PO Not Given TID SILVER Piperacillin Sod/Tazobactam Sod 2.25 gm in 50 mls @ 100 mls/hr 11/10/18 14:00 11/13/18 05:56 Zosyn/Ns 2.25 Gm/50ml IV 100 mls/hr Q8HR [facility] Administration Protocol Dextrose 1,000 mls @ 40 mls/hr 11/10/18 15:00 D10w IV DIRECT SILVER Sodium Chloride 100 mls @ 999 mls/hr 11/10/18 14:32 Nacl 0.9% IV ANMOL PRN Hypotension Insulin Human Lispro 0 unit 11/09/18 15:00 11/13/18 06:00 Humalog SUB-Q Not Given Q6HR [facility] Protocol Levothyroxine Sodium 50 mcg 11/10/18 06:00 11/12/18 10:08 Synthroid PO 50 mcg QAM [facility] Administration Loperamide HCl 2 mg 11/09/18 15:00 Imodium PO PRN SILVER Morphine Sulfate 2 mg 11/10/18 12:16 11/13/18 05:54 Morphine IV 2 mg Q4H PRN Administration Pain , Severe (7-10) Multivit/Ca Carb/B Cmplx/FA/Prenat 1 cap 11/10/18 10:00 11/12/18 10:08 Renal Caps PO 1 cap QDAY [facility] Administration Ondansetron HCl 4 mg 11/09/18 14:06 Zofran IV Q4H PRN Nausea And Vomiting Oxycodone HCl 2.5 mg 11/09/18 14:26 Roxicodone PO Q6H PRN Pain, Moderate (4-6) Oxycodone/Acetaminophen 1 tab 11/09/18 14:25 11/09/18 16:43 Percocet 5/325 PO 1 tab Q6H PRN Administration Pain, Moderate (4-6) Pantoprazole Sodium 40 mg 11/10/18 10:00 11/12/18 10:08 Protonix PO 40 mg DAILY [facility]ILVER Administration Pregabalin 50 mg 11/10/18 10:00 11/12/18 10:07 Lyrica PO 25 mg DAILY [facility] Administration Sertraline HCl 100 mg 11/10/18 10:00 11/12/18 10:16 Zoloft PO Not Given DAILY SILVER Zolpidem Tartrate 10 mg 11/09/18 22:00 11/12/18 22:31 Ambien PO 10 mg QHS [facility] Administration
[2018-11-13] MEDS: VITAMIN C PO SCH (11:36)
[2018-11-13] MEDS: Renal Caps PO SCH (11:36)
[2018-11-13] MEDS: ZOLOFT PO SCH (11:36)
[2018-11-13] MEDS: PROTONIX PO SCH (11:37)
[2018-11-13] MEDS: PHOSLO PO SCH ×3 (11:37→21:29)
[2018-11-13] MEDS: LYRICA PO SCH (11:37)
[2018-11-13] MEDS: SYNTHROID PO SCH (11:37)
[2018-11-13] MEDS: NORVASC PO SCH (11:38)
[2018-11-13] MEDS: APRESOLINE PO SCH ×3 (12:13→21:29)
--- NOTE | 2018-11-13 12:36 | Progress Note ---
Assessment and Plan Assessment and plan: Patient is a 63 yo man with a history of Blindness, ESRD on HD TTS, left upper extremity fistula, PAD s/p right BKA, hypothyroidism, hypertension, Hepatitis B, peripheral neuropathy, depression and chronic pain syndrom who present to [facility] ED with severe sharp constant non-radiating right lower quadrant abdominal pains x 2 days, without aggravating or relieving factors associated with nonbloody diarrhea and nausea but no vomiting. He denies fevers, chills, chest pains, sob or trauma. The CT abd/pelvis reveals ruptured appendix per General Surgeon. * CT abd/pelvis without contrast IMPRESSION: Nonspecific inflammatory process in the right lower quadrant is likely related to appendicitis. Right-sided colonic diverticulitis or perforated colonic neoplasm could also have this appearance but are less likely. There is prominent associated inflammatory change with phlegmon and possible developing abscess present. -Addendicitis with rupture and peritonitis and multiple abscess: Gen Surgeon consult, input noted, will treat with IV ABX, pain is better, so diet started per GS, SIRS without Organ dysfunction ID consult due to wound cultures The shunt underwent drainage by interventional radiology will be followed outpatient by surgery. -Diarrhea: Obtain c-diff testing. ID consult -ESRD: HD TTS, Nephrology following -Severe Hyperkalemia: urgent Hemodialysis, monitor bmp levels closely -Metabolic acidosis: HD and monitor closely -Diarrhea: monitor for c.diffe -Nausea: treat with IV zoFran -Rhabdomyolysis improving: treat with IVFs, monitor CPK levels closely -Thrombocytopenia, chronically low but not this low: consulted Heme/Onc -PAD s/p right BKA: hold Plavix for possible IR drainage -Hx Hypertension: low salt diet, antihypertensives -Hx Congestive Heart Failure, diastolic chronic and stable: continue to monitor, i/o, daily weight -Hx Diabetes Mellitus type 2: ssi, ada diet -Hx Hypothyroidism: treat with levothyroxine -Hx Arthritis: tylenol full code Disposition: continue inpatient care, management of appendicitis with rupture, t reat rhabdo, possible discharge in AM CT abd/pelvis with contrast ordered. Contrast dye listed as allergies, more history garnered by Mr. Luna regarding the allergy. He has itching especially on his back but no swelling or anaphylaxis reaction. was pre-mediacated with iv steroids and give iv benadryl prn. History Interval history: Patient was seen and examined. Follow-up on current diagnosis perforated appendix. No overnight events reported to me. Patient denies any chest pain, shortness breath, nausea/vomiting or severe headaches. He reports diarrhea last night, states that he had this before but it improved, gets it when on abx Imaging, nursing note, chart, labs and old chart reviewed. Discussed with patient and surgeon. Patient currently undergoing dialysis Hospitalist Physical - Physical exam Narrative exam: Gen: thin frail, chronic disable appearing, NAD, Awake, Alert, Orientated HEENT: NCAT, EOMI, PERRL, OP Clear Neck: supple, no adenopathy, no thyromegaly, no JVD CVS/Heart: RRR, normal S1S2, pulses present bilaterally Chest/Lungs: diminished bs bilaterally, Symmetrical chest expansion, good air entry bilaterally GI/Abdomen: soft, right sided tenderness, good bowel sounds, +guarding, rebound /Bladder: no suprapubic tenderness, no CVA or paraspinal tenderness Extermity/Skin: no c/c/e, no new rash MSK: right BKA Neuro: CN 2-12 grossly intact except hearing and vision, no new focal deficits Psych: calm - Constitutional Vitals: Temp Pulse Resp BP Pulse Ox 97.5 F L 72 18 140/69 96 11/13/18 07:53 11/13/18 12:13 11/13/18 07:53 11/13/18 12:13 11/13/18 03:28 Results - Labs CBC & Chem 7: 11/12/18 05:24 11/13/18 07:43 Labs: Laboratory Last Values WBC 13.7 K/mm3 (4.5-11.0) H 11/12/18 05:24 RBC 3.49 M/mm3 (3.65-5.03) L 11/12/18 05:24 Hgb 11.8 gm/dl (11.8-15.2) 11/12/18 05:24 Hct 37.1 % (35.5-45.6) 11/12/18 05:24 MCV 106 fl (84-94) H 11/12/18 05:24 MCH 34 pg (28-32) H 11/12/18 05:24 MCHC 32 % (32-34) 11/12/18 05:24 RDW 18.1 % (13.2-15.2) H 11/12/18 05:24 Plt Count 70 K/mm3 (140-440) L 11/12/18 05:24 Add Manual Diff Complete 11/09/18 04:30 Total Counted 100 11/09/18 04:30 Seg Neutrophils % Behavioral Health Professional 11/09/18 04:30 Seg Neuts % (Manual) 92.0 % (40.0-70.0) H 11/09/18 04:30 0 % 11/09/18 04:30 7.0 % (13.4-35.0) L 11/09/18 04:30 Reactive Lymphs % (Man) 0 % 11/09/18 04:30 1.0 % (0.0-7.3) 11/09/18 04:30 0 % (0.0-4.3) 11/09/18 04:30 0 % (0.0-1.8) 11/09/18 04:30 0 % 11/09/18 04:30 0 % 11/09/18 04:30 0 % 11/09/18 04:30 0 % 11/09/18 04:30 Nucleated RBC % Not Reportable 11/09/18 04:30 Seg Neutrophils # Man 10.2 K/mm3 (1.8-7.7) H 11/09/18 04:30 Band Neutrophils # 0.0 K/mm3 11/09/18 04:30 0.8 K/mm3 (1.2-5.4) L 11/09/18 04:30 Abs React Lymphs (Man) 0.0 K/mm3 11/09/18 04:30 0.1 K/mm3 (0.0-0.8) 11/09/18 04:30 0.0 K/mm3 (0.0-0.4) 11/09/18 04:30 0.0 K/mm3 (0.0-0.1) 11/09/18 04:30 0.0 K/mm3 11/09/18 04:30 0.0 K/mm3 11/09/18 04:30 0.0 K/mm3 11/09/18 04:30 Blast Cells # 0.0 K/mm3 11/09/18 04:30 WBC Morphology Not Reportable 11/09/18 04:30 Hypersegmented Neuts Not Reportable 11/09/18 04:30 Hyposegmented Neuts Not Reportable 11/09/18 04:30 Hypogranular Neuts Not Reportable 11/09/18 04:30 Not Reportable 11/09/18 04:30 Not Reportable 11/09/18 04:30 Not Reportable 11/09/18 04:30 Not Reportable 11/09/18 04:30 Not Reportable 11/09/18 04:30 Not Reportable 11/09/18 04:30 Consistent w auto 11/09/18 04:30 Not Reportable 11/09/18 04:30 Plt Clumps, EDTA Not Reportable 11/09/18 04:30 Not Reportable 11/09/18 04:30 Not Reportable 11/09/18 04:30 Not Reportable 11/09/18 04:30 Plt Morphology Comment Not Reportable 11/09/18 04:30 RBC Morphology Not Reportable 11/09/18 04:30 Dimorphic RBCs Not Reportable 11/09/18 04:30 Not Reportable 11/09/18 04:30 Not Reportable 11/09/18 04:30 Not Reportable 11/09/18 04:30 Few 11/09/18 04:30 Not Reportable 11/09/18 04:30 Not Reportable 11/09/18 04:30 Not Reportable 11/09/18 04:30 Not Reportable 11/09/18 04:30 Not Reportable 11/09/18 04:30 Not Reportable 11/09/18 04:30 Not Reportable 11/09/18 04:30 Rare 11/09/18 04:30 Not Reportable 11/09/18 04:30 Not Reportable 11/09/18 04:30 Not Reportable 11/09/18 04:30 Not Reportable 11/09/18 04:30 Not Reportable 11/09/18 04:30 Not Reportable 11/09/18 04:30 Not Reportable 11/09/18 04:30 Acanthocytes (Spur) Not Reportable 11/09/18 04:30 Rouleaux Not Reportable 11/09/18 04:30 Not Reportable 11/09/18 04:30 Not Reportable 11/09/18 04:30 Not Reportable 11/09/18 04:30 Not Reportable 11/09/18 04:30 Hem Pathologist Commnt No 11/09/18 04:30 Sodium 142 mmol/L (137-145) 11/13/18 07:43 Potassium 4.3 mmol/L (3.6-5.0) D 11/13/18 07:43 Chloride 101.2 mmol/L (98-107) 11/13/18 07:43 Carbon Dioxide 24 mmol/L (22-30) 11/13/18 07:43 21 mmol/L 11/13/18 07:43 BUN 31 mg/dL (9-20) H 11/13/18 07:43 5.9 mg/dL (0.8-1.5) H 11/13/18 07:43 Estimated GFR 12 ml/min 11/13/18 07:43 5 % 11/13/18 07:43 Glucose 136 mg/dL (75-100) H 11/13/18 07:43 POC Glucose 128 (70-105) H 11/13/18 05:41 Calcium 8.4 mg/dL (8.4-10.2) 11/13/18 07:43 Magnesium 2.30 mg/dL (1.7-2.3) 11/09/18 04:30 Iron 25 ug/dL (49-181) L 11/11/18 05:41 TIBC 102 mcg/dL (250-450) L 11/11/18 05:41 2010.0 ng/mL (13.0-400.0) H 11/11/18 05:41 0.70 mg/dL (0.1-1.2) 11/09/18 04:30 AST 37 units/L (5-40) 11/09/18 04:30 ALT 42 units/L (7-56) 11/09/18 04:30 134 units/L (35-129) H 11/09/18 04:30 151 units/L (55-170) 11/13/18 05:35 8.7 g/dL (6.3-8.2) H 11/09/18 04:30 3.7 g/dL (3.9-5) L 11/09/18 04:30 0.7 % 11/09/18 04:30 Vitamin B12 744.7 pg/mL (211-911) 11/11/18 05:41 11.60 ng/mL (7.3-26.0) 11/11/18 05:41 TSH 0.622 mlU/mL (0.270-4.200) 11/10/18 07:20 Active Medications - Current Medications Current Medications: Generic Name Dose Route Start Last Admin Trade Name Freq PRN Reason Stop Dose Admin Acetaminophen 650 mg 11/09/18 14:06 11/10/18 03:53 Tylenol PO 650 mg Q6H PRN Administration Non Cardiac Pain or Temp>100.5 Amlodipine Besylate 10 mg 11/10/18 10:00 11/13/18 11:38 Norvasc PO 10 mg QDAY [facility] Administration Ascorbic Acid 500 mg 11/10/18 10:00 11/13/18 11:36 Vitamin C PO 500 mg DAILY [facility] Administration Calcium Acetate 1,334 mg 11/09/18 20:00 11/13/18 11:37 Phoslo PO 1,334 mg TID [facility] Administration Dextrose 50 ml 11/09/18 14:11 D50w (25gm) Syringe IV PRN PRN Hypoglycemia Diphenhydramine HCl 25 mg 11/10/18 14:22 Benadryl IV Q6H PRN Itching Ergocalciferol 50,000 unit 11/11/18 09:00 11/11/18 10:06 Vitamin D2 PO Not Given Mo SILVER Hydralazine HCl 25 mg 11/09/18 20:00 11/13/18 12:13 Apresoline PO Not Given TID SILVER Piperacillin Sod/Tazobactam Sod 2.25 gm in 50 mls @ 100 mls/hr 11/10/18 14:00 11/13/18 05:56 Zosyn/Ns 2.25 Gm/50ml IV 100 mls/hr Q8HR [facility] Administration Protocol Sodium Chloride 100 mls @ 999 mls/hr 11/10/18 14:32 Nacl 0.9% IV ANMOL PRN Hypotension Insulin Human Lispro 0 unit 11/09/18 15:00 11/13/18 06:00 Humalog SUB-Q Not Given Q6HR [facility] Protocol Levothyroxine Sodium 50 mcg 11/10/18 06:00 11/13/18 11:37 Synthroid PO 50 mcg QAM [facility] Administration Loperamide HCl 2 mg 11/09/18 15:00 Imodium PO PRN [facility]IL[facility] Morphine Sulfate 2 mg 11/10/18 12:16 11/13/18 12:16 Morphine IV 2 mg Q4H PRN Administration Pain , Severe (7-10) Multivit/Ca Carb/B Cmplx/FA/Prenat 1 cap 11/10/18 10:00 11/13/18 11:36 Renal Caps PO 1 cap QDAY [facility] Administration Ondansetron HCl 4 mg 11/09/18 14:06 Zofran IV Q4H PRN Nausea And Vomiting Oxycodone HCl 2.5 mg 11/09/18 14:26 Roxicodone PO Q6H PRN Pain, Moderate (4-6) Oxycodone/Acetaminophen 1 tab 11/09/18 14:25 11/09/18 16:43 Percocet 5/325 PO 1 tab Q6H PRN Administration Pain, Moderate (4-6) Pantoprazole Sodium 40 mg 11/10/18 10:00 11/13/18 11:37 Protonix PO 40 mg DAILY [facility] Administration Pregabalin 50 mg 11/10/18 10:00 11/13/18 11:37 Lyrica PO 50 mg DAILY [facility] Administration Sertraline HCl 100 mg 11/10/18 10:00 11/13/18 11:36 Zoloft PO 100 mg DAILY [facility] Administration Zolpidem Tartrate 10 mg 11/09/18 22:00 11/12/18 22:31 Ambien PO 10 mg QHS [facility] Administration
--- NOTE | 2018-11-13 13:43 | Progress Note ---
Assessment and Plan 63 yo M with 1. acute perforated appendicitis with abscess s/p IR drain placement x2 (11/11/18) 2. ESRD on HD 3. hyperkalemia Ct scan A/P 11/11/18 - abscesses right lower quadrant. Reviewed with Dr. Negron Plan: 1. Renal diet 2. IV abx - upon discharge, may start augmentin x 14 days total of abx 3. prn pain and nausea control 4. IR drain management 5. restart plavix when ok with Dr. Ramirez 6. HD per nephro. Ok to dc home with drains from surgery standpoint. Pt will need home care for drain management. Drains should be flushed with 10cc of sterile saline daily and output recorded. Pt to follow up in surgery clinic for drain removal. Thank you, please call with questions. Subjective Date of service: 11/13/18 Narrative: Pt seen and examined. No acute complaints. Does not feel hungry today. No f/c. Objective Vital Signs - 12hr 11/13/18 11/13/18 11/13/18 03:28 07:53 10:00 Temperature 97.4 F L 97.5 F L Pulse Rate 84 72 Respiratory 20 18 18 Rate Blood Pressure 140/70 140/69 O2 Sat by Pulse 96 Oximetry 11/13/18 11/13/18 11:38 12:13 Temperature Pulse Rate 84 72 Respiratory Rate Blood Pressure 140/69 140/69 O2 Sat by Pulse Oximetry - General physical appearance Narrative Exam: Gen: AAOx3. NAD CV: s1, s2+ resp; even and unlabored Abd: soft, NT, ND. IR drain x2 on right with scant drainage. Drain 1 with serous drainage and drain 2 with seropurulent drainage Ext: no c/c/e - Labs 11/12/18 05:24 11/13/18 07:43 Diabetes panel 11/13/18 Range/Units 07:43 Sodium 142 (137-145) mmol/L Potassium 4.3 D (3.6-5.0) mmol/L Chloride 101.2 (98-107) mmol/L Carbon Dioxide 24 (22-30) mmol/L BUN 31 H (9-20) mg/dL Creatinine 5.9 H (0.8-1.5) mg/dL Glucose 136 H (75-100) mg/dL Calcium 8.4 (8.4-10.2) mg/dL Calcium panel 11/13/18 Range/Units 07:43 Calcium 8.4 (8.4-10.2) mg/dL Pituitary panel 11/13/18 Range/Units 07:43 Sodium 142 (137-145) mmol/L Potassium 4.3 D (3.6-5.0) mmol/L Chloride 101.2 (98-107) mmol/L Carbon Dioxide 24 (22-30) mmol/L BUN 31 H (9-20) mg/dL Creatinine 5.9 H (0.8-1.5) mg/dL Glucose 136 H (75-100) mg/dL Calcium 8.4 (8.4-10.2) mg/dL Adrenal panel 11/13/18 Range/Units 07:43 Sodium 142 (137-145) mmol/L Potassium 4.3 D (3.6-5.0) mmol/L Chloride 101.2 (98-107) mmol/L Carbon Dioxide 24 (22-30) mmol/L BUN 31 H (9-20) mg/dL Creatinine 5.9 H (0.8-1.5) mg/dL Glucose 136 H (75-100) mg/dL Calcium 8.4 (8.4-10.2) mg/dL
--- NOTE | 2018-11-13 13:51 | Consultation ---
History of Present Illness - Reason for Consult Consult date: 11/13/18 Appendicular abscess and rupture Requesting physician: SERGIO ESPINOZA - History of Present Illness The patient is a 63-year-old male with blindness, ESRD on hemodialysis through a left arm AVG, peripheral vascular disease status post right-sided BKA about 3 years ago, hypothyroidism, hypertension, chronic hepatitis B was admitted to the hospital on 11/09/2018 with complaints of right lower abdominal pain. CT scan revealed a possible ruptured appendix with an abscess. On 11/11/2018, patient underwent two drain placements by interventional radiology Dr. Ramirez. General surgery has been following along. Infectious diseases was consulted for antibiotic recommendations. Patient had a fever of 102.2F on 11/10/2018 but has been afebrile since then. Patient started having some diarrhea yesterday, reports multiple bowel movements yesterday and about 2-3 today. C. difficile sample was sent and is pending. Still having some abdominal pain. Review of Systems: General: no fevers,chills or rigors at present HEENT: no new visual disturbance Respiratory: No cough, sputum, hemoptysis or shortness of breath Cardiovascular: No chest pain, syncope Gastrointestinal: No nausea, vomiting or diarrhea Genitourinary: No dysuria or hematuria Musculoskeletal: No new or worsening neck pain or back pain Neurologic: No headaches, seizures Hematologic: No easy bruising or bleeding Endocrine: No night sweats or acute weight loss Skin: negative for rash, jaundice Psychiatric: No suicidal or homicidal ideation Past History Past Medical History: ESRD, PVD Past Surgical History: Other (paracentesis, R BKA, LUE dialysis access) Social history: no significant social history Family history: no significant family history Medications and Allergies Allergies Allergy/AdvReac Type Severity Reaction Status Date / Time contrast dye AdvReac Severe Rash Uncoded 10/04/18 08:32 Home Medications Medication Instructions Recorded Confirmed Last Taken Type Zolpidem [Ambien] 10 mg PO QHS 08/02/17 11/09/18 2 Days Ago History ~07/31/17 Loperamide [Imodium] 2 mg PO PRN 08/22/17 11/09/18 Unknown History Ascorbic Acid [Vitamin C] 500 mg PO DAILY #30 tablet 06/14/18 11/09/18 Unknown Rx Calcium Acetate [Phoslo] 1,334 mg PO TID #90 capsule 06/14/18 11/09/18 Unknown Rx Clopidogrel [Plavix] 75 mg PO DAILY #30 tablet 06/14/18 11/09/18 Unknown Rx Levothyroxine [Synthroid] 50 mcg PO DAILY #30 tablet 06/14/18 11/09/18 Unknown Rx Multivit-Min/Iron Fum/Folic AC 1 each PO DAILY #30 tablet 06/14/18 11/09/18 Unknown Rx [Kjvny-Jzuuvbj-Bcdtqvmx Tablet] Pantoprazole [Protonix TAB] 40 mg PO DAILY #30 tablet 06/14/18 11/09/18 Unknown Rx Pregabalin [Lyrica] 50 mg PO DAILY #30 capsule 06/14/18 11/09/18 Unknown Rx Sertraline [Zoloft] 100 mg PO DAILY #30 tablet 06/14/18 11/09/18 Unknown Rx Vitamin D2 50,000 units PO 1XW #4 06/14/18 11/09/18 Unknown Rx amLODIPine [Norvasc] 10 mg PO QDAY #30 tablet 06/14/18 11/09/18 Unknown Rx hydrALAZINE [Apresoline TAB] 25 mg PO TID #90 tablet 06/14/18 11/09/18 Unknown Rx Oxycodone HCl/Acetaminophen 1 each PO Q6HR PRN #14 tablet 10/04/18 11/09/18 Unknown Rx [Percocet 7.5/325 mg] Active Meds: Active Medications Acetaminophen (Tylenol) 650 mg PO Q6H PRN PRN Reason: Non Cardiac Pain or Temp>100.5 Last Admin: 11/10/18 03:53 Dose: 650 mg Documented by: Amlodipine Besylate (Norvasc) 10 mg PO QDAY [facility] Last Admin: 11/13/18 11:38 Dose: 10 mg Documented by: Ascorbic Acid (Vitamin C) 500 mg PO DAILY [facility] Last Admin: 11/13/18 11:36 Dose: 500 mg Documented by: Calcium Acetate (Phoslo) 1,334 mg PO TID [facility] Last Admin: 11/13/18 11:37 Dose: 1,334 mg Documented by: Dextrose (D50w (25gm) Syringe) 50 ml IV PRN PRN PRN Reason: Hypoglycemia Diphenhydramine HCl (Benadryl) 25 mg IV Q6H PRN PRN Reason: Itching Ergocalciferol (Vitamin D2) 50,000 unit PO Mo [facility] Last Admin: 11/11/18 10:06 Dose: Not Given Documented by: Hydralazine HCl (Apresoline) 25 mg PO TID [facility] Last Admin: 11/13/18 12:13 Dose: Not Given Documented by: Piperacillin Sod/Tazobactam Sod (Zosyn/Ns 2.25 Gm/50ml) 2.25 gm in 50 mls @ 100 mls/hr IV Q8HR [facility]; Protocol Last Admin: 11/13/18 05:56 Dose: 100 mls/hr Documented by: Sodium Chloride (Nacl 0.9%) 100 mls @ 999 mls/hr IV ANMOL PRN PRN Reason: Hypotension Insulin Human Lispro (Humalog) 0 unit SUB-Q Q6HR [facility]; Protocol Last Admin: 11/13/18 06:00 Dose: Not Given Documented by: Levothyroxine Sodium (Synthroid) 50 mcg PO QAM [facility] Last Admin: 11/13/18 11:37 Dose: 50 mcg Documented by: Loperamide HCl (Imodium) 2 mg PO PRN [facility] Morphine Sulfate (Morphine) 2 mg IV Q4H PRN PRN Reason: Pain , Severe (7-10) Last Admin: 11/13/18 12:16 Dose: 2 mg Documented by: Multivit/Ca Carb/B Cmplx/FA/Prenat (Renal Caps) 1 cap PO QDAY [facility] Last Admin: 11/13/18 11:36 Dose: 1 cap Documented by: Ondansetron HCl (Zofran) 4 mg IV Q4H PRN PRN Reason: Nausea And Vomiting Oxycodone HCl (Roxicodone) 2.5 mg PO Q6H PRN PRN Reason: Pain, Moderate (4-6) Oxycodone/Acetaminophen (Percocet 5/325) 1 tab PO Q6H PRN PRN Reason: Pain, Moderate (4-6) Last Admin: 11/09/18 16:43 Dose: 1 tab Documented by: Pantoprazole Sodium (Protonix) 40 mg PO DAILY [facility] Last Admin: 11/13/18 11:37 Dose: 40 mg Documented by: Pregabalin (Lyrica) 50 mg PO DAILY [facility] Last Admin: 11/13/18 11:37 Dose: 50 mg Documented by: Sertraline HCl (Zoloft) 100 mg PO DAILY [facility] Last Admin: 11/13/18 11:36 Dose: 100 mg Documented by: Zolpidem Tartrate (Ambien) 10 mg PO QHS [facility] Last Admin: 11/12/18 22:31 Dose: 10 mg Documented by: Physical Examination - Physical Exam Narrative exam: Physical Exam: Constitutional: Alert, cooperative. No acute distress Head, Ears, Nose: Normocephalic, atraumatic. External ears, nose normal Eyes: Conjunctivae/corneas clear. No icterus. No ptosis. Neck: Supple, no meningeal signs Oral: no thrush Cardiovascular: S1, S2 normal. Respiratory: Good air entry, clear to auscultation bilaterally GI: Soft, tender, more in RLQ, drains x 2 present; bowel sounds + Musculoskeletal: No pedal edema, no cyanosis. R AKA stump +, Left arm AVG + Skin: No rash or abscess Hem/Lymphatic: No palpable cervical or supraclavicular nodes. No lymphangitis Psych: Mood ok. Affect normal Neurological: Awake, alert, oriented. No gross abnormality - Constitutional Vitals: Vital Signs Temp Pulse Resp BP Pulse Ox 97.5 F L 72 18 140/69 96 11/13/18 07:53 11/13/18 12:13 11/13/18 10:00 11/13/18 12:13 11/13/18 03:28 Temperature -Last 24 Hours Temperature 97.5 F Temperature 97.4 F Temperature 98.4 F Temperature 97.7 F Results - Labs CBC & Chem 7: 11/12/18 05:24 11/13/18 07:43 Labs: Abnormal lab results 11/12/18 11/12/18 11/13/18 Range/Units 18:09 23:46 05:41 BUN (9-20) mg/dL Creatinine (0.8-1.5) mg/dL Glucose (75-100) mg/dL POC Glucose 191 H 120 H 128 H (70-105) 11/13/18 11/13/18 Range/Units 07:43 13:00 BUN 31 H (9-20) mg/dL Creatinine 5.9 H (0.8-1.5) mg/dL Glucose 136 H (75-100) mg/dL POC Glucose 172 H (70-105) - Imaging and Cardiology CT scan - abdomen: report reviewed, image reviewed (perforated appendix with surrounding abscess) Assessment and Plan Cultures: 11/11/2018 abdominal abscess culture: Escherichia coli, R to ampicillin, Unasyn, fluoroquinolones, Bactrim. One isolate with I to Zosyn. Both isolates S to Cephalosporins. A/P: 63-year-old male with blindness, ESRD on hemodialysis through a left arm AVG, peripheral vascular disease status post right-sided BKA about 3 years ago, hypothyroidism, hypertension, chronic hepatitis B admitted with: 1) Acute appendicitis with rupture and abscess: On 11/11/2018, patient underwent two drain placements by interventional radiology Dr. Ramirez. General surgery has been following along. Drainage cultures growing 2 types of E.coli (R to ampicillin, Unasyn, fluoroquinolones, Bactrim. One isolate with I to Zosyn. Both isolates S to Cephalosporins). Hence, would d/c Zosyn. For now, started IV Ceftriaxone and Flagyl while inpatient. Will set up IV Ceftazidime at HD center along with PO Flagyl upon discharge, for 3 weeks from drain placement. Will need follow up with Gen Surg for definitive management. 2) Diarrhea: Follow-up C. difficile. Could be related to antibiotics versus reactive secondary to appendical abscess. 3) ESRD on hemodialysis: Renally dose antibiotics when indicated. 4) Peripheral vascular disease status post right-sided BKA Recs: d/kay Zosyn started IV Ceftriaxone 2 gm q24 hrs + Flagyl 500 mg q8 hrs Upon discharge, will set up IV Ceftazidime 2 gm qTuesday, 2 gm qThursday and 3 gm qSaturday at HD center along with PO Flagyl 500 mg TID, for 3 weeks from drain placement (CM orders placed) ending 12/02/2018 drain management per IR and Gen. Surgery Gray Mcguire MD, FACP [facility] ([facility] M: [phone] O: [phone] F: [phone]
[2018-11-13] MEDS: FLAGYL 500 MG/100 ML 500 MG/100 ML BAG IV SCH ×2 (15:11→23:05)
[2018-11-13] MEDS ORDERED: ROCEPHIN/NS 2 GM/100 ML 2 GM/100 ML BAG IV SCH (15:30)
[2018-11-13] MEDS: VANCOMYCIN PO PO SCH ×2 (17:20→23:04)
[2018-11-13] MEDS: AMBIEN PO SCH (21:29)
[2018-11-14] MEDS: HumaLOG SUB-Q SCH ×2 (00:04→06:06)
[2018-11-14] MEDS: VANCOMYCIN PO PO SCH (05:25)
[2018-11-14] MEDS: MORPHINE IV PRN ×2 (05:41→10:18)
--- NOTE | 2018-11-14 07:45 | Hem/Onc Progress Note ---
Assessment and Plan 1. Thrombocytopenia. The patient's platelets in May was also 79, so he has had low platelets since then. Platelets were normal in 07/2017 at 159. 2. Appendicitis/abscess. 3. End-stage renal disease, on dialysis. 4. Blindness. 5. Hypothyroidism. 6. Hypertension. 7. Hepatitis B. 8. Hyperlipidemia. 9. Elevated CPK. In case of plan for surgery, platelet count more than 70 is adequate. Transfusion support as needed. The patient's bilirubin is not elevated. I will follow the patient during inpatient stay. We will do deficiency investigations. Medications/history of infection/consumption may have a role in the low platelet. 11/14 - abdomen - drain reviewed ID and sx notes will follow labs OP follow up an option - Patient Problems (1) Thrombocytopenia Current Visit: Yes Status: Acute Subjective Date of service: 11/14/18 Principal diagnosis: low plt Interval history: getting HD Objective - Exam Narrative Exam: Pain - abdo General appearance mild distress Performance status blind - dependent Eyes - no icterus ENT no thrush LNs cervical not palpable Neck - normal ROM Respiratory Normal Breath sounds - CTA CVS S1 S2 + Extremities normal temperature General GI - drain+ Rectal deferred male - deferred Skin warm Musculoskeletal - rt BKA Neurologically no focal deficit - Constitutional Vitals: Last Vital Signs Temp 97.6 F 11/14/18 03:36 Pulse 75 11/14/18 03:33 Resp 18 11/14/18 05:41 BP 117/52 11/14/18 03:33 Pulse Ox 97 11/14/18 03:33 - Labs Lab Results: Laboratory Results - last 24 hr 11/13/18 11/13/18 11/13/18 07:43 13:00 17:41 Sodium 142 Potassium 4.3 D Chloride 101.2 Carbon Dioxide 24 Anion Gap 21 BUN 31 H Creatinine 5.9 H Estimated GFR 12 BUN/Creatinine Ratio 5 Glucose 136 H POC Glucose 172 H 191 H Calcium 8.4 C. difficile Tox (PCR) 11/13/18 11/13/18 11/14/18 23:13 Unknown 05:45 Sodium Potassium Chloride Carbon Dioxide Anion Gap BUN Creatinine Estimated GFR BUN/Creatinine Ratio Glucose POC Glucose 164 H 67 L Calcium C. difficile Tox (PCR) Positive 11/14/18 06:23 Sodium Potassium Chloride Carbon Dioxide Anion Gap BUN Creatinine Estimated GFR BUN/Creatinine Ratio Glucose POC Glucose 80 Calcium C. difficile Tox (PCR) Medications & Allergies - Medications Allergies/Adverse Reactions: Allergies contrast dye Adverse Reaction (Severe, Uncoded 10/04/18 08:32) Rash Home Medications: Home Medications Medication Instructions Recorded Confirmed Last Taken Type Zolpidem [Ambien] 10 mg PO QHS 08/02/17 11/09/18 2 Days Ago History ~07/31/17 Loperamide [Imodium] 2 mg PO PRN 08/22/17 11/09/18 Unknown History Ascorbic Acid [Vitamin C] 500 mg PO DAILY #30 tablet 06/14/18 11/09/18 Unknown Rx Calcium Acetate [Phoslo] 1,334 mg PO TID #90 capsule 06/14/18 11/09/18 Unknown Rx Clopidogrel [Plavix] 75 mg PO DAILY #30 tablet 06/14/18 11/09/18 Unknown Rx Levothyroxine [Synthroid] 50 mcg PO DAILY #30 tablet 06/14/18 11/09/18 Unknown Rx Multivit-Min/Iron Fum/Folic AC 1 each PO DAILY #30 tablet 06/14/18 11/09/18 Unknown Rx [Sqyci-Rfeoqdg-Wackgaam Tablet] Pantoprazole [Protonix TAB] 40 mg PO DAILY #30 tablet 06/14/18 11/09/18 Unknown Rx Pregabalin [Lyrica] 50 mg PO DAILY #30 capsule 06/14/18 11/09/18 Unknown Rx Sertraline [Zoloft] 100 mg PO DAILY #30 tablet 06/14/18 11/09/18 Unknown Rx Vitamin D2 50,000 units PO 1XW #4 06/14/18 11/09/18 Unknown Rx amLODIPine [Norvasc] 10 mg PO QDAY #30 tablet 06/14/18 11/09/18 Unknown Rx hydrALAZINE [Apresoline TAB] 25 mg PO TID #90 tablet 06/14/18 11/09/18 Unknown Rx Oxycodone HCl/Acetaminophen 1 each PO Q6HR PRN #14 tablet 10/04/18 11/09/18 Unknown Rx [Percocet 7.5/325 mg] Active Medications: Generic Name Dose Route Start Last Admin Trade Name Freq PRN Reason Stop Dose Admin Acetaminophen 650 mg 11/09/18 14:06 11/10/18 03:53 Tylenol PO 650 mg Q6H PRN Administration Non Cardiac Pain or Temp>100.5 Amlodipine Besylate 10 mg 11/10/18 10:00 11/13/18 11:38 Norvasc PO 10 mg QDAY [facility] Administration Ascorbic Acid 500 mg 11/10/18 10:00 11/13/18 11:36 Vitamin C PO 500 mg DAILY [facility] Administration Calcium Acetate 1,334 mg 11/09/18 20:00 11/13/18 21:29 Phoslo PO 1,334 mg TID [facility] Administration Clopidogrel Bisulfate 75 mg 11/14/18 10:00 Plavix PO QDAY S[facility] Dextrose 50 ml 11/09/18 14:11 D50w (25gm) Syringe IV PRN PRN Hypoglycemia Diphenhydramine HCl 25 mg 11/10/18 14:22 Benadryl IV Q6H PRN Itching Ergocalciferol 50,000 unit 11/11/18 09:00 11/11/18 10:06 Vitamin D2 PO Not Given Mo [facility] Hydralazine HCl 25 mg 11/09/18 20:00 11/13/18 21:29 Apresoline PO 25 mg TID [facility] Administration Sodium Chloride 100 mls @ 999 mls/hr 11/10/18 14:32 Nacl 0.9% IV ANMOL PRN Hypotension Ceftriaxone Sodium 2 gm in 100 mls @ 200 mls/hr 11/13/18 15:30 11/13/18 16:22 Rocephin/Ns 2 Gm/100 Ml IV 200 mls/hr Q24H [facility] Administration Protocol Metronidazole 500 mg in 100 mls @ 100 mls/hr 11/13/18 16:00 11/13/18 23:05 Flagyl 500 Mg/100 Ml IV 100 mls/hr Q8H [facility] Administration Protocol Insulin Human Lispro 0 unit 11/09/18 15:00 11/14/18 06:06 Humalog SUB-Q Not Given Q6HR [facility] Protocol Levothyroxine Sodium 50 mcg 11/10/18 06:00 11/13/18 11:37 Synthroid PO 50 mcg QAM [facility] Administration Loperamide HCl 2 mg 11/09/18 15:00 Imodium PO PRN [facility] Morphine Sulfate 2 mg 11/10/18 12:16 11/14/18 05:41 Morphine IV 2 mg Q4H PRN Administration Pain , Severe (7-10) Multivit/Ca Carb/B Cmplx/FA/Prenat 1 cap 11/10/18 10:00 11/13/18 11:36 Renal Caps PO 1 cap QDAY [facility] Administration Ondansetron HCl 4 mg 11/09/18 14:06 Zofran IV Q4H PRN Nausea And Vomiting Oxycodone HCl 2.5 mg 11/09/18 14:26 Roxicodone PO Q6H PRN Pain, Moderate (4-6) Oxycodone/Acetaminophen 1 tab 11/09/18 14:25 11/09/18 16:43 Percocet 5/325 PO 1 tab Q6H PRN Administration Pain, Moderate (4-6) Pantoprazole Sodium 40 mg 11/10/18 10:00 11/13/18 11:37 Protonix PO 40 mg DAILY [facility] Administration Pregabalin 50 mg 11/10/18 10:00 11/13/18 11:37 Lyrica PO 50 mg DAILY [facility] Administration Sertraline HCl 100 mg 11/10/18 10:00 11/13/18 11:36 Zoloft PO 100 mg DAILY [facility] Administration Vancomycin HCl 125 mg 11/13/18 18:00 11/14/18 05:25 Vancomycin Po PO 125 mg Q6HR [facility] Administration Zolpidem Tartrate 10 mg 11/09/18 22:00 11/13/18 21:29 Ambien PO 10 mg QHS [facility] Administration
[2018-11-14] MEDS: ZOLOFT PO SCH (09:58)
[2018-11-14] MEDS: PHOSLO PO SCH (09:58)
[2018-11-14] MEDS: LYRICA PO SCH (09:59)
[2018-11-14] MEDS: Renal Caps PO SCH (09:59)
[2018-11-14] MEDS: SYNTHROID PO SCH (09:59)
[2018-11-14] MEDS: PROTONIX PO SCH (09:59)
[2018-11-14] MEDS: VITAMIN C PO SCH (09:59)
[2018-11-14] MEDS: NORVASC PO SCH ×2 (09:59→10:32)
[2018-11-14] MEDS ORDERED: PLAVIX PO SCH (10:00)
[2018-11-14] MEDS: APRESOLINE PO SCH ×2 (10:00→10:31)
[2018-11-14] MEDS: FLAGYL 500 MG/100 ML 500 MG/100 ML BAG IV SCH (10:41)
--- NOTE | 2018-11-14 10:45 | Progress Note ---
Assessment and Plan Cultures: 11/11/2018 abdominal abscess culture: Escherichia coli, R to ampicillin, Unasyn, fluoroquinolones, Bactrim. One isolate with I to Zosyn. Both isolates S to Cephalosporins. 11/13/2018 C.diff PCR: positive A/P: 63-year-old male with blindness, ESRD on hemodialysis through a left arm AVG, peripheral vascular disease status post right-sided BKA about 3 years ago, hypothyroidism, hypertension, chronic hepatitis B admitted with: 1) Acute appendicitis with rupture and abscess: On 11/11/2018, patient underwent two drain placements by interventional radiology Dr. Ramirez. General surgery has been following along. Drainage cultures growing 2 types of E.coli (R to ampicillin, Unasyn, fluoroquinolones, Bactrim. One isolate with I to Zosyn. Both isolates S to Cephalosporins). Hence, would d/c Zosyn. For now, started IV Ceftriaxone and Flagyl while inpatient. Will set up IV Ceftazidime at HD center along with PO Flagyl upon discharge, for 3 weeks from drain placement. Will need follow up with Gen Surg for definitive management. 2) C.difficile associated diarrhea: Already improving. Continue PO Vancomycin 125 mg QID x 4 weeks (1 additional week after systemic abx are stopped, so end date will be 12/09/2018) 3) ESRD on hemodialysis: Renally dose antibiotics when indicated. 4) Peripheral vascular disease status post right-sided BKA. Recs: continue IV Ceftriaxone 2 gm q24 hrs + Flagyl 500 mg q8 hrs while in the hospital continue PO Vancomycin 125 mg QID x 4 weeks (1 additional week after systemic abx are stopped, so end date will be 12/09/2018) Upon discharge, will set up IV Ceftazidime 2 gm qTuesday, 2 gm qThursday and 3 gm qSaturday at HD center along with PO Flagyl 500 mg TID, for 3 weeks from drain placement (CM orders placed) ending 12/02/2018 drain management per IR and Gen. Surgery Gray Mcguire MD, FACP [facility] M: [phone] O: [phone] F: [phone] Subjective Date of service: 11/14/18 Principal diagnosis: low plt Interval history: No fever. Feels sore in his buttock region. Diarrhea improving, only one BM since last night. Getting dialysis in his room. Objective - Exam Narrative Exam: Physical Exam: Constitutional: Alert, cooperative. No acute distress Head, Ears, Nose: Normocephalic, atraumatic. External ears, nose normal Eyes: Conjunctivae/corneas clear. No icterus. No ptosis. Neck: Supple, no meningeal signs Oral: no thrush Cardiovascular: S1, S2 normal. Respiratory: Good air entry, clear to auscultation bilaterally GI: Soft, mildly tender, more in RLQ, drains x 2 present; bowel sounds + Musculoskeletal: No pedal edema, no cyanosis. R AKA stump +, Left arm AVG + Skin: No rash or abscess Hem/Lymphatic: No palpable cervical or supraclavicular nodes. No lymphangitis Psych: Mood ok. Affect normal Neurological: Awake, alert, oriented. No gross abnormality - Constitutional Vitals: Vital Signs Temp Pulse Resp BP Pulse Ox 97.9 F 89 16 89/54 97 11/14/18 08:05 11/14/18 10:30 11/14/18 08:05 11/14/18 10:30 11/14/18 03:33 Temperature -Last 24 Hours Temperature 97.9 F Temperature 97.6 F Temperature 97.7 F Temperature 97.6 F - Labs CBC & Chem 7: 11/12/18 05:24 11/13/18 07:43 Labs: Abnormal lab results 11/13/18 11/13/18 11/13/18 Range/Units 13:00 17:41 23:13 POC Glucose 172 H 191 H 164 H (70-105) 11/14/18 Range/Units 05:45 POC Glucose 67 L (70-105)
[2018-11-14 11:53] VITALS: BP 126/62
--- NOTE | 2018-11-14 12:49 | Discharge Summary ---
Providers - Providers Date of Admission: 11/09/18 09:29 Attending physician: SERGIO ESPINOZA MD 11/09/18 05:31 Consult to Physician [CONS] Urgent Comment: Consulting Provider: GUALBERTO SERRANO Physician Instructions: Reason For Exam: esrd hyperkalemia 11/09/18 09:18 Consult to Physician [CONS] Stat Comment: Consulting Provider: MARGARITA STANFORD Physician Instructions: Reason For Exam: ruptured appendicitis 11/09/18 14:07 Consult to Physician [CONS] Routine Comment: Consulting Provider: JASMINE FORBES Physician Instructions: Reason For Exam: thrombocytopenia 11/11/18 12:14 Consult to Interventional Radiology [CONS] Routine Consulting Provider: LUIS RUBIO Reason For Exam: appendiceal abscess Place consult to:: Dr. Rubio Notified:: - Comment:: Dr. Ramirez is aware of consultation per note 11/11/18 @1526 11/13/18 12:33 Consult to Physician [CONS] Routine Comment: Consulting Provider: JANNETTE LLOYD Physician Instructions: Reason For Exam: abdominal abcess 11/13/18 13:51 Consult to Case Management [CONS] Routine Services Needed at Discharge: Other Notified:: case management Comment:: IV abx at dialysis. Additional Physician Instructions: [facility] ([facility]) O: [phone] F: [phone] OUTPATIENT PARENTERAL ANTIBIOTIC THERAPY (OPAT) ORDERS Diagnoses: Appendicular abscess, ruptured appendix, appendicitis Antimicrobial administration: IV Ceftazidime 2 gm qTuesday, 2 gm qThursday and 3 gm qSaturday at HD center for 3 weeks from drain placement ending 12/02/2018 Lab monitoring: - CBC with differential, Creatinine, ALT, AST, once a week every Sunday/Sunday while on IV antibiotics. Please fax results to [phone] and call [phone] for critical lab results. MD [facility] Primary care physician: NOEL REDMAN Hospitalization Reason for admission: ABDOMINAL PAIN Condition: Stable Hospital course: Patient is a 63 yo man with a history of Blindness, ESRD on HD TTS, left upper extremity fistula, PAD s/p right BKA, hypothyroidism, hypertension, Hepatitis B, peripheral neuropathy, depression and chronic pain syndrom who present to [facility] ED with severe sharp constant non-radiating right lower quadrant abdominal pains x 2 days, without aggravating or relieving factors associated with nonbloody diarrhea and nausea but no vomiting. He denies fevers, chills, chest pains, sob or trauma. The CT abd/pelvis reveals ruptured appendix per General Surgeon. * CT abd/pelvis without contrast IMPRESSION: Nonspecific inflammatory process in the right lower quadrant is likely related to appendicitis. Right-sided colonic diverticulitis or perforated colonic neoplasm could also have this appearance but are less likely. There is prominent associated inflammatory change with phlegmon and possible developing abscess present. * PER PATIENT DIARRHEA HAS BEEN ON AND OFF FOR A FEW DAYS PRIOR TO ADMISSION, NORMALLY MORE THAN 4 TIMES A DAY AND IS NOW IMPROVING AND TODAY ONLY 2 STOOLS SEMI FORMED * Patient noted to have abdominal abscess, was evaluated by surgery and recommend percutaneous draininage first which was done by IR and drain will be managed out pt by surgery. cultures grew Ecoli AND MANAGEMENT NOTED BELOW * ID consulted an antibiotics per them continue IV Ceftriaxone 2 gm q24 hrs + Flagyl 500 mg q8 hrs while in the hospital continue PO Vancomycin 125 mg QID x 4 weeks (1 additional week after systemic abx are stopped, so end date will be 12/09/2018) Upon discharge, will set up IV Ceftazidime 2 gm qTuesday, 2 gm qThursday and 3 gm qSaturday at HD center along with PO Flagyl 500 mg TID, for 3 weeks from drain placement (CM orders placed) ending 12/02/2018drain management per IR and Gen. Surgery -Addendicitis with rupture and peritonitis and multiple abscess: -Diarrhea: Obtain c-diff testing. ID consult -ESRD: HD TTS, Nephrology assisted -Severe Hyperkalemia: urgent Hemodialysis ON ADMISSION, monitor bmp levels closely -Metabolic acidosis: HD and monitor closely -C.Diff colitis: treated Noted above -Nausea: treated with IV zoFran -Rhabdomyolysis improving: treated with IVFs initially, -Thrombocytopenia, chronically low but not this low: consulted Heme/Onc -PAD s/p right BKA: hold Plavix for possible IR drainage AND RESTARTED ON DISCHARGE -Hypertension: low salt diet, antihypertensives - Congestive Heart Failure, diastolic chronic and stable -Diabetes Mellitus type 2: ssi, ada diet -Hypothyroidism: treatED with levothyroxine -Arthritis -Hepatitis B -Chronic cirrhosis- outpatient management and eval discussed in detail Disposition: DC/TX-06 HOME UNDER HOME HL Time spent for discharge: 35 MINS Core Measure Documentation - Palliative Care Palliative Care/ Comfort Measures: Not Applicable - Core Measures Any of the following diagnoses?: none Exam - Physical Exam Narrative exam: Gen: thin frail, chronic disable appearing, NAD, Awake, Alert, Orientated HEENT: NCAT, EOMI, PERRL, OP Clear Neck: supple, no adenopathy, no thyromegaly, no JVD CVS/Heart: RRR, normal S1S2, pulses present bilaterally Chest/Lungs: diminished bs bilaterally, Symmetrical chest expansion, good air entry bilaterally GI/Abdomen: soft, right sided tenderness, good bowel sounds, +guarding, rebound /Bladder: no suprapubic tenderness, no CVA or paraspinal tenderness Extermity/Skin: no c/c/e, no new rash MSK: right BKA Neuro: CN 2-12 grossly intact except hearing and vision, no new focal deficits Psych: calm - Constitutional Vitals: Temp Pulse Resp BP Pulse Ox 97.7 F 91 H 18 126/62 97 11/14/18 11:30 11/14/18 11:37 11/14/18 11:30 11/14/18 11:30 11/14/18 03:33 Plan Activity: advance as tolerated, fall precautions Diet: low fat Wound: per your surgeon's advice, per wound nurse instructions Special Instructions: record daily BP diary, record blood sugar diary Follow up with: NOEL REDMAN MD [Primary Care Provider] - 7 Days MARGARITA STANFORD DO [Staff Physician] - 7 Days LUIS RUBIO MD [Staff Physician] - 7 Days JANNETTE LLOYD MD [Staff Physician] - 7 Days Prescriptions: metroNIDAZOLE [Flagyl] 500 mg PO Q8HR #20 tablet Vancomycin 125 mg PO QID 28 Days oralsyr
--- NOTE | 2018-11-14 14:15 | Progress Note ---
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 Thank you for the consult Subjective Date of service: 11/14/18 Principal diagnosis: abdominal pain Interval history: no acute concerns this morning. seen on HD. patient denies any dialysis related issues. he was found to have c. diff yesterday and was started on PO vanc Objective - Exam Narrative Exam: General appearance: well-developed, alert and oriented EENT: ATNC, mucous membranes moist Neck: no JVD Respiratory: clear to Auscultation Cardiology: regular, normal heart rate, S1S2, no murmurs Gastrointestinal: normoactive bowel sounds Integumentary: no rash Neurologic: no focal deficit Psychiatric: mood/affect appropriate - Vital Signs Vital signs: Vital Signs - 12hr 11/14/18 11/14/18 11/14/18 03:33 03:36 05:41 Temperature 97.6 F Pulse Rate 75 Pulse Rate [ Right Radial] Respiratory 20 18 Rate Blood Pressure 117/52 O2 Sat by Pulse 97 Oximetry 11/14/18 11/14/18 11/14/18 08:05 08:15 08:30 Temperature 97.9 F Pulse Rate 79 81 84 Pulse Rate [ Right Radial] Respiratory 16 Rate Blood Pressure 118/62 109/54 116/66 O2 Sat by Pulse Oximetry 11/14/18 11/14/18 11/14/18 08:45 09:00 09:15 Temperature Pulse Rate 89 93 H 92 H Pulse Rate [ Right Radial] Respiratory Rate Blood Pressure 125/65 109/65 107/62 O2 Sat by Pulse Oximetry 11/14/18 11/14/18 11/14/18 09:30 09:45 10:00 Temperature Pulse Rate 91 H 90 89 Pulse Rate [ Right Radial] Respiratory Rate Blood Pressure 100/61 99/57 115/60 O2 Sat by Pulse Oximetry 11/14/18 11/14/18 11/14/18 10:15 10:30 10:45 Temperature Pulse Rate 93 H 89 89 Pulse Rate [ Right Radial] Respiratory Rate Blood Pressure 106/63 89/54 96/57 O2 Sat by Pulse Oximetry 11/14/18 11/14/18 11/14/18 11:00 11:15 11:30 Temperature 97.7 F Pulse Rate 91 H 89 88 Pulse Rate [ Right Radial] Respiratory 18 Rate Blood Pressure 97/58 104/62 126/62 O2 Sat by Pulse Oximetry 11/14/18 11:37 Temperature Pulse Rate Pulse Rate [ 91 H Right Radial] Respiratory Rate Blood Pressure O2 Sat by Pulse Oximetry - Lab 11/12/18 05:24 11/13/18 07:43 Most recent lab results Calcium 8.4 mg/dL (8.4-10.2) 11/13/18 07:43 Magnesium 2.30 mg/dL (1.7-2.3) 11/09/18 04:30 Medications & Allergies - Medications Allergies/Adverse Reactions: Allergies contrast dye Adverse Reaction (Severe, Uncoded 10/04/18 08:32) Rash Home Medications: Home Medications Medication Instructions Recorded Confirmed Last Taken Type Zolpidem [Ambien] 10 mg PO QHS 08/02/17 11/09/18 2 Days Ago History ~07/31/17 Loperamide [Imodium] 2 mg PO PRN 08/22/17 11/09/18 Unknown History Ascorbic Acid [Vitamin C] 500 mg PO DAILY #30 tablet 06/14/18 11/09/18 Unknown Rx Calcium Acetate [Phoslo] 1,334 mg PO TID #90 capsule 06/14/18 11/09/18 Unknown Rx Clopidogrel [Plavix] 75 mg PO DAILY #30 tablet 06/14/18 11/09/18 Unknown Rx Levothyroxine [Synthroid] 50 mcg PO DAILY #30 tablet 06/14/18 11/09/18 Unknown Rx Multivit-Min/Iron Fum/Folic AC 1 each PO DAILY #30 tablet 06/14/18 11/09/18 Unknown Rx [Jaqoo-Hfukgiy-Ttmosnzq Tablet] Pantoprazole [Protonix TAB] 40 mg PO DAILY #30 tablet 06/14/18 11/09/18 Unknown Rx Pregabalin [Lyrica] 50 mg PO DAILY #30 capsule 06/14/18 11/09/18 Unknown Rx Sertraline [Zoloft] 100 mg PO DAILY #30 tablet 06/14/18 11/09/18 Unknown Rx Vitamin D2 50,000 units PO 1XW #4 06/14/18 11/09/18 Unknown Rx amLODIPine [Norvasc] 10 mg PO QDAY #30 tablet 06/14/18 11/09/18 Unknown Rx hydrALAZINE [Apresoline TAB] 25 mg PO TID #90 tablet 06/14/18 11/09/18 Unknown Rx Oxycodone HCl/Acetaminophen 1 each PO Q6HR PRN #14 tablet 10/04/18 11/09/18 Unknown Rx [Percocet 7.5/325 mg] Vancomycin 125 mg PO QID 28 Days oralsyr 11/14/18 Unknown Rx metroNIDAZOLE [Flagyl] 500 mg PO Q8HR #20 tablet 11/14/18 Unknown Rx Active Medications: Generic Name Dose Route Start Last Admin Trade Name Freq PRN Reason Stop Dose Admin Acetaminophen 650 mg 11/09/18 14:06 11/10/18 03:53 Tylenol PO 650 mg Q6H PRN Administration Non Cardiac Pain or Temp>100.5 Amlodipine Besylate 10 mg 11/10/18 10:00 11/14/18 10:32 Norvasc PO Not Given QDAY SILVER Ascorbic Acid 500 mg 11/10/18 10:00 11/14/18 09:59 Vitamin C PO 500 mg DAILY SILVER Administration Calcium Acetate 1,334 mg 11/09/18 20:00 11/14/18 09:58 Phoslo PO 1,334 mg TID SILVER Administration Clopidogrel Bisulfate 75 mg 11/14/18 10:00 11/14/18 12:03 Plavix PO Not Given QDAY SILVER Dextrose 50 ml 11/09/18 14:11 D50w (25gm) Syringe IV PRN PRN Hypoglycemia Diphenhydramine HCl 25 mg 11/10/18 14:22 Benadryl IV Q6H PRN Itching Ergocalciferol 50,000 unit 11/11/18 09:00 11/11/18 10:06 Vitamin D2 PO Not Given Mo SILVER Hydralazine HCl 25 mg 11/09/18 20:00 11/14/18 10:31 Apresoline PO Not Given TID SILVER Sodium Chloride 100 mls @ 999 mls/hr 11/10/18 14:32 Nacl 0.9% IV ANMOL PRN Hypotension Ceftriaxone Sodium 2 gm in 100 mls @ 200 mls/hr 11/13/18 15:30 11/13/18 16:22 Rocephin/Ns 2 Gm/100 Ml IV 200 mls/hr Q24H SILVER Administration Protocol Metronidazole 500 mg in 100 mls @ 100 mls/hr 11/13/18 16:00 11/14/18 10:41 Flagyl 500 Mg/100 Ml IV 100 mls/hr Q8H SILVER Administration Protocol Insulin Human Lispro 0 unit 11/09/18 15:00 11/14/18 06:06 Humalog SUB-Q Not Given Q6HR [facility] Protocol Levothyroxine Sodium 50 mcg 11/10/18 06:00 11/14/18 09:59 Synthroid PO 50 mcg QAM SILVER Administration Loperamide HCl 2 mg 11/09/18 15:00 Imodium PO PRN SILVER Morphine Sulfate 2 mg 11/10/18 12:16 11/14/18 10:18 Morphine IV 2 mg Q4H PRN Administration Pain , Severe (7-10) Multivit/Ca Carb/B Cmplx/FA/Prenat 1 cap 11/10/18 10:00 11/14/18 09:59 Renal Caps PO 1 cap QDAY SILVER Administration Ondansetron HCl 4 mg 11/09/18 14:06 Zofran IV Q4H PRN Nausea And Vomiting Oxycodone HCl 2.5 mg 11/09/18 14:26 Roxicodone PO Q6H PRN Pain, Moderate (4-6) Oxycodone/Acetaminophen 1 tab 11/09/18 14:25 11/09/18 16:43 Percocet 5/325 PO 1 tab Q6H PRN Administration Pain, Moderate (4-6) Pantoprazole Sodium 40 mg 11/10/18 10:00 11/14/18 09:59 Protonix PO 40 mg DAILY SILVER Administration Pregabalin 50 mg 11/10/18 10:00 11/14/18 09:59 Lyrica PO 50 mg DAILY SILVER Administration Sertraline HCl 100 mg 11/10/18 10:00 11/14/18 09:58 Zoloft PO 100 mg DAILY SILVER Administration Vancomycin HCl 125 mg 11/13/18 18:00 11/14/18 05:25 Vancomycin Po PO 125 mg Q6HR SILVER Administration Zolpidem Tartrate 10 mg 11/09/18 22:00 11/13/18 21:29 Ambien PO 10 mg QHS SILVER Administration
--- NOTE | 2018-11-14 15:53 | Cat Scan Report ---
EXAM: 1. CT guided 8 Fr right lower quadrant drain placement 2. CT guided 8 Fr midline drain placement CLINICAL INDICATION: Multifocal abscesses in the abdomen DATE: 11/11/18 BLOOD DONOR UNIT ASSISTANT: LUIS BARRETO MD MEDICATIONS: Conscious sedation using Versed and fentanyl was performed under guidance of radiologic nursing. Continuous cardiopulmonary monitoring was utilized. PROCEDURE: Following an explanation of the risks, benefits and alternatives; written informed consent was obtained. The patient was brought to the CT suite and placed in the supine position on the CT table. [employer] CT was performed of the abdomen. After determining the appropriate site, the skin was infiltrated with lidocaine and a finder needle was placed. Intermittent CT was performed until the desired position was identified. The 18 gauge trocar needle was inserted into the largest right lateral collection. Aspiration was performed and sent to the lab for analysis. J wire was then advanced through the needle and into the collection. The needle was exchanged for multiple dilators that were used to serially dilate over the wire. A 8 Fr APD drain was advanced over the wire and metal stiffener. The metal stiffener and wire were removed. CT scanning was performed. The pigtail was secured and aspirated until no more material could be aspirated. Intermittent CT was performed until the desired position was identified. The 18 gauge trocar needle was inserted into the midline collection. Aspiration was performed and sent to the lab for analysis. J wire was then advanced through the needle and into the collection. The needle was exchanged for multiple dilators that were used to serially dilate over the wire. A 8 Fr APD drain was advanced over the wire and metal stiffener. The metal stiffener and wire were removed. CT scanning was performed. The pigtail was secured and aspirated until no more material could be aspirated. Sterile bandage was applied. The patient tolerated the procedure well. There were no immediate postprocedural complications. FINDINGS: 1. Initial CT demonstrates 3 focal abscesses with the largest 2 targeted for drainage. There is a satisfactory window for CT drainage. 2. Intermittent CT demonstrates the 18 gauge needle was placed in each of the focal collections. 3. Wire is coiled in the right lateral abdominal collection in the midline abdominal fluid collection. 4. Final CT documents placement of a 8 Fr drain in the right lateral abdominal collection and a separate 8 Kisw[place]ili drain in the midline abdominal fluid collection. 5. A total of 85 mL's of purulent material was aspirated through the drain and initial needle. IMPRESSION: Successful CT guided 8 Kiswahili drain placements in fluid collections/abscess.
== END 2018-11-14 18:00 | disposition home health service (06) | DRG 371 ==
LOC: ED 03:59 → 4A 09:29
PROVIDERS: ADMIT Internal Medicine; ATTEND Internal Medicine
PROC: 5A1D70Z Performance of Urinary Filtration, Intermittent, Less than 6 Hours Per Day (ICD-10-PCS; 2018-11-09)
PROC: 0W9G30Z Drainage of Peritoneal Cavity with Drainage Device, Percutaneous Approach (ICD-10-PCS; principal; 2018-11-11)
PROC: 0W9G30Z Drainage of Peritoneal Cavity with Drainage Device, Percutaneous Approach (ICD-10-PCS; 2018-11-11)
PROC: 5A1D70Z Performance of Urinary Filtration, Intermittent, Less than 6 Hours Per Day (ICD-10-PCS; 2018-11-12)
PROC: 5A1D70Z Performance of Urinary Filtration, Intermittent, Less than 6 Hours Per Day (ICD-10-PCS; 2018-11-14)
DX: K35.33 Acute appendicitis with perforation, localized peritonitis, and gangrene, with abscess (principal); N18.6 End stage renal disease; E87.5 Hyperkalemia; E87.2 Acidosis; M62.82 Rhabdomyolysis; E11.649 Type 2 diabetes mellitus with hypoglycemia without coma; K57.92 Diverticulitis of intestine, part unspecified, without perforation or abscess without bleeding; H54.7 Unspecified visual loss; E78.5 Hyperlipidemia, unspecified; D69.6 Thrombocytopenia, unspecified; I13.2 Hypertensive heart and chronic kidney disease with heart failure and with stage 5 chronic kidney disease, or end stage renal disease; I50.32 Chronic diastolic (congestive) heart failure; E11.22 Type 2 diabetes mellitus with diabetic chronic kidney disease; K74.69 Other cirrhosis of liver; B19.10 Unspecified viral hepatitis B without hepatic coma; R65.10 Systemic inflammatory response syndrome (SIRS) of non-infectious origin without acute organ dysfunction; E03.9 Hypothyroidism, unspecified; E11.42 Type 2 diabetes mellitus with diabetic polyneuropathy; F32.9 Major depressive disorder, single episode, unspecified; G89.4 Chronic pain syndrome; L02.211 Cutaneous abscess of abdominal wall; A04.72 Enterocolitis due to Clostridium difficile, not specified as recurrent; E11.51 Type 2 diabetes mellitus with diabetic peripheral angiopathy without gangrene; M19.90 Unspecified osteoarthritis, unspecified site; Z79.899 Other long term (current) drug therapy; Z99.2 Dependence on renal dialysis; Z89.511 Acquired absence of right leg below knee; Z91.041 Radiographic dye allergy status; Z82.49 Family history of ischemic heart disease and other diseases of the circulatory system; Z83.3 Family history of diabetes mellitus
CPT/HCPCS: 10160; 36415; 74176; 74177; 77012; 80048; 80053; 82550; 82607; 82728; 82747; 82962; 83550; 83735; 84132; 84443; 85007; 85025; 85027; 87076; 87116; 87186; 87493; 93005; 93010; 94644; G0378; C1769; J0610; J0696; J1815; J2250; J2270; J2543; J2930; J3010; J3246; J3370; J7040; Q9967